=== PATIENT | female | born 1975 | race Hispanic/Latino ===

== ENCOUNTER 2018-11-29 17:55 | Inpatient (IN) | payer OTHER ==
--- OUTSIDE RECORDS SUMMARY | 2018-11-29 17:57 | XMS REPORT | Clinical Summary ---
:1975 Author Organization [facility] Address [address] [place] [address] Care Team Providers Name Role Phone Asked, No Pcp Primary Care Provider Unavailable Allergies Not on File Medications Not on file Active Problems Not on file Social History Tobacco Use Types Packs/Day Years Used Date Never Assessed Sex Assigned at Date Recorded Not on file Job Start Date Occupation Industry Not on file Not on file Not on file Travel History Travel Start Travel End No recent travel history available. Last Filed Vital Signs Not on file Plan of Treatment Health Maintenance Due Date Last Done Comments CERVICAL CANCER SCREENING 1996 INFLUENZA VACCINE 05/22/2018 Results Not on fileafter 11/28/2017 Insurance Payer Benefit Plan / Group Subscriber ID Type Phone Address [employer] [place] [employer] xxxxxxxxx HMO [employer] HMO MCR ADV xxxxxxxxxxx HMO Advance Directives Patient has advance care planning documents on file. For more information, please contact:[phone] [place] [address]
[2018-11-29] MEDS ORDERED: ALBUTEROL 2.5 MG/3 ML NEB SOL ONE ×2 (18:16→23:08)
[2018-11-29] MEDS ORDERED: IPRATROPIUM BROM 0.5MG/2.5ML ONE ×2 (18:16→23:08)
[2018-11-29 18:41] LABS: Absolute Lymphocytes (CBC) 0.8 K/uL (0.7-4.9); Absolute Monocytes 0.4 K/uL (0.1-1.3); Absolute Neutrophil 4.1 K/uL (1.8-8.0); Basophils % 1.2 % (0-1.3); Eosinophils % 0.8 % (0-4.4); Hematocrit 42.1 % (36.0-45.0); MPV 7.4 fL (7.6-11.3); Monocytes % 7.2 % (3.3-12.3); RBC Red Blood Cell Count 4.88 M/uL (3.86-4.86)
[2018-11-29 18:43] LABS: Protime INR 1.15
[2018-11-29 18:45] LABS: ALT/SGPT 41 U/L (12-78); AST/SGOT 32 U/L (15-37); Albumin 3.5 g/dL (3.4-5.0); Alkaline Phosphatase 118 U/L (45-117); BUN Blood Urea Nitrogen 10 mg/dL (7-18); Bicarbonate 23 mmol/L (21-32); Bilirubin Direct 0.2 mg/dL (0-0.2); Bilirubin Total 0.6 mg/dL (0.2-1.0); Glucose Level 228 mg/dL (74-106); Potassium 3.1 mmol/L (3.5-5.1); Protein, Total 7.9 g/dL (6.4-8.2); Sodium Level 138 mmol/L (136-145); Troponin (Emerg Dept Use Only) < 0.02 ng/mL (0.0-0.045)
[2018-11-29] MEDS ORDERED: NA CHLORIDE 0.9% 1,000 ML ONE ×2 (18:48→19:38)
[2018-11-29] MEDS ORDERED: METHYLPREDNISOLONE 125 MG INJ ONE (18:48)
--- NOTE | 2018-11-29 19:24 | RAD REPORT ---
EXAM DESCRIPTION: RAD - Chest Single View - 11/29/2018 6:48 pm CLINICAL HISTORY: Shortness of breath COMPARISON: August 2018 TECHNIQUE: AP portable chest image was obtained 1846 hour . FINDINGS: Lung volumes are low. This accentuates lung markings. No peripheral mass or consolidation. Mild interstitial edema or infiltrate can be masked in this setting. Heart and vasculature are osmar l. No measurable pleural effusion and no pneumothorax. No acute bony abnormality seen. No acute aorti c findings suspected. IMPRESSION: No focal mass or consolidation. Prominent interstitial lung markings potentially masking early edema or infiltrate.
[2018-11-29] MEDS ORDERED: POTASSIUM 25 MEQ EFFERV TAB ONE (19:39)
[2018-11-29] MEDS ORDERED: ACETAMINOPHEN 500 MG TAB ONE (20:15)
[2018-11-29] MEDS ORDERED: HYDROCODONE/CHLORPHEN 5 ML/OSYR ONE (20:26)
--- NOTE | 2018-11-29 22:38 | EDPHYS ---
Physician Documentation [facility] Name: Kelsy Gerber Age: 43 yrs Sex: Female : 1975 Arrival Date: 11/29/2018 Time: 17:56 Bed 8 Private MD: ED Physician Jaime Ospina HPI: 11/29 18:30 This 43 yrs old Female presents to ER via Wheelchair with complaints of Asthma cp Exacerbation. 18:30 The patient presents to the emergency department with wheezing, that began without any cp particular precipitating event, the patient was reported to have audible wheezing, chest pain, non-productive cough, trouble breathing, Pre-hospital care: rescue inhaler. Onset: The symptoms/episode began/occurred yesterday, and became worse today. Associated signs and symptoms: Pertinent positives: chest pain, Pertinent negatives: fever, vomiting. Severity of symptoms: in the emergency department the symptoms are unchanged despite home interventions. 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 N/A - Hysterectomy lp1 Historical: - Allergies: 11/29 17:58 Aspirin; sv 17:58 Daypro; sv 17:58 Ibuprofen; sv 17:58 Ketorolac; sv 17:58 Morphine; sv - Home Meds: 11/30 00:43 levothyroxine 50 mcg tab 1 tab once daily [Active]; Topamax 50 mg Oral tab daily lp1 [Active]; montelukast 10 mg oral tab 1 tab once daily [Active]; alprazolam 2 mg Oral tab [Active]; rizatriptan 10 mg oral tab [Active]; pantoprazole 40 mg oral TbEC 1 tab once daily [Active]; atorvastatin 20 mg oral tab nightly [Active]; oxybutynin chloride 5 mg Oral tab nightly [Active]; - PMHx: 11/29 17:58 Asthma; Bipolar disorder; fatty liver; Hypertension; Hypothyroidism; migranes; sv Pancreatitis; - PSHx: 11/30 00:43 Hysterectomy; Cholecystectomy; lp1 - Immunization history:: Adult Immunizations up to date, Flu vaccine is not up to date. - Ebola Screening: : No symptoms or risks identified at this time. - Social history:: Smoking status: Patient uses tobacco products, denies chronic smoking, but will smoke occasionally. ROS: 11/29 18:35 Constitutional: Negative for body aches, chills, fever, poor PO intake. cp 18:35 Eyes: Negative for injury, pain, redness, and discharge. cp 18:35 ENT: Negative for drainage from ear(s), ear pain, sore throat, difficulty swallowing, difficulty handling secretions. 18:35 Cardiovascular: Positive for chest pain, Negative for edema, palpitations. 18:35 Respiratory: Positive for cough, shortness of breath, wheezing. 18:35 Abdomen/GI: Negative for abdominal pain, nausea, vomiting, and diarrhea, black/tarry stool, rectal bleeding. 18:35 : Negative for urinary symptoms. 18:35 Skin: Negative for cellulitis, rash. 18:35 Neuro: Negative for altered mental status, dizziness, headache, syncope, weakness. 18:35 All other systems are negative. Exam: 18:40 Constitutional: The patient appears alert, awake, non-diaphoretic, non-toxic, well cp developed, well nourished, obese, in obvious distress, mildly distressed. 18:40 Head/Face: Normocephalic, atraumatic. cp 18:40 Eyes: Pupils equal round and reactive to light, extra-ocular motions intact. Lids and lashes normal. Conjunctiva and sclera are non-icteric and not injected. Cornea within normal limits. Periorbital areas with no swelling, redness, or edema. 18:40 ENT: External ear(s): are unremarkable, Ear canal(s): are normal, clear, TM's: bulging, is not appreciated, bilaterally, dullness, bilaterally, erythema, is not appreciated, bilaterally, Nose: is normal, Mouth: Lips: moist, Oral mucosa: pink and intact, moist, Posterior pharynx: Airway: no evidence of obstruction, patent, Tonsils: are normal in appearance, Uvula: midline, swelling, is not appreciated, erythema, is not appreciated, exudate, is not appreciated. 18:40 Neck: ROM/movement: is normal, is supple, no meningismus, no nuchal rigidity, Lymph nodes: no appreciated lymphadenopathy. 18:40 Chest/axilla: Inspection: normal, Palpation: is normal, no crepitus, no tenderness. 18:40 Cardiovascular: Rate: normal, Rhythm: regular, Heart sounds: murmur, not appreciated, rub, not appreciated, gallop, not appreciated, Edema: is not appreciated, JVD: is not appreciated. 18:40 Respiratory: mild respiratory distress is noted, Respirations: labored breathing, that is mild, tachypnea, that is mild, Breath sounds: bronchial sounds, that are mild, are heard diffusely, stridor, is not appreciated, wheezing: expiratory that is mild. 18:40 Abdomen/GI: Inspection: obese Palpation: abdomen is soft and non-tender, in all quadrants, rebound tenderness, is not appreciated, voluntary guarding, is not appreciated, involuntary guarding, is not appreciated. 18:40 Back: pain, is absent, ROM is normal. 18:40 Skin: cellulitis, is not appreciated, no rash present. 18:40 Neuro: Orientation: to person, place \T\ time. Mentation: is normal, Cerebellar function: is grossly normal, Motor: moves all fours, strength is normal, Sensation: is normal. 23:03 ECG was reviewed by the Attending Physician. cp Vital Signs: 17:58 Pulse 117; Resp 42; Pulse Ox 96% ; sv 18:08 BP 111 / 71; Resp 46; Temp 99.9; sv 18:30 BP 108 / 72; Pulse 82; Resp 22; Pulse Ox 98% on R/A; sg 19:21 BP 107 / 86; Pulse 115; Resp 20; Temp 99.3(O); Pulse Ox 99% on R/A; Weight 113.4 kg; aj Height 5 ft. 3 in. (160.02 cm); 20:21 BP 110 / 63; Pulse 103; Resp 20; Pulse Ox 98% on R/A; aj 22:40 BP 95 / 70; Pulse 98; Resp 22; Pulse Ox 98% on R/A; lp1 22:53 BP 113 / 71; Pulse 98; Resp 25; Pulse Ox 89% on R/A; lp1 23:45 BP 101 / 70; Pulse 110; Resp 23; Pulse Ox 96% on R/A; lp1 11/30 00:15 BP 105 / 58; Pulse 108; Resp 22; Temp 98.1(O); Pulse Ox 97% on 2 lpm NC; lp1 11/29 19:21 Body Mass Index 44.29 (113.40 kg, 160.02 cm) aj MDM: 11/29 18:14 Patient medically screened. cp 23:00 Data reviewed: vital signs, nurses notes, lab test result(s), EKG, radiologic studies, cp CT scan, plain films. 23:00 Test interpretation: by ED physician or midlevel provider: ECG, plain radiologic cp studies. Counseling: I had a detailed discussion with the patient and/or guardian regarding: the historical points, exam findings, and any diagnostic results supporting the discharge/admit diagnosis, lab results, radiology results, the need for further work-up and treatment in the hospital. Response to treatment: the patient's symptoms have mildly improved after treatment. Physician consultation: Ki Malin MD was called at 22:55, was contacted at 22:55, regarding admission, to the medical/surgical unit. patient's condition, and will see patient in ED, shortly. 11/29 18:10 Order name: Basic Metabolic Panel; Complete Time: 19:24 sv 11/29 20:48 Interpretation: Normal except: K 3.1; GLUC 228; GFR 57. cp 11/29 18:10 Order name: CBC with Diff; Complete Time: 19:24 sv 11/29 20:48 Interpretation: Normal except: RBC 4.88; MPV 7.4; DERECK% 75.8; LYM% 15.0. cp 11/29 18:10 Order name: LFT's; Complete Time: 19:24 sv 11/29 18:10 Order name: Magnesium; Complete Time: 19:24 sv 11/29 18:10 Order name: NT PRO-BNP; Complete Time: 19:24 sv 11/29 18:10 Order name: PT-INR; Complete Time: 19:24 sv 11/29 18:10 Order name: Troponin (emerg Dept Use Only); Complete Time: 19:24 sv 11/29 18:10 Order name: XRAY Chest (1 view); Complete Time: 20:48 sv 11/29 18:10 Order name: Blood Culture Adult (2) sv 11/29 18:27 Order name: Influenza Screen (a \T\ B); Complete Time: 19:24 cp 11/29 20:50 Order name: D-Dimer; Complete Time: 21:39 cp 11/29 21:24 Order name: CT Chest For PE Angio cp 11/29 21:25 Order name: US Extremity Venous Unilateral Ltd cp 11/29 23:39 Order name: ABG Arterial Blood Gas EDOH 11/29 18:10 Order name: EKG; Complete Time: 18:11 sv 11/29 18:10 Order name: Cardiac monitoring; Complete Time: 19:15 sv 11/29 18:10 Order name: EKG - Nurse/Tech; Complete Time: 23:29 sv 11/29 18:10 Order name: IV Saline Lock; Complete Time: 19:15 sv 11/29 18:10 Order name: Labs collected and sent; Complete Time: 19:15 sv 11/29 18:10 Order name: O2 Per Protocol; Complete Time: 19:15 sv 11/29 18:10 Order name: O2 Sat Monitoring; Complete Time: 19:15 sv EC:03 Rate is 97 beats/min. Rhythm is regular. VA interval is normal. QRS interval is normal. cp QT interval is normal. T waves are Inverted in lead III. Interpreted by me. Reviewed by me. Administered Medications: 18:10 Drug: Albuterol - atroVENT (3:1) (2.5 mg - 0.5 mg) 3 ml Route: Nebulizer; sv 19:56 Follow up: Response: No adverse reaction aj 19:14 Drug: SOLU-Medrol 125 mg Route: IVP; Site: right antecubital; sg 19:40 Follow up: Response: No adverse reaction aj 19:38 Drug: NS 0.9% 1000 ml Route: IV; Rate: 1 bolus; Site: right antecubital; aj 19:38 Drug: Potassium Effervescent Tablet 50 mEq Route: PO; aj 19:55 Follow up: Response: No adverse reaction aj 20:18 Drug: Tussionex Pennkinetic ER 5 ml Route: PO; aj 22:47 Follow up: Response: No adverse reaction; Marked relief of symptoms lp1 22:40 Drug: NS 0.9% 500 ml Route: IV; Rate: bolus; Site: right antecubital; lp1 23:12 Follow up: IV Status: Completed infusion; IV Intake: 500ml lp1 22:48 CANCELLED (Physician Discretion): Rocephin - (cefTRIAXone) 1 grams IVPB once over 30 cp mins; (mix in 50 mL NS) 23:11 Drug: Rocephin 1 grams Route: IV; Rate: calculated rate; Site: right antecubital; lp1 11/30 00:32 Follow up: IV Status: Completed infusion; IV Intake: 10ml lp1 11/29 23:12 Drug: Albuterol - atroVENT (3:1) (2.5 mg - 0.5 mg) 3 ml Route: Nebulizer; lp1 11/30 00:35 Follow up: Response: No adverse reaction lp1 00:35 Drug: Zithromax 500 mg Route: PO; lp1 01:00 Follow up: Response: No adverse reaction lp1 Disposition: 11/29/18 23:02 Hospitalization ordered by Ki Malin for Observation. Preliminary diagnosis are Pneumonia due to other specified bacteria, Unspecified asthma with (acute) exacerbation. - Bed requested for Telemetry/MedSurg (observation). - Status is Observation. lp1 - Condition is Stable. - Problem is new. - Symptoms have improved. UTI on Admission? No Addendum: 12/02/2018 09:15 Co-signature as Attending Physician, Jaime Ospina MD I agree with the assessment and c siddiqui plan of care. Signatures: Dispatcher [employer] EDYazmin Orona RN RN kl Verde, Stephanie, RN RN sv Gay, Steven, RN RN sg Myers, Amanda, RN RN aj Anderson, Corey, MD MD cha Pena, Laura, RN RN lp1 Jaime Roberto PA PA cp Corrections: (The following items were deleted from the chart) 11/29 22:48 22:35 Rocephin - (cefTRIAXone) 1 grams IVPB once over 30 mins; (mix in 50 mL NS) cp ordered. cp 23:01 22:37 11/29/2018 22:37 Discharged to Home. Impression: Pneumonia due to other specified cp bacteria; Unspecified asthma with (acute) exacerbation. Condition is Stable. Forms are Medication Reconciliation Form, Thank You Letter, Antibiotic Education, Prescription Opioid Use. Follow up: Private Physician; When: 2 - 3 days; Reason: Recheck today's complaints. Problem is new. Symptoms have improved. cp 23:49 23:02 Hospitalization Ordered by Ki Malin MD for Observation. Preliminary kl diagnosis is Pneumonia due to other specified bacteria; Unspecified asthma with (acute) exacerbation. Bed requested for Telemetry/MedSurg (observation). Status is Observation. Condition is Stable. Problem is new. Symptoms have improved. UTI on Admission? No. cp 11/30 01:13 11/29 23:49 11/29/2018 23:02 Hospitalization Ordered by Ki Malin MD for lp1 Observation. Preliminary diagnosis is Pneumonia due to other specified bacteria; Unspecified asthma with (acute) exacerbation. Bed requested for Telemetry/MedSurg (observation). Status is Observation. Condition is Stable. Problem is new. Symptoms have improved. UTI on Admission? No. kl
--- NOTE | 2018-11-29 22:38 | ER ---
Nurse's Notes [facility] Name: Kelsy Gerber Age: 43 yrs Sex: Female : 1975 Arrival Date: 11/29/2018 Time: 17:56 Bed 8 Private MD: Diagnosis: Pneumonia due to other specified bacteria;Unspecified asthma with (acute) exacerbation Presentation: 11/29 17:58 Presenting complaint: Patient states: SOB that has increased today, hx asthma. sv Transition of care: patient was not received from another setting of care. Onset of symptoms was November 29, 2018. Care prior to arrival: None. 17:58 Method Of Arrival: Wheelchair sv 17:58 Acuity: KELLEY 2 sv 22:49 Risk Assessment: Do you want to hurt yourself or someone else? Patient reports no lp1 desire to harm self or others. Initial Sepsis Screen: Does the patient meet any 2 criteria? No. Patient's initial sepsis screen is negative. Does the patient have a suspected source of infection? No. Patient's initial sepsis screen is negative. 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 N/A - Hysterectomy lp1 Historical: - Allergies: 11/29 17:58 Aspirin; sv 17:58 Daypro; sv 17:58 Ibuprofen; sv 17:58 Ketorolac; sv 17:58 Morphine; sv - Home Meds: 11/30 00:43 levothyroxine 50 mcg tab 1 tab once daily [Active]; Topamax 50 mg Oral tab daily lp1 [Active]; montelukast 10 mg oral tab 1 tab once daily [Active]; alprazolam 2 mg Oral tab [Active]; rizatriptan 10 mg oral tab [Active]; pantoprazole 40 mg oral TbEC 1 tab once daily [Active]; atorvastatin 20 mg oral tab nightly [Active]; oxybutynin chloride 5 mg Oral tab nightly [Active]; - PMHx: 11/29 17:58 Asthma; Bipolar disorder; fatty liver; Hypertension; Hypothyroidism; migranes; sv Pancreatitis; - PSHx: 11/30 00:43 Hysterectomy; Cholecystectomy; lp1 - Immunization history:: Adult Immunizations up to date, Flu vaccine is not up to date. - Ebola Screening: : No symptoms or risks identified at this time. - Social history:: Smoking status: Patient uses tobacco products, denies chronic smoking, but will smoke occasionally. Screenin/08 18:00 Abuse screen: Denies threats or abuse. Denies injuries from another. Nutritional sg screening: No deficits noted. Tuberculosis screening: No symptoms or risk factors identified. Never had TB. Fall Risk None identified. Assessment: 18:00 General: Appears in no apparent distress. well groomed, well developed, well nourished, sg Behavior is cooperative, appropriate for age, anxious. Pain: Denies pain. Neuro: Level of Consciousness is awake, alert, obeys commands, Oriented to person, place, time, situation, Dough Molder Hand are equal bilaterally Moves all extremities. Full function Speech is normal, Facial symmetry appears normal. Cardiovascular: Capillary refill is brisk in bilateral fingers Patient's skin is warm and dry. Respiratory: Airway Respiratory effort is even, unlabored, Respiratory pattern is symmetrical, tachypnea. GI: No signs and/or symptoms were reported involving the gastrointestinal system. : No signs and/or symptoms were reported regarding the genitourinary system. EENT: No signs and/or symptoms were reported regarding the EENT system. Derm: Skin is pink, warm \\T\\ dry. Musculoskeletal: No signs and/or symptoms reported regarding the musculoskeletal system. 18:49 Reassessment: Patient appears in no apparent distress at this time. Patient and/or sg family updated on plan of care and expected duration. Pain level reassessed. Patient is alert, oriented x 3, equal unlabored respirations, skin warm/dry/pink. pts lung sound more clear, pt reports " still feel a little wheezy". Respiratory: Airway is patent Respiratory effort is even, unlabored, Respiratory pattern is symmetrical, tachypnea. 18:51 Reassessment: Patient appears in no apparent distress at this time. awaiting BNP and sg chest xray results prior to administration of IV NS Bolus, pt reports understanding, IV solumedrol to be administered as ordered. 19:42 General: Appears in no apparent distress. comfortable, Behavior is calm, cooperative. aj Pain: Denies pain. Neuro: Level of Consciousness is awake, alert, obeys commands, Oriented to person, place, time, situation, Appropriate for age. Respiratory: Airway is patent Respiratory effort is even, unlabored, Respiratory pattern is symmetrical, hyperventilation Patient has audible wheezes upon expiration when she is awake. When patient is resting no audible wheezes noted. Derm: Skin is intact, is healthy with good turgor, Skin is pink, warm \\T\\ dry. normal. 22:45 Reassessment: Patient and/or family updated on plan of care and expected duration. Pain lp1 level reassessed. On arrival into room, patient with labored breathing, states "I'm trying to slow my breathing like the nurse taught me" Patient denies pain at this time. Patient states feeling better. General: Behavior is anxious. 23:10 Reassessment: Provider notified of O2 sat of 90% on RA, patient continues to be lp1 tachypneic at 26 respirations per minute; audible wheezing when talking. Respiratory: Respiratory effort is labored, Breath sounds are clear bilaterally. 23:10 Reassessment: verbal order given for 3:1 Albuterol/Atrovent treatment. lp1 23:49 Reassessment: pt assisted to bedside commode, pt brief changed. pt assisted back to ak1 bed. RT at bedside for ABG. 11/30 00:30 Reassessment: Wheezing exacerbated by exertion; Continued tachypnea noted, placed on 2L lp1 NC for comfort; Aware of pending admission. Vital Signs: 11/29 17:58 Pulse 117; Resp 42; Pulse Ox 96% ; sv 18:08 BP 111 / 71; Resp 46; Temp 99.9; sv 18:30 BP 108 / 72; Pulse 82; Resp 22; Pulse Ox 98% on R/A; sg 19:21 BP 107 / 86; Pulse 115; Resp 20; Temp 99.3(O); Pulse Ox 99% on R/A; Weight 113.4 kg; aj Height 5 ft. 3 in. (160.02 cm); 20:21 BP 110 / 63; Pulse 103; Resp 20; Pulse Ox 98% on R/A; aj 22:40 BP 95 / 70; Pulse 98; Resp 22; Pulse Ox 98% on R/A; lp1 22:53 BP 113 / 71; Pulse 98; Resp 25; Pulse Ox 89% on R/A; lp1 23:45 BP 101 / 70; Pulse 110; Resp 23; Pulse Ox 96% on R/A; lp1 11/30 00:15 BP 105 / 58; Pulse 108; Resp 22; Temp 98.1(O); Pulse Ox 97% on 2 lpm NC; lp1 11/29 19:21 Body Mass Index 44.29 (113.40 kg, 160.02 cm) aj ED Course: 11/29 17:56 Patient arrived in ED. sb2 17:58 Triage completed. sv 18:00 Patient has correct armband on for positive identification. Bed in low position. Call sg light in reach. Side rails up X2. Pulse ox on. NIBP on. 18:13 Missed attempt(s): 20 gauge in right antecubital area. Bleeding controlled, band aid dh3 applied, catheter tip intact. 18:14 Jaime Robreto PA is PHCP. cp 18:14 Jaime Ospina MD is Attending Physician. cp 18:15 Initial lab(s) drawn, by ut, sent to lab. First set of blood cultures drawn. Inserted dh3 saline lock: 20 gauge in right antecubital area, using aseptic technique. Blood collected. 18:27 Tiago Angulo RN is Primary Nurse. sg 18:47 X-ray completed. Portable x-ray completed in exam room. Patient tolerated procedure ls3 well. 18:47 XRAY Chest (1 view) In Process Unspecified. EDMS 18:57 Primary Nurse role handed off by Tiago Angulo RN aj 18:57 Maggy Leon, RN is Primary Nurse. aj 20:42 Patient taken to restroom in wheelchair. aj 21:[address] vr 21:39 CT completed. Patient tolerated procedure well. vr 21:50 Patient taken to ultrasound. via stretcher. vr 21:54 CT Chest For PE Angio In Process Unspecified. EDMS 21:55 US Extremity Venous Unilateral Ltd In Process Unspecified. EDMS 22:00 Report received from Maggy Leon RN. lp1 22:45 EKG done, by ED staff, reviewed by Jaime MIKE. lp1 22:49 No provider procedures requiring assistance completed. lp1 23:01 Ki Malin MD is Hospitalizing Provider. cp 23:14 Arm band placed on. lp1 23:58 Patient admitted, IV remains in place. lp1 11/30 00:40 Attempted to call report to floor, nurse will call back. lp1 Administered Medications: 11/29 18:10 Drug: Albuterol - atroVENT (3:1) (2.5 mg - 0.5 mg) 3 ml Route: Nebulizer; sv 19:56 Follow up: Response: No adverse reaction aj 19:14 Drug: SOLU-Medrol 125 mg Route: IVP; Site: right antecubital; sg 19:40 Follow up: Response: No adverse reaction aj 19:38 Drug: NS 0.9% 1000 ml Route: IV; Rate: 1 bolus; Site: right antecubital; aj 19:38 Drug: Potassium Effervescent Tablet 50 mEq Route: PO; aj 19:55 Follow up: Response: No adverse reaction aj 20:18 Drug: Tussionex Pennkinetic ER 5 ml Route: PO; aj 22:47 Follow up: Response: No adverse reaction; Marked relief of symptoms lp1 22:40 Drug: NS 0.9% 500 ml Route: IV; Rate: bolus; Site: right antecubital; lp1 23:12 Follow up: IV Status: Completed infusion; IV Intake: 500ml lp1 22:48 CANCELLED (Physician Discretion): Rocephin - (cefTRIAXone) 1 grams IVPB once over 30 cp mins; (mix in 50 mL NS) 23:11 Drug: Rocephin 1 grams Route: IV; Rate: calculated rate; Site: right antecubital; lp1 11/30 00:32 Follow up: IV Status: Completed infusion; IV Intake: 10ml lp1 11/29 23:12 Drug: Albuterol - atroVENT (3:1) (2.5 mg - 0.5 mg) 3 ml Route: Nebulizer; lp1 11/30 00:35 Follow up: Response: No adverse reaction lp1 00:35 Drug: Zithromax 500 mg Route: PO; lp1 01:00 Follow up: Response: No adverse reaction lp1 Intake: 11/29 23:12 IV: 500ml; Total: 500ml. lp1 11/30 00:32 IV: 10ml; Total: 510ml. lp1 Outcome: 11/29 22:37 Discharge ordered by . cp 23:02 Decision to Hospitalize by Provider. cp 11/30 00:43 Condition: stable lp1 Instructed on the need for admit. 01:06 Admitted to Tele accompanied by tech, room 422, with oxygen, with chart, Report called lp1 to ELIZ Sam 01:13 Patient left the ED. lp1 Signatures: Dispatcher [employer] EDNicolasa Torres RN ELIZ Tiago Angulo RN RN sg Maggy Leon RN Hailey Meyer Laura, RN RN lp1 Blanca Rivas RN RN ak1 Jaime Roberto PA PA cp Herrera, Cristine 3 Kayla Nicole 2 Heike Miguel 3 Corrections: (The following items were deleted from the chart) 11/29 18:08 17:58 Acuity: KELLEY 3 sv sv 18:09 18:08 BP 111 / 71; Resp 46bpm; sv sv 18:50 18:00 Respiratory: Airway Respiratory effort is even, unlabored, Respiratory pattern is sg regular, symmetrical, sg 20:20 19:21 BP 107 / 86; Pulse 115bpm; Resp 20bpm; Pulse Ox 99% RA; aj aj 20:31 20:21 BP 110 / 63; Pulse 103bpm; Resp 20bpm; Pulse Ox 96% RA; aj aj 21:50 21:[address] moved back [address]. vr vr 21:59 19:21 BP 107 / 86; Pulse 115bpm; Resp 20bpm; Pulse Ox 99% RA; 113.4 kg; Height 5 ft. 3 aj in.; BMI: 44.2; aj
[2018-11-29] MEDS ORDERED: NA CHLORIDE 0.9% 500 ML ONE (22:45)
[2018-11-29] MEDS ORDERED: CEFTRIAXONE/SWI 1gm 1 GM/10 ML SYR ONE (23:10)
--- NOTE | 2018-11-29 23:55 | P.HP ---
Certification for Inpatient Patient admitted to: Inpatient With expected LOS: >2 Midnights Practitioner: I am a practitioner with admitting privileges, knowledge of patient current condition, hospital course, and medical plan of care. Services: Services provided to patient in accordance with Admission requirements found in Title 42 Section 412.3 of the Code of Federal Regulations Patient History Date of Service: 11/29/18 Reason for admission: acute respiratory failure History of Present Illness: Ms Gerber is a 43 years old woman with history of moderate persistent asthma , obesity, HTN, Hypothyroidism, bipolar syndrome who start 2 days ago with progressive SOB. She had also dry cough. Her symptoms were not relieved by breathing treatments. She denied fever or chills, however, in ER her temp was 99.9F. O2 sat was 98% on RA. D-dimer was mildly elevated, subsequent CTA chest showed no PE but there is a interstitial opacity in the left upper lobe concerning for pneumonia. Lab work remarkable for normal WBC count, and hypokalemia. At my encounter, the patient was tachypneic, with audible expiratory wheezing. Allergies aspirin Allergy (Verified 10/10/16 23:40) Unknown ibuprofen Allergy (Verified 10/10/16 23:40) Hives ketorolac Allergy (Verified 10/10/16 23:40) Unknown ketorolac tromethamine [From Toradol] Allergy (Verified 10/10/16 23:40) Hives morphine Allergy (Unverified 10/28/17 16:42) Unknown oxaprozin [From Daypro] Allergy (Verified 10/10/16 23:40) Unknown Home Medications: Montelukast [Singulair*] 10 mg PO DAILY 09/02/14 Levothyroxine [Synthroid*] 75 mcg PO [id number] 09/23/14 Losartan Potassium 50 mg PO DAILY 10/10/16 Multivitamin [One-Daily Multi-Vitamin] 1 each PO DAILY 10/10/16 Pantoprazole [Protonix Tab*] 40 mg PO DAILY 10/10/16 ALPRAZolam [Xanax*] 1 mg PO Q12HP PRN 10/11/16 Albuterol Sulfate [Proair Hfa] 1 puff IH DAILY 10/11/16 Budesonide/Formoterol Fumarate [Symbicort 160-4.5 Mcg Inhaler] 1 puff IH DAILY 10/11/16 Lipase/Protease/Amylase [Creon Dr 12,000 Units Capsule] 24,000 units PO TIDWM Topiramate [Topamax*] 50 mg PO DAILY #30 tab 10/20/16 - Past Medical/Surgical History Diabetic: Yes -: Asthma -: Bipolar -: Fatty liver -: RON -: DM-Type 2- pt denied -: Insomnia -: Hypothyroidism -: Liver cyst -: Obesity -: History of pancreatitis -: hysterectomy -: gall bladder removal -: skin graft R upper thigh Psychosocial/ Personal History: She is with 2 children. She lives with a daughter. - Family History Brother -: Stroke Mother -: Other (see notes) Notes: Alzheimer's/dementia Father -: Heart disease, Hypertension, Lung disease, GI disease, Diabetes, Other (see notes) Notes: absestos - Social History Smoking Status: Former smoker Alcohol use: No CD- Drugs: No Caffeine use: Yes Place of Residence: Home Review of Systems 10-point ROS is otherwise unremarkable Physical Examination - Physical Exam General: Alert, In no apparent distress HEENT: Atraumatic, PERRLA, Mucous membr. moist/pink, EOMI, Sclerae nonicteric Neck: Supple, 2+ carotid pulse no bruit, No LAD, Without JVD or thyroid abnormality Respiratory: Diminished, Crackles/rales (bibasilar crackles), Expiratory wheezes Cardiovascular: Regular rate/rhythm, Normal S1 S2 Gastrointestinal: Normal bowel sounds, No tenderness Musculoskeletal: No tenderness Integumentary: No rashes Neurological: Normal speech, Normal strength at 5/5 x4 extr, Normal tone, Normal affect Lymphatics: No axilla or inguinal lymphadenopathy - Studies Laboratory Data (last 24 hrs) 11/29/18 18:15: PT 13.5 H, INR 1.15 11/29/18 18:15: WBC 5.4, Hgb 14.1, Hct 42.1, Plt Count 380 11/29/18 18:15: Sodium 138, Potassium 3.1 L, BUN 10, Creatinine 1.06, Glucose 228 H, Magnesium 2.0, Total Bilirubin 0.6, AST 32, ALT 41, Alkaline Phosphatase 118 H Microbiology Data (last 24 hrs): 11/29/18 18:36 Nasopharnyx Influenza Type A Antigen Screen - Final 11/29/18 18:36 Nasopharnyx Influenza Type B Antigen Screen - Final Assessment and Plan - Problems (Diagnosis) (1) Acute respiratory failure Current Visit: Yes Status: Acute (2) Pneumonia Current Visit: Yes Status: Acute Qualifiers: Pneumonia type: due to unspecified organism Laterality: left Lung location: upper lobe of lung Qualified Code(s): J18.1 - Lobar pneumonia, unspecified organism (3) Acute severe exacerbation of moderate persistent asthma Current Visit: Yes Status: Acute (4) Hypertension Current Visit: No Status: Chronic Qualifiers: Hypertension type: essential hypertension Qualified Code(s): I10 - Essential (primary) hypertension (5) Hypothyroidism Onset Date: 10/11/16 Current Visit: No Status: Chronic Qualifiers: Hypothyroidism type: unspecified Qualified Code(s): E03.9 - Hypothyroidism , unspecified - Plan Will admit Ms Gerber due to aucte respiratory failure secondary to asthma exacerbation in context of left upper lobe pneumonia. Will continue with IV antibiotics, IV steroids, and breathing treatments. Consult senior grants officer. Pending procalcitonin and lactate. - Advance Directives Does patient have a Living Will: No Does patient have a Durable POA for Healthcare: No - Code Status/Comfort Care Code Status Assessed: Yes Code Status: Full Code
[2018-11-30 00:03] LABS: Arterial Blood Carboxyhemoglob 0.9 % (0-1.5); Blood Gas Oxyhemoglobin 94.4 % (94-97); Blood O2 Saturation 96.1 % (92-98.5)
[2018-11-30] MEDS ORDERED: AZITHROMYCIN 250 MG TAB ONE (00:40)
[2018-11-30 01:33] VITALS: BMI 42.5
[2018-11-30] MEDS ORDERED: IPRATROPIUM BROM 0.5MG/2.5ML NEB PRN (01:36)
[2018-11-30] MEDS ORDERED: NA CHLORIDE 0.9% 1,000 ML IV SCH (01:36)
[2018-11-30] MEDS ORDERED: ALBUTEROL 2.5 MG/3 ML NEB SOL NEB PRN (01:36)
[2018-11-30] MEDS ORDERED: ONDANSETRON 4 MG/2 ML VIAL IV PRN (01:36)
[2018-11-30] MEDS ORDERED: CEFTRIAXONE 1 GM/NS 50 ML 1 GM/50 ML BAG IV SCH (02:00)
[2018-11-30] MEDS ORDERED: AZITHROMYCIN IV 500 MG in NA CHLORIDE 0.9% 250 ML IVPB SCH (02:00)
[2018-11-30] MEDS: METHYLPREDNISOLONE 125 MG INJ IV SCH ×4 (02:11→17:09)
[2018-11-30] MEDS ORDERED: NA CHLORIDE 0.9% 1,000 ML ONE (03:04)
[2018-11-30] MEDS ORDERED: POTASSIUM CL SA 10 MEQ TAB PO ONE (03:12)
[2018-11-30] MEDS: ACETAMINOPHEN 500 MG TAB PO PRN ×2 (03:43→11:13)
[2018-11-30 04:06] LABS: Urine Appearance CLEAR; Urine Bilirubin NEGATIVE (NEG); Urine Blood NEGATIVE (NEG); Urine Color YELLOW; Urine Glucose 3+ (NEG); Urine Protein NEGATIVE (NEG); Urine Specific Gravity >=1.030 (1.005-1.030); Urine Urobilinogen 0.2 mg/dL (0.2-1.0); Urine pH 5.5 (5.0-7.0)
[2018-11-30 04:21] LABS: Urine Microscopic Reflex NO UMIC
[2018-11-30 05:24] LABS: Absolute Lymphocytes (CBC) 0.4 K/uL (0.7-4.9); Absolute Neutrophil 4.5 K/uL (1.8-8.0); Basophils % 0.5 % (0-1.3); Hematocrit 38.1 % (36.0-45.0); Lymphocytes % 7.8 % (15.3-44.8); MPV 7.4 fL (7.6-11.3); Monocytes % 0.9 % (3.3-12.3); RBC Red Blood Cell Count 4.39 M/uL (3.86-4.86)
--- NOTE | 2018-11-30 06:33 | EKG ---
Test Date: 2018-11-29 Test Time: 22:42:56 Roving Department Supervisor: AMRITA MEASUREMENT RESULTS: Intervals: Rate: 97 TN: 156 QRSD: 98 QT: 370 QTc: 469 Show Low: P: 42 TN: 156 QRS: -63 T: 18 INTERPRETIVE STATEMENTS: Normal sinus rhythm Incomplete right bundle branch block Left axis Abnormal ECG Compared to ECG 04/18/2017 17:35:19 Incomplete right bundle-branch block now present Electronically Signed On 11-30-18 06:24:56 WHEELCHAIR RENTAL CLERK by Cornel Fields
[2018-11-30] MEDS: ENOXAPARIN 40 MG/0.4 ML SQ SCH (08:28)
[2018-11-30 08:40] LABS: Blood Morphology Comment NOT SEEN (NOT SEEN); Platelet Estimate ADEQ; Urine White Blood Cell Casts OK
[2018-11-30] MEDS ORDERED: IPRATROPIUM BROM 0.5MG/2.5ML NEB SCH (09:00)
--- NOTE | 2018-11-30 09:02 | RAD REPORT ---
EXAM DESCRIPTION: [facility]11/29/2018 9:55 pm CLINICAL HISTORY: left leg pain . COMPARISON: None. FINDINGS: Left common femoral, superficial femoral, popliteal and posterior tibial veins are compre ssible and demonstrate augmentation. Doppler demonstrates good flow. IMPRESSION: No evidence of deep venous thrombosis involving the left lower extremity.
[2018-11-30] MEDS ORDERED: ALBUTEROL 2.5 MG/3 ML NEB SOL NEB SCH ×2 (09:08→12:00)
--- NOTE | 2018-11-30 10:34 | P.CNS ---
Date of Consult: 11/30/18 Chief Complaint: acute respiratory failure History of Present Illness: Patient is 43 years of age admitted with 3 day history of worsening shortness of breath and cough she has a history of obstructive airways disease former smoker quit 2 years ago she does use Advair and pro air at home history of hypertension possible diabetes and pancreatitis been short of breath for about a month also been complaining of a chronic cough for 6 months patient very short of breath, difficulty speaking in sentences Allergies aspirin Allergy (Mild, Verified 11/30/18 01:55) Shortness of breath ibuprofen Allergy (Mild, Verified 11/30/18 01:55) Hives ketorolac Allergy (Mild, Verified 11/30/18 01:55) Shortness of breath morphine Allergy (Mild, Verified 11/30/18 01:55) Shortness of breath oxaprozin [From Daypro] Allergy (Mild, Verified 11/30/18 01:55) Shortness of breath Home Medications: Montelukast [Singulair*] 10 mg PO DAILY 09/02/14 Levothyroxine [Synthroid*] 75 mcg PO [id number] 09/23/14 Pantoprazole [Protonix Tab*] 40 mg PO DAILY 10/10/16 ALPRAZolam [Xanax*] 1 mg PO BID 10/11/16 Albuterol Sulfate [Proair Hfa] 1 puff IH DAILY 10/11/16 Lipase/Protease/Amylase [Creon Dr 12,000 Units Capsule] 24,000 units PO TIDWM Topiramate [Topamax*] 50 mg PO DAILY #30 tab 10/20/16 Atorvastatin Calcium [Lipitor*] 20 mg PO BEDTIME 11/30/18 Oxybutynin Chloride [Ditropan*] 5 mg PO BEDTIME 11/30/18 Pregabalin [Lyrica*] 100 mg PO BEDTIME 11/30/18 Rizatriptan Benzoate [Rizatriptan] 10 mg PO DAILY 11/30/18 - Past Medical/Surgical History Diabetic: No -: Asthma -: Bipolar -: Fatty liver -: RON -: DM-Type 2- states no longer diabetic -: Insomnia -: Hypothyroidism -: COPD -: Obesity -: History of pancreatitis -: anxiety -: hysterectomy -: gall bladder removal -: skin graft Lt upper thigh Psychosocial/ Personal History: She is with 2 children. She lives with a daughter. - Family History Brother Medical History: Stroke, Kidney disease Mother Medical History: Hypertension, Diabetes, Stroke, Other (see notes) Notes: Alzheimer's/dementia Father Medical History: Heart disease, Hypertension, Lung disease, GI disease, Diabetes Notes: absestos - Social History Smoking Status: Current some day smoker Alcohol use: No CD- Drugs: No Caffeine use: Yes Place of Residence: Home Review of Systems 10-point ROS is otherwise unremarkable General: Weakness Respiratory: Cough, Shortness of Breath Physical Examination Temp Pulse Resp BP Pulse Ox 97.9 F 76 24 H 111/68 93 11/30/18 08:00 11/30/18 08:00 11/30/18 08:00 11/30/18 08:00 11/30/18 08:00 General: Alert, Moderate distress HEENT: Atraumatic, Other Respiratory: Expiratory wheezes Cardiovascular: No edema, Regular rate/rhythm Gastrointestinal: Normal bowel sounds, Soft and benign Musculoskeletal: No clubbing, No contractures Laboratory Data (last 24 hrs) 11/29/18 18:15: PT 13.5 H, INR 1.15 11/29/18 18:15: WBC 5.4, Hgb 14.1, Hct 42.1, Plt Count 380 11/29/18 18:15: Sodium 138, Potassium 3.1 L, BUN 10, Creatinine 1.06, Glucose 228 H, Magnesium 2.0, Total Bilirubin 0.6, AST 32, ALT 41, Alkaline Phosphatase 118 H - Problems (1) Respiratory distress Current Visit: Yes Status: Acute Plan: Patient is 43 years of age with a history of obstructive airways disease admitted with 3 day history of a cough shortness of breath she has had a chronic cough for the past 6 months aggressive worsening of heard for smoke appears to be in moderate to severe distress there is no evidence of sepsis or hypercapnia lactic acid is mildly elevated stay x-rays clear CT chest possible infiltrate and a strongly suspect that she has an exacerbation of underlying obstructive airways disease presume COPD/asthma plan to maximize bronchodilator therapy for now
[2018-11-30] MEDS: LIPASE/PROTEASE/AMYLASE CAP PO SCH ×2 (11:58→17:09)
[2018-11-30] MEDS: ARFORMOTEROL TARTRATE 15 MCG/2 ML VIAL.NEB NEB SCH ×2 (12:02→19:56)
[2018-11-30] MEDS ORDERED: HYDROCODONE/APAP 5/325 MG TAB PO ONE (12:50)
[2018-11-30] MEDS ORDERED: INFLUENZA VACCINE (for 3y+) 0.5 ML DOSE IMVAC ONE (13:00)
[2018-11-30] MEDS: IPRATROPIUM BROM 0.5MG/2.5ML NEB SCH ×2 (14:13→19:56)
--- NOTE | 2018-11-30 16:32 | PN ---
Date of Progress Note: 11/30/2018 History: The patient seen and examined, chart reviewed, and case discussed with RN and Dr. Mccall. The patient is very anxious and short of breath while talking, in some respiratory distress. Medications: List reviewed. Physical Examination: Vital Signs: Temperature 97.9, heart rate 76, blood pressure 111/68, respirations 24, O2 93% on 3 L via nasal cannula. General: Awake, alert, oriented x3, ill-appearing, morbidly obese female, in mild respiratory distre ss. CV: S1, S2. Regular rate and rhythm. Peripheral pulses present. Respiratory: The patient is tachypneic with use of accessory muscles. Diminished breath sounds. Di ffuse wheezing audible. Gastrointestinal: Abdomen is soft, nontender, nondistended. Positive bowel sounds. Extremities: No clubbing, cyanosis, or edema. No calf tenderness. Neuro: Cranial nerves 2-12 intact grossly. No focal neurological deficits. Speech is normal. Skin: No rashes. Normal skin turgor. Psych: Mood is anxious. Affect is congruent with mood. Insight and judgment are good. Laboratory Data: Sodium 140, potassium 4, chloride 109, CO2 18, BUN 11, creatinine 0.96, glucose 300 , calcium 8.6, lactate 4.6, repeat is 2.9. WBC 5, H and H 12.6 and 38.1, platelets 357, neutrophils 90%. Influenza screen negative. Assessment And Plan: A 43-year-old female with: 1.Acute respiratory distress with hypoxia, secondary to chronic obstructive pulmonary disease. We w ill continue with supplemental oxygen. The patient does have elevated lactate. CT angio is negative for PE, and likely related to chronic obstructive pulmonary disease. 2.Acute chronic obstructive pulmonary disease exacerbation. Continue with bronchodilators, nebulize r treatments, and steroids. 3.Pneumonia, left upper lobe. Continue with IV antibiotics. We will follow up on cultures. 4.Essential hypertension. 5.Hypothyroidism. 6.Gastrointestinal and deep vein thrombosis prophylaxes addressed. Plan: As above. Likely discharge in the next 24-48 hours depending on clinical response. SA/MODL Voice ID: [id number] Report ID: [id number]
[2018-11-30] MEDS: CEFTRIAXONE/SWI 1gm 1 GM/10 ML SYR IV SCH (21:03)
[2018-11-30] MEDS: OXYBUTYNIN CHLORIDE 5 MG TAB PO SCH (21:05)
[2018-11-30] MEDS: ALPRAZOLAM 1 MG TABLET PO SCH (21:05)
[2018-11-30] MEDS: ATORVASTATIN 20 MG TAB PO SCH (21:05)
[2018-11-30] MEDS: PREGABALIN 50 MG CAP PO SCH (21:05)
[2018-12-01] MEDS: METHYLPREDNISOLONE 125 MG INJ IV SCH ×3 (00:45→12:37)
[2018-12-01] MEDS: IPRATROPIUM BROM 0.5MG/2.5ML NEB SCH ×4 (02:00→20:00)
[2018-12-01] MEDS: ALBUTEROL 2.5 MG/3 ML NEB SOL NEB PRN (02:00)
[2018-12-01] MEDS: LEVOTHYROXINE SOD 0.075 MG TAB PO SCH (05:31)
[2018-12-01] MEDS: PANTOPRAZOLE 40MG TABLET PO SCH (05:32)
[2018-12-01 06:56] LABS: Magnesium 2.8 mg/dL (1.8-2.4); Potassium 4.6 mmol/L (3.5-5.1)
[2018-12-01] MEDS: ARFORMOTEROL TARTRATE 15 MCG/2 ML VIAL.NEB NEB SCH ×2 (08:01→20:00)
[2018-12-01] MEDS: MONTELUKAST 10 MG TAB PO SCH (08:40)
[2018-12-01] MEDS: TOPIRAMATE 25 MG TAB PO SCH (08:40)
[2018-12-01] MEDS: ALPRAZOLAM 1 MG TABLET PO SCH ×2 (08:40→21:00)
[2018-12-01] MEDS: ENOXAPARIN 40 MG/0.4 ML SQ SCH (08:40)
[2018-12-01] MEDS: AZITHROMYCIN 250 MG TAB PO SCH (08:40)
[2018-12-01] MEDS: LIPASE/PROTEASE/AMYLASE CAP PO SCH ×3 (08:41→17:45)
[2018-12-01] MEDS: RIZATRIPTAN BENZOATE 10 MG PO SCH (08:42)
[2018-12-01] MEDS: GUAIFENESIN/CODEINE 5ML UCUP PO PRN ×3 (10:30→23:54)
[2018-12-01] MEDS ORDERED: LORazepam 2 MG/ML VIAL IV ONE ×2 (12:58→20:05)
[2018-12-01] MEDS ORDERED: LORazepam 2 MG/ML VIAL ONE ×2 (13:11→20:01)
[2018-12-01] MEDS: HYDROCODONE/APAP 7.5/325 MG TAB PO PRN ×2 (13:14→21:56)
[2018-12-01 13:33] LABS: Arterial Blood Carboxyhemoglob 0.7 % (0-1.5); Blood Gas Oxyhemoglobin 92.9 % (94-97); Blood O2 Saturation 94.3 % (92-98.5)
[2018-12-01] MEDS: BENZONATATE 100 MG CAP PO PRN ×2 (13:47→19:57)
--- NOTE | 2018-12-01 14:21 | RAD REPORT ---
EXAM DESCRIPTION: RAD - Chest Single View - 12/01/2018 1:38 pm CLINICAL HISTORY: Cough and congestion, shortness of breath, code yellow COMPARISON: November 29 TECHNIQUE: AP portable chest image was obtained 1334 hours . FINDINGS: No peripheral mass or consolidation. No measurable failure or volume overload. Lung markin gs are similar to the comparison. Heart and vasculature are normal. No measurable pleural effusion an d no pneumothorax. No acute bony abnormality seen. No acute aortic findings suspected. IMPRESSION: No acute cardiopulmonary process. No significant interval change.
[2018-12-01] MEDS ORDERED: LORazepam 2 MG/ML VIAL IV PRN (15:13)
[2018-12-01] MEDS ORDERED: METHYLPREDNISOLONE 125 MG INJ ONE (19:58)
[2018-12-01] MEDS ORDERED: METHYLPREDNISOLONE 125 MG INJ IV ONE (20:00)
[2018-12-01] MEDS ORDERED: METHYLPREDNISOLONE 125 MG INJ IV SCH (21:00)
[2018-12-01] MEDS: OXYBUTYNIN CHLORIDE 5 MG TAB PO SCH (21:54)
[2018-12-01] MEDS: ATORVASTATIN 20 MG TAB PO SCH (21:54)
[2018-12-01] MEDS: PREGABALIN 50 MG CAP PO SCH (21:54)
[2018-12-01] MEDS: CEFTRIAXONE/SWI 1gm 1 GM/10 ML SYR IV SCH (22:00)
--- NOTE | 2018-12-01 22:16 | PN ---
Date of Progress Note: 12/01/2018 Subjective: The patient is seen and examined. Chart reviewed and case discussed with RN and Dr. Mccall. The patient did have episode of anxiety and respiratory distress. A code yellow was called. The patient was severely anxious. She was coughing and had feeling of air hunger. Her saturations did not drop below 95% while on supplemental oxygen at 2 L via nasal cannula. The patient was given Ativan 1 mg IV x1, and her breathing improved. She is very anxious and needs coaching regarding her anxiety to take slow deep breaths. Chest x-ray was also obtained which was negative. Medications: List reviewed. Physical Examination: Vital Signs: Temperature 97.6, heart rate 85, blood pressure 113/62, respirations 28, and O2 of 94% on 2 L via nasal cannula. General: Awake, alert, oriented x3, in some mild respiratory distress. Very anxious female, morbidly obese, BMI 42.6. CV: S1, S2. Regular rate and rhythm. Peripheral pulses present. Respiratory: Moving air well bilaterally. Minimal wheezing. The patient is tachypneic. Use of accessory muscles present. Gastrointestinal: Abdomen is soft, nontender, nondistended. Positive bowel sounds. Extremities: No clubbing, cyanosis, or edema. Neurologic: Nonfocal. Laboratory Data: Sodium 139, potassium 4.6, chloride 107, CO2 25, BUN 14, creatinine 0.8, glucose 252, calcium 9.4, magnesium 2.8. Blood cultures, no growth to date. Chest x-ray, personally reviewed, shows no acute cardiopulmonary process. Assessment And Plan: A 43-year-old female with: 1. Acute respiratory distress with hypoxia secondary to asthma exacerbation. We will continue with supplemental oxygen. The patient has severe anxiety and goes in coughing cycle and becomes more and more agitated. Chest x-ray is clear. CT angio was also negative. 2. Acute asthma exacerbation. Continue bronchodilators and steroids. We will add Robitussin AC and Tessalon Perles for cough. 3. Left shoulder and lateral chest wall pain, likely secondary to chronic cough with fatigue of intercostal muscles. We will start on pain medications. 4. Pneumonia of the left upper lobe. Continue with antibiotics. Cultures are negative to date. 5. Essential hypertension, stable. 6. Hypothyroidism. Continue Synthroid. 7. Generalized anxiety disorder, severe. We will adjust anxiety medications at p.r.n. IV. Gastrointestinal/deep venous thrombosis prophylaxis addressed. The patient is on Lovenox. Plan: Continue weaning off oxygen as tolerated. Likely discharge in the next 24-48 hours depending on clinical response. I appreciate Dr. Mccall's input. JOVANNI Voice ID: [id number] Report ID: [id number] [facility]
[2018-12-02] MEDS: IPRATROPIUM BROM 0.5MG/2.5ML NEB SCH ×4 (02:00→19:36)
[2018-12-02] MEDS: BENZONATATE 100 MG CAP PO PRN ×2 (04:01→13:30)
[2018-12-02] MEDS: HYDROCODONE/APAP 7.5/325 MG TAB PO PRN (04:02)
[2018-12-02] MEDS ORDERED: LORAZEPAM 0.5 MG TABLET PO ONE (04:07)
[2018-12-02] MEDS: LEVOTHYROXINE SOD 0.075 MG TAB PO SCH (06:10)
[2018-12-02] MEDS: PANTOPRAZOLE 40MG TABLET PO SCH (06:41)
[2018-12-02] MEDS: ARFORMOTEROL TARTRATE 15 MCG/2 ML VIAL.NEB NEB SCH ×2 (08:44→19:36)
[2018-12-02] MEDS: RIZATRIPTAN BENZOATE 10 MG PO SCH (09:00)
[2018-12-02] MEDS: LIPASE/PROTEASE/AMYLASE CAP PO SCH ×3 (09:10→18:20)
[2018-12-02] MEDS: AZITHROMYCIN 250 MG TAB PO SCH (09:11)
[2018-12-02] MEDS: MONTELUKAST 10 MG TAB PO SCH (09:11)
[2018-12-02] MEDS: METHYLPREDNISOLONE 40 MG INJ IV SCH ×2 (09:11→20:01)
[2018-12-02] MEDS: TOPIRAMATE 25 MG TAB PO SCH (09:11)
[2018-12-02] MEDS: ALPRAZOLAM 1 MG TABLET PO SCH ×2 (09:11→20:01)
[2018-12-02] MEDS: ENOXAPARIN 40 MG/0.4 ML SQ SCH (09:11)
[2018-12-02] MEDS: GUAIFENESIN/CODEINE 5ML UCUP PO PRN ×2 (09:12→20:01)
--- NOTE | 2018-12-02 12:04 | P.PN ---
Subjective Date of Service: 12/02/18 Chief Complaint: acute respiratory failure Patient is slightly better complains of dyspnea on mild exertion had problem this morning when she was having a shower went into a panic attack with wheezing coughing Review of Systems General: Weakness Respiratory: Cough, Shortness of Breath Physical Examination - Vital Signs Temperature: 97.3 F Blood Pressure: 114/64 Pulse: 63 Respirations: 18 Pulse Ox (%): 95 - Physical Exam General: Alert, Oriented x3, Mild distress HEENT: Atraumatic Respiratory: Expiratory wheezes Cardiovascular: No edema, Regular rate/rhythm Assessment & Plan - Problems (Diagnosis) (1) Respiratory distress Current Visit: Yes Status: Acute Plan: Patient is still has dyspnea on mild exertion audible wheezing at rest she is doing better patient is not hypercapnic patient's chest x-rays clear
[2018-12-02] MEDS ORDERED: IPRATROPIUM BROM 0.5MG/2.5ML NEB SCH (14:00)
--- NOTE | 2018-12-02 14:46 | RAD REPORT ---
EXAM DESCRIPTION: CT - Chest For Pe Angio - 11/29/2018 9:54 pm CLINICAL HISTORY: The patient is 43 years old and is Female; SOB TECHNIQUE: Axial computed tomography images of the chest with intravenous contrast using pulmonary embolism prot ocol. Sagittal and coronal reformatted images were created and reviewed. This CT exam was performed using one or more of the following dose reduction techniques: Automated exposure control, adjustment of the mA and/or kV according to patient size, and/or use of iterative reconstruction technique. MIP reconstructed images were created and reviewed. Oblique reformatted images were created and reviewed. COMPARISON: Chest radiograph on the same day. FINDINGS: LIMITATIONS: Limited visualization of the upper abdomen demonstrate no gross abnormality. PULMONARY ARTERIES: Limited evaluation of the distal pulmonary arterial tree due to poor bolus timing and respiratory motion. AORTA: Aorta is normal in caliber. No calcification. No thoracic aortic aneurysm. LUNGS: No evidence of pulmonary aneurysm. Interstitial opacity is seen in the left upper lobe (series 5, image 28). Mild prominence of the pulmonary interstitium. PLEURAL SPACE: No pleural effusion or pneumothorax. HEART: Unremarkable. No cardiomegaly. No significant pericardial effusion. No evidence of RV dysfunct ion. THYROID: Visualized thyroid is unremarkable. BONES/JOINTS: No acute fracture. No dislocation. SOFT TISSUES: Unremarkable. LYMPH NODES: Scattered non enlarged mediastinal lymph nodes. No lymphadenopathy. IMPRESSION: 1. No evidence of pulmonary aneurysm. 2. Interstitial opacity in the left upper lobe concerning for pneumonia. Correlate for signs of infec tion. 3. Mild prominence of the interstitium which may be do to atelectasis or mild interstitial edema. Electronically signed by: Michael Ernst DO 11/29/2018 10:03 PM INTERIOR DESIGN COORDINATOR Due to temporary technical issues with the PACS/Fluency reporting system, reports are being signed by the in house radiologist as a courtesy to ensure prompt reporting. The interpreting radiologist is f ully responsible for the content of the report.
--- NOTE | 2018-12-02 17:14 | PN ---
Date of Progress Note: 12/02/2018 Subjective: The patient is seen and examined. Chart reviewed and case discussed with RN. The patie nt again had a code yellow due to hyperventilation leading to shortness of breath and severe anxiety. The patient understands that she does have severe anxiety and needs to control her breathing better . The patient wanted to take a shower today, however, became very dyspneic and had to return to her bed. Medications: List reviewed. Physical Examination: Vital Signs: Temperature 97.3, heart rate 63, blood pressure 114/64, respirations 18, and O2 saturat ion 95% on 2 L via nasal cannula. General: Awake, alert, and oriented x3, ill-appearing female, in mild respiratory distress, morbidly obese. CV: S1 and S2. Regular rate and rhythm. Peripheral pulses present. Respiratory: The patient's lungs are clear. She does have some upper airway noise and what seems to be some audible wheezing. Gastrointestinal: Abdomen is soft, nontender, and nondistended. Positive bowel sounds. Extremities: No clubbing, cyanosis, or edema. Neurologic: Nonfocal. Laboratory Data: Sodium 139, potassium 4.6, chloride 107, CO2 of 25, BUN 14, creatinine 0.8, glucose is 252, calcium 9.4, and magnesium 2.8. Blood cultures show no growth to date. Assessment And Plan: A 43-year-old female with, 1.Acute respiratory distress with hypoxia secondary to asthma exacerbation. Continue on supplementa l oxygen, wean as tolerated. The patient does have significant anxiety and which is exacerbating her symptoms. 2.Acute asthma exacerbation. Continue bronchodilators, wean off steroids. Continue Robitussin and Tessalon Perles for her cough. The patient does state that her coughing is what leads to her cycle o f shortness of breath, as she is unable to catch her breath. 3.Left shoulder and lateral chest wall pain secondary to chronic cough, fatigue of intercostal muscl es. Continue [place] p.r.n. 4.Pneumonia of left upper lobe. Continue antibiotics. Cultures negative to date. Found on CT charlie o chest, pulmonary embolism was negative. 5.Essential hypertension, stable. 6.Hypothyroidism. Continue with Synthroid. 7.Generalized anxiety disorder, severe. We will continue benzodiazepines. 8.Deep vein thrombosis prophylaxis with Lovenox. PLAN: Wean off oxygen, discharge in the next 24 hours once more clinically stable. SA/MODL Voice ID: [id number] Report ID: [id number]
[2018-12-02] MEDS: ATORVASTATIN 20 MG TAB PO SCH (20:01)
[2018-12-02] MEDS: CEFTRIAXONE/SWI 1gm 1 GM/10 ML SYR IV SCH (20:04)
[2018-12-02] MEDS: OXYBUTYNIN CHLORIDE 5 MG TAB PO SCH (20:04)
[2018-12-02] MEDS: PREGABALIN 50 MG CAP PO SCH (22:11)
[2018-12-03] MEDS: ALBUTEROL 2.5 MG/3 ML NEB SOL NEB PRN ×3 (01:36→13:37)
[2018-12-03] MEDS: IPRATROPIUM BROM 0.5MG/2.5ML NEB SCH ×3 (01:36→13:37)
[2018-12-03 04:16] LABS: Absolute Monocytes 0.4 K/uL (0.1-1.3); Absolute Neutrophil 5.9 K/uL (1.8-8.0); Basophils % 0.6 % (0-1.3); Eosinophils % 0.1 % (0-4.4); Hematocrit 40.2 % (36.0-45.0); Lymphocytes % 13.3 % (15.3-44.8); MPV 7.7 fL (7.6-11.3); Monocytes % 5.3 % (3.3-12.3); RBC Red Blood Cell Count 4.59 M/uL (3.86-4.86)
[2018-12-03 04:28] LABS: Potassium 4.2 mmol/L (3.5-5.1)
[2018-12-03] MEDS: LEVOTHYROXINE SOD 0.075 MG TAB PO SCH (05:31)
[2018-12-03] MEDS: PANTOPRAZOLE 40MG TABLET PO SCH (05:31)
[2018-12-03] MEDS: LIPASE/PROTEASE/AMYLASE CAP PO SCH ×2 (08:18→12:20)
[2018-12-03] MEDS: BENZONATATE 100 MG CAP PO PRN (08:19)
[2018-12-03] MEDS: TOPIRAMATE 25 MG TAB PO SCH (08:19)
[2018-12-03] MEDS: AZITHROMYCIN 250 MG TAB PO SCH (08:19)
[2018-12-03] MEDS: METHYLPREDNISOLONE 40 MG INJ IV SCH (08:19)
[2018-12-03] MEDS: MONTELUKAST 10 MG TAB PO SCH (08:19)
[2018-12-03] MEDS: ALPRAZOLAM 1 MG TABLET PO SCH (08:19)
[2018-12-03] MEDS: ENOXAPARIN 40 MG/0.4 ML SQ SCH (08:20)
[2018-12-03] MEDS: ARFORMOTEROL TARTRATE 15 MCG/2 ML VIAL.NEB NEB SCH (09:01)
--- NOTE | 2018-12-03 10:18 | ECHO ---
HEIGHT: 5 ft 1 in WEIGHT: 226 lb 8 oz DATE OF STUDY: 12/03/[address]: Inocente Mccall MD 2-DIMENSIONAL: YES M.MODE: YES DOPPLER: YES COLOR FLOW: YES TDS: YES PORTABLE: NO DEFINITY: NO BUBBLE STUDY: NO DIAGNOSIS: RESPIRATORY DISTRESS CARDIAC HISTORY: CATHERIZATION: NO SURGERY: NO PROSTHETIC VALVE: NO PACEMAKER: NO MEASUREMENTS (cm) DIASTOLIC (NORMALS) SYSTOLIC (NORMALS) IVSd 0.9 (0.6-1.2) LA Diam 3.3 (1.9-4.0) LVEF 62% LVIDd 4.8 (3.5-5.7) LVIDs 3.2 (2.0-3.5) %FS 34% LVPWd 1.1 (0.6-1.2) Ao Diam 2.8 (2.0-3.7) 2 DIMENSIONAL ASSESSMENT: RIGHT ATRIUM: NORMAL LEFT ATRIUM: NORMAL RIGHT VENTRICLE: NORMAL LEFT VENTRICLE: NORMAL TRICUSPID VALVE: NORMAL MITRAL VALVE: NORMAL PULMONIC VALVE: NORMAL AORTIC VALVE: NORMAL PERICARDIAL EFFUSION: NONE AORTIC ROOT: NORMAL LEFT VENTRICULAR WALL MOTION: NORMAL DOPPLER/COLOR FLOW: MILD TRICUSPID REGURGITATION. NORMAL RIGHT VENTRICULAR SYSTOLIC PRESSURE. COMMENTS: NORMAL 2D ECHOCARDIOGRAM. MILD TRICUSPID REGURGITATION. TECHNOLOGIST: Kane ALMANZAR
[2018-12-03] MEDS ORDERED: THEOPHYLLINE SR 100 MG TAB PO SCH (11:47)
[2018-12-03] MEDS ORDERED: SPIRONOLACTONE 25 MG TABLET PO SCH (11:47)
--- NOTE | 2018-12-03 11:52 | P.PN ---
Subjective Date of Service: 12/03/18 Chief Complaint: Shortness of breath No change patient still has dyspnea on mild exertion despite maximum bronchodilator therapy Review of Systems General: Weakness Respiratory: Shortness of Breath Physical Examination - Vital Signs Temperature: 97.3 F Blood Pressure: 141/82 Pulse: 73 Respirations: 18 Pulse Ox (%): 93 - Physical Exam General: Alert, Moderate distress Neck: Supple Respiratory: Friction rub, Expiratory wheezes Cardiovascular: No edema, Normal pulses Assessment & Plan - Problems (Diagnosis) (1) Respiratory distress Onset Date: 12/02/18 Current Visit: Yes Status: Acute Plan: Patient still continues to have difficult respiratory distress on exertion with audible wheezing I have added robby. Dc IV antibiotics patient is on maximum bronchodilator therapy low-dose spironolactone possibility of diastolic dysfunction
[2018-12-03] MEDS: GUAIFENESIN/CODEINE 5ML UCUP PO PRN (12:20)
[2018-12-03 12:57] VITALS: O2SAT 94
--- NOTE | 2018-12-03 15:28 | P.DS ---
Admission Date: 11/29/18 Discharge Date: 12/03/18 Disposition: ROUTINE DISCHARGE Discharge Condition: GOOD Reason for Admission: Shortness of breath Consultations: Pulmonology - Problems (1) Acute respiratory failure Onset Date: 12/02/18 Current Visit: Yes Status: Acute (2) Acute severe exacerbation of moderate persistent asthma Onset Date: 12/02/18 Current Visit: Yes Status: Acute (3) GERD (gastroesophageal reflux disease) Current Visit: No Status: Acute Qualifiers: Esophagitis presence: esophagitis presence not specified Qualified Code(s) : K21.9 - Gastro-esophageal reflux disease without esophagitis (4) Bipolar 1 disorder Onset Date: 10/11/16 Current Visit: No Status: Chronic (5) Diabetes mellitus type II, non insulin dependent Onset Date: 09/28/15 Current Visit: No Status: Chronic (6) Fatty liver Onset Date: 10/20/16 Current Visit: No Status: Chronic (7) Hypertension Current Visit: No Status: Chronic Qualifiers: Hypertension type: essential hypertension Qualified Code(s): I10 - Essential (primary) hypertension (8) Hypothyroidism Onset Date: 10/11/16 Current Visit: No Status: Chronic Qualifiers: Hypothyroidism type: unspecified Qualified Code(s): E03.9 - Hypothyroidism , unspecified Brief History of Present Illness: Ms Gerber is a 43 years old woman with history of moderate persistent asthma , obesity, HTN, Hypothyroidism, bipolar syndrome who start 2 days ago with progressive SOB. She had also dry cough. Her symptoms were not relieved by breathing treatments. She denied fever or chills, however, in ER her temp was 99.9F. O2 sat was 98% on RA. D-dimer was mildly elevated, subsequent CTA chest showed no PE but there is a interstitial opacity in the left upper lobe concerning for pneumonia. Lab work remarkable for normal WBC count, and hypokalemia. At my encounter, the patient was tachypneic, with audible expiratory wheezing. Hospital Course: Overall during the hospital stay patient remained stable Was initially admitted to the hospital for acute respiratory failure most likely secondary to asthma exacerbation most likely secondary to her anxiety attack. Patient was kept here in the hospital was kept on duo nebs, steroids, oxygen. Pulmonology was consulted who recommended the patient to the monitor for next 24-48 hr and get nebulizer treatment here in the hospital. Patient did well overall while here in the hospital. Patient did also have anxiety attack while here in the hospital and Code Yellow" was called. Patient was educated extensively on breathing exercises and taking medication for her anxiety along with behavior changes for anxiety. Patient demonstrate understanding had marked improvement in the next 24-48 hr. Patient was then switched over to her inhalers along with oral steroids and was discharged home under stable condition. Patient was given a lot of breathing exercises to do at home along with follow up appointment with media developer and primary care doctor. Vital Signs/Physical Exam: Temp Pulse Resp BP Pulse Ox 97.7 F 73 28 H 141/82 H 94 12/03/18 12:00 12/03/18 12:20 12/03/18 12:00 12/03/18 12:20 12/03/18 12:00 General: Alert, In no apparent distress, Other (Anxious) HEENT: Atraumatic, PERRLA, EOMI Neck: Supple, JVD not distended Respiratory: Normal air movement, Expiratory wheezes, Inspiratory wheezes Cardiovascular: Regular rate/rhythm, Normal S1 S2 Gastrointestinal: Normal bowel sounds, No tenderness Musculoskeletal: No tenderness Integumentary: No rashes Neurological: Normal speech, Normal tone, Normal affect Lymphatics: No axilla or inguinal lymphadenopathy Laboratory Data at Discharge: WBC 7.3 K/uL (4.3-10.9) D 12/03/18 03:40 Hgb 13.1 g/dL (12.0-15.0) 12/03/18 03:40 Hct 40.2 % (36.0-45.0) 12/03/18 03:40 Plt Count 387 K/uL (152-406) 12/03/18 03:40 PT 13.5 SECONDS (9.5-12.5) H 11/29/18 18:15 INR 1.15 11/29/18 18:15 Sodium 138 mmol/L (136-145) 12/03/18 03:40 Potassium 4.2 mmol/L (3.5-5.1) 12/03/18 03:40 BUN 19 mg/dL (7-18) H 12/03/18 03:40 Creatinine 0.93 mg/dL (0.55-1.3) 12/03/18 03:40 Glucose 313 mg/dL (74-106) H 12/03/18 03:40 Magnesium 2.8 mg/dL (1.8-2.4) H D 12/01/18 05:58 Total Bilirubin 0.6 mg/dL (0.2-1.0) 11/29/18 18:15 AST 32 U/L (15-37) 11/29/18 18:15 ALT 41 U/L (12-78) 11/29/18 18:15 Alkaline Phosphatase 118 U/L (45-117) H 11/29/18 18:15 Home Medications: Montelukast [Singulair*] 10 mg PO DAILY 09/02/14 Levothyroxine [Synthroid*] 75 mcg PO [id number] 09/23/14 Pantoprazole [Protonix Tab*] 40 mg PO DAILY 10/10/16 ALPRAZolam [Xanax*] 1 mg PO BID 10/11/16 Albuterol Sulfate [Proair Hfa] 1 puff IH DAILY 10/11/16 Lipase/Protease/Amylase [Creon Dr 12,000 Units Capsule] 24,000 units PO TIDWM Topiramate [Topamax*] 50 mg PO DAILY #30 tab 10/20/16 Atorvastatin Calcium [Lipitor*] 20 mg PO BEDTIME 11/30/18 Oxybutynin Chloride [Ditropan*] 5 mg PO BEDTIME 11/30/18 Pregabalin [Lyrica*] 100 mg PO BEDTIME 11/30/18 Rizatriptan Benzoate [Rizatriptan] 10 mg PO BEDTIME 11/30/18 Arformoterol Tartrate [Brovana] 15 mcg NEB BIDRESP #1 vial.neb 12/03/18 Benzonatate [Tessalon Perle*] 200 mg PO TID PRN #60 cap 12/03/18 Spironolactone [Aldactone*] 25 mg PO BID #60 tab 12/03/18 Theophylline [Babar-Dur*] 200 mg PO BID #60 tab 12/03/18 predniSONE [Deltasone*] 10 mg PO BID #10 tab 12/03/18 New Medications: Arformoterol Tartrate [Brovana] 15 mcg NEB BIDRESP #1 vial.neb Benzonatate [Tessalon Perle*] 200 mg PO TID PRN #60 cap PRN Reason: Cough predniSONE [Deltasone*] 10 mg PO BID #10 tab Spironolactone [Aldactone*] 25 mg PO BID #60 tab Theophylline [Babar-Dur*] 200 mg PO BID #60 tab Diet: Regular Activity: Ad robb Followup: Inocente Mccall MD [ACTIVE - CAN ADMIT] -
[2018-12-03] MEDS ORDERED: INFLUENZA VACCINE (for 3y+) 0.5 ML DOSE IMVAC ONE (16:00)
[2018-12-03 17:37] VITALS: BP 137/87; TEMP 97
[2018-12-03] MEDS ORDERED: DOCUSATE NA 100 MG CAP PO SCH (21:00)
[2018-12-03] MEDS ORDERED: predniSONE 10 MG TAB PO SCH (21:00)
== END 2018-12-03 17:09 | disposition home or self-care (01) | DRG 202 ==
LOC: ER 17:55 → ERHOLD 23:44 → 4TH 11-30 01:07
PROVIDERS: ADMIT Internal Medicine; ATTEND Family Medicine
DX: J45.51 Severe persistent asthma with (acute) exacerbation (principal); J18.1 Lobar pneumonia, unspecified organism; J96.01 Acute respiratory failure with hypoxia; F31.89 Other bipolar disorder; Z68.41 Body mass index [BMI] 40.0-44.9, adult; K21.9 Gastro-esophageal reflux disease without esophagitis; E11.9 Type 2 diabetes mellitus without complications; K76.0 Fatty (change of) liver, not elsewhere classified; I10 Essential (primary) hypertension; E03.9 Hypothyroidism, unspecified; E87.6 Hypokalemia; Z88.8 Allergy status to other drugs, medicaments and biological substances; E66.01 Morbid (severe) obesity due to excess calories; F41.1 Generalized anxiety disorder; R07.82 Intercostal pain
CPT/HCPCS: 36415; 71045; 71275; 80048; 80076; 81003; 82805; 83605; 83735; 83880; 84132; 84145; 84484; 85025; 85379; 85610; 87040; 87804; 93005; 93306; 93971; 94640; 94760; 96361; 96365; 96375; 99285; G0008; J0456; J0696; J1650; J2405; J2920; J2930; J7030; J7605; Q2035; Q9967

== ENCOUNTER 2019-04-13 15:57 | Emergency (ER) | payer OTHER ==
--- OUTSIDE RECORDS SUMMARY | 2019-04-13 16:00 | XMS REPORT | Clinical Summary ---
:1975 Author Organization [facility] Address [address] [place] [address] Care Team Providers Name Role Phone Asked, [...] Health Maintenance Due Date Last Done Comments INFLUENZA VACCINE 05/22/2019 Results Not on fileafter 04/12/2018 Insurance Payer Benefit Plan / Subscriber ID Effective Dates Phone Address Type Group [employer] [place] xxxxxxxxx 2015-[employer] xxxxxxxxxxx [facility] Advance Directives Patient has advance care planning documents on file. For more information, please contact:[address] [address]
[2019-04-13] MEDS ORDERED: FENTANYL CITR 100 MCG/2 ML ONE (16:42)
[2019-04-13] MEDS ORDERED: ONDANSETRON 4 MG/2 ML VIAL ONE (16:42)
[2019-04-13] MEDS ORDERED: NA CHLORIDE 0.9% 500 ML ONE ×2 (16:42→17:37)
[2019-04-13 16:51] LABS: Urine Blood TRACE (NEG); Urine Glucose NEGATIVE (NEG); Urine Protein TRACE (NEG); Urine Specific Gravity 1.025 (1.005-1.030)
--- NOTE | 2019-04-13 17:03 | RAD REPORT ---
EXAM DESCRIPTION: CT - Head C Spine Cap Wo Con - 04/13/2019 4:52 pm CLINICAL HISTORY: Fall, blunt force trauma, head, neck, chest and abdomen pain COMPARISON: None. TECHNIQUE: Axial [address] head images were obtained. Axial [address] cervical spine images were obtain ed with sagittal and coronal reconstruction images reviewed. Axial 5 mm images of the chest, abdomen and pelvis were obtained. All CT scans are performed using dose optimization technique as appropriate and may include automated exposure control or mA/KV adjustment according to patient size. FINDINGS: No intracranial hemorrhage, mass or edema. No midline shift or abnormal fluid collection. Mastoid air cells are clear. Patchy mucosal thickening changes are present in the nasal passages and ethmoid air cells. No air-fluid level in the sinuses. No skull fracture. Cervical bodies are normal in height and alignment. No fracture or acute bone finding.No disk space n arrowing.No prevertebral soft tissue thickening or paraspinal mass.Central canal detail is inherently limited on CT imaging. CT chest shows no pneumothorax, pulmonary contusion or pleural fluid collection. No mediastinal hem atoma and the aorta and pulmonary arteries are unremarkable. No chest will mass or abnormal axillary finding. No displaced rib fracture or other significant bony finding. CT abdomen and pelvis show no injury to solid abdominal viscera. Gallbladder and biliary tree are unr emarkable. No bowel injury or significant finding. No free air, free fluid or abnormal stranding. No hernia, mass or bulky lymphadenopathy. No urinary bladder abnormality. No significant bony finding. IMPRESSION: No significant CT Head finding. No significant CT cervical spine finding. No significant CT Chest finding. No significant CT Abdomen and Pelvis finding.
[2019-04-13 17:05] LABS: Absolute Lymphocytes (CBC) 2.6 K/uL (0.7-4.9); Basophils % 3.1 % (0-1.3); Eosinophils % 2.8 % (0-4.4); Hematocrit 42.8 % (36.0-45.0); MPV 7.5 fL (7.6-11.3); Monocytes % 3.9 % (3.3-12.3); RBC Red Blood Cell Count 4.94 M/uL (3.86-4.86)
[2019-04-13 17:23] LABS: ALT/SGPT 34 U/L (12-78); AST/SGOT 17 U/L (15-37); Albumin 3.6 g/dL (3.4-5.0); Alkaline Phosphatase 117 U/L (45-117); BUN Blood Urea Nitrogen 13 mg/dL (7-18); Bicarbonate 25 mmol/L (21-32); Bilirubin Direct < 0.1 mg/dL (0-0.2); Bilirubin Total 0.4 mg/dL (0.2-1.0); Glucose Level 119 mg/dL (74-106); Lipase 39 U/L (73-393); Potassium 3.7 mmol/L (3.5-5.1); Protein, Total 7.6 g/dL (6.4-8.2); Sodium Level 140 mmol/L (136-145)
[2019-04-13] MEDS ORDERED: CEFTRIAXONE/SWI 1gm 1 GM/10 ML SYR ONE (17:26)
--- NOTE | 2019-04-13 18:06 | ER ---
Nurse's Notes [facility] Name: Kelsy Gerber Age: 43 yrs Sex: Female : 1975 Arrival Date: 04/13/2019 Time: 15:59 Bed 14 Private MD: Diagnosis: Superficial injury of head;Strain of muscle, fascia and tendon at neck level;Low back pain;Bipolar disorder;Urinary tract infection, site not specified Presentation: 04/13 16:10 Presenting complaint: Patient states: "a 2x4 wooden board fell and hit the left side of aa5 my head yesterday". Denies LOC, pt c/o feeling drowsy and c/o headache. C/o nausea, denies vomiting. Transition of care: patient was not received from another setting of care. Mechanism of Injury: resulted from falling object . Onset of symptoms was March 2019. Risk Assessment: Do you want to hurt yourself or someone else? Patient reports no desire to harm self or others. Initial Sepsis Screen: Does the patient meet any 2 criteria? No. Patient's initial sepsis screen is negative. Does the patient have a suspected source of infection? No. Patient's initial sepsis screen is negative. Care prior to arrival: None. 16:10 Method Of Arrival: Wheelchair aa5 16:10 Acuity: KELLEY 2 aa5 Triage Assessment: 16:15 General: Appears in no apparent distress. uncomfortable, Behavior is cooperative, hj appropriate for age, drowsy. Neuro: Reports dizziness, headache. 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/A - Hysterectomy aa5 Historical: - Allergies: 16:13 Aspirin; aa5 16:13 Daypro; aa5 16:13 Ibuprofen; aa5 16:13 Ketorolac; aa5 16:13 Morphine; aa5 - Home Meds: 16:46 alprazolam 2 mg Oral tab [Active]; atorvastatin 20 mg Oral tab nightly [Active]; hj levothyroxine 50 mcg tab 1 tab once daily [Active]; montelukast 10 mg Oral tab 1 tab once daily [Active]; oxybutynin chloride 5 mg Oral tab nightly [Active]; pantoprazole 40 mg Oral TbEC 1 tab once daily [Active]; rizatriptan 10 mg Oral tab [Active]; Topamax 50 mg Oral tab daily [Active]; - PMHx: 16:13 Asthma; Bipolar disorder; fatty liver; Hypertension; Hypothyroidism; migranes; aa5 Pancreatitis; TIA; Left sided weakness; - PSHx: 16:13 Hysterectomy; Cholecystectomy; aa5 - Immunization history:: Adult Immunizations up to date. - Social history:: Smoking status: Patient/guardian denies using tobacco. - Ebola Screening: : No symptoms or risks identified at this time. - Family history:: not pertinent. Screenin:14 Abuse screen: Denies threats or abuse. Denies injuries from another. Nutritional hj screening: No deficits noted. Tuberculosis screening: No symptoms or risk factors identified. Fall Risk None identified. Assessment: 16:15 Pain: Complains of pain in head. Neuro: Level of Consciousness is awake, alert, obeys commands, Oriented to person, place, time, situation, Appropriate for age. 16:23 General: Appears in no apparent distress. uncomfortable, obese, Behavior is hj cooperative, appropriate for age, crying. Cardiovascular: Capillary refill < 3 seconds Patient's skin is warm and dry. Respiratory: Airway is patent Respiratory effort is even, unlabored, Respiratory pattern is regular, symmetrical. GI: No signs and/or symptoms were reported involving the gastrointestinal system. : No signs and/or symptoms were reported regarding the genitourinary system. EENT: No signs and/or symptoms were reported regarding the EENT system. Derm: No signs and/or symptoms reported regarding the dermatologic system. Musculoskeletal: Reports pain in head. 16:40 Reassessment: wheeled to CT:. 16:58 Reassessment: wheeled back to room;. Vital Signs: 16:13 BP 137 / 88; Pulse 84; Resp 16 S; Temp 98.0(TE); Pulse Ox 97% on R/A; Weight 99.79 kg aa5 (R); Height 5 ft. 2 in. (157.48 cm) (R); Pain 10/10; 16:45 BP 120 / 76; Pulse 85; Resp 18; Pulse Ox 100% on R/A; hj 17:36 BP 119 / 76; Pulse 81; Resp 18; Pulse Ox 98% on R/A; hj 18:04 BP 114 / 60; Pulse 57; Resp 18; Pulse Ox 99% on R/A; hj 16:13 Body Mass Index 40.24 (99.79 kg, 157.48 cm) aa5 [place] Coma Score: 16:10 Eye Response: spontaneous(4). Verbal Response: oriented(5). Motor Response: obeys aa5 commands(6). Total: 15. 16:25 Eye Response: spontaneous(4). Verbal Response: oriented(5). Motor Response: obeys montse commands(6). Total: 15. ED Course: 15:59 Patient arrived in ED. aa5 16:08 Arm band placed on Patient placed in an exam room, on a stretcher. aa5 16:12 Triage completed. aa5 16:14 Miah Looney, RN is Primary Nurse. hj 16:14 Patient has correct armband on for positive identification. Placed in gown. Bed in low hj position. Call light in reach. Side rails up X2. 16:17 Jaime Ospina MD is Attending Physician. montse 16:40 Initial lab(s) drawn, by ak, sent to lab. T\\T\\S collected, blood band applied to patient. hj Inserted saline lock: 20 gauge in left antecubital area, using aseptic technique. Blood collected. 16:40 Inserted saline lock: 22 gauge in right antecubital area, using aseptic technique. hj 16:46 CT completed. Patient tolerated procedure well. Patient moved back from CT. bq 16:52 CT Traumagram (Head C Spine CAP wo con) In Process Unspecified. EDMS 18:19 No provider procedures requiring assistance completed. IV discontinued, intact, hj bleeding controlled, No redness/swelling at site. Pressure dressing applied. Administered Medications: 16:40 Drug: NS 0.9% 500 ml Route: IV; Rate: bolus; Site: right antecubital; hj 17:30 Follow up: IV Status: Completed infusion; IV Intake: 500ml hj 16:40 Drug: fentaNYL (PF) 25 mcg Route: IVP; Site: right antecubital; hj 17:30 Follow up: Response: No adverse reaction; Pain is decreased hj 16:40 Drug: Zofran 4 mg Route: IVP; Site: right antecubital; hj 17:29 Follow up: Response: No adverse reaction; Nausea is decreased hj 17:06 Drug: Rocephin 1 grams Route: IV; Rate: per protocol; Site: right antecubital; hj 17:30 Follow up: IV Status: Completed infusion hj 17:16 Drug: NS 0.9% 500 ml Route: IV; Rate: bolus; Site: right antecubital; hj 17:30 Follow up: IV Status: Completed infusion hj 17:34 Drug: fentaNYL (PF) 25 mcg Route: IVP; Site: right antecubital; hj 17:34 Follow up: Response: No adverse reaction; Pain is decreased hj Intake: 17:30 IV: 500ml; Total: 500ml. Outcome: 18:06 Discharge ordered by . montse 18:20 Discharged to home via wheelchair, with family. 18:20 Condition: stable 18:20 Discharge instructions given to patient, family, Instructed on discharge instructions, follow up and referral plans. medication usage, Demonstrated understanding of instructions, follow-up care, medications, Prescriptions given X 3. 18:23 Patient left the ED. Signatures: Dispatcher [employer] EDMS Jaime Ospina MD MD cha Quilty, Betty bq Calderon, Audri RN RN aa5 Miah Looney RN RN hj
--- NOTE | 2019-04-13 18:07 | EDPHYS ---
Physician Documentation [facility] Name: Kelsy Gerber Age: 43 yrs Sex: Female : 1975 Arrival Date: 04/13/2019 Time: 15:59 Bed 14 Private MD: ED Physician Jaime Ospina HPI: 04/13 16:25 This 43 yrs old Female presents to ER via Wheelchair with complaints of Head montse Injury-Adult. 16:25 The patient or guardian reports swelling, tenderness. The complaints affect the left montse frontal area, left side of the back of head and left occipital area. Context of injury: The problem was sustained at home. Onset: The symptoms/episode began/occurred yesterday. Associated signs and symptoms: Pertinent positives: injury, neck pain, back. Severity of symptoms: At their worst the symptoms were moderate, yesterday. The patient has not experienced similar symptoms in the past. 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 - Hysterectomy aa5 Historical: - Allergies: 16:13 Aspirin; aa5 16:13 Daypro; aa5 16:13 Ibuprofen; aa5 16:13 Ketorolac; aa5 16:13 Morphine; aa5 - Home Meds: 16:46 alprazolam 2 mg Oral tab [Active]; atorvastatin 20 mg Oral tab nightly [Active]; hj levothyroxine 50 mcg tab 1 tab once daily [Active]; montelukast 10 mg Oral tab 1 tab once daily [Active]; oxybutynin chloride 5 mg Oral tab nightly [Active]; pantoprazole 40 mg Oral TbEC 1 tab once daily [Active]; rizatriptan 10 mg Oral tab [Active]; Topamax 50 mg Oral tab daily [Active]; - PMHx: 16:13 Asthma; Bipolar disorder; fatty liver; Hypertension; Hypothyroidism; migranes; aa5 Pancreatitis; TIA; Left sided weakness; - PSHx: 16:13 Hysterectomy; Cholecystectomy; aa5 - Immunization history:: Adult Immunizations up to date. - Social history:: Smoking status: Patient/guardian denies using tobacco. - Ebola Screening: : No symptoms or risks identified at this time. - Family history:: not pertinent. ROS: 16:25 Constitutional: Negative for fever, chills, and weight loss, Eyes: Negative for injury, montse pain, redness, and discharge, ENT: Negative for injury, pain, and discharge, Neck: Negative for injury, pain, and swelling, Cardiovascular: Negative for chest pain, palpitations, and edema, Respiratory: Negative for shortness of breath, cough, wheezing, and pleuritic chest pain, Abdomen/GI: Negative for abdominal pain, nausea, vomiting, diarrhea, and constipation, Back: Negative for injury and pain, : Negative for injury, bleeding, discharge, and swelling, MS/Extremity: Negative for injury and deformity, Skin: Negative for injury, rash, and discoloration, Neuro: Negative for headache, weakness, numbness, tingling, and seizure, Psych: Negative for depression, anxiety, suicide ideation, homicidal ideation, and hallucinations, Allergy/Immunology: Negative for hives, rash, and allergies, Endocrine: Negative for neck swelling, polydipsia, polyuria, polyphagia, and marked weight changes, Hematologic/Lymphatic: Negative for swollen nodes, abnormal bleeding, and unusual bruising. Exam: 16:25 Constitutional: This is a well developed, well nourished patient who is awake, alert, montse and in no acute distress. Eyes: Pupils equal round and reactive to light, extra-ocular motions intact. Lids and lashes normal. Conjunctiva and sclera are non-icteric and not injected. Cornea within normal limits. Periorbital areas with no swelling, redness, or edema. ENT: Nares patent. No nasal discharge, no septal abnormalities noted. Tympanic membranes are normal and external auditory canals are clear. Oropharynx with no redness, swelling, or masses, exudates, or evidence of obstruction, uvula midline. Mucous membranes moist. Chest/axilla: Normal chest wall appearance and motion. Nontender with no deformity. No lesions are appreciated. Cardiovascular: Regular rate and rhythm with a normal S1 and S2. No gallops, murmurs, or rubs. Normal PMI, no JVD. No pulse deficits. Respiratory: Lungs have equal breath sounds bilaterally, clear to auscultation and percussion. No rales, rhonchi or wheezes noted. No increased work of breathing, no retractions or nasal flaring. Abdomen/GI: Soft, non-tender, with normal bowel sounds. No distension or tympany. No guarding or rebound. No evidence of tenderness throughout. Female : Normal external genitalia. Skin: Warm, dry with normal turgor. Normal color with no rashes, no lesions, and no evidence of cellulitis. MS/ Extremity: Pulses equal, no cyanosis. Neurovascular intact. Full, normal range of motion. Neuro: Awake and alert, GCS 15, oriented to person, place, time, and situation. Cranial nerves II-XII grossly intact. Motor strength 5/5 in all extremities. Sensory grossly intact. Cerebellar exam normal. Normal gait. Psych: Awake, alert, with orientation to person, place and time. Behavior, mood, and affect are within normal limits. 16:25 Head/face: Noted is contusion, swelling, that is moderate, of the left frontal area, left side of the back of head and left occipital area. 16:25 Neck: External neck: is normal, C-spine: no acute changes, Thyroid: appears normal, Trachea: is midline with no obvious abnormalities, ROM/movement: pain, limited range of motion. 16:25 Back: pain, that is mild, that is moderate, ROM is painful, normal spinal alignment noted, CVA tenderness, is absent. Vital Signs: 16:13 BP 137 / 88; Pulse 84; Resp 16 S; Temp 98.0(TE); Pulse Ox 97% on R/A; Weight 99.79 kg aa5 (R); Height 5 ft. 2 in. (157.48 cm) (R); Pain 10/10; 16:45 BP 120 / 76; Pulse 85; Resp 18; Pulse Ox 100% on R/A; hj 17:36 BP 119 / 76; Pulse 81; Resp 18; Pulse Ox 98% on R/A; hj 18:04 BP 114 / 60; Pulse 57; Resp 18; Pulse Ox 99% on R/A; hj 16:13 Body Mass Index 40.24 (99.79 kg, 157.48 cm) aa5 [place] Coma Score: 16:10 Eye Response: spontaneous(4). Verbal Response: oriented(5). Motor Response: obeys aa5 commands(6). Total: 15. 16:25 Eye Response: spontaneous(4). Verbal Response: oriented(5). Motor Response: obeys montse commands(6). Total: 15. MDM: 16:17 Patient medically screened. [facility] 16:28 Data reviewed: vital signs, nurses notes, lab test result(s), radiologic studies, CT [facility] scan. 04/13 16:25 Order name: Basic Metabolic Panel; Complete Time: 18:04 [facility] 04/13 16:25 Order name: CBC with Diff [facility] 04/13 16:25 Order name: Creatinine for Radiology; Complete Time: 18:04 [facility] 04/13 16:25 Order name: Type And Screen [facility] 04/13 16:25 Order name: LFT's; Complete Time: 18:04 [facility] 04/13 16:25 Order name: Lipase; Complete Time: 18:04 [facility] 04/13 16:25 Order name: CT Traumagram (Head C Spine CAP wo con); Complete Time: 17:03 [facility] 04/13 16:48 Order name: Urine Dipstick--Ancillary (enter results); Complete Time: 17:03 04/13 16:25 Order name: Labs collected and sent; Complete Time: 16:44 [facility] 04/13 16:38 Order name: Urine Dipstick-Ancillary (obtain specimen); Complete Time: 17:35 [facility] Administered Medications: 16:40 Drug: NS 0.9% 500 ml Route: IV; Rate: bolus; Site: right antecubital; hj 17:30 Follow up: IV Status: Completed infusion; IV Intake: 500ml hj 16:40 Drug: fentaNYL (PF) 25 mcg Route: IVP; Site: right antecubital; hj 17:30 Follow up: Response: No adverse reaction; Pain is decreased hj 16:40 Drug: Zofran 4 mg Route: IVP; Site: right antecubital; hj 17:29 Follow up: Response: No adverse reaction; Nausea is decreased hj 17:06 Drug: Rocephin 1 grams Route: IV; Rate: per protocol; Site: right antecubital; hj 17:30 Follow up: IV Status: Completed infusion hj 17:16 Drug: NS 0.9% 500 ml Route: IV; Rate: bolus; Site: right antecubital; hj 17:30 Follow up: IV Status: Completed infusion hj 17:34 Drug: fentaNYL (PF) 25 mcg Route: IVP; Site: right antecubital; hj 17:34 Follow up: Response: No adverse reaction; Pain is decreased Disposition: 04/13/19 18:06 Discharged to Home. Impression: Superficial injury of head, Strain of muscle, fascia and tendon at neck level, Low back pain, Bipolar disorder, Urinary tract infection, site not specified. - Condition is Stable. - Discharge Instructions: Back Pain, Adult, Head Injury, Adult, Muscle Strain, Musculoskeletal Pain, Urinary Tract Infection, Adult, Urinary Tract Infection, Adult, [id number], Cervical Sprain, [id number]. - Prescriptions for Tylenol- Codeine #3 300-30 mg Oral Tablet - take 2 tablets by ORAL route every 6 hours As needed; 20 tablet. Cyclobenzaprine 5 mg Oral Tablet - take 1 tablet by ORAL route 3 times per day As needed; 15 tablet. Bactrim DS 800- 160 mg Oral Tablet - take 1 tablet by ORAL route every 12 hours for 7 days; 14 tablet. - Medication Reconciliation Form, Thank You Letter, Antibiotic Education, Prescription Opioid Use form. - Follow up: Private Physician; When: 2 - 3 days; Reason: Recheck today's complaints, Continuance of care, Re-evaluation by your physician. - Problem is new. - Symptoms have improved. Signatures: Dispatcher [employer] [facility] Jaime Ospina MD MD cha Calderon, Audri, RN RN aa5 Miah Looney RN RN hj Corrections: (The following items were deleted from the chart) 16:33 16:18 Head Brain Wo [id number].RAD.BRZ ordered. [facility] 18:23 18:06 04/13/2019 18:06 Discharged to Home. Impression: Superficial injury of head; hj Strain of muscle, fascia and tendon at neck level; Low back pain; Bipolar disorder; Urinary tract infection, site not specified. Condition is Stable. Discharge Instructions: Back Pain, Adult, Head Injury, Adult, Muscle Strain, Musculoskeletal Pain, Cervical Sprain, [id number], Urinary Tract Infection, Adult, Urinary Tract Infection, Adult, [id number]. Prescriptions for Tylenol-Codeine #3 300-30 mg Oral Tablet - take 2 tablets by ORAL route every 6 hours As needed; 20 tablet, Cyclobenzaprine 5 mg Oral Tablet - take 1 tablet by ORAL route 3 times per day As needed; 15 tablet, Bactrim DS 800-160 mg Oral Tablet - take 1 tablet by ORAL route every 12 hours for 7 days; 14 tablet. and Forms are Medication Reconciliation Form, Thank You Letter, Antibiotic Education, Prescription Opioid Use. Follow up: Private Physician; When: 2 - 3 days; Reason: Recheck today's complaints, Continuance of care, Re-evaluation by your physician. Problem is new. Symptoms have improved. montse
[2019-04-13 19:10] VITALS: TEMP 98
[2019-04-13 19:23] VITALS: BP 114/60; O2SAT 99
[2019-04-13 20:11] LABS: Platelet Estimate ADEQ; Urine White Blood Cell Casts OK
[2019-04-13 20:12] LABS: Blood Morphology Comment NOT SEEN (NOT SEEN)
== END 2019-04-13 18:23 | disposition home or self-care (01) ==
LOC: ER 15:57
DX: S16.1XXA Strain of muscle, fascia and tendon at neck level, initial encounter (principal); N39.0 Urinary tract infection, site not specified; M54.5 Low back pain; F31.9 Bipolar disorder, unspecified; I10 Essential (primary) hypertension; E03.9 Hypothyroidism, unspecified; Z88.5 Allergy status to narcotic agent; Z88.6 Allergy status to analgesic agent; Z88.8 Allergy status to other drugs, medicaments and biological substances
CPT/HCPCS: 85025; 80048; 36415; 86900; 86850; 86901; 80076; 81003; 83690; 70450; 71250; 72125; J3010; J0696; J2405; 96365; 96375; 99284

== ENCOUNTER 2019-05-14 12:02 | Emergency (ER) | payer OTHER ==
--- OUTSIDE RECORDS SUMMARY | 2019-05-14 12:04 | XMS REPORT | Clinical Summary ---
:1975 Author Organization [facility] Address [address] [place] [address] Care Team Providers Name Role Phone Asked, [...] INFLUENZA VACCINE 05/22/2019 Results Not on fileafter 05/13/2018 Insurance Payer Benefit Plan / Subscriber ID Effective Dates Phone Address Type Group [employer] [place] xxxxxxxxx 2015-[facility] [employer] t [employer] xxxxxxxxxxx [facility] Advance Directives Patient has advance care planning documents on file. For more information, please contact:[address] [address]
[2019-05-14 13:43] LABS: Absolute Lymphocytes (CBC) 2.7 K/uL (0.7-4.9); Basophils % 1.4 % (0-1.3); Hematocrit 41.3 % (36.0-45.0); Lymphocytes % 34.3 % (15.3-44.8); MPV 7.1 fL (7.6-11.3); RBC Red Blood Cell Count 4.75 M/uL (3.86-4.86)
--- NOTE | 2019-05-14 13:45 | RAD REPORT ---
EXAM DESCRIPTION: RAD - Chest Pa And Lat (2 Views) - 05/14/2019 1:38 pm CLINICAL HISTORY: Dyspnea COMPARISON: November 2018 portable, August 2018 Two view chest TECHNIQUE: PA and lateral views of the chest were obtained. FINDINGS: The lungs are clear of a mass or consolidation. Retrocardiac stranding left base not subst antially different from 2018. Trachea is midline. Heart size is normal and central vasculature is w ithin normal limits. No pleural effusion or pneumothorax seen. No acute bony finding noted. No aor tic abnormality. IMPRESSION: No acute cardiopulmonary process. No significant change from prior imaging.
[2019-05-14] MEDS ORDERED: METHYLPREDNISOLONE 125 MG INJ ONE (13:51)
[2019-05-14] MEDS ORDERED: ALBUTEROL 2.5 MG/3 ML NEB SOL ONE (13:52)
[2019-05-14] MEDS ORDERED: IPRATROPIUM BROM 0.5MG/2.5ML ONE (13:52)
[2019-05-14 14:22] LABS: Potassium 3.7 mmol/L (3.5-5.1)
--- NOTE | 2019-05-14 14:29 | ER ---
Nurse's Notes [facility] Name: Kelsy Gerber Age: 43 yrs Sex: Female : 1975 Arrival Date: 05/14/2019 Time: 12:07 Bed 24 Private MD: Kodi Campa E Diagnosis: Pleurisy;Other chest pain-chest wall pain;Cough Presentation: 05/14 12:09 Presenting complaint: Patient states: Cough, wheezing, and SOB for 1-2 weeks. Not aj improving with RX asthma medications. Transition of care: patient was not received from another setting of care. Onset of symptoms was May 05, 2019. Risk Assessment: Do you want to hurt yourself or someone else? Patient reports no desire to harm self or others. Initial Sepsis Screen: Does the patient meet any 2 criteria? No. Patient's initial sepsis screen is negative. Does the patient have a suspected source of infection? No. Patient's initial sepsis screen is negative. Care prior to arrival: None. 12:09 Method Of Arrival: Ambulatory aj 12:09 Acuity: KELLEY 3 aj Triage Assessment: 12:11 General: Appears in no apparent distress. comfortable, Behavior is calm, cooperative, aj appropriate for age. Pain: Complains of pain in back. Neuro: Level of Consciousness is awake, alert, obeys commands, Oriented to person, place, time, situation, Appropriate for age. Respiratory: Reports shortness of breath cough that is Airway is patent Respiratory effort is even, unlabored, Respiratory pattern is symmetrical, tachypnea Breath sounds with wheezes bilaterally. Onset: The symptoms/episode began/occurred gradually, the patient has mild shortness of breath. Derm: Skin is intact, is healthy with good turgor, Skin is pink, warm \T\ dry. normal. 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 - Social history:: Smoking status: Patient/guardian denies using tobacco. - Ebola Screening: : Patient negative for fever greater than or equal to 101.5 degrees Fahrenheit, and additional compatible Ebola Virus Disease symptoms Patient denies exposure to infectious person Patient denies travel to an Ebola-affected area in the 21 days before illness onset No symptoms or risks identified at this time. Screenin:20 Abuse screen: Denies threats or abuse. Denies injuries from another. Nutritional mg2 screening: No deficits noted. Tuberculosis screening: No symptoms or risk factors identified. Fall Risk None identified. Assessment: 13:20 General: Appears in no apparent distress. comfortable, Behavior is calm, cooperative. mg2 Pain: Complains of pain in back Pain does not radiate. Pain currently is 2 out of 10 on a pain scale. Quality of pain is described as aching, Pain began gradually, Is intermittent. Neuro: Level of Consciousness is awake, alert, obeys commands, Oriented to person, place, time, situation. Cardiovascular: Rhythm is regular. Respiratory: Airway is patent Respiratory effort is even, unlabored, Respiratory pattern is regular, symmetrical. Respiratory: Reports shortness of breath. GI: No signs and/or symptoms were reported involving the gastrointestinal system. : No signs and/or symptoms were reported regarding the genitourinary system. Derm: Skin is intact, is healthy with good turgor, Skin is pink, warm \T\ dry. normal. Musculoskeletal: Circulation, motion, and sensation intact. Capillary refill < 3 seconds. 14:39 Reassessment: Patient denies pain at this time. Patient states feeling better. Patient mg2 states symptoms have improved. Vital Signs: 12:11 BP 103 / 79; Pulse 79; Resp 18; Temp 97.8; Pulse Ox 97% on R/A; Weight 104.33 kg; aj Height 5 ft. 1 in. (154.94 cm); 13:04 BP 128 / 68 RA (auto/lg); Pulse 73; Resp 31 S; Temp 98.2; Pulse Ox 100% on R/A; Pain jp3 10/10; 13:56 Pulse 65; Resp 22; Pulse Ox 100% on Nebulizer Mask; mg2 14:39 BP 106 / 63; Pulse 80; Resp 18; Temp 98.0(O); Pulse Ox 98% on R/A; Pain 0/10; mg2 12:11 Body Mass Index 43.46 (104.33 kg, 154.94 cm) ED Course: 12:07 Patient arrived in ED. mr 12:08 Kodi Campa MD is Private Physician. mr 12:10 Triage completed. aj 12:11 Arm band placed on left wrist. Patient placed in waiting room, Patient notified of wait aj time. 13:01 Yury Xiong, ELIZ is Primary Nurse. mg2 13:05 Jaswant Tesfaye PA is PHCP. jr8 13:05 Casa Rangel MD is Attending Physician. jr8 13:10 Bed in low position. Call light in reach. Side rails up X 1. Warm blanket given. Pillow jp3 given. Verbal reassurance given. Pulse ox on. NIBP on. 13:10 Patient maintains SpO2 saturation greater than 95% on room air. jp3 13:26 No provider procedures requiring assistance completed. mg2 13:32 Basic Metabolic Panel Sent. jp3 13:32 CBC with Diff Sent. jp3 13:36 X-ray completed. Patient tolerated procedure well. Patient moved back from radiology. jb2 13:39 XRAY Chest Pa And Lat (2 Views) In Process Unspecified. EDMS 13:56 Inserted saline lock: 20 gauge in right antecubital area, using aseptic technique. mg2 Blood collected. 14:28 Kodi Campa MD is Referral Physician. jr8 14:39 IV discontinued, intact, bleeding controlled, No redness/swelling at site. Pressure mg2 dressing applied. Administered Medications: 13:56 Drug: Albuterol - atroVENT (3:1) (2.5 mg - 0.5 mg) 3 ml Route: Nebulizer; mg2 14:25 Follow up: Response: No adverse reaction mg2 13:56 Drug: SOLU-Medrol 125 mg Route: IVP; Site: right antecubital; mg2 14:25 Follow up: Response: No adverse reaction mg2 Outcome: 14:28 Discharge ordered by . jr8 14:40 Discharged to home ambulatory, with family. mg2 14:40 Condition: good 14:40 Discharge instructions given to patient, family, Instructed on discharge instructions, follow up and referral plans. Demonstrated understanding of instructions, follow-up care. 14:41 Patient left the ED. mg2 Signatures: Dispatcher [employer] EDMaggy Rich, ELIZ parkinson Finn Robb Bales jb2 Jaswant Tesfaye PA PA jr8 Yury Xiong RN RN mg2 Sushil Lu jp3 Corrections: (The following items were deleted from the chart) 12:11 12:09 Presenting complaint: Patient states: Cough, wheezing, and SOB since yesterday. aj Not improving with RX asthma medications iggy Onset of symptoms was May 13, 2019 iggy parkinson
--- NOTE | 2019-05-14 14:29 | EDPHYS ---
Physician Documentation [facility] Name: Kelsy Gerber Age: 43 yrs Sex: Female : 1975 Arrival Date: 05/14/2019 Time: 12:07 Bed 24 Private MD: Kodi Campa E ED Physician Casa Rangel HPI: 05/14 14:04 This 43 yrs old Female presents to ER via Ambulatory with complaints of jr8 Breathing Difficulty. 14:04 The patient has shortness of breath at rest, and the patient has a history of asthma. jr8 Onset: The symptoms/episode began/occurred gradually, 1.5 week(s) ago, and became worse. Duration: The symptoms are continuous, and are steadily getting worse. The patient's shortness of breath has no apparent modifying factors. Associated signs and symptoms: Pertinent positives: productive cough, Pertinent negatives: chest pain, dizziness, fever, hemoptysis. Severity of symptoms: At their worst the symptoms were moderate in the emergency department the symptoms are unchanged. The patient has experienced similar episodes in the past, today's symptoms are similar, to previous asthma exacerbations, episodes of PNA. The patient has been recently seen by a physician: the patient's primary care provider, 5 day(s) ago, for same symptoms and was given azithromycin and prednisone, which patient completed yesterday - no relief. Shortness of breath with cough x 1.5 weeks, seen by PCP and completed course of ABX and steroids with no relief. Used inhalers and nebulizers at home with no relief, SOB has gradually worsened. Reports history of recurrent asthma exacerbations and frequent PNA - last episode several months ago. 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 - Social history:: Smoking status: Patient/guardian denies using tobacco. - Ebola Screening: : Patient negative for fever greater than or equal to 101.5 degrees Fahrenheit, and additional compatible Ebola Virus Disease symptoms Patient denies exposure to infectious person Patient denies travel to an Ebola-affected area in the 21 days before illness onset No symptoms or risks identified at this time. ROS: 14:04 Constitutional: Negative for fever, chills, and weight loss, Eyes: Negative for injury, jr8 pain, redness, and discharge, ENT: Negative for injury, pain, and discharge, Abdomen/GI: Negative for abdominal pain, nausea, vomiting, diarrhea, and constipation, MS/Extremity: Negative for injury and deformity, Skin: Negative for injury, rash, and discoloration, Neuro: Negative for headache, weakness, numbness, tingling, and seizure. 14:04 Cardiovascular: Negative for chest pain, edema, palpitations. 14:04 Respiratory: Positive for cough, with green sputum, shortness of breath, wheezing, expiratory, Negative for hemoptysis. Exam: 14:04 Constitutional: This is a well developed, well nourished patient who is awake, alert, jr8 and in mild acute respiratory distress. Head/Face: Normocephalic, atraumatic. ENT: Nares patent. No nasal discharge, no septal abnormalities noted. Tympanic membranes are normal and external auditory canals are clear. Oropharynx with no redness, swelling, or masses, exudates, or evidence of obstruction, uvula midline. Mucous membranes moist. Abdomen/GI: Soft, non-tender, with normal bowel sounds. No distension or tympany. No guarding or rebound. No evidence of tenderness throughout. Skin: Warm, dry with normal turgor. Normal color with no rashes, no lesions, and no evidence of cellulitis. MS/ Extremity: Pulses equal, no cyanosis. Neurovascular intact. Full, normal range of motion. Neuro: Awake and alert, GCS 15, oriented to person, place, time, and situation. Cranial nerves II-XII grossly intact. Motor strength 5/5 in all extremities. Sensory grossly intact. Cerebellar exam normal. Normal gait. 14:04 Cardiovascular: Rate: normal, Rhythm: regular, Pulses: Pulses are 2+ in right radial artery, right dorsalis pedis artery, left radial artery and left dorsalis pedis artery. Heart sounds: normal, normal S1and S2, Edema: is not appreciated, JVD: is not appreciated. 14:04 Respiratory: mild respiratory distress is noted, Respirations: labored breathing, that is mild, accessory muscle usage, that is mild, tachypnea, 30 respirations/minute Breath sounds: rhonchi, that are mild, are heard in the left posterior lower lobe, wheezing: expiratory is heard diffusely. Vital Signs: 12:11 BP 103 / 79; Pulse 79; Resp 18; Temp 97.8; Pulse Ox 97% on R/A; Weight 104.33 kg; aj Height 5 ft. 1 in. (154.94 cm); 13:04 BP 128 / 68 RA (auto/lg); Pulse 73; Resp 31 S; Temp 98.2; Pulse Ox 100% on R/A; Pain jp3 10/10; 13:56 Pulse 65; Resp 22; Pulse Ox 100% on Nebulizer Mask; mg2 14:39 BP 106 / 63; Pulse 80; Resp 18; Temp 98.0(O); Pulse Ox 98% on R/A; Pain 0/10; mg2 12:11 Body Mass Index 43.46 (104.33 kg, 154.94 cm) aj MDM: 13:13 Patient medically screened. jr8 14:27 The patient's pulmonary embolism risk score was calculated as follows: Total Score: 0-2 jr points. This patient was found to be at low risk for a pulmonary embolism by using the Well's assessment criteria. Data reviewed: vital signs, nurses notes, lab test result(s), radiologic studies, plain films. Data interpreted: Pulse oximetry: on room air is 100 %. Interpretation: normal. Counseling: I had a detailed discussion with the patient and/or guardian regarding: the historical points, exam findings, and any diagnostic results supporting the discharge/admit diagnosis, lab results, radiology results, the need for outpatient follow up, a family practitioner, to return to the emergency department if symptoms worsen or persist or if there are any questions or concerns that arise at home. 05/14 13:26 Order name: CBC with Diff; Complete Time: 14:20 05/14 13:26 Order name: Basic Metabolic Panel; Complete Time: 14:22 05/14 13:26 Order name: IV; Complete Time: 13:32 05/14 13:26 Order name: XRAY Chest Pa And Lat (2 Views); Complete Time: 14:20 jr Administered Medications: 13:56 Drug: Albuterol - atroVENT (3:1) (2.5 mg - 0.5 mg) 3 ml Route: Nebulizer; mg2 14:25 Follow up: Response: No adverse reaction mg2 13:56 Drug: SOLU-Medrol 125 mg Route: IVP; Site: right antecubital; mg2 14:25 Follow up: Response: No adverse reaction mg2 Disposition: 17:20 Co-signature as Attending Physician, Casa Rangel MD. rn Disposition: 05/14/19 14:28 Discharged to Home. Impression: Pleurisy, Other chest pain - chest wall pain, Cough. - Condition is Stable. - Discharge Instructions: Chest Wall Pain, Pleurisy, Cough, Adult. - Medication Reconciliation Form, Thank You Letter, Antibiotic Education, Prescription Opioid Use form. - Follow up: Kodi Campa MD; When: 2 - 3 days; Reason: Recheck today's complaints, Continuance of care, Re-evaluation by your physician. - Problem is new. - Symptoms have improved. Signatures: Dispatcher [employer] EDMaggy Rich RN RN Casa Stephen MD MD rn Roszak, Josh, PA PA jr8 Yury Xiong RN RN mg2 Corrections: (The following items were deleted from the chart) 14:41 14:28 05/14/2019 14:28 Discharged to Home. Impression: Pleurisy; Other chest pain - mg2 chest wall pain; Cough. Condition is Stable. Forms are Medication Reconciliation Form, Thank You Letter, Antibiotic Education, Prescription Opioid Use. Follow up: Kodi Campa; When: 2 - 3 days; Reason: Recheck today's complaints, Continuance of care, Re-evaluation by your physician. Problem is new. Symptoms have improved. jr8
[2019-05-14 15:05] VITALS: BP 106/63; TEMP 98; O2SAT 98
== END 2019-05-14 14:41 | disposition home or self-care (01) ==
LOC: ER 12:02
DX: R09.1 Pleurisy (principal); R07.89 Other chest pain; R05 Cough; J45.909 Unspecified asthma, uncomplicated
CPT/HCPCS: 85025; 80048; 36415; 71046; 94640; 96374; 99285; J2930

== ENCOUNTER 2019-10-18 01:28 | Emergency (ER) | payer OTHER ==
[2019-10-18] MEDS ORDERED: FENTANYL CITR 100 MCG/2 ML ONE (02:44)
--- NOTE | 2019-10-18 02:49 | ER ---
Nurse's Notes [facility] Name: Kelsy Gerber Age: 44 yrs Sex: Female : 1975 Arrival Date: 10/18/2019 Time: 01:32 Bed 20 Private MD: Austin Ceja R Diagnosis: Pelvic and perineal pain Presentation: 10/18 01:53 Presenting complaint: Patient states: Reports boil or abscess in gluteal cleft, has an tl2 appointment on with Dr. Montez to have I\\T\\D. Pt reports pain is increased and feels like the "boil has spread to vaginal area" and reports throbbing pain in vagina. Transition of care: patient was not received from another setting of care. Onset of symptoms was October 18, 2019. Risk Assessment: Do you want to hurt yourself or someone else? Patient reports no desire to harm self or others. Initial Sepsis Screen: Does the patient meet any 2 criteria? No. Patient's initial sepsis screen is negative. Does the patient have a suspected source of infection? No. Patient's initial sepsis screen is negative. Care prior to arrival: None. 01:53 Method Of Arrival: Ambulatory tl2 01:53 Acuity: KELLEY 3 tl2 Triage Assessment: 02:04 General: Appears in no apparent distress. uncomfortable, Behavior is calm, cooperative, tl2 appropriate for age. Pain: Complains of pain in gluteal cleft. Pain: Pain radiates to vaginal opening, right labia minora and left labia minora. Neuro: Respiratory: Airway is patent Respiratory effort is even, unlabored, Respiratory pattern is regular, symmetrical. :. Derm: Skin is pink, warm \\T\\ dry. Abscess located on gluteal cleft is nickel sized, has no drainage, is red, is raised. 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 - Hysterectomy tl2 Historical: - Allergies: 02:04 Aspirin; tl2 02:04 Daypro; tl2 02:04 Ibuprofen; tl2 02:04 Ketorolac; tl2 02:04 Morphine; tl2 - Home Meds: 02:04 alprazolam 2 mg Oral tab [Active]; atorvastatin 20 mg Oral tab nightly [Active]; tl2 levothyroxine 50 mcg tab 1 tab once daily [Active]; montelukast 10 mg Oral tab 1 tab once daily [Active]; oxybutynin chloride 5 mg Oral tab nightly [Active]; pantoprazole 40 mg Oral TbEC 1 tab once daily [Active]; rizatriptan 10 mg Oral tab [Active]; Topamax 50 mg Oral tab daily [Active]; - PMHx: 02:04 Asthma; Bipolar disorder; fatty liver; Hypertension; Hypothyroidism; LEFT SIDED tl2 WEAKNESS; migranes; Pancreatitis; TIA; - PSHx: 02:04 Hysterectomy; Cholecystectomy; tl2 - Immunization history:: Adult Immunizations. - Social history:: Smoking status: Patient uses tobacco products, denies chronic smoking, but will smoke occasionally. - Ebola Screening: : No symptoms or risks identified at this time. Screenin:08 Abuse screen: Denies threats or abuse. Nutritional screening: No deficits noted. tl2 Tuberculosis screening: No symptoms or risk factors identified. Fall Risk None identified. Vital Signs: 02:04 BP 121 / 92; Pulse 96; Resp 18; Temp 98.8; Pulse Ox 98% ; Weight 104.33 kg; Height 5 tl2 ft. 2 in. (157.48 cm); Pain 6/10; 02:04 Body Mass Index 42.07 (104.33 kg, 157.48 cm) tl2 ED Course: 01:32 Patient arrived in ED. es 01:34 Austin Ceja MD is Private Physician. es 01:52 Maritza Villar, ELIZ is Primary Nurse. tl2 01:54 [facility] Sabillon [facility]C [facility] snw 01:54 Mundo Brandon MD is Attending Physician. snw 01:54 Triage completed. tl2 02:04 Arm band placed on right wrist. tl2 02:08 Patient has correct armband on for positive identification. Placed in gown. Bed in low tl2 position. Call light in reach. Side rails up X 1. 02:47 Akira Montez MD is Referral Physician. snw 03:18 No provider procedures requiring assistance completed. Patient did not have IV access tl2 during this emergency room visit. Administered Medications: 02:46 Drug: fentaNYL (PF) 50 mcg {Note: RASS 0.} Route: IM; Site: right deltoid; 03:21 Follow up: Response: No adverse reaction; Pain is decreased; RASS: Alert and Calm (0) tl2 Outcome: 02:48 Discharge ordered by . andrei 03:18 Discharged to home ambulatory, with family. tl2 03:18 Condition: stable 03:18 Discharge instructions given to patient, Instructed on discharge instructions, follow up and referral plans. medication usage, Demonstrated understanding of instructions, follow-up care, medications, Prescriptions given X 1. 03:21 Patient left the ED. tl2 Signatures: Rosangela Sabillon, [employer] MAINTENANCE-C [employer]-Csnw Emily Max Taylor, RN RN tl2 Holly Casillas
--- NOTE | 2019-10-18 02:49 | EDPHYS ---
Physician Documentation [facility] Name: Kelsy Gerber Age: 44 yrs Sex: Female : 1975 Arrival Date: 10/18/2019 Time: 01:32 Bed 20 Private MD: Austin Ceja R ED Physician Mundo Brandon HPI: 10/18 02:41 This 44 yrs old Female presents to ER via Ambulatory with complaints of WILL snw DISCUSS WITH NURSE. 02:41 Onset: The symptoms/episode began/occurred suddenly, today. Associated signs and snw symptoms: Pertinent positives: perineal burning pain, awaiting evaluation on Sunday per . Modifying factors: The patient symptoms are alleviated by nothing, the patient symptoms are aggravated by stimulation, pressure. The patient has not experienced similar symptoms in the past. The patient has been recently seen by a physician: the patient's primary care provider, Dr. Ceja. 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/A - Hysterectomy tl2 Historical: - Allergies: 02:04 Aspirin; tl2 02:04 Daypro; tl2 02:04 Ibuprofen; tl2 02:04 Ketorolac; tl2 02:04 Morphine; tl2 - Home Meds: 02:04 alprazolam 2 mg Oral tab [Active]; atorvastatin 20 mg Oral tab nightly [Active]; tl2 levothyroxine 50 mcg tab 1 tab once daily [Active]; montelukast 10 mg Oral tab 1 tab once daily [Active]; oxybutynin chloride 5 mg Oral tab nightly [Active]; pantoprazole 40 mg Oral TbEC 1 tab once daily [Active]; rizatriptan 10 mg Oral tab [Active]; Topamax 50 mg Oral tab daily [Active]; - PMHx: 02:04 Asthma; Bipolar disorder; fatty liver; Hypertension; Hypothyroidism; LEFT SIDED tl2 WEAKNESS; migranes; Pancreatitis; TIA; - PSHx: 02:04 Hysterectomy; Cholecystectomy; tl2 - Immunization history:: Adult Immunizations. - Social history:: Smoking status: Patient uses tobacco products, denies chronic smoking, but will smoke occasionally. - Ebola Screening: : No symptoms or risks identified at this time. ROS: 02:38 Constitutional: Negative for fever, chills, and weight loss, Eyes: Negative for injury, snw pain, redness, and discharge, ENT: Negative for injury, pain, and discharge, Neck: Negative for injury, pain, and swelling, Cardiovascular: Negative for chest pain, palpitations, and edema, Respiratory: Negative for shortness of breath, cough, wheezing, and pleuritic chest pain, Abdomen/GI: Negative for abdominal pain, nausea, vomiting, diarrhea, and constipation, Back: Negative for injury and pain, MS/Extremity: Negative for injury and deformity, Skin: Negative for injury, rash, and discoloration, Neuro: Negative for headache, weakness, numbness, tingling, and seizure. 02:38 : Positive for burning and throbbing to perineum post cleansing with bodywipe. uncomfortable, no hx HSV, no noted vesicles. Exam: 02:35 Constitutional: This is a well developed, well nourished patient who is awake, alert, snw and in no acute distress. Head/Face: Normocephalic, atraumatic. Eyes: Pupils equal round and reactive to light, extra-ocular motions intact. Lids and lashes normal. Conjunctiva and sclera are non-icteric and not injected. Cornea within normal limits. Periorbital areas with no swelling, redness, or edema. ENT: Nares patent. No nasal discharge, no septal abnormalities noted. Tympanic membranes are normal and external auditory canals are clear. Oropharynx with no redness, swelling, or masses, exudates, or evidence of obstruction, uvula midline. Mucous membranes moist. Neck: Trachea midline, no thyromegaly or masses palpated, and no cervical lymphadenopathy. Supple, full range of motion without nuchal rigidity, or vertebral point tenderness. No Meningismus. Chest/axilla: Normal chest wall appearance and motion. Nontender with no deformity. No lesions are appreciated. Cardiovascular: Regular rate and rhythm with a normal S1 and S2. No gallops, murmurs, or rubs. Normal PMI, no JVD. No pulse deficits. Respiratory: Lungs have equal breath sounds bilaterally, clear to auscultation and percussion. No rales, rhonchi or wheezes noted. No increased work of breathing, no retractions or nasal flaring. Abdomen/GI: Soft, non-tender, with normal bowel sounds. No distension or tympany. No guarding or rebound. No evidence of tenderness throughout. Back: No spinal tenderness. No costovertebral tenderness. Full range of motion. MS/ Extremity: Pulses equal, no cyanosis. Neurovascular intact. Full, normal range of motion. Neuro: Awake and alert, GCS 15, oriented to person, place, time, and situation. Cranial nerves II-XII grossly intact. Motor strength 5/5 in all extremities. Sensory grossly intact. Cerebellar exam normal. Normal gait. Psych: Awake, alert, with orientation to person, place and time. Behavior, mood, and affect are within normal limits. 02:35 Skin: Appearance: normal except for affected area, rash can be described as erythematous, on the perineum, right labia majora and left labia majora, small cutaneous abscess without cellulitis to left lower gluteal fold without obvious extension into anus. Vital Signs: 02:04 BP 121 / 92; Pulse 96; Resp 18; Temp 98.8; Pulse Ox 98% ; Weight 104.33 kg; Height 5 tl2 ft. 2 in. (157.48 cm); Pain 6/10; 02:04 Body Mass Index 42.07 (104.33 kg, 157.48 cm) tl2 MDM: 01:55 Patient medically screened. snw 02:50 Data reviewed: vital signs, nurses notes. Data interpreted: Pulse oximetry: on room air snw is 98 %. Interpretation: normal. Counseling: I had a detailed discussion with the patient and/or guardian regarding: the historical points, exam findings, and any diagnostic results supporting the discharge/admit diagnosis, the need for outpatient follow up, to return to the emergency department if symptoms worsen or persist or if there are any questions or concerns that arise at home. Special discussion: I have referred the patient to see his PCP for further evaluation of high blood pressure. I discussed in detail with the patient the higher chance of wound infection based on his presenting history. Based on the history and exam findings, there is no indication for further emergent testing or inpatient evaluation. I discussed with the patient/guardian the need to see the general surgeon for further evaluation of the symptoms. I discussed with the patient/guardian the need to see the primary care provider for further evaluation of the symptoms. Administered Medications: 02:46 Drug: fentaNYL (PF) 50 mcg {Note: RASS 0.} Route: IM; Site: right deltoid; wh 03:21 Follow up: Response: No adverse reaction; Pain is decreased; RASS: Alert and Calm (0) tl2 Disposition: 06:02 Co-signature as Attending Physician, Mundo Brandon MD I agree with the assessment and tw4 plan of care. Disposition: 10/18/19 02:48 Discharged to Home. Impression: Pelvic and perineal pain. - Condition is Stable. - Discharge Instructions: Pelvic Pain, Female, How to Take a Sitz Bath. - Prescriptions for Miralax 17 gram/dose Oral - take 1 packet by ORAL route once daily dilute powder in 8 ounces of water or juice; 1 box. - Medication Reconciliation Form, Thank You Letter, Antibiotic Education, Prescription Opioid Use form. - Follow up: Akira Montez MD; When: as scheduled; Reason: Recheck today's complaints, Continuance of care. Follow up: Emergency Department; When: As needed; Reason: Fever > 102 F, rectal pain. Signatures: Rosangela Sabillon, SURINDER-C PROFESSOR OF GERMAN-Csnw Maritza Villar RN RN tl2 Holly Casillas Terrence, MD MD tw4 Corrections: (The following items were deleted from the chart) 03:21 02:48 10/18/2019 02:48 Discharged to Home. Impression: Pelvic and perineal pain. tl2 Condition is Stable. Forms are Medication Reconciliation Form, Thank You Letter, Antibiotic Education, Prescription Opioid Use. Follow up: Akira Montez; When: as scheduled; Reason: Recheck today's complaints, Continuance of care. Follow up: Emergency Department; When: As needed; Reason: Fever > 102 F, rectal pain. snw
[2019-10-18 03:25] VITALS: BP 121/92; TEMP 98.8; O2SAT 98
== END 2019-10-18 03:21 | disposition home or self-care (01) ==
LOC: ER 01:28
DX: R10.2 Pelvic and perineal pain (principal); I10 Essential (primary) hypertension; E03.9 Hypothyroidism, unspecified; J45.909 Unspecified asthma, uncomplicated; F31.9 Bipolar disorder, unspecified; Z72.0 Tobacco use; Z88.5 Allergy status to narcotic agent; Z88.6 Allergy status to analgesic agent; Z88.8 Allergy status to other drugs, medicaments and biological substances
CPT/HCPCS: 96372; 99283; J3010

== ENCOUNTER 2019-10-20 12:04 | Emergency (ER) | payer OTHER ==
[2019-10-20 13:23] LABS: Absolute Lymphocytes (CBC) 2.6 K/uL (0.7-4.9); Basophils % 0.3 % (0-1.3); Hematocrit 44.9 % (36.0-45.0); Lymphocytes % 36.1 % (15.3-44.8); MPV 7.4 fL (7.6-11.3); RBC Red Blood Cell Count 5.17 M/uL (3.86-4.86)
--- NOTE | 2019-10-20 14:16 | RAD REPORT ---
EXAM DESCRIPTION: CT - Pelvis W/Cont - 10/20/2019 2:00 pm CLINICAL HISTORY: r/o cutaneous abscess, history of left gluteal/perianal inflammatory changes COMPARISON: None. TECHNIQUE: Noncontrast axial 5 millimeter thick images of the pelvis obtained. The CT scan was performed using dose optimization techniques as appropriate to a performed exam incl uding one or more of the following: Automated exposure control, adjustment of the mA and/or kV accord ing to patient size (this includes techniques or standardized protocols for targeted exams where dose is matched to indication/reason for exam) and use of iterative reconstruction technique. FINDINGS: In the central pelvis imaged bowel loops show no suspicious findings. Uterus is absent. Ov gale are absent or atrophic. No adnexal abnormality. Minimal diverticulosis noted. No free air, free fluid or inflammatory stranding in the peritoneal or retroperitoneal spaces. No urinary bladder abno rmality. No acute bone findings. No skeletal muscle abnormality. No perirectal abscess or perianal inflammatory stranding identifiable. There are very trace amounts o f stranding in the fatty tissues of the left side pelvis. This subtle stranding extends from the medi al margin of the left ischial tuberosity posteriorly to the inferior gluteal fold region. There is no air or foreign body. No associated skin thickening or edema seen. Musculature is all normal in appea ines. IMPRESSION: Very subtle, trace amounts of stranding in the fatty tissues left-side pelvis extending from the medial margin of the ischial tuberosity posteriorly towards the inferior left gluteal fold. No associated air, abscess or foreign body. No other significant findings.
--- NOTE | 2019-10-20 15:50 | ER ---
Nurse's Notes [facility] Name: Kelsy Gerber Age: 44 yrs Sex: Female : 1975 Arrival Date: 10/20/2019 Time: 12:09 Bed 16 Private MD: Austin Ceja R Diagnosis: Cellulitis of buttock Presentation: 10/20 12:39 Presenting complaint: Patient states: I was seen by today and told to come sg to the ER for evaluation due to an abscess that has spread into by pelvis, pt reports pain and throbbing sensation to the pelvis area that is a 10/10, reports chills at home. Transition of care: patient was not received from another setting of care. Onset of symptoms was October 20, 2019. Risk Assessment: Do you want to hurt yourself or someone else? Patient reports no desire to harm self or others. Initial Sepsis Screen: Does the patient meet any 2 criteria? HR > 90 bpm. No. Patient's initial sepsis screen is negative. Does the patient have a suspected source of infection? Yes: Skin breakdown/wound. Care prior to arrival: None. 12:39 Method Of Arrival: Ambulatory sg 12:39 Acuity: KELLEY 3 sg EDI COORDINATOR: 13:23 LMP N/A - Hysterectomy ca1 Historical: - Allergies: 12:22 Aspirin; sg 12:22 Daypro; sg 12:22 Ibuprofen; sg 12:22 Ketorolac; sg 12:22 Morphine; sg - PMHx: 12:22 Asthma; Bipolar disorder; fatty liver; Hypertension; Hypothyroidism; LEFT SIDED sg WEAKNESS; migranes; Pancreatitis; TIA; - PSHx: 12:22 Hysterectomy; Cholecystectomy; sg - Immunization history:: Adult Immunizations up to date. - Social history:: Smoking status: Patient/guardian denies using tobacco. - Ebola Screening: : Patient negative for fever greater than or equal to 101.5 degrees Fahrenheit, and additional compatible Ebola Virus Disease symptoms Patient denies exposure to infectious person Patient denies travel to an Ebola-affected area in the 21 days before illness onset No symptoms or risks identified at this time. Screenin:45 Abuse screen: Denies threats or abuse. Denies injuries from another. Nutritional ca1 screening: No deficits noted. Tuberculosis screening: No symptoms or risk factors identified. Fall Risk IV access (20 points). Assessment: 12:45 General: Appears in no apparent distress. uncomfortable, Behavior is calm, cooperative, ca1 appropriate for age. Pain: Complains of pain in groin Pain currently is 10 out of 10 on a pain scale. Quality of pain is described as throbbing, Pain began 2-3 days ago. Neuro: Level of Consciousness is awake, alert, obeys commands, Oriented to person, place, time, situation, Appropriate for age. Cardiovascular: Heart tones S1 S2 present Capillary refill < 3 seconds Patient's skin is warm and dry. Respiratory: Airway is patent Respiratory effort is even, unlabored, Respiratory pattern is regular, symmetrical, Breath sounds are clear bilaterally. GI: Abdomen is round non-distended, Bowel sounds present X 4 quads. Abd is soft and non tender X 4 quads. : No deficits noted. No signs and/or symptoms were reported regarding the genitourinary system. EENT: No deficits noted. No signs and/or symptoms were reported regarding the EENT system. Derm: Skin is intact, is healthy with good turgor, Skin is pink, warm \T\ dry. Musculoskeletal: Circulation, motion, and sensation intact. Capillary refill < 3 seconds, Range of motion: intact in all extremities. 13:47 Reassessment: Patient appears in no apparent distress at this time. Patient is alert, ca1 oriented x 3, equal unlabored respirations, skin warm/dry/pink. 14:50 Reassessment: Patient appears in no apparent distress at this time. Patient is alert, ca1 oriented x 3, equal unlabored respirations, skin warm/dry/pink. 16:00 Reassessment: Patient appears in no apparent distress at this time. Patient and/or hb family updated on plan of care and expected duration. Pain level reassessed. Patient is alert, oriented x 3, equal unlabored respirations, skin warm/dry/pink. Vital Signs: 12:38 BP 128 / 98; Pulse 102; Resp 18; Temp 98.8; Pulse Ox 97% on R/A; Weight 105.23 kg; sg Height 5 ft. 4 in. (162.56 cm); Pain 10/10; 13:45 BP 107 / 69; Pulse 88; Resp 17 S; Pulse Ox 95% on R/A; ca1 14:50 BP 105 / 81; Pulse 81; Resp 17 S; Pulse Ox 96% on R/A; ca1 12:38 Body Mass Index 39.82 (105.23 kg, 162.56 cm) ED Course: 12:09 Patient arrived in ED. mr 12:09 Austin Ceja MD is Private Physician. mr 12:22 Arm band placed on. sg 12:38 Jaswant Tesfaye PA is PHCP. jr8 12:38 Alexys Castorena MD is Attending Physician. [facility] 12:42 Triage completed. sg 12:44 Liya Khan, RN is Primary Nurse. ca1 12:45 Patient has correct armband on for positive identification. Bed in low position. Call ca1 light in reach. Side rails up X 1. Pulse ox on. NIBP on. Warm blanket given. 13:07 Initial lab(s) drawn, by me, sent to lab. Inserted saline lock: 20 gauge in left ca1 antecubital area, using aseptic technique. Blood collected. 13:51 CT Pelvis w cont In Process Unspecified. EDMS 15:43 Urine Dipstick--Ancillary (enter results) Sent. [facility] 15:48 Akira Montez MD is Referral Physician. [facility] 16:01 No provider procedures requiring assistance completed. IV discontinued, intact, hb bleeding controlled, No redness/swelling at site. Pressure dressing applied. Administered Medications: No medications were administered Outcome: 15:49 Discharge ordered by . [facility] 16:01 Discharged to home ambulatory. hb 16:01 Condition: stable 16:01 Discharge instructions given to patient, Instructed on discharge instructions, follow up and referral plans. medication usage, Demonstrated understanding of instructions, follow-up care, medications, Prescriptions given X 2. 16:02 Patient left the ED. hb Signatures: Dispatcher [employer] EDMS Tiago Angulo, ELIZ WELLINGTON Colleen Finn mr Jaswant Tesfaye PA PA [facility] Sima Conteh RN RN hb Martinez, Maria [facility] Liya Khan RN RN [facility]
--- NOTE | 2019-10-20 15:51 | EDPHYS ---
Physician Documentation [facility] Name: Kelsy Gerber Age: 44 yrs Sex: Female : 1975 Arrival Date: 10/20/2019 Time: 12:09 Bed 16 Private MD: Austin Ceja R ED Physician Alexys Castorena HPI: 10/20 13:14 This 44 yrs old Female presents to ER via Ambulatory with complaints of jr8 Abscess. 13:14 Onset: The symptoms/episode began/occurred gradually, 1 week(s) ago. Possible cause(s): jr8 unknown. Associated signs and symptoms: The patient has no apparent associated signs or symptoms. Modifying factors: the symptoms are alleviated by nothing, the symptoms are aggravated by movement, walking, pressure, sitting, squeezing the lesion and expressing the contents, touching. Severity of symptoms: At their worst the symptoms were moderate, in the emergency department the symptoms are unchanged. The patient has not experienced similar symptoms in the past. The patient has been recently seen by a physician:. Patient stated that she was seen the other day in the ED and diagnosed with small gluteal abscess. Stated that she f/u with Dr. Montez as requested today. No apparent abscess noted but was requested that she come to ED due to worsening of pain for pelvic CT to see if infection has spread more internally . LEAD FABRICATOR: 13:23 LMP N/A - Hysterectomy ca1 Historical: - Allergies: 12:22 Aspirin; sg 12:22 Daypro; sg 12:22 Ibuprofen; sg 12:22 Ketorolac; sg 12:22 Morphine; sg - PMHx: 12:22 Asthma; Bipolar disorder; fatty liver; Hypertension; Hypothyroidism; LEFT SIDED sg WEAKNESS; migranes; Pancreatitis; TIA; - PSHx: 12:22 Hysterectomy; Cholecystectomy; sg - Immunization history:: Adult Immunizations up to date. - Social history:: Smoking status: Patient/guardian denies using tobacco. - Ebola Screening: : Patient negative for fever greater than or equal to 101.5 degrees Fahrenheit, and additional compatible Ebola Virus Disease symptoms Patient denies exposure to infectious person Patient denies travel to an Ebola-affected area in the 21 days before illness onset No symptoms or risks identified at this time. ROS: 13:14 Eyes: Negative for injury, pain, redness, and discharge, ENT: Negative for injury, jr8 pain, and discharge, Neck: Negative for injury, pain, and swelling, Cardiovascular: Negative for chest pain, palpitations, and edema, Respiratory: Negative for shortness of breath, cough, wheezing, and pleuritic chest pain, Abdomen/GI: Negative for abdominal pain, nausea, vomiting, diarrhea, and constipation, Back: Negative for injury and pain, MS/Extremity: Negative for injury and deformity, Skin: Negative for injury, rash, and discoloration, Neuro: Negative for headache, weakness, numbness, tingling, and seizure. 13:14 : Positive for pelvic pain. Exam: 13:14 Eyes: Pupils equal round and reactive to light, extra-ocular motions intact. Lids and jr8 lashes normal. Conjunctiva and sclera are non-icteric and not injected. Cornea within normal limits. Periorbital areas with no swelling, redness, or edema. ENT: Nares patent. No nasal discharge, no septal abnormalities noted. Tympanic membranes are normal and external auditory canals are clear. Oropharynx with no redness, swelling, or masses, exudates, or evidence of obstruction, uvula midline. Mucous membranes moist. Neck: Trachea midline, no thyromegaly or masses palpated, and no cervical lymphadenopathy. Supple, full range of motion without nuchal rigidity, or vertebral point tenderness. No Meningismus. Cardiovascular: Regular rate and rhythm with a normal S1 and S2. No gallops, murmurs, or rubs. Normal PMI, no JVD. No pulse deficits. Respiratory: Lungs have equal breath sounds bilaterally, clear to auscultation and percussion. No rales, rhonchi or wheezes noted. No increased work of breathing, no retractions or nasal flaring. Abdomen/GI: Soft, non-tender, with normal bowel sounds. No distension or tympany. No guarding or rebound. No evidence of tenderness throughout. Back: No spinal tenderness. No costovertebral tenderness. Full range of motion. Skin: Warm, dry with normal turgor. Normal color with no rashes, no lesions, and no evidence of cellulitis. MS/ Extremity: Pulses equal, no cyanosis. Neurovascular intact. Full, normal range of motion. Neuro: Awake and alert, GCS 15, oriented to person, place, time, and situation. Cranial nerves II-XII grossly intact. Motor strength 5/5 in all extremities. Sensory grossly intact. Cerebellar exam normal. Normal gait. 13:14 : Pelvic Exam: External exam: no appreciated Bartholin's cyst, no erythema, not excoriated, no evidence of foreign body, no lesions, no ulcerations, no warts seen, No induration, cellulitis, or fluctuant mass noted to external labia, inguinal, or buttock region, Rectal exam: Anus normal in appearance. No induration or fluctuant mass around perirectal region . Vital Signs: 12:38 BP 128 / 98; Pulse 102; Resp 18; Temp 98.8; Pulse Ox 97% on R/A; Weight 105.23 kg; sg Height 5 ft. 4 in. (162.56 cm); Pain 10/10; 13:45 BP 107 / 69; Pulse 88; Resp 17 S; Pulse Ox 95% on R/A; ca1 14:50 BP 105 / 81; Pulse 81; Resp 17 S; Pulse Ox 96% on R/A; ca1 12:38 Body Mass Index 39.82 (105.23 kg, 162.56 cm) sg MDM: 12:40 Patient medically screened. jr8 15:47 Data reviewed: vital signs, nurses notes, lab test result(s), radiologic studies, CT jr8 scan. Data interpreted: Pulse oximetry: on room air is 96 %. Interpretation: normal. Counseling: I had a detailed discussion with the patient and/or guardian regarding: the historical points, exam findings, and any diagnostic results supporting the discharge/admit diagnosis, lab results, radiology results, the need for outpatient follow up, a general surgeon, to return to the emergency department if symptoms worsen or persist or if there are any questions or concerns that arise at home. ED course: Spoke with Dr. Montez. Came and saw patient again in ED after getting report. Agreed that patient can go home at this time. No defined abscess or large cellulitis. Will start on Bactrim DS. Will f/u with Dr. Montez again this Sunday in clinic . 10/20 12:58 Order name: CBC with Diff; Complete Time: 13:36 jr8 10/20 12:58 Order name: Basic Metabolic Panel; Complete Time: 13:36 jr8 10/20 12:58 Order name: IV; Complete Time: 13:03 jr8 10/20 12:58 Order name: CT Pelvis w cont; Complete Time: 14:30 [facility] 10/20 13:21 Order name: Glucose, Ancillary Testing; Complete Time: 13:26 EDID 10/20 15:19 Order name: Urine Dipstick--Ancillary (enter results) bd Administered Medications: No medications were administered Disposition: 16:24 Co-signature as Attending Physician, Alexys Castorena MD Signing chart for administrative ps1 purposes. Did not see or evaluate patient. . Disposition: 10/20/19 15:49 Discharged to Home. Impression: Cellulitis of buttock. - Condition is Stable. - Discharge Instructions: Cellulitis, Adult. - Prescriptions for Bactrim DS 800- 160 mg Oral Tablet - take 1 tablet by ORAL route every 12 hours for 10 days; 20 tablet. - Medication Reconciliation Form, Thank You Letter, Antibiotic Education, Prescription Opioid Use form. - Follow up: Akira Montez MD; When: 2 - 3 days; Reason: Recheck today's complaints, Continuance of care, Re-evaluation by your physician. - Problem is new. - Symptoms have improved. Signatures: Dispatcher [employer] EDID Tiago Angulo RN RN sg Jaswant Tesfaye PA PA jr8 Sima Conteh RN RN Alexys Castorena MD MD ps1 Corrections: (The following items were deleted from the chart) 16:02 15:49 10/20/2019 15:49 Discharged to Home. Impression: Cellulitis of buttock. Condition hb is Stable. Forms are Medication Reconciliation Form, Thank You Letter, Antibiotic Education, Prescription Opioid Use. Follow up: Akira Montez; When: 2 - 3 days; Reason: Recheck today's complaints, Continuance of care, Re-evaluation by your physician. Problem is new. Symptoms have improved. jr8
[2019-10-20 16:07] LABS: Urine Blood NEGATIVE (NEG); Urine Glucose 2+ (NEG); Urine Protein TRACE (NEG); Urine pH 5.5 (5.0-7.0)
[2019-10-20 16:09] VITALS: TEMP 98.8
[2019-10-20 16:12] VITALS: BP 105/81; O2SAT 96
== END 2019-10-20 16:02 | disposition home or self-care (01) ==
LOC: ER 12:04
DX: L03.317 Cellulitis of buttock (principal); I10 Essential (primary) hypertension; Z88.5 Allergy status to narcotic agent; Z88.6 Allergy status to analgesic agent; Z88.8 Allergy status to other drugs, medicaments and biological substances
CPT/HCPCS: 85025; 80048; 36415; 82947; 81003; 72193; 99284; Q9967

== ENCOUNTER 2019-10-24 16:25 | Emergency (ER) | payer OTHER ==
[2019-10-24] MEDS ORDERED: NA CHLORIDE 0.9% 1,000 ML ONE ×2 (17:14→17:58)
[2019-10-24 17:21] LABS: Absolute Lymphocytes (CBC) 1.3 K/uL (0.7-4.9); Basophils % 1.3 % (0-1.3); Hematocrit 43.6 % (36.0-45.0); Lymphocytes % 15.3 % (15.3-44.8); MPV 7.6 fL (7.6-11.3); RBC Red Blood Cell Count 4.91 M/uL (3.86-4.86)
[2019-10-24 17:39] LABS: Potassium 4.2 mmol/L (3.5-5.1)
[2019-10-24] MEDS ORDERED: INSULIN -REGULAR HUMAN 50 UNIT/0.5 ML ML ONE (17:58)
[2019-10-24] MEDS ORDERED: ONDANSETRON 4 MG/2 ML VIAL ONE (18:22)
[2019-10-24] MEDS ORDERED: FENTANYL CITR 100 MCG/2 ML ONE (18:22)
--- NOTE | 2019-10-24 18:51 | RAD REPORT ---
EXAM DESCRIPTION: CT - Head Brain Wo Cont - 10/24/2019 6:39 pm CLINICAL HISTORY: Headache COMPARISON: 2016 TECHNIQUE: Computed axial tomography of the head was obtained. IV contrast was not requested. All CT scans are performed using dose optimization technique as appropriate and may include automated exposure control or mA/KV adjustment according to patient size. FINDINGS: An intracranial bleed is not seen . The ventricles are normal in caliber. No extra-axial fluid collection is noted. Fluid within the sinuses/ mastoids is not seen. IMPRESSION: No acute intracranial abnormality is seen. If patient's symptoms persist MRI of the bra in would be recommended.
--- NOTE | 2019-10-24 18:56 | RAD REPORT ---
EXAM DESCRIPTION: CT - Abdomen Pelvis Wo Contrast - 10/24/2019 6:41 pm CLINICAL HISTORY: Abdominal pain COMPARISON: 2014 TECHNIQUE: Computed axial tomography of the abdomen and pelvis was obtained. IV and oral contrast we re not requested. All CT scans are performed using dose optimization technique as appropriate and may include automated exposure control or mA/KV adjustment according to patient size. FINDINGS: The evaluation of solid organs, vessels and bowel is limited secondary to the lack of con trast administration. Fatty liver. Mild hepatomegaly. Cholecystectomy Pancreas is atrophic. The spleen, adrenals and kidneys appear grossly normal. Small umbilical hernia contains fat. Hysterectomy The appendix is normal. There is no evidence of diverticulitis. IMPRESSION: Mild hepatomegaly with fatty infiltration
--- NOTE | 2019-10-24 19:27 | ER ---
Nurse's Notes [facility] Name: Kelsy Gerber Age: 44 yrs Sex: Female : 1975 Arrival Date: 10/24/2019 Time: 16:28 Bed 19 Private MD: Austin Ceja R Diagnosis: Hyperglycemia, unspecified;Headache;Low back pain Presentation: 10/24 16:41 Presenting complaint: Patient states: Sent by Dr. Ceja for high blood sugar of 508. Pt ss reports blurred vision over the past few days and headache that began just prior to arrival. Pt reports she just started Metformin today. Transition of care: patient was not received from another setting of care. Onset of symptoms is unknown. Risk Assessment: Do you want to hurt yourself or someone else? Patient reports no desire to harm self or others. Initial Sepsis Screen: Does the patient meet any 2 criteria? No. Patient's initial sepsis screen is negative. Does the patient have a suspected source of infection? Yes: Skin breakdown/wound. Care prior to arrival: None. 16:41 Method Of Arrival: Ambulatory ss 16:41 Acuity: KELLEY 3 ss Historical: - Allergies: 16:47 Aspirin; ss 16:47 Daypro; ss 16:47 Ibuprofen; ss 16:47 Ketorolac; ss 16:47 Morphine; ss - PMHx: 16:47 Asthma; fatty liver; Bipolar disorder; Hypertension; Hypothyroidism; LEFT SIDED ss WEAKNESS; migranes; Pancreatitis; TIA; Diabetes - NIDDM; - PSHx: 16:47 Hysterectomy; Cholecystectomy; ss - Immunization history:: Adult Immunizations up to date. - Social history:: Smoking status: Patient/guardian denies using tobacco. - Ebola Screening: : Patient denies exposure to infectious person Patient denies travel to an Ebola-affected area in the 21 days before illness onset. Screenin:16 Abuse screen: Denies threats or abuse. Denies injuries from another. Nutritional rv screening: No deficits noted. Tuberculosis screening: No symptoms or risk factors identified. Fall Risk None identified. Assessment: 17:15 General: Appears in no apparent distress. comfortable, Behavior is calm, cooperative. rv Pain: Denies pain. Neuro: Level of Consciousness is awake, alert, obeys commands, Oriented to person, place, time, situation, Reports dizziness. Cardiovascular: Patient's skin is warm and dry. Respiratory: Airway is patent. Derm: Skin is intact. Vital Signs: 16:47 BP 131 / 73; Pulse 84; Resp 20; Temp 97.5(TE); Pulse Ox 98% on R/A; Weight 104.33 kg; ss Pain 10/10; 18:00 BP 130 / 71; Pulse 81; Resp 18; Pulse Ox 98% on R/A; rv 19:00 BP 99 / 63; Pulse 82; Resp 16; Pulse Ox 96% on R/A; rv 19:54 BP 105 / 69; Pulse 72; Resp 18; Pulse Ox 98% on R/A; rv ED Course: 16:28 Patient arrived in ED. mr 16:29 Austin Ceja MD is Private Physician. mr 16:45 Triage completed. ss 16:47 Arm band placed on right wrist. ss 16:53 Dennis Miles NP is PHCP. pm1 16:53 Stef Crespo MD is Attending Physician. pm1 17:14 Nasir Bray RN is Primary Nurse. rv 17:14 Inserted saline lock: 22 gauge in right antecubital area, using aseptic technique. rv ,using aseptic technique. by KJ publication editor Blood collected. 17:16 Patient has correct armband on for positive identification. Bed in low position. Call rv light in reach. Pulse ox on. NIBP on. 18:54 CT Head Brain wo Cont In Process Unspecified. EDMS 18:54 Abdomen In Process Unspecified. EDMS 19:26 Austin Ceja MD is Referral Physician. pm1 19:54 No provider procedures requiring assistance completed. IV discontinued, intact, rv bleeding controlled, No redness/swelling at site. Pressure dressing applied. Administered Medications: 17:14 Drug: NS 0.9% 1000 ml Route: IV; Rate: 1000 ml; Site: right antecubital; rv 19:52 Follow up: IV Status: Completed infusion; IV Intake: 1000ml rv 18:03 Drug: Insulin Regular Human 5 units {Co-Signature: mg2 (Yury Xiong RN).} Route: rv IVP; Site: right antecubital; 18:44 Follow up: Response: Blood sugar is lowered rv 18:04 Drug: NS 0.9% 1000 ml Route: IV; Rate: 1000 ml; Site: right antecubital; rv 19:53 Follow up: IV Status: Completed infusion rv 18:24 Drug: Zofran 4 mg Route: IVP; Site: right antecubital; rv 19:53 Follow up: Response: No adverse reaction rv 18:30 Drug: fentaNYL (PF) 25 mcg {Note: rass0.} Route: IVP; Site: right antecubital; rv 19:53 Follow up: Response: No adverse reaction; Pain is decreased; RASS: Alert and Calm (0) rv 19:52 Drug: fentaNYL (PF) 25 mcg {Note: rass 0.} Route: IVP; Site: right antecubital; rv 19:52 Follow up: Response: Medication administered at discharge. rv Intake: 19:52 IV: 1000ml; Total: 1000ml. rv Outcome: 19:26 Discharge ordered by . pm1 19:55 Discharged to home ambulatory. rv 19:55 Condition: good 19:55 Discharge instructions given to patient, Instructed on discharge instructions, follow up and referral plans. Demonstrated understanding of instructions, follow-up care. 19:55 Patient left the ED. rv Signatures: Dispatcher [employer] Colleen Rowland Shelby, RN RN ss Dennis Miles, SUPERINTENDENT HOUSE SUPERINTENDENT HOUSE pm1 Nasir Bray RN RN rv Yury Xiong RN mg2
--- NOTE | 2019-10-24 19:28 | EDPHYS ---
Physician Documentation [facility] Name: Kelsy Gerber Age: 44 yrs Sex: Female : 1975 Arrival Date: 10/24/2019 Time: 16:28 Bed 19 Private MD: Austin Ceja R ED Physician Stef Crespo HPI: 10/24 17:15 This 44 yrs old Female presents to ER via Ambulatory with complaints of High pm1 Blood Sugar, Dizziness. 17:15 The patient or guardian reports hyperglycemia, that was potentially precipitated by pm1 unknown, she was started on metformin today by PCP. Onset: The symptoms/episode began/occurred today. Associated signs and symptoms: Pertinent positives: Headache and left flank pain. Current symptoms: In the emergency department the patient's symptoms are unchanged from the initial presentation. The patient has been recently seen by a physician: the patient's primary care provider, Dr. Ceja earlier today, with similar presenting complaints, and was sent to the [facility] Emergency Department for further evaluation. Historical: - Allergies: 16:47 Aspirin; ss 16:47 Daypro; ss 16:47 Ibuprofen; ss 16:47 Ketorolac; ss 16:47 Morphine; ss - PMHx: 16:47 Asthma; fatty liver; Bipolar disorder; Hypertension; Hypothyroidism; LEFT SIDED ss WEAKNESS; migranes; Pancreatitis; TIA; Diabetes - NIDDM; - PSHx: 16:47 Hysterectomy; Cholecystectomy; ss - Immunization history:: Adult Immunizations up to date. - Social history:: Smoking status: Patient/guardian denies using tobacco. - Ebola Screening: : Patient denies exposure to infectious person Patient denies travel to an Ebola-affected area in the 21 days before illness onset. ROS: 17:15 Constitutional: Negative for fever, chills, and weight loss, Eyes: Negative for injury, pm1 pain, redness, and discharge, ENT: Negative for injury, pain, and discharge, Neck: Negative for injury, pain, and swelling, Cardiovascular: Negative for chest pain, palpitations, and edema, Respiratory: Negative for shortness of breath, cough, wheezing, and pleuritic chest pain. 17:15 Abdomen/GI: Negative for abdominal pain, nausea, vomiting, diarrhea, and constipation. 17:15 : Negative for injury, bleeding, discharge, and swelling, MS/Extremity: Negative for injury and deformity, Skin: Negative for injury, rash, and discoloration. 17:15 Back: Positive for of the left mid back, Negative for pain at rest, pain with movement. 17:15 Neuro: Positive for dizziness, headache, Negative for numbness, tingling. Exam: 17:15 Constitutional: This is a well developed, well nourished patient who is awake, alert, pm1 and in no acute distress. Head/Face: Normocephalic, atraumatic. Eyes: Pupils equal round and reactive to light, extra-ocular motions intact. Lids and lashes normal. Conjunctiva and sclera are non-icteric and not injected. Cornea within normal limits. Periorbital areas with no swelling, redness, or edema. ENT: Nares patent. No nasal discharge, no septal abnormalities noted. Tympanic membranes are normal and external auditory canals are clear. Oropharynx with no redness, swelling, or masses, exudates, or evidence of obstruction, uvula midline. Mucous membranes moist. Neck: Trachea midline, no thyromegaly or masses palpated, and no cervical lymphadenopathy. Supple, full range of motion without nuchal rigidity, or vertebral point tenderness. No Meningismus. Chest/axilla: Normal chest wall appearance and motion. Nontender with no deformity. No lesions are appreciated. Cardiovascular: Regular rate and rhythm with a normal S1 and S2. No gallops, murmurs, or rubs. Normal PMI, no JVD. No pulse deficits. Respiratory: Lungs have equal breath sounds bilaterally, clear to auscultation and percussion. No rales, rhonchi or wheezes noted. No increased work of breathing, no retractions or nasal flaring. Abdomen/GI: Soft, non-tender, with normal bowel sounds. No distension or tympany. No guarding or rebound. No evidence of tenderness throughout. 17:15 Skin: Warm, dry with normal turgor. Normal color with no rashes, no lesions, and no evidence of cellulitis. MS/ Extremity: Pulses equal, no cyanosis. Neurovascular intact. Full, normal range of motion. 17:15 Back: pain, that is mild, of the left mid back, normal spinal alignment noted, vertebral tenderness, is not appreciated. 17:15 Neuro: Orientation: is normal, Mentation: is normal, Motor: moves all fours, Sensation: is normal, no obvious gross deficits. Vital Signs: 16:47 BP 131 / 73; Pulse 84; Resp 20; Temp 97.5(TE); Pulse Ox 98% on R/A; Weight 104.33 kg; ss Pain 10/10; 18:00 BP 130 / 71; Pulse 81; Resp 18; Pulse Ox 98% on R/A; rv 19:00 BP 99 / 63; Pulse 82; Resp 16; Pulse Ox 96% on R/A; rv 19:54 BP 105 / 69; Pulse 72; Resp 18; Pulse Ox 98% on R/A; rv MDM: 16:53 Patient medically screened. pm1 19:25 Data reviewed: vital signs. Data interpreted: Pulse oximetry: on room air is 98 %. pm1 Interpretation: normal. Counseling: I had a detailed discussion with the patient and/or guardian regarding: the historical points, exam findings, and any diagnostic results supporting the discharge/admit diagnosis, lab results, radiology results, the need for outpatient follow up, to return to the emergency department if symptoms worsen or persist or if there are any questions or concerns that arise at home. 10/24 17:04 Order name: CBC with Diff; Complete Time: 17:43 mg2 10/24 17:04 Order name: BMP; Complete Time: 17:43 mg2 10/24 17:06 Order name: Glucose, Ancillary Testing; Complete Time: 17:10 EDMS 10/24 18:14 Order name: Lipase; Complete Time: 19:24 pm1 10/24 18:45 Order name: Glucose, Ancillary Testing; Complete Time: 19:24 EDMS 10/24 18:14 Order name: CT Head Brain wo Cont; Complete Time: 19:24 pm1 10/24 18:24 Order name: Abdomen ; Complete Time: 19:24 EDMS 10/24 17:10 Order name: IV Saline Lock; Complete Time: 17:17 pm1 Administered Medications: 17:14 Drug: NS 0.9% 1000 ml Route: IV; Rate: 1000 ml; Site: right antecubital; rv 19:52 Follow up: IV Status: Completed infusion; IV Intake: 1000ml rv 18:03 Drug: Insulin Regular Human 5 units {Co-Signature: mg2 (Yury Xiong RN).} Route: rv IVP; Site: right antecubital; 18:44 Follow up: Response: Blood sugar is lowered rv 18:04 Drug: NS 0.9% 1000 ml Route: IV; Rate: 1000 ml; Site: right antecubital; rv 19:53 Follow up: IV Status: Completed infusion rv 18:24 Drug: Zofran 4 mg Route: IVP; Site: right antecubital; rv 19:53 Follow up: Response: No adverse reaction rv 18:30 Drug: fentaNYL (PF) 25 mcg {Note: rass0.} Route: IVP; Site: right antecubital; rv 19:53 Follow up: Response: No adverse reaction; Pain is decreased; RASS: Alert and Calm (0) rv 19:52 Drug: fentaNYL (PF) 25 mcg {Note: rass 0.} Route: IVP; Site: right antecubital; rv 19:52 Follow up: Response: Medication administered at discharge. rv Disposition: 10/24/19 19:26 Discharged to Home. Impression: Hyperglycemia, unspecified, Headache, Low back pain. - Condition is Stable. - Discharge Instructions: Back Pain, Adult, General Headache Without Cause, Hyperglycemia, Blood Glucose Monitoring, Adult. - Medication Reconciliation Form, Thank You Letter, Antibiotic Education, Prescription Opioid Use form. - Follow up: Austin Ceja MD; When: 2 - 3 days; Reason: Recheck today's complaints, Continuance of care, Re-evaluation by your physician. Follow up: Emergency Department; When: As needed; Reason: Worsening of condition. - Problem is new. - Symptoms have improved. Addendum: 10/27/2019 06:45 Co-signature as Attending Physician, Stef Crespo MD I agree with the assessment and k dr plan of care. Signatures: Dispatcher [employer] EDMS Stef Crespo MD MD [facility] Yasmine Sarmiento RN RN ss Dennis Miles, [employer] RN pm1 Nasir Bray RN RN rv Yury Xiong RN mg2 Corrections: (The following items were deleted from the chart) 10/24 17:18 16:57 GLUCOSE+C.LAB.BRZ ordered. EDMS EDMS 18:23 18:14 Abdomen Pelvis W Con+CT.RAD.BRZ ordered. EDMS EDMS 19:55 19:26 10/24/2019 19:26 Discharged to Home. Impression: Hyperglycemia, unspecified; rv Headache; Low back pain. Condition is Stable. Forms are Medication Reconciliation Form, Thank You Letter, Antibiotic Education, Prescription Opioid Use. Follow up: Austin Ceja; When: 2 - 3 days; Reason: Recheck today's complaints, Continuance of care, Re-evaluation by your physician. Follow up: Emergency Department; When: As needed; Reason: Worsening of condition. Problem is new. Symptoms have improved. pm1
[2019-10-24 20:55] VITALS: TEMP 97.5
[2019-10-24 20:59] VITALS: BP 105/69; O2SAT 98
== END 2019-10-24 19:55 | disposition home or self-care (01) ==
LOC: ER 16:25
DX: E11.65 Type 2 diabetes mellitus with hyperglycemia (principal); M54.5 Low back pain; I10 Essential (primary) hypertension; Z88.5 Allergy status to narcotic agent; Z88.6 Allergy status to analgesic agent; Z88.8 Allergy status to other drugs, medicaments and biological substances
CPT/HCPCS: 96361; 85025; 80048; 36415; 82947 ×2; 83690; 70450; 74176; 96375; 96374; 99284; J3010; J7030 ×2; J2405

== ENCOUNTER 2019-12-08 17:19 | Observation (INO) | payer OTHER ==
--- OUTSIDE RECORDS SUMMARY | 2019-12-08 17:21 | XMS REPORT ---
:1975 [facility] Address [address] [place] [address] Dr. Dyer[address] [place] [id number] Care Team Providers Name Role Phone Unavailable Unavailable Unavailable Problems This patient has no known problems. Allergies, Adverse Reactions, Alerts This patient has no known allergies or adverse reactions. Medications This patient has no known medications.
--- OUTSIDE RECORDS SUMMARY | 2019-12-08 17:22 | XMS REPORT | Summary of Care ---
:1975 Author Organization [facility] Address [address] [place] [id number] Care Team Providers Name Role Phone Austin Da Silva MD Primary Care Provider Reason for Visit Reason Comments LAB WORK Encounter Details Date Type Department Care Team Description 11/30/2019 Case Management [facility] Women's Titus Luo, LAB WORK [facility] [address] [place] [address], [address] [facility] [address] [id number] Allergies Active Allergy Reactions Severity Noted Date Comments Morphine Hives 10/29/2019 Nsaids (Non-Steroidal Anti-Inflammatory Drug) Hives 10/29/2019 documented as of this encounter (statuses as of 11/30/2019) Medications Medication Sig Dispensed Refills Start Date End Date Status lipase/protease/amylase Take by mouth. 0 Active (CREON ORAL) pantoprazole sodium Take by mouth. 0 Active (PANTOPRAZOLE ORAL) TOPIRAMATE ORAL Take by mouth. 0 Active levothyroxine sodium Take by mouth. 0 Active (LEVOTHYROXINE ORAL) losartan potassium Take by mouth. 0 Active (LOSARTAN ORAL) montelukast sodium Take by mouth. 0 Active (MONTELUKAST ORAL) OXYBUTYNIN CHLORIDE Take by mouth. 0 Active ORAL atorvastatin calcium Take by mouth. 0 Active (ATORVASTATIN ORAL) ALBUTEROL SULFATE HFA Inhale. 0 Active INHALE fluticasone 27.5 Use 2 Sprays in 0 Active mcg/actuation nasal each nostril spray daily. meclizine HCl Take by mouth. 0 Active (MECLIZINE ORAL) BUDESONIDE ORAL Take by mouth. 0 Active metformin HCl Take by mouth. 0 Active (METFORMIN ORAL) GLIMEPIRIDE ORAL Take by mouth. 0 Active lidocaine-prilocaine Apply to area(s) 5 g 1 10/31/2019 Active 2.5-2.5 % as needed for creamIndications: Local anesthesia. Vulvar boil polyethylene glycol Take 17 g by 5 Packet 0 10/31/2019 Active (MIRALAX) 17 gram/dose mouth daily. powderIndications: Constipation, unspecified constipation type dapagliflozin (FARXIGA) Take 1 tablet by 0 Active 10 mg tablet mouth. mirabegron (MYRBETRIQ) Take 1 tablet by 30 tablet 3 11/28/2019 Active 25 mg mouth daily. tabletIndications: Mixed stress and urge urinary incontinence documented as of this encounter (statuses as of 11/30/2019) Active Problems Problem Noted Date Mixed stress and urge urinary incontinence 11/28/2019 Personal history of cervical dysplasia 11/28/2019 Morbid obesity with body mass index of 40.0-49.9 10/31/2019 Candidal vulvitis 10/31/2019 Vulvar boil 10/31/2019 documented as of this encounter (statuses as of 11/30/2019) Social History Tobacco Use Types Packs/Day Years Used Date Never Smoker Smokeless Tobacco: Never Used Alcohol Use Drinks/Week oz/Week Comments Yes rare Sex Assigned at Date Recorded Not on file Job Start Date Occupation Industry Not on file Not on file Not on file Travel History Travel Start Travel End No recent travel history available. documented as of this encounter Last Filed Vital Signs Not on filedocumented in this encounter Progress Notes Titus Luo MD - 11/30/2019 12:58 PM [facility] did not see the positive urine culture from 10/29/2019 until after the patient left the office. I amnot certain if she received treatment for this or not. Please have her give another urine sample forculture at the lab this week. She should also expect a call to see the business rules developer and the urogynecologist. Titus Luo MD 11/30/2019 12:59 PM documented in this encounter Plan of Treatment Date Type Specialty Care Team Description 12/26/2019 Office Visit Obstetrics & Gynecology Titus Luo MD [address] [place] [address] Name Type Priority Associated Diagnoses Order Schedule URINE CULTURE LAB Routine Mixed stress and urge urinary Expected: 2019, incontinence Expires: 11/30/2020 Health Maintenance Due Date Last Done Comments HgA1C 1976 PNEUMOCOCCAL 0-64 YEARS COMBINED SERIES (1 1981 of 1 - PPSV23) EYE EXAM 1985 LDL-C 1985 URINE MICROALBUMIN 1985 DTaP,Tdap,and Td Vaccines (1 - Tdap) 1986 FOOT EXAM 1993 PAP SMEAR 1996 Breast Cancer Screening (MAMMOGRAM) 2015 INFLUENZA VACCINE (#1) 2019 CREATININE (SERUM) 10/31/2020 10/31/2019, 10/29/2019 documented as of this encounter Results Not on filedocumented in this encounter Visit Diagnoses Diagnosis Mixed stress and urge urinary incontinence - Primary Mixed incontinence urge and stress (male)(female) documented in this encounter Insurance Payer Benefit Plan / Subscriber ID Effective Phone Address Type Group Dates HUMANA - HUMANA GOLD [id number] 2019-Pres Medicare Adv MANAGED PLS HMO ent O MEDICARE [employer] xxxxxxxxx 2019-Pres [address] [place] [id number] [place] [address] documented as of this encounter
--- OUTSIDE RECORDS SUMMARY | 2019-12-08 17:22 | XMS REPORT | Summary of Care ---
:1975 Author Organization [facility] - Health Address [address] [place] [address] Care Team Providers Name Role Phone Austin Da Silva MD Primary Care Provider Encounter Details Date Type Department Care Team Description 11/28/2019 Orders Only [facility] Doctor Unassigned, No [address] [facility] [place] [address] [address] [place] [address] Allergies Active Allergy Reactions Severity Noted Date Comments Morphine Hives 10/29/2019 Nsaids (Non-Steroidal Anti-Inflammatory Drug) Hives 10/29/2019 documented as of this encounter (statuses as of 11/28/2019) Medications Medication Sig Dispensed Refills Start Date [...] Take by mouth. 0 Active (ATORVASTATIN ORAL) rizatriptan benzoate Take by mouth. 0 Active (RIZATRIPTAN ORAL) ALBUTEROL SULFATE HFA Inhale. 0 Active INHALE fluticasone 27.5 Use 2 Sprays in 0 Active mcg/actuation nasal each nostril spray daily. meclizine HCl Take by mouth. 0 Active (MECLIZINE ORAL) PREDNISOLONE ORAL Take by mouth. 0 Active BUDESONIDE ORAL Take by mouth. 0 Active metformin HCl Take by mouth. 0 Active (METFORMIN ORAL) GLIMEPIRIDE ORAL Take by mouth. 0 Active lidocaine-prilocaine Apply to area(s) 5 g 1 10/31/2019 Active 2.5-2.5 % as needed for creamIndications: Local anesthesia. Vulvar boil fluconazole 100 mg Take 1 tablet by 10 tablet 1 10/31/2019 Active tabletIndications: mouth daily. Candidal vulvitis metoclopramide HCl 10 Take 1 tablet by 20 tablet 0 10/31/2019 Active mg tabletIndications: mouth every 6 Vomiting, (six) hours as intractability of needed for Nausea vomiting not specified, and Vomiting presence of nausea not (N/V). specified, unspecified vomiting type, Uncontrolled type 2 diabetes mellitus with hyperglycemia dicyclomine (BENTYL) 20 Take 1 tablet by 20 tablet 0 10/31/2019 Active mg tabletIndications: mouth every 6 Vomiting, (six) hours as intractability of needed for vomiting not specified, Abdominal pain. presence of nausea not specified, unspecified vomiting type, Uncontrolled type 2 diabetes mellitus with hyperglycemia polyethylene glycol Take 17 g by 5 Packet 0 10/31/2019 Active (MIRALAX) 17 gram/dose mouth daily. powderIndications: Constipation, unspecified constipation type documented as of this encounter (statuses as of 11/28/2019) Active Problems Problem Noted Date Morbid obesity with body mass index of 40.0-49.9 10/31/2019 Candidal vulvitis 10/31/2019 Vulvar boil 10/31/2019 documented as of this encounter (statuses as of 11/28/2019) Social History Tobacco Use Types Packs/Day Years [...] Signs Not on filedocumented in this encounter Plan of Treatment Health Maintenance Due Date Last Done Comments DTaP,Tdap,and Td Vaccines (1 - 1986 Tdap) PAP SMEAR 1996 Breast Cancer Screening 2015 (MAMMOGRAM) INFLUENZA VACCINE (#1) 2019 PNEUMOCOCCAL 0-64 YEARS COMBINED Aged Out No longer eligible based on SERIES patient's age to complete this topic documented as of this encounter Procedures Procedure Name Priority Date/Time Associated Diagnosis Comments NOTICE OF BILLING Routine 11/28/2019 2:36 PM [employer] FOR MEDICARE PATIENTS documented in this encounter Results Not on filedocumented in this encounter Insurance Payer Benefit Plan / Subscriber ID Effective Phone Address Type Group Dates HUMANA - HUMANA KRISTIN [id number] 2019-Pres Medicare Adv MANAGED PLS HMO ent HMO MEDICARE [employer] xxxxxxxxx 2019-Pres [address] [place] [id number] [place] [address] documented as of this encounter
--- OUTSIDE RECORDS SUMMARY | 2019-12-08 17:22 | XMS REPORT | Summary of Care ---
:1975 Author Organization [facility] - [facility] Address [address] [place] [address] Care Team Providers Name Role Phone Austin Da Silva MD Primary Care Provider Reason for Referral Radiology Services (Routine) Status Reason Specialty Diagnoses / Referred By Referred To Procedures Contact Contact New Request Diagnostic Diagnoses Encounter for screening mammogram for breast cancer Diclemente, Radiology Procedures BI SCREENING MAMMOGRAM BILATERAL MD Titus [address] [place] [address] (Routine) Status Reason Specialty Diagnoses / Referred By Referred To Procedures Contact Contact New Request Obstetrics & Diagnoses Mixed stress and urge urinary incontinence Diclemente, Gynecology Procedures CONSULT/REFERRAL UROGYN UroGyn; Preferred location: [place] ([facility]) MD Titus [address] [place] [address] (Routine) Status Reason Specialty Diagnoses / Referred By Referred To Procedures Contact Contact New Request Endocrinology Diagnoses Poorly controlled diabetes mellitus Diclemente, Diabetes & Procedures CONSULT/REFERRAL ENDOCRINOLOGY Diabetes; Preferred Location: [facility] MD Titus [address] [address] Reason for Visit Reason Comments Follow-up Encounter Details Date Type Department Care Team Description 11/28/2019 Office Visit [facility] Women's Puja, Candidal vulvitis ( Primary Dx); Healthcare- Tyson Qureshi MD Vulvar boil; [address], [address] [place] [address] Encounter for screening mammogram for breast cancer; [address] [place], [place] Mixed stress and urge urinary incontinence; [place] [address] Personal history of cervical dysplasia; [id number] Poorly controlled diabetes mellitus [phone] Allergies Active Allergy Reactions Severity Noted Date Comments Morphine Hives 10/29/2019 Nsaids (Non-Steroidal Anti-Inflammatory Drug) Hives 10/29/2019 documented as of this encounter (statuses as of 11/30/2019) Medications Medication Sig Dispensed Refills Start Date End Date Status lipase/protease/amyl Take by mouth. 0 Active ase (CREON ORAL) pantoprazole sodium Take by mouth. [...] mouth. 0 Active (ATORVASTATIN ORAL) ALBUTEROL SULFATE Inhale. 0 Active HFA INHALE fluticasone 27.5 Use 2 Sprays in 0 Active mcg/actuation nasal each nostril spray daily. meclizine HCl Take by mouth. 0 Active (MECLIZINE ORAL) BUDESONIDE ORAL Take by mouth. 0 Active metformin HCl Take by mouth. 0 Active (METFORMIN ORAL) GLIMEPIRIDE ORAL Take by mouth. 0 Active lidocaine-prilocaine Apply to 5 g 1 10/31/2019 Active 2.5-2.5 % area(s) as creamIndications: needed for Vulvar boil Local anesthesia. polyethylene glycol Take 17 g by 5 Packet 0 10/31/2019 Active (MIRALAX) 17 mouth daily. gram/dose powderIndications: Constipation, unspecified constipation type dapagliflozin Take 1 tablet 0 Active (FARXIGA) 10 mg by mouth. tablet mirabegron Take 1 tablet 30 tablet 3 11/28/2019 Active (MYRBETRIQ) 25 mg by mouth daily. tabletIndications: Mixed stress and urge urinary incontinence rizatriptan benzoate Take by mouth. 0 Discontinued (RIZATRIPTAN ORAL) 0 PREDNISOLONE ORAL Take by mouth. 0 Discontinued 0 fluconazole 100 mg Take 1 tablet 10 tablet 1 10/31/2019 Discontinued tabletIndications: by mouth daily. 0 Candidal vulvitis metoclopramide HCl Take 1 tablet 20 tablet 0 10/31/2019 Discontinued 10 mg by mouth every 0 tabletIndications: 6 (six) hours Vomiting, as needed for intractability of Nausea and vomiting not Vomiting (N/V). specified, presence of nausea not specified, unspecified vomiting type, Uncontrolled type 2 diabetes mellitus with hyperglycemia dicyclomine (BENTYL) Take 1 tablet 20 tablet 0 10/31/2019 Discontinued 20 mg by mouth every 0 tabletIndications: 6 (six) hours Vomiting, as needed for intractability of Abdominal pain. vomiting not specified, presence of nausea not specified, unspecified vomiting type, Uncontrolled type 2 diabetes mellitus with hyperglycemia documented as of this encounter (statuses as [...] of this encounter Last Filed Vital Signs Vital Sign Reading Time Taken Comments Blood Pressure 125/83 11/28/2019 2:55 PM EXPEDITION SUPERVISOR Pulse 78 11/28/2019 2:55 PM EXPEDITION SUPERVISOR Temperature 36.7 C (98.1 F) 11/28/2019 2:55 PM EXPEDITION SUPERVISOR Respiratory Rate 18 11/28/2019 2:55 PM EXPEDITION SUPERVISOR Oxygen Saturation - - Inhaled Oxygen Concentration - - Weight 101.6 kg (224 lb) 11/28/2019 2:55 PM EXPEDITION SUPERVISOR Height 157.5 cm (5' 2") 11/28/2019 2:55 PM EXPEDITION SUPERVISOR Body Mass Index 40.97 11/28/2019 2:55 PM EXPEDITION SUPERVISOR documented in this encounter Progress Notes Titus Luo MD - 11/28/2019 2:30 PM CST Chief complaint: Chief Complaint Patient presents with Follow-up HPI: The patient is a 44 year-old s/p a prior ALANA for cervical dysplasia who comes in for follow-up. I saw her initially on 10/31/2019 for evaluation of severe vulvar pain and what turned out elías vulvar boils and candidal intertrigo of the groin. She was seen by Dr. Gonzalez (general surgery) in September of 2019 for what she described was an abscess of her buttocks. No drainage was done and it apparently resolved after a number of antibiotic courses. Her initial exam in the office was notable for two small healing boils in her groin. One was on the right inferior vulva and the other was on the inferior inner aspect of the right buttock. There was no associated drainage nor evidence of active infection. I injected some local anesthesia for short term pain relief but there was nothing that needed to be drained. She also had a diffuse pink rash throughout her vulva clinically c/w a candidalinfection for which she completed 10 day course of Fluconazole. She has a number of medical co -morbidities including poorly controlled DM. A random BS in the office was 388 so she was sent to the ER for evaluation. She was discharged home from there the same day and has since seen her PCP. He added Farxiga to her two other oral diabetic medications. A urine culture from 10/29/2019 revealed >100K GBS. She comes in today, reporting feeling better and feels that one of the boils may have ruptured lastweek. Her pain is no longer present. Her last mammogram was in December of 2018. She has a long historyof mixed urinary incontinence and despite years of Oxybutynin has had no improvement. Histories OB History Para Term AB Living 3 3 1 2 0 2 SAB TAB Ectopic Multiple Live Births # Outcome Date GA Lbr Froy/2nd Weight Sex Delivery Anes PTL Lv 3 2 1 Term Past Medical History: Diagnosis Date Anxiety Candidal vulvitis 10/31/2019 Diabetes mellitus Fatty liver H/O skin graft Spider bite Hyperlipidemia Hypertension Pancreatitis Thyroid disease Family History Problem Relation Age of Onset Alzheimers dementia Mother Thyroid Mother Diabetes Mother Hypertension Mother High cholesterol Mother Fibromyalgia Mother Osteoporosis Mother Diabetes Father CHF (congestive heart failure) Father Stomach Cancer Maternal Grandmother Cancer Maternal Grandfather [place] (myocardial infarction) Paternal Grandmother [place] (myocardial infarction) Paternal Grandfather Family Status Relation Name Status Mo Fa Alive MGMo (Not Specified) MGFa (Not Specified) PGMo (Not Specified) PGFa (Not Specified) Past Surgical History: Procedure Laterality Date CHOLECYSTECTOMY HYSTERECTOMY Social History Socioeconomic History Marital status: Spouse name: Not on file Number of children: Not on file Years of education: Not on file Highest education level: Not on file Occupational History Not on file Social Needs Financial resource strain: Not on file Food insecurity: Worry: Not on file Inability: Not on file Transportation needs: Medical: Not on file Non-medical: Not on file Tobacco Use Smoking status: Never Smoker Smokeless tobacco: Never Used Substance and Sexual Activity Alcohol use: Yes Comment: rare Drug use: Never Sexual activity: Yes Partners: Male control/protection: Surgical Lifestyle Physical activity: Days per week: Not on file Minutes per session: Not on file Stress: Not on file Relationships Social connections: Talks on phone: Not on file Gets together: Not on file Attends samaritan service: Not on file Active member of club or organization: Not on file Attends meetings of clubs or organizations: Not on file Relationship status: Not on file Intimate partner violence: Fear of current or ex partner: Not on file Emotionally abused: Not on file Physically abused: Not on file Forced sexual activity: Not on file Other Topics Concern Not on file Social History Narrative Denies abuse. Social History Substance and Sexual Activity Sexual Activity Yes Partners: Male control/protection: Surgical Labs No new labs Radiology No new radiology. Allergies Kelsy is allergic to morphine and nsaids (non-steroidal anti-inflammatory drug). Medications Kelsy has a current medication list which includes the following prescription(s) : lidocaine-prilocaine, albuterol sulfate, atorvastatin calcium, budesonide, dicyclomine, fluconazole, fluticasone, glimepiride, levothyroxine sodium, lipase /protease/amylase, losartan potassium, meclizine hcl, metformin hcl, metoclopramide hcl, montelukast sodium, oxybutynin chloride, pantoprazole sodium , polyethylene glycol, prednisolone, rizatriptan benzoate, and topiramate. Review of Systems Constitutional: Negative. HENT: Negative. Respiratory: Negative. Breasts: Negative. Cardiovascular: Negative. Gastrointestinal: Negative. Genitourinary: Positive for bladder incontinence. Neurological: Negative. Psychiatric/Behavioral: Negative. BP 125/83 (BP Location: Left arm, Patient Position: Sitting, BP CUFF SIZE: Adult Medium) | Pulse 78 | Temp 36.7 C (98.1 F) (Oral) | Resp 18 | Ht 5' 2" (1.575 m) | Wt 224 lb (101.6 kg) | BMI 40.97 kg/m Pregravid BMI: Could not be calculated Physical Exam Vitals reviewed. Constitutional: She is oriented to person, place, and time. She appears well- developed and well-nourished. Cardiovascular: Regular rate and rhythm. Pulmonary/Chest: Normal inspiratory effort. Abdominal: Abdomen is soft. Neuro/Psychiatric: She has a normal mood and affect. She is oriented to person, place, and time. Skin: Skin normal. External genitalia: Normal external genitalia appropriate for age. The previously seen erythema has resolved. She has one remaining boil that appears to now be aninclusion cyst of the right buttock. Urethral meatus: Normal urethral meatus Vagina:Normal vagina. Cervix: Cervix absent. Uterus: Uterus absent. Adnexa: Normal left adnexa and normal right adnexa Assessment/Plan Candidal vulvitis (primary encounter diagnosis) Vulvar boil Encounter for screening mammogram for breast cancer Mixed stress and urge urinary incontinence Personal history of cervical dysplasia Poorly controlled diabetes mellitus Comment: Her exam is much better today. No additional treatments are needed regarding her vulvar symptoms. She will be referred to Endocrinology for control of her DM and to Urogynecology for evaluation/treatment regarding her urinary incontinence. She can stop her Oxybutynin and start Myrbetriq in the meantime. She is due for a screening mammogram in December and a pap smear of the vaginal cuff was done due to her history of cervical dysplasia. She voiced an understanding of today's visit. Plan: RTC PRN. SCREENING MAMMOGRAM BILATERAL CONSULT/REFERRAL UROGYN UroGyn; Preferred location: [place] ([facility]), mirabegron (MYRBETRIQ) 25 mg tablet; PAP Smear-Liquid Based, HIGH RISK HPV-THIN PREP, PAP Smear-Liquid Based, HIGH RISK HPV-THIN PREP , LAB ONLY PAP SMEAR-LIQUID BASED, LAB ONLY PAP SMEAR-LIQUID BASE CONSULT/ REFERRAL ENDOCRINOLOGY Diabetes; Preferred Location: [facility] Titus Luo MD 11/30/2019 12:56 PM Addendum: I did not see the positive urine culture from 10/29/2019 until after the patient left the office. I am not certain if she received treatment for this or not. I will have her give another urine sample for culture. Titus Luo MD 11/30/2019 12:57 PM documented in this encounter Plan of Treatment Date Type Specialty Care Team Description 12/26/2019 Office Visit Obstetrics & Gynecology Titus Luo MD [address] [place] [address] [phone] Name Type Priority Associated Diagnoses Date/Time HIGH RISK HPV-THIN LAB Routine Personal history of 11/28/2019 4:24 PM EXPEDITION SUPERVISOR PREP cervical dysplasia LAB ONLY PAP LAB Routine Personal history of 11/28/2019 4:24 PM EXPEDITION SUPERVISOR SMEAR-LIQUID BASED cervical dysplasia Name Type Priority Associated Diagnoses Order Schedule HIGH RISK HPV-THIN PREP LAB Routine Personal history of Expected: 2019, cervical dysplasia Expires: 11/28/2020 BI SCREENING MAMMOGRAM IMAGING Routine Encounter for screening Expected: , BILATERAL mammogram for breast Expires: 01/26/2021 cancer LAB ONLY PAP LAB Routine Personal history of Expected: 11/28/2019, SMEAR-LIQUID BASED cervical dysplasia Expires: 11/28/2020 Health Maintenance Due Date Last Done Comments HgA1C 1976 PNEUMOCOCCAL 0-64 YEARS COMBINED SERIES (1 1981 of 1 - PPSV23) EYE EXAM 1985 LDL-C 1985 URINE MICROALBUMIN 1985 DTaP,Tdap,and Td Vaccines (1 - Tdap) 1986 FOOT EXAM 1993 PAP SMEAR 1996 Breast Cancer Screening (MAMMOGRAM) 2015 INFLUENZA VACCINE (#1) 2019 CREATININE (SERUM) 10/31/2020 10/31/2019, 10/29/2019 documented as of this encounter Procedures Procedure Name Priority Date/Time Associated Diagnosis Comments PAP SMEAR-LIQUID Routine 11/28/2019 4:24 PM Personal history of BASED-CP EXPEDITION SUPERVISOR cervical dysplasia documented in this encounter Results PAP Smear-Liquid Based (11/28/2019 4:24 PM EXPEDITION SUPERVISOR) Specimen Swab - VAG CUFF Performing Organization Address City/State/Zipcode Phone Number [facility] CLIA: [id number], [address] [place] [address] documented in this encounter Visit Diagnoses Diagnosis Candidal vulvitis - Primary Candidiasis of vulva and vagina Vulvar boil Other abscess of vulva Encounter for screening mammogram for breast cancer Mixed stress and urge urinary incontinence Mixed incontinence urge and stress (male)(female) Personal history of cervical dysplasia Poorly controlled diabetes mellitus Type II or unspecified type diabetes mellitus without mention of complication, not stated as uncontrolled documented in this encounter Insurance Payer Benefit Plan / Subscriber ID Effective Phone Address Type Group Dates HUMANA - HUMANA KRISTIN [id number] 2019-Pres Medicare Adv MANAGED PLS HMO ent O MEDICARE [employer] xxxxxxxxx 2019-Pres [address] [place] [id number] [place] [address] documented as of this encounter
--- OUTSIDE RECORDS SUMMARY | 2019-12-08 17:22 | XMS REPORT | Summary of Care ---
:1975 Author Organization [facility] Address [address] [place] [address] Care Team Providers Name Role Phone Austin Da Silva MD Primary Care Provider Reason for Referral Radiology Services (Routine) Status Reason Specialty Diagnoses / Referred By Referred To Procedures Contact Contact New Request Diagnostic Diagnoses Encounter for screening mammogram for breast cancer Diclemente, Radiology Procedures BI SCREENING MAMMOGRAM BILATERAL MD Titus [address] [place] [address] (Routine) Status Reason Specialty Diagnoses / Referred By Referred To Procedures Contact Contact New Request Obstetrics & Diagnoses Mixed stress and urge urinary incontinence Diclemente, Gynecology Procedures CONSULT/REFERRAL UROGYN UroGyn; Preferred location: [place] ([facility]) MD Titus [address] [place] [address] (Routine) Status Reason Specialty Diagnoses / Referred By Referred To Procedures Contact Contact New Request Endocrinology Diagnoses Poorly controlled diabetes mellitus Diclemente, Diabetes & Procedures CONSULT/REFERRAL ENDOCRINOLOGY Diabetes; Preferred Location: [facility] MD Titus [address] [address] Reason for Visit Reason Comments Follow-up Encounter Details Date Type Department Care Team Description 11/28/2019 Office Visit [facility] Women's Puja, Candidal vulvitis ( Primary Dx); Healthcare- Tyson Qureshi MD Vulvar boil; [address], [address] [place] [address] Encounter for screening mammogram for breast cancer; [address] [place], [place] Mixed stress and urge urinary incontinence; [place] [address] Personal history of cervical dysplasia; [id number] Poorly controlled diabetes mellitus [phone] Allergies Active Allergy Reactions Severity Noted Date [...] Comments Blood Pressure 125/83 11/28/2019 2:55 PM SCHOOL PSYCHOLOGICAL EXAMINER Pulse 78 11/28/2019 2:55 PM SCHOOL PSYCHOLOGICAL EXAMINER Temperature 36.7 C (98.1 F) 11/28/2019 2:55 PM SCHOOL PSYCHOLOGICAL EXAMINER Respiratory Rate 18 11/28/2019 2:55 PM SCHOOL PSYCHOLOGICAL EXAMINER Oxygen Saturation - - Inhaled Oxygen Concentration - - Weight 101.6 kg (224 lb) 11/28/2019 2:55 PM SCHOOL PSYCHOLOGICAL EXAMINER Height 157.5 cm (5' 2") 11/28/2019 2:55 PM SCHOOL PSYCHOLOGICAL EXAMINER Body Mass Index 40.97 11/28/2019 2:55 PM SCHOOL PSYCHOLOGICAL EXAMINER documented in this encounter Progress Notes Titus [...] Stomach Cancer Maternal Grandmother Cancer Maternal Grandfather [place] (myocardial infarction) Paternal Grandmother [place] (myocardial infarction) Paternal Grandfather Family Status Relation [...] file Gets together: Not on file Attends sikh service: Not on file Active member of [...] MAMMOGRAM BILATERAL CONSULT/REFERRAL UROGYN UroGyn; Preferred location: [place] ([facility]), mirabegron (MYRBETRIQ) 25 mg tablet; PAP Smear-Liquid Based, HIGH RISK HPV-THIN PREP, PAP Smear-Liquid Based, HIGH RISK HPV-THIN PREP , LAB ONLY PAP SMEAR-LIQUID BASED, LAB ONLY PAP SMEAR-LIQUID BASE CONSULT/ REFERRAL ENDOCRINOLOGY Diabetes; Preferred Location: [facility] Titus Luo MD 11/30/2019 12:56 PM Addendum: [...] Visit Obstetrics & Gynecology Titus Luo MD [address] [place] [address] [phone] Name Type Priority Associated Diagnoses Date/Time HIGH RISK HPV-THIN LAB Routine Personal history of 11/28/2019 4:24 PM SCHOOL PSYCHOLOGICAL EXAMINER PREP cervical dysplasia LAB ONLY PAP LAB Routine Personal history of 11/28/2019 4:24 PM SCHOOL PSYCHOLOGICAL EXAMINER SMEAR-LIQUID BASED cervical dysplasia Name Type Priority [...] 11/28/2019 4:24 PM Personal history of BASED-CP SCHOOL PSYCHOLOGICAL EXAMINER cervical dysplasia documented in this encounter Results PAP Smear-Liquid Based (11/28/2019 4:24 PM SCHOOL PSYCHOLOGICAL EXAMINER) Specimen Swab - VAG CUFF Performing Organization Address City/State/Zipcode Phone Number [facility] CLIA: [id number], [address] [place] [address] [phone] documented in this encounter Visit Diagnoses [...] Type Group Dates HUMANA - HUMANA KRISTIN [id number] 2019-Pres Medicare Adv MANAGED PLS HMO ent O MEDICARE [employer] xxxxxxxxx 2019-Pres [address] [place] [id number] [place] [address] documented as of this encounter
[2019-12-08] MEDS ORDERED: METHYLPREDNISOLONE 125 MG INJ ONE (17:48)
[2019-12-08] MEDS ORDERED: NA CHLORIDE 0.9% 1,000 ML ONE (17:48)
[2019-12-08] MEDS ORDERED: IPRATROPIUM BROM 0.5MG/2.5ML ONE (17:48)
[2019-12-08] MEDS ORDERED: ALBUTEROL 2.5 MG/3 ML NEB SOL ONE (17:48)
[2019-12-08 18:06] LABS: Absolute Lymphocytes (CBC) 2.8 K/uL (0.7-4.9); Basophils % 1.1 % (0-1.3); Hematocrit 43.9 % (36.0-45.0); MPV 7.6 fL (7.6-11.3); RBC Red Blood Cell Count 5.02 M/uL (3.86-4.86)
[2019-12-08 18:08] LABS: Protime INR 1.02
--- NOTE | 2019-12-08 18:08 | ER ---
Nurse's Notes [facility] Name: Kelsy Gerber Age: 44 yrs Sex: Female : 1975 Arrival Date: 12/08/2019 Time: 17:21 Bed 6 Private MD: Diagnosis: Asthma;Hypoxemia;Chest pain on breathing;Hypokalemia Presentation: 12/08 17:34 Presenting complaint: SOB x 3 days, left sided chest pain that radiates to left arm x 2 hb days. Transition of care: patient was not received from another setting of care. Onset of symptoms was December 05, 2019. Risk Assessment: Do you want to hurt yourself or someone else? Patient reports no desire to harm self or others. Care prior to arrival: Medication(s) given: DuoNeb. 17:34 Method Of Arrival: Ambulatory hb 17:34 Acuity: KELLEY 2 hb 17:56 Initial Sepsis Screen: Does the patient meet any 2 criteria? RR > 20 per min. No. sv Patient's initial sepsis screen is negative. Does the patient have a suspected source of infection? No. Patient's initial sepsis screen is negative. Historical: - Allergies: 17:36 Aspirin; hb 17:36 Daypro; hb 17:36 Ibuprofen; hb 17:36 Ketorolac; hb 17:36 Morphine; hb - Home Meds: 17:36 alprazolam 2 mg Oral tab [Active]; hb - PMHx: 17:36 Bipolar disorder; Hypothyroidism; Hypertension; Asthma; Diabetes - NIDDM; LEFT SIDED hb WEAKNESS; migranes; Pancreatitis; fatty liver; TIA; - PSHx: 17:36 Hysterectomy; Cholecystectomy; hb - Immunization history:: Adult Immunizations up to date. - Coronavirus screen:: The patient has NOT traveled to [place] in the past 14 days. The patient has NOT had contact with known/suspected case of Coronavirus? Proceed with normal triage procedures. - Social history:: Smoking status: Patient denies any tobacco usage or history of. - Family history:: not pertinent. - Ebola Screening: : No symptoms or risks identified at this time. Screenin:56 Abuse screen: Denies threats or abuse. Denies injuries from another. Nutritional sv screening: No deficits noted. Tuberculosis screening: No symptoms or risk factors identified. Fall Risk None identified. Assessment: 18:10 General: Appears distressed, uncomfortable, Behavior is cooperative. Pain: Complains of ah pain in anterior aspect of left upper chest and left shoulder Pain does not radiate. Pain at worst was 9 out of 10 on a pain scale. Quality of pain is described as burning. Neuro: Level of Consciousness is awake, alert, Oriented to person, place, time, situation. Cardiovascular: Heart tones S1 S2 present Capillary refill < 3 seconds. Cardiovascular: Rhythm is regular. Respiratory: Airway is patent Respiratory effort is labored, Respiratory pattern is regular, Breath sounds with wheezes bilaterally. : No signs and/or symptoms were reported regarding the genitourinary system. EENT:. Derm: No signs and/or symptoms reported regarding the dermatologic system. Skin is intact, is healthy with good turgor. Musculoskeletal: Circulation, motion, and sensation intact. 19:10 Reassessment: Patient appears in no apparent distress at this time. Patient and/or jb4 family updated on plan of care and expected duration. Pain level reassessed. Patient is alert, oriented x 3, equal unlabored respirations, skin warm/dry/pink. Pt coughing and asked for cough suppressant, pt verbalized being able to take hydrocodone, provider notified, see MAR for orders. Respiratory: Airway is patent Respiratory effort is even, labored, Respiratory pattern is regular, symmetrical, Breath sounds are clear bilaterally. 19:15 Reassessment: Patient appears in no apparent distress at this time. Patient and/or family updated on plan of care and expected duration. Pain level reassessed. Patient is alert, oriented x 3, equal unlabored respirations, skin warm/dry/pink. Azithromax hung and started at this time. Patient states symptoms have improved. 19:31 Reassessment: PT appears more relaxed, verbalize pain has decreased from 9/10 to 8/10. jb4 reports feeling better and that difficulty breathing has decreased. IV site is try, intact, and without redness or swelling, IV fluids infusing freely. Attempted to call report, instructed to wait for call back. 20:00 Reassessment: Attempted to call report, instructed to wait for call back. jb4 20:50 Reassessment: Patient appears in no apparent distress at this time. Patient and/or jb4 family updated on plan of care and expected duration. Pain level reassessed. Patient is alert, oriented x 3, equal unlabored respirations, skin warm/dry/pink. Attempted to call report instructed to wait for call back. 20:57 Reassessment: Report called to ELIZ Mccarty. jb4 Vital Signs: 17:36 BP 134 / 96; Pulse 84; Resp 28; Temp 97; Pulse Ox 99% on R/A; Weight 95.25 kg; Height 5 hb ft. 2 in. (157.48 cm); Pain 9/10; 18:00 BP 130 / 88; Pulse 78; Resp 18; Pulse Ox 97% ; ah 19:15 BP 117 / 82; Pulse 106; Resp 20; Temp 98.0(O); Pulse Ox 96% on R/A; jb4 20:45 BP 124 / 79; Pulse 91; Resp 20; Pulse Ox 97% on R/A; jb4 17:36 Body Mass Index 38.41 (95.25 kg, 157.48 cm) hb ED Course: 17:21 Patient arrived in ED. ag5 17:35 Triage completed. hb 17:36 Arm band placed on. hb 17:39 Jiame Ospina MD is Attending Physician. montse 17:44 Marsha Fields RN is Primary Nurse. ah 17:54 EKG done, by ED staff, reviewed by Jaime Ospina MD. sv 17:55 Patient has correct armband on for positive identification. Placed in gown. Bed in low sv position. Call light in reach. electric tripper machine operator on. Pulse ox on. NIBP on. Door closed. Head of bed elevated. 17:55 Inserted saline lock: 20 gauge in right antecubital area, using aseptic technique. ah 17:57 XRAY Chest (1 view) Sent. sv 17:57 X-ray(s) taken. sv 18:06 Austin Ceja MD is Hospitalizing Provider. montse 18:24 Basic Metabolic Panel Sent. sv 18:24 CBC with Diff Sent. sv 18:24 LFT's Sent. sv 18:24 Magnesium Sent. sv 18:24 NT PRO-BNP Sent. sv 18:24 PT-INR Sent. sv 18:24 Troponin (emerg Dept Use Only) Sent. sv 18:24 Influenza Screen (a \T\ B) Sent. sv 19:24 Blood Culture Adult (2) Sent. ah 19:31 IV is patent, is intact, with fluids infusing freely. jb4 20:57 No provider procedures requiring assistance completed. IV is patent, is intact, with jb4 fluids infusing freely, Flushed antecubital with 5 ml normal saline Patient admitted, IV remains in place. Administered Medications: 17:47 Drug: Albuterol - atroVENT (3:1) (2.5 mg - 0.5 mg) 3 ml Route: Nebulizer; hb 19:09 Follow up: Response: No adverse reaction 18:00 Drug: NS 0.9% 1000 ml Route: IV; Rate: 125 ml/hr; Site: right antecubital; 21:02 Follow up: Response: No adverse reaction; IV Status: Infusion continued upon admission jb4 18:15 Drug: SOLU-Medrol 125 mg Route: IVP; Site: right antecubital; 19:18 Follow up: Response: No adverse reaction 18:45 Drug: Rocephin 1 grams Route: IV; Rate: per protocol; Site: right antecubital; 19:16 Follow up: Response: No adverse reaction; IV Status: Completed infusion; IV Intake: 10ml 18:45 Drug: Decadron - Dexamethasone 10 mg Route: IVP; Site: right antecubital; 19:17 Follow up: Response: No adverse reaction 19:05 Drug: Zithromax 500 mg Route: IVPB; Infused Over: 1 hrs; Site: right antecubital; jb4 21:01 Follow up: Response: No adverse reaction; Marked relief of symptoms; IV Status: jb4 Completed infusion 19:09 Drug: Potassium Effervescent Tablet 50 mEq Route: PO; 21:00 Follow up: Response: No adverse reaction [facility] 19:19 Drug: Tussionex Pennkinetic ER 5 ml Route: PO; jb4 21:00 Follow up: Response: No adverse reaction; Marked relief of symptoms jb4 Intake: 19:16 IV: 10ml; Total: 10ml. Outcome: 18:07 Decision to Hospitalize by Provider. montse 20:57 Admitted to [facility] accompanied by kvng, via stretcher, with chart, Report called to [address] [place] [address] 20:57 Condition: stable 20:57 Discharge instructions given to patient, Instructed on the need for admit, Demonstrated understanding of instructions. 21:20 Patient left the ED. mt Signatures: Kailey, Nicolasa, RN Jaime Weiner MD MD cha Baxter, Heather, RN RN Akira Lilly RN RN [address]ae[address] [place] [id number] Marsha Fields RN RN Corrections: (The following items were deleted from the chart) 17:47 17:36 BP 134 / 96; Pulse 84bpm; Resp 24bpm; Pulse Ox 99% RA; Temp 97F; 95.25 kg; Height hb 5 ft. 2 in.; BMI: 38.4; Pain /10; hb 19:33 19:31 Reassessment: PT appears more relaxed, verbalize pain has decreased from 07/01 to jb4 05/31. reports feeling better and that difficulty breathing has decreased. IV site is try, intact, and without redness or swelling, IV fluids infusing freely. jb4
--- NOTE | 2019-12-08 18:09 | EDPHYS ---
Physician Documentation [facility] Name: Kelsy Gerber Age: 44 yrs Sex: Female : 1975 Arrival Date: 12/08/2019 Time: 17:21 Bed 6 Private MD: ED Physician Jaime Ospina HPI: 12/08 18:00 This 44 yrs old Female presents to ER via Ambulatory with complaints of Cough, montse Breathing Difficulty. 18:00 The patient or guardian reports airway noise, cough, difficulty breathing. Onset: The montse symptoms/episode began/occurred 2 day(s) ago. Severity of symptoms: At their worst the symptoms were mild, moderate, in the emergency department the symptoms are unchanged. Modifying factors: The symptoms are alleviated by cool environment, inhaler, nebulizer treatment, steroids, the symptoms are aggravated by exertion, talking. Associated signs and symptoms: The patient has no apparent associated signs or symptoms. Historical: - Allergies: 17:36 Aspirin; hb 17:36 Daypro; hb 17:36 Ibuprofen; hb 17:36 Ketorolac; hb 17:36 Morphine; hb - Home Meds: 17:36 alprazolam 2 mg Oral tab [Active]; hb - PMHx: 17:36 Bipolar disorder; Hypothyroidism; Hypertension; Asthma; Diabetes - NIDDM; LEFT SIDED hb WEAKNESS; migranes; Pancreatitis; fatty liver; TIA; - PSHx: 17:36 Hysterectomy; Cholecystectomy; hb - Immunization history:: Adult Immunizations up to date. - Coronavirus screen:: The patient has NOT traveled to [place] in the past 14 days. The patient has NOT had contact with known/suspected case of Coronavirus? Proceed with normal triage procedures. - Social history:: Smoking status: Patient denies any tobacco usage or history of. - Family history:: not pertinent. - Ebola Screening: : No symptoms or risks identified at this time. ROS: 18:00 Constitutional: Negative for fever, chills, and weight loss, Eyes: Negative for injury, montse pain, redness, and discharge, ENT: Negative for injury, pain, and discharge, Neck: Negative for injury, pain, and swelling, Cardiovascular: Negative for chest pain, palpitations, and edema, Abdomen/GI: Negative for abdominal pain, nausea, vomiting, diarrhea, and constipation, Back: Negative for injury and pain, : Negative for injury, bleeding, discharge, and swelling, MS/Extremity: Negative for injury and deformity, Skin: Negative for injury, rash, and discoloration, Neuro: Negative for headache, weakness, numbness, tingling, and seizure, Psych: Negative for depression, anxiety, suicide ideation, homicidal ideation, and hallucinations, Allergy/Immunology: Negative for hives, rash, and allergies, Endocrine: Negative for neck swelling, polydipsia, polyuria, polyphagia, and marked weight changes, Hematologic/Lymphatic: Negative for swollen nodes, abnormal bleeding, and unusual bruising. 18:00 Respiratory: Positive for cough, shortness of breath, wheezing, expiratory. Exam: 18:00 Constitutional: This is a well developed, well nourished patient who is awake, alert, montse and in no acute distress. Head/Face: Normocephalic, atraumatic. Eyes: Pupils equal round and reactive to light, extra-ocular motions intact. Lids and lashes normal. Conjunctiva and sclera are non-icteric and not injected. Cornea within normal limits. Periorbital areas with no swelling, redness, or edema. ENT: Nares patent. No nasal discharge, no septal abnormalities noted. Tympanic membranes are normal and external auditory canals are clear. Oropharynx with no redness, swelling, or masses, exudates, or evidence of obstruction, uvula midline. Mucous membranes moist. Neck: Trachea midline, no thyromegaly or masses palpated, and no cervical lymphadenopathy. Supple, full range of motion without nuchal rigidity, or vertebral point tenderness. No Meningismus. Chest/axilla: Normal chest wall appearance and motion. Nontender with no deformity. No lesions are appreciated. Cardiovascular: Regular rate and rhythm with a normal S1 and S2. No gallops, murmurs, or rubs. Normal PMI, no JVD. No pulse deficits. Abdomen/GI: Soft, non-tender, with normal bowel sounds. No distension or tympany. No guarding or rebound. No evidence of tenderness throughout. Back: No spinal tenderness. No costovertebral tenderness. Full range of motion. Skin: Warm, dry with normal turgor. Normal color with no rashes, no lesions, and no evidence of cellulitis. MS/ Extremity: Pulses equal, no cyanosis. Neurovascular intact. Full, normal range of motion. Neuro: Awake and alert, GCS 15, oriented to person, place, time, and situation. Cranial nerves II-XII grossly intact. Motor strength 5/5 in all extremities. Sensory grossly intact. Cerebellar exam normal. Normal gait. Psych: Awake, alert, with orientation to person, place and time. Behavior, mood, and affect are within normal limits. 18:00 Respiratory: mild respiratory distress is noted, moderate respiratory distress is noted, Respirations: labored breathing, that is moderate, Breath sounds: decreased breath sounds, rhonchi, wheezing: expiratory Respiratory rate: 28 19:17 Musculoskeletal/extremity: DVT Exam: No signs of deep vein thrombosis. no pain, no montse swelling, no tenderness, negative Homans' sign noted on exam, no appreciated bluish discoloration, no erythema, no increased warmth. Vital Signs: 17:36 BP 134 / 96; Pulse 84; Resp 28; Temp 97; Pulse Ox 99% on R/A; Weight 95.25 kg; Height 5 hb ft. 2 in. (157.48 cm); Pain 9/10; 18:00 BP 130 / 88; Pulse 78; Resp 18; Pulse Ox 97% ; ah 19:15 BP 117 / 82; Pulse 106; Resp 20; Temp 98.0(O); Pulse Ox 96% on R/A; jb4 20:45 BP 124 / 79; Pulse 91; Resp 20; Pulse Ox 97% on R/A; jb4 17:36 Body Mass Index 38.41 (95.25 kg, 157.48 cm) hb MDM: 17:39 Patient medically screened. [facility] 18:05 Data reviewed: vital signs, nurses notes, lab test result(s), EKG, radiologic studies, [facility] plain films. 12/08 17:41 Order name: Basic Metabolic Panel [facility] 12/08 17:41 Order name: CBC with Diff [facility] 12/08 17:41 Order name: LFT's [facility] 12/08 17:41 Order name: Magnesium [facility] 12/08 17:41 Order name: NT PRO-BNP [facility] 12/08 17:41 Order name: PT-INR [facility] 12/08 17:41 Order name: Troponin (emerg Dept Use Only) [facility] 12/08 17:41 Order name: Blood Culture Adult (2) [facility] 12/08 17:41 Order name: Influenza Screen (a \T\ B) [facility] 12/08 18:19 Order name: CBC with Automated Diff; Complete Time: 18:25 EDTX 12/08 18:31 Order name: Protime (+INR); Complete Time: 18:45 [facility] 12/08 18:41 Order name: Basic Metabolic Panel; Complete Time: 18:45 [facility] 12/08 18:42 Order name: Liver (Hepatic) Function; Complete Time: 18:45 [facility] 12/08 18:42 Order name: Troponin (Emerg Dept Use Only); Complete Time: 18:45 [facility] 12/08 17:41 Order name: XRAY Chest (1 view) [facility] 12/08 17:41 Order name: EKG; Complete Time: 17:47 [facility] 12/08 17:41 Order name: Cardiac monitoring; Complete Time: 17:54 [facility] 12/08 18:42 Order name: NT PRO-BNP; Complete Time: 18:45 [facility] 12/08 18:42 Order name: Magnesium; Complete Time: 18:45 [facility] 12/08 18:58 Order name: Influenza Screen (A ; Complete Time: 19:04 [facility] 12/08 20:13 Order name: RAD EDTX 12/08 20:39 Order name: Glucose, Ancillary Testing [facility] 12/08 17:41 Order name: EKG - Nurse/Tech; Complete Time: 17:54 [facility] 12/08 17:41 Order name: IV Saline Lock; Complete Time: 17:54 [facility] 12/08 17:41 Order name: Labs collected and sent; Complete Time: 17:54 [facility] 12/08 17:41 Order name: O2 Per Protocol; Complete Time: 17:54 [facility] 12/08 17:41 Order name: O2 Sat Monitoring; Complete Time: 17:55 [facility] Administered Medications: 17:47 Drug: Albuterol - atroVENT (3:1) (2.5 mg - 0.5 mg) 3 ml Route: Nebulizer; hb 19:09 Follow up: Response: No adverse reaction ah 18:00 Drug: NS 0.9% 1000 ml Route: IV; Rate: 125 ml/hr; Site: right antecubital; ah 21:02 Follow up: Response: No adverse reaction; IV Status: Infusion continued upon admission jb4 18:15 Drug: SOLU-Medrol 125 mg Route: IVP; Site: right antecubital; ah 19:18 Follow up: Response: No adverse reaction 18:45 Drug: Rocephin 1 grams Route: IV; Rate: per protocol; Site: right antecubital; 19:16 Follow up: Response: No adverse reaction; IV Status: Completed infusion; IV Intake: 10mlah 18:45 Drug: Decadron - Dexamethasone 10 mg Route: IVP; Site: right antecubital; 19:17 Follow up: Response: No adverse reaction 19:05 Drug: Zithromax 500 mg Route: IVPB; Infused Over: 1 hrs; Site: right antecubital; jb4 21:01 Follow up: Response: No adverse reaction; Marked relief of symptoms; IV Status: jb4 Completed infusion 19:09 Drug: Potassium Effervescent Tablet 50 mEq Route: PO; 21:00 Follow up: Response: No adverse reaction [facility] 19:19 Drug: Tussionex Pennkinetic ER 5 ml Route: PO; jb4 21:00 Follow up: Response: No adverse reaction; Marked relief of symptoms 4 Disposition: 12/08/19 18:07 Hospitalization ordered by Austin Ceja for Inpatient Admission. Preliminary diagnosis are Asthma, Hypoxemia, Chest pain on breathing, Hypokalemia. - Bed requested for Telemetry/MedSurg (Inpatient). - Status is Inpatient Admission. mt - Condition is Fair. - Problem is new. - Symptoms have improved. Signatures: Dispatcher [employer] EDMS Christy Mosquera RN Jaime Garcia MD MD cha Baxter, Heather, RN RN hb Bryson, James, RN RN [address] Marsha Fields RN ELIZ Corrections: (The following items were deleted from the chart) 18:25 18:07 Hospitalization Ordered by Austin Ceja MD for Inpatient Admission. Preliminary [facility] diagnosis is Asthma; Hypoxemia. Bed requested for Telemetry/MedSurg (Inpatient). Status is Inpatient Admission. Condition is Fair. Problem is new. Symptoms have improved. [facility] 18:46 18:25 12/08/2019 18:07 Hospitalization Ordered by Austin Ceja MD for Inpatient [facility] Admission. Preliminary diagnosis is Asthma; Hypoxemia; Chest pain on breathing. Bed requested for Telemetry/MedSurg (Inpatient). Status is Inpatient Admission. Condition is Fair. Problem is new. Symptoms have improved. [facility] 19:13 18:46 12/08/2019 18:07 Hospitalization Ordered by Austin Ceja MD for Inpatient mw Admission. Preliminary diagnosis is Asthma; Hypoxemia; Chest pain on breathing; Hypokalemia. Bed requested for Telemetry/MedSurg (Inpatient). Status is Inpatient Admission. Condition is Fair. Problem is new. Symptoms have improved. montse 21:20 19:13 12/08/2019 18:07 Hospitalization Ordered by Austin Ceja MD for Inpatient mt Admission. Preliminary diagnosis is Asthma; Hypoxemia; Chest pain on breathing; Hypokalemia. Bed requested for Telemetry/MedSurg (Inpatient). Status is Inpatient Admission. Condition is Fair. Problem is new. Symptoms have improved. mw
--- NOTE | 2019-12-08 18:13 | RAD REPORT ---
EXAM DESCRIPTION: RAD - Chest Single View - 12/08/2019 6:04 pm CLINICAL HISTORY: COUGH Chest pain. COMPARISON: Chest Pa And Lat (2 Views) dated 05/14/2019; Chest Single View dated 12/01/2018; Chest Sin gle View dated 11/29/2018; Chest Pa And Lat (2 Views) dated 09/16/2018 FINDINGS: Portable technique limits examination quality. The lungs are grossly clear. The heart is upper limit of normal in size. No displaced fractures. IMPRESSION: No acute intrathoracic process suspected.
[2019-12-08] MEDS ORDERED: dexAMETHasone 4 MG/ML VIAL ONE (18:31)
[2019-12-08] MEDS ORDERED: CEFTRIAXONE/SWI 1gm 1 GM/10 ML SYR ONE (18:31)
[2019-12-08 18:37] LABS: ALT/SGPT 79 U/L (12-78); AST/SGOT 48 U/L (15-37); Albumin 3.4 g/dL (3.4-5.0); Alkaline Phosphatase 123 U/L (45-117); BUN Blood Urea Nitrogen 5 mg/dL (7-18); Bicarbonate 25 mmol/L (21-32); Bilirubin Direct 0.1 mg/dL (0-0.2); Bilirubin Total 0.7 mg/dL (0.2-1.0); Glucose Level 123 mg/dL (74-106); Magnesium 2.2 mg/dL (1.8-2.4); NT PRO-BNP 17 pg/mL (<125); Potassium 3.3 mmol/L (3.5-5.1); Protein, Total 7.6 g/dL (6.4-8.2); Sodium Level 140 mmol/L (136-145); Troponin (Emerg Dept Use Only) < 0.02 ng/mL (0.0-0.045)
[2019-12-08] MEDS ORDERED: AZITHROMYCIN IV 500 MG in NA CHLORIDE 0.9% 250 ML IVPB ONE (19:00)
[2019-12-08] MEDS ORDERED: NA CHLORIDE 0.9% 1,000 ML IV SCH (19:00)
[2019-12-08] MEDS ORDERED: POTASSIUM 25 MEQ EFFERV TAB ONE (19:02)
[2019-12-08] MEDS ORDERED: HYDROCODONE/CHLORPHEN 5 ML/OSYR ONE (19:22)
[2019-12-08] MEDS ORDERED: ONDANSETRON 4 MG/2 ML VIAL IV PRN (20:40)
[2019-12-08] MEDS ORDERED: ALBUTEROL 2.5 MG/3 ML NEB SOL NEB PRN (20:40)
[2019-12-08] MEDS ORDERED: IPRATROPIUM BROM 0.5MG/2.5ML NEB PRN (20:40)
[2019-12-08] MEDS ORDERED: ACETAMINOPHEN 325 MG TABLET PO PRN (20:40)
[2019-12-08 22:42] VITALS: BMI 40.4
[2019-12-09] MEDS: METHYLPREDNISOLONE 40 MG INJ IV SCH ×2 (00:53→08:01)
[2019-12-09 05:59] LABS: Absolute Lymphocytes (CBC) 0.7 K/uL (0.7-4.9); Basophils % 0.3 % (0-1.3); Hematocrit 42.1 % (36.0-45.0); Lymphocytes % 14.4 % (15.3-44.8); MPV 7.6 fL (7.6-11.3); RBC Red Blood Cell Count 4.76 M/uL (3.86-4.86)
[2019-12-09 06:17] LABS: Potassium 4.1 mmol/L (3.5-5.1)
--- NOTE | 2019-12-09 07:01 | RAD REPORT ---
EXAM DESCRIPTION: RAD - Chest Single View - 12/09/2019 6:45 am CLINICAL HISTORY: Chest Pain Chest pain. COMPARISON: Chest Single View dated 12/08/2019; Chest Pa And Lat (2 Views) dated 05/14/2019; Chest Sin gle View dated 12/01/2018; Chest Single View dated 11/29/2018 FINDINGS: Portable technique limits examination quality. The lungs are grossly clear. The heart is mildly enlarged in size. No displaced fractures. IMPRESSION: No acute intrathoracic process suspected.
[2019-12-09] MEDS: HYDROCODONE/CHLORPHEN 5 ML/OSYR PO PRN ×2 (08:01→19:58)
[2019-12-09] MEDS ORDERED: RIZATRIPTAN BENZOATE 10 MG PO PRN (08:55)
[2019-12-09] MEDS ORDERED: D50W 25 GM/50 ML SYRINGE/VIAL IV PRN (08:59)
[2019-12-09] MEDS ORDERED: GLUCAGON 1 MG/VIAL IM PRN (08:59)
[2019-12-09] MEDS ORDERED: CEFTRIAXONE/SWI 1gm 1 GM/10 ML SYR IV SCH (09:00)
[2019-12-09] MEDS: HOME MED 1 EA UNK (Fluticasone Propionate [Flonase Allergy Relief] 1 SPRAY) NS SCH ×2 (09:00→19:59)
[2019-12-09] MEDS: HOME MED 1 EA UNK (Mirabegron [Myrbetriq] 25 MG) PO SCH (09:00)
[2019-12-09] MEDS ORDERED: AZITHROMYCIN IV 500 MG in NA CHLORIDE 0.9% 250 ML IVPB SCH (09:00)
[2019-12-09] MEDS ORDERED: CEFTRIAXONE 1 GM/NS 50 ML 1 GM/50 ML BAG IV SCH (09:00)
[2019-12-09] MEDS: HOME MED 1 EA UNK (Dapagliflozin Propanediol [Farxiga] 10 MG) PO SCH ×2 (09:00→19:59)
[2019-12-09] MEDS: ROFLUMILAST 500 MCG TABLET PO SCH (09:50)
[2019-12-09] MEDS: TOPIRAMATE 25 MG TAB PO SCH ×2 (09:50→19:57)
[2019-12-09] MEDS: MONTELUKAST 10 MG TAB PO SCH (09:51)
[2019-12-09] MEDS: LOSARTAN POTASSIUM 50 MG TABLET PO SCH (09:51)
[2019-12-09] MEDS: ALPRAZOLAM 1 MG TABLET PO SCH ×2 (09:51→19:58)
[2019-12-09] MEDS: METFORMIN HCL 500 MG TAB PO SCH ×2 (09:56→16:46)
--- NOTE | 2019-12-09 10:00 | EKG ---
Test Date: 2019-12-09 Test Time: 08:06:44 Pedigree Researcher: PIETER MEASUREMENT RESULTS: Intervals: Rate: 55 OK: 166 QRSD: 106 QT: 444 QTc: 424 [place]: P: 42 OK: 166 QRS: -19 T: 3 INTERPRETIVE STATEMENTS: Sinus bradycardia with sinus arrhythmia Nonspecific T wave abnormality Abnormal ECG Compared to ECG 12/08/2019 17:53:49 T-wave abnormality now present Sinus rhythm no longer present Left anterior fascicular block no longer present Myocardial infarct finding no longer present Electronically Signed On 12-09-19 10:00:17 RESIDENTIAL PROGRAM DIRECTOR by Go George
--- NOTE | 2019-12-09 10:01 | EKG ---
Test Date: 2019-12-08 Test Time: 17:53:49 Support Team Member: MARIO MEASUREMENT RESULTS: Intervals: Rate: 78 SD: 160 QRSD: 96 QT: 370 QTc: 421 [place]: P: 14 SD: 160 QRS: -69 T: 5 INTERPRETIVE STATEMENTS: Normal sinus rhythm Left anterior fascicular block Possible Lateral infarct, age undetermined Abnormal ECG Compared to ECG 11/29/2018 22:42:56 Left anterior fascicular block now present Myocardial infarct finding now present Incomplete right bundle-branch block no longer present Electronically Signed On 12-09-19 10:00:22 TRIM OPERATOR by Go George
[2019-12-09] MEDS: LIPASE/PROTEASE/AMYLASE CAP PO SCH ×2 (11:39→16:46)
[2019-12-09] MEDS: INSULIN -REGULAR HUMAN 50 UNIT/0.5 ML ML SQ SCH ×3 (11:46→19:58)
--- NOTE | 2019-12-09 12:26 | P.CNS ---
Date of Consult: 12/09/19 Reason for Consult: Cough and shortness of breath Chief Complaint: Cough and shortness of breath History of Present Illness: Patient is 44 years of age with a history of obstructive airways disease became worse over the past 4 day his cough shortness of breath ended up in the hospital denies any fever chills although there has been some history patient does not smoke history of chronic cough shortness of breath Allergies aspirin Allergy (Mild, Verified 11/30/18 01:55) Shortness of breath ibuprofen Allergy (Mild, Verified 11/30/18 01:55) Hives ketorolac Allergy (Mild, Verified 11/30/18 01:55) Shortness of breath morphine Allergy (Mild, Verified 11/30/18 01:55) Shortness of breath oxaprozin [From Daypro] Allergy (Mild, Verified 11/30/18 01:55) Shortness of breath NSAIDS (Non-Steroidal Anti-Inflamma Allergy (Verified 12/08/19 21:47) Hives tea Allergy (Uncoded 12/02/18 09:26) Hives Home Medications: Montelukast [Singulair*] 10 mg PO DAILY 09/02/14 Levothyroxine [Synthroid*] 75 mcg PO [id number] 09/23/14 Pantoprazole [Protonix Tab*] 40 mg PO DAILY 10/10/16 ALPRAZolam [Xanax*] 1 mg PO BID 10/11/16 Albuterol Sulfate [Proair Hfa] 1 puff IH DAILY 10/11/16 Lipase/Protease/Amylase [[place] [address] 12,000 Units Capsule] 24,000 units PO TIDWM Atorvastatin Calcium [Lipitor*] 20 mg PO BEDTIME 11/30/18 Rizatriptan Benzoate [Rizatriptan] 10 mg PO BEDTIME PRN PRN 11/30/18 Budesonide [Pulmicort] 0.5 mg IH DAILY 12/08/19 Dapagliflozin Propanediol [Farxiga] 10 mg PO BID 12/08/19 Fluticasone Propionate [Flonase Allergy Relief] 1 spray NS BID 12/08/19 Glimepiride 1 mg PO DAILY 12/08/19 Glimepiride 2 mg PO BEDTIME 12/08/19 Losartan Potassium 50 mg PO DAILY 12/08/19 Metformin HCl 500 mg PO BID 12/08/19 Mirabegron [Myrbetriq] 25 mg PO DAILY 12/08/19 Roflumilast [Daliresp] 250 mcg PO DAILY 12/08/19 Tiotropium [place] [Spiriva Respimat] 2 puff IH BID 12/08/19 Topiramate [Topamax*] 50 mg PO BID 12/08/19 predniSONE [Deltasone*] 10 mg PO DAILY 12/08/19 Formoterol Fumarate Dihyd,Micr [Formoterol Fumarate] 1 amp IH BID 12/09/19 - Past Medical/Surgical History Diabetic: Yes -: Asthma -: Bipolar -: Fatty liver -: RON -: DM-Type 2- states no longer diabetic -: Insomnia -: Hypothyroidism -: COPD -: Obesity -: History of pancreatitis -: anxiety -: back problems -: hysterectomy -: gall bladder removal -: skin graft Lt upper thigh Psychosocial/ Personal History: She is with 2 children. She lives with a daughter. - Family History Brother Medical History: Stroke, Kidney disease Mother Medical History: Hypertension, Diabetes, Stroke, Other (see notes) Notes: Alzheimer's/dementia Father Medical History: Heart disease, Hypertension, Lung disease, GI disease, Diabetes Notes: absestos - Social History Smoking Status: Current some day smoker Alcohol use: Yes CD- Drugs: Yes Caffeine use: Yes Place of Residence: Home Review of Systems 10-point ROS is otherwise unremarkable General: Weakness Respiratory: Cough, Shortness of Breath Physical Examination Temp Pulse Resp BP Pulse Ox 96.8 F 73 18 112/62 92 12/09/19 11:56 12/09/19 11:56 12/09/19 11:56 12/09/19 11:56 12/09/19 11:56 General: Alert, Oriented x3, Mild distress HEENT: Atraumatic Neck: Supple Respiratory: Expiratory wheezes Cardiovascular: No edema, Regular rate/rhythm Gastrointestinal: Normal bowel sounds, Soft and benign Musculoskeletal: No clubbing Integumentary: No rashes Neurological: Normal gait Laboratory Data (last 24 hrs) 12/08/19 17:50: PT 12.0, INR 1.02 12/08/19 17:50: WBC 7.0, Hgb 14.6, Hct 43.9, Plt Count 398 12/08/19 17:50: Sodium 140, Potassium 3.3 L, BUN 5 L, Creatinine 0.83, Glucose 123 H, Magnesium 2.2 D, Total Bilirubin 0.7, AST 48 H, ALT 79 H, Alkaline Phosphatase 123 H - Problems (1) Acute severe exacerbation of moderate persistent asthma Onset Date: 12/02/18 Current Visit: No Status: Acute Plan: Patient is 44 years of age with a history of presumed asthma admitted with worsening dyspnea cough apparently she is compliant with it inhalers at home labs are all normal chest x-rays clear vital signs are all stable no evidence of sepsis change to p.o. levofloxacin reduce dose of prednisone
[2019-12-09] MEDS: ARFORMOTEROL TARTRATE 15 MCG/2 ML VIAL.NEB NEB SCH ×2 (12:31→19:35)
[2019-12-09] MEDS: IPRATROPIUM BROM 0.5MG/2.5ML NEB SCH ×2 (14:05→19:35)
[2019-12-09 15:19] LABS: Blood Gas Oxyhemoglobin 91.5 % (94-97); Blood O2 Saturation 92.9 % (92-98.5)
[2019-12-09] MEDS: predniSONE 20 MG TAB PO SCH (19:57)
[2019-12-09] MEDS: ATORVASTATIN 20 MG TAB PO SCH (19:58)
[2019-12-09] MEDS: GLIMEPIRIDE 2 MG TABLET PO SCH (19:58)
--- NOTE | 2019-12-09 21:17 | HP ---
Date of Admission: 12/08/2019 Chief Complaint: Wheezing, shortness of breath. History Of Present Illness: A 44-year-old female who is known to have asthma, who has been following Dr. Mccall, was brought to the emergency room because of wheezing, coughing, and shortness of dean th. She received breathing treatments and other management in spite of which she continued to have s hortness of breath. The patient is admitted. There is no history of fever, chills, rigors. Past Medical History: Positive for asthma, hypertension, hypothyroidism, type 2 diabetes, migraines, history of fatty liver, bipolar disorder. Past Surgical History: Positive for gallbladder surgery, hysterectomy. Allergies: ASPIRIN, NONSTEROIDAL ANTI-INFLAMMATORY MEDICATIONS, AND MORPHINE. Home Medicines: Please refer to the chart. Family History: Noncontributory. Personal History: Nonsmoker. Review of Systems: No history of fever, chills, rigors. Physical Examination: General: Revealed a 44-year-old female with audible wheezing. HEENT: Congested throat. JVD negative. Chest: Bilateral scattered wheezes. Heart: Regular. Abdomen: Pendulous, nontender. Extremities: No edema. Laboratory Data: White count normal. Chem profile: Potassium 3.3, otherwise negative; mild elevati on of liver enzymes noted compatible with the fatty liver. Assessment: 1.Asthma. 2.Hypertension. 3.Bipolar disorder. 4.Type 2 diabetes. 5.Status post gallbladder surgery and hysterectomy. Plan: The patient is on IV steroids and breathing treatments and antibiotic. She will be seen by lmonary Service. ALOK/VITALIY Voice ID: [id number]
[2019-12-10] MEDS: IPRATROPIUM BROM 0.5MG/2.5ML NEB SCH ×4 (01:43→19:55)
[2019-12-10] MEDS: LEVOTHYROXINE SOD 0.075 MG TAB PO SCH (05:14)
[2019-12-10] MEDS: INSULIN -REGULAR HUMAN 50 UNIT/0.5 ML ML SQ SCH ×4 (07:35→21:41)
[2019-12-10] MEDS: ARFORMOTEROL TARTRATE 15 MCG/2 ML VIAL.NEB NEB SCH ×2 (07:35→19:55)
[2019-12-10] MEDS ORDERED: BUDESONIDE 0.5 MG/2 ML NEB IH SCH (08:00)
[2019-12-10] MEDS: ROFLUMILAST 500 MCG TABLET PO SCH (08:11)
[2019-12-10] MEDS: GLIMEPIRIDE 2 MG TABLET PO SCH ×2 (08:11→20:40)
[2019-12-10] MEDS: MONTELUKAST 10 MG TAB PO SCH (08:11)
[2019-12-10] MEDS: METFORMIN HCL 500 MG TAB PO SCH ×2 (08:11→16:51)
[2019-12-10] MEDS: ALPRAZOLAM 1 MG TABLET PO SCH ×2 (08:12→20:40)
[2019-12-10] MEDS: LOSARTAN POTASSIUM 50 MG TABLET PO SCH (08:12)
[2019-12-10] MEDS: LIPASE/PROTEASE/AMYLASE CAP PO SCH ×3 (08:12→16:51)
[2019-12-10] MEDS: TOPIRAMATE 25 MG TAB PO SCH ×2 (08:12→20:40)
[2019-12-10] MEDS: predniSONE 20 MG TAB PO SCH ×2 (08:12→20:40)
[2019-12-10] MEDS: levoFLOXacin 500 MG TAB PO SCH (08:12)
[2019-12-10] MEDS: HOME MED 1 EA UNK (Mirabegron [Myrbetriq] 25 MG) PO SCH (08:13)
[2019-12-10] MEDS: HOME MED 1 EA UNK (Dapagliflozin Propanediol [Farxiga] 10 MG) PO SCH ×2 (08:14→20:41)
[2019-12-10] MEDS: HOME MED 1 EA UNK (Fluticasone Propionate [Flonase Allergy Relief] 1 SPRAY) NS SCH ×2 (08:15→20:41)
--- NOTE | 2019-12-10 10:21 | EKG ---
Test Date: 2019-12-09 Test Time: 21:32:31 Detector Car Operator: NICOLE MEASUREMENT RESULTS: Intervals: Rate: 54 SD: 144 QRSD: 98 QT: 418 QTc: 396 [place]: P: 25 SD: 144 QRS: -32 T: -13 INTERPRETIVE STATEMENTS: Sinus bradycardia Left axis deviation Low voltage QRS Non specific T abnormality Abnormal ECG Compared to ECG 12/09/2019 08:06:44 Left-axis deviation now present Low QRS voltage now present Sinus arrhythmia no longer present Electronically Signed On 12-10-19 10:20:18 [employer] by Cornel Fields
[2019-12-10] MEDS ORDERED: ENOXAPARIN 40 MG/0.4 ML SQ ONE (14:00)
[2019-12-10] MEDS: HYDROCODONE/CHLORPHEN 5 ML/OSYR PO PRN (17:02)
[2019-12-10] MEDS ORDERED: IPRATROPIUM BROM 0.5MG/2.5ML NEB PRN (18:00)
[2019-12-10] MEDS ORDERED: SODIUM CHLORIDE 0.9% 10ML INJ IV PRN (20:18)
[2019-12-10] MEDS ORDERED: PANTOPRAZOLE 40 MG INJ IVP ONE (20:21)
[2019-12-10] MEDS: ATORVASTATIN 20 MG TAB PO SCH (20:40)
[2019-12-11 00:39] VITALS: TEMP 96.9
[2019-12-11] MEDS: IPRATROPIUM BROM 0.5MG/2.5ML NEB SCH ×2 (01:10→10:30)
[2019-12-11] MEDS: LEVOTHYROXINE SOD 0.075 MG TAB PO SCH (05:59)
[2019-12-11] MEDS: METFORMIN HCL 500 MG TAB PO SCH (08:18)
[2019-12-11] MEDS: ROFLUMILAST 500 MCG TABLET PO SCH (08:18)
[2019-12-11] MEDS: TOPIRAMATE 25 MG TAB PO SCH (08:18)
[2019-12-11] MEDS: ALPRAZOLAM 1 MG TABLET PO SCH (08:18)
[2019-12-11] MEDS: INSULIN -REGULAR HUMAN 50 UNIT/0.5 ML ML SQ SCH ×2 (08:19→12:09)
[2019-12-11] MEDS: LIPASE/PROTEASE/AMYLASE CAP PO SCH ×2 (08:19→13:18)
[2019-12-11] MEDS: LOSARTAN POTASSIUM 50 MG TABLET PO SCH (08:19)
[2019-12-11] MEDS: predniSONE 20 MG TAB PO SCH (08:19)
[2019-12-11] MEDS: GLIMEPIRIDE 2 MG TABLET PO SCH (08:19)
[2019-12-11] MEDS: HOME MED 1 EA UNK (Mirabegron [Myrbetriq] 25 MG) PO SCH (08:20)
[2019-12-11] MEDS: HOME MED 1 EA UNK (Dapagliflozin Propanediol [Farxiga] 10 MG) PO SCH (08:20)
[2019-12-11] MEDS: HOME MED 1 EA UNK (Fluticasone Propionate [Flonase Allergy Relief] 1 SPRAY) NS SCH (08:20)
[2019-12-11] MEDS: levoFLOXacin 500 MG TAB PO SCH (08:26)
[2019-12-11] MEDS: MONTELUKAST 10 MG TAB PO SCH (08:26)
[2019-12-11] MEDS: HYDROCODONE/CHLORPHEN 5 ML/OSYR PO PRN (08:27)
--- NOTE | 2019-12-11 08:54 | P.PN ---
Subjective Date of Service: 12/11/19 Chief Complaint: Cough and shortness of breath Subjective: Improving (Patient is improving started coughing again today otherwise stable) Review of Systems General: Weakness, Malaise Respiratory: Shortness of Breath Physical Examination - Vital Signs Temperature: 96.9 F Blood Pressure: 121/67 Pulse: 66 Respirations: 20 Pulse Ox (%): 98 - Physical Exam General: Alert, In no apparent distress Respiratory: Clear to auscultation bilaterally Cardiovascular: No edema, Regular rate/rhythm Assessment & Plan - Problems (Diagnosis) (1) Acute severe exacerbation of moderate persistent asthma Onset Date: 12/02/18 Current Visit: No Status: Acute Plan: Patient admitted with asthma exacerbation room-air pulse ox stable for discharge reduce prednisone to 10 mg twice a day Dc antibiotics patient has sleep apnea has CPAP at home no evidence of sepsis Discharge Plan: Home
[2019-12-11] MEDS ORDERED: PANTOPRAZOLE 40 MG INJ IVP SCH (09:00)
[2019-12-11] MEDS: ARFORMOTEROL TARTRATE 15 MCG/2 ML VIAL.NEB NEB SCH (10:30)
[2019-12-11 10:46] VITALS: O2SAT 98
[2019-12-11 11:50] VITALS: BP 92/55
--- NOTE | 2019-12-11 13:36 | PN ---
Patient still has significant amount of wheezing. I asked the Pulmonary Department to see whether yaneli elizabeth would need home oxygen. This would decide whether she can go home on home oxygen. Patient is afeb rile. Her sputum is mostly frothy. Dr. Mccall as to discharge plan. ALOK/VITALIY Voice ID: [id number] Report ID: [id number]
[2019-12-11] MEDS ORDERED: predniSONE 10 MG TAB PO SCH (21:00)
--- NOTE | 2019-12-28 23:26 | DS ---
Date of Discharge: 12/11/2019 Final Diagnoses: 1.Severe asthma. 2.Hypertension. 3.Bipolar disorder. 4.Type 2 diabetes. 5.Status post gallbladder surgery and hysterectomy. Hospital Course: This patient was admitted through emergency room because of continued wheezing and cough. The patient had no evidence of pneumonia. The patient had normal white count. The patient r eceived IV steroids and continues breathing treatments. She also was seen by Pulmonary Service. The patient showed improvement over the next 2 days and she was discharged home on 12/11/2019 to have ou tpatient followup with Pulmonary Service. Laboratory Data: White count normal. Potassium 3.3. Chest x-ray, no consolidation. RRK/MODL Voice ID: [id number] Report ID: [id number]
== END 2019-12-11 15:02 | disposition home or self-care (01) ==
LOC: ER 17:19 → INTOOBSV 18:19 → ERHOLD 18:19 → 4TH 20:58
PROVIDERS: ADMIT Internal Medicine; ATTEND Internal Medicine
PROC: 5A09357 Assistance with Respiratory Ventilation, Less than 24 Consecutive Hours, Continuous Positive Airway Pressure (ICD-10-PCS; principal; 2019-12-09)
DX: J45.41 Moderate persistent asthma with (acute) exacerbation (principal); J96.00 Acute respiratory failure, unspecified whether with hypoxia or hypercapnia; I10 Essential (primary) hypertension; E03.9 Hypothyroidism, unspecified; E11.9 Type 2 diabetes mellitus without complications; G43.909 Migraine, unspecified, not intractable, without status migrainosus; F31.9 Bipolar disorder, unspecified; F17.200 Nicotine dependence, unspecified, uncomplicated
CPT/HCPCS: 96365; 96361; 96368; 93005 ×3; 87040 ×2; 85025 ×2; 80048 ×2; 36415; 83735; 85610; 82947 ×10; 80076; 84484 ×3; 83880 ×2; 87804 ×2; 71045 ×2; 94640 ×2; 82805; 94760 ×4; 94660 ×5; 96375; 99285; 96366; C9113 ×2; J0456 ×2; J1650; J7605 ×4; J0696 ×2; G0378 ×6; J7030 ×3; J2930; J2405; J2920 ×2; J7512

== ENCOUNTER 2020-04-15 14:45 | Emergency (ER) | payer OTHER ==
--- OUTSIDE RECORDS SUMMARY | 2020-04-15 16:59 | XMS REPORT | Clinical Summary ---
:1975 Author Organization [facility] Address [address] [place] [id number] Care Team Providers Name Role Phone Asked, [...] Comments CERVICAL CANCER SCREENING 1996 INFLUENZA VACCINE 05/22/2020 Results Not on fileafter 04/15/2019 Insurance Payer Benefit Plan / Subscriber ID Effective Dates Phone Addre ss Type Group [employer] [place] [facility] [employer] xxxxxxxxxxx [facility] AD[facility] t Advance Directives For more information, please contact: [phone] Type Date Recorded 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
--- OUTSIDE RECORDS SUMMARY | 2020-04-15 16:59 | XMS REPORT | Continuity of Care Document ---
:1975 Author Organization [facility] t Address [address] [place] [address] [address] [place] [address] Care Team Providers Name Role Phone Asked, Pcp Primary Care Physician Unavailable William Armendariz DO Attending Clinician Puja SILVESTRE Attending Clinician Problems This patient has no known problems. Allergies, Adverse Reactions, Alerts Allergy Allergy Status Severity Reaction(s) Onset Inactive Treating Comm ents Source Name Type Date Date Clinician NSAIDS Adverse Active hives [facility] Toradol Adverse Active Info Not [facility] Ibuprofe Adverse Active Info Not [facility] Aleve Adverse Active Info Not [facility] Available [facility] Advil Adverse Active Info Not [facility] Social History Social Habit Start Date Stop Date Quantity Comments Source Sex Assigned At Lis Cheng Medications Ordered Filled Start Stop Current Ordering Indication Dosage Frequency Signature Comments Components Source Medication Medication Date Date Medication? Clinician (SIG) Name Name Creon Creon Yes Ruddy not [facility] Budesonide Budesonide Yes Ruddy not [facility] Losartan Losartan Yes Ruddy not [facility] Potassium Potassium Moon defined [facility] Atorvastati Atorvastati Yes Ruddy not [facility] n Calcium n Calcium Moon defined [facility] PredniSONE PredniSONE Yes Ruddy not [facility] Tramadol Tramadol Yes Ruddy not [facility] HCl HCl [facility] defined [facility] Fluticasone Fluticasone Yes Ruddy not [facility] Propionate Propionate Moon defined [facility] Glimepiride Glimepiride Yes Ruddy not [facility] defined [facility] Lorazepam Lorazepam Yes Ruddy not [facility] EPINEPHrine EPINEPHrine Yes Ruddy not [facility] Farxiga Farxiga Yes Ruddy not [facility] defined [facility] Alprazolam Alprazolam Yes Ruddy not [facility] defined [facility] Myrbetriq Myrbetriq Yes Ruddy not [facility] Rizatriptan Rizatriptan Yes Ruddy not [facility] Benzoate Benzoate [facility] defined [facility] Levothyroxi Levothyroxi Yes Ruddy not [facility] ne Sodium ne Sodium Moon defined [facility] Procedures This patient has no known procedures. Plan of Care Planned Activity Planned Date Details Comments Source Future Scheduled 2020-05-22 INFLUENZA VACCINE [place] [facility] Test 00:00:00 [code = INFLUENZA VACCINE] Future Scheduled 1996 Screening for [facility] Test 00:00:00 malignant neoplasm of cervix (procedure) [code = 438055009] Encounters Start End Encounter Admission Attending Care Care Encounter Source Date/Time Date/Time Type Type Clinicians Facility Department ID 2020-04-13 2020-04-13 Outpatient Marcia Vang [id number] [facility] 16:42[facility]00 16[facility]42[facility] 2020-04-12 2020-04-12 Outpatient Marcia Vang [id number] [facility] 16:00:00 16:00:00 [facility] 2020-04-05 2020-04-05 Emergency Marcello, [facility] [id number] 16:37:35 19:01:00 Yesi Thomas Tyson [id number] [place] [id number] [place] [id number] 2020-04-05 2020-04-05 [facility] [id number] [address] 14:31:00 14:31:00 [facility] 2020-03-29 2020-03-29 [facility] [id number] [address] 13:59:00 13:59:00 [facility] 2020-03-29 2020-03-29 [facility] [id number] 13:00:00 13:00:00 [facility] 2020-03-29 2020-03-29 [facility] [id number] [address] 08:30:00 08:30:00 [facility] 2019-11-30 2019-11-30 Case Puja [facility] [id number] 00:00:00 00:00:00 Management Titus Mehta [id number] [place] [id number] [facility] [id number] nal 134 Building 2019-11-28 2019-11-28 Office Puja [facility] [id number] 14:36:59 15:44:36 Visit Titus Mehta [id number] Neo [id number] Professio [phone] nal 134 Building Results This patient has no known results.
--- OUTSIDE RECORDS SUMMARY | 2020-04-15 17:00 | XMS REPORT ---
:1975 Author Organization [employer] Care Team Providers Name Role Phone Ruddy Moon Provider Role Unavailable Allergies No Known Allergies Problems No Known Problems Medications No Known Medications Results No Known Results Summary Purpose [employer] Submission
--- OUTSIDE RECORDS SUMMARY | 2020-04-15 17:00 | XMS REPORT ---
:1975 Author Organization [employer] Care Team Providers Name Role Dane Moon Ruddy Provider Role Unavailable Allergies, Adverse Reactions, Alerts Substance Reaction Event Type NSAIDS hives Drug Allergy Toradol Info Not Available Drug Allergy Ibuprofen Info Not Available Drug Allergy Aleve Info Not Available Drug Allergy Advil Info Not Available Drug Allergy Problems Problem Type Condition Code Onset Dates Condition Statu s Assessment Pain, joint, knee, left M25.562 Acti ve Assessment Knee sprain S83.90XA Active Assessment Tear of lateral meniscus of left S83.282A Active knee, current, unspecified tear type, initial encounter Medications Medication Code System Code Instructions Start End Date Status Dos age Date Creon [facility] 03206-82 Active not defined 16-13 Budesonide [facility] 22302-89 Active not defined 12-48 Losartan Potassium [facility] 94243-35 Active not defined 25-22 Atorvastatin [facility] 69429-78 Active not define d Calcium 57-98 PredniSONE [facility] 20232-25 Active not defined 42-43 Tramadol HCl ND 0 Active not defined Fluticasone [facility] 97742-31 Active not defined Propionate 75-01 Glimepiride [facility] 56176-29 Active not defined 13-01 Lorazepam [facility] 27159-41 Active not defined 60-03 EPINEPHrine [facility] 52220-19 Active not defined 48-20 Farxiga ND 0 Active not defined Alprazolam [facility] 47461-84 Active not defined 25-11 Myrbetriq [facility] 57789-03 Active not defined 02-30 Rizatriptan [facility] 96568-98 Active not defined Benzoate 69-81 Levothyroxine [facility] 61066-49 Active not defin ed Sodium 95-10 Results No Known Results Summary Purpose [employer] Submission
--- OUTSIDE RECORDS SUMMARY | 2020-04-15 17:02 | XMS REPORT ---
:1975 Author Organization [employer] Care Team Providers Name Role Phone Ruddy Moon Provider Role Unavailable Allergies No Known Allergies Problems Problem Type Condition Code Onset Dates Condition Statu s Assessment Tear of lateral meniscus of left S83.282A Active knee, current, unspecified tear type, initial encounter Assessment Knee sprain S83.90XA Active Medications No Known Medications Results No Known Results Summary Purpose [employer] Submission
--- OUTSIDE RECORDS SUMMARY | 2020-04-15 17:02 | XMS REPORT | Summary of Care ---
:1975 Author Organization [facility] Address [address] [place], [place] [id number] Care Team Providers Name Role Phone Alvaro Da Silva MD Primary Care Provider Reason for Referral Radiology Services (STAT) Status Reason Specialty Diagnoses / Referred By Referred To Procedures Contact Contact New Request Diagnostic Diagnoses Weakness Yesi Armendariz Radiology Procedures Chest 1 View J, DO [address] [place] [address] MRI/CAT Scan (STAT) Status Reason Specialty Diagnoses / Referred By Referred To Procedures Contact Contact New Request Diagnostic Diagnoses Weakness Yesi Armendariz Radiology Procedures CT ANGIOGRAM NECK J, DO [address] [place] [address] MRI/CAT Scan (STAT) Status Reason Specialty Diagnoses / Referred By Referred To Procedures Contact Contact New Request Diagnostic Diagnoses Weakness Yesi Armendariz Radiology Procedures CT ANGIOGRAM HEAD J, DO [address] [place] [address] MRI/CAT Scan (STAT) Status Reason Specialty Diagnoses / Referred By Referred To Procedures Contact Contact New Request Diagnostic Diagnoses Weakness Yesi Armendariz Radiology Procedures CT Head W/O Contrast J, DO [address] [place] [address] Reason for Visit Reason Comments Chest Pain TINGLING left arm Auth/Cert Status Reason Specialty Diagnoses / Referred By Referred To Procedures Contact Contact Emergency Medicine [facility] ergency Dept [address] [phone] Fax: Encounter Details Date Type Department Care Team Description 04/05/2020 Emergency ADC-Emergency Yesi Armendariz Weaknes s (Primary Dx) Department DO [address] [address] [place] [address] [phone] Allergies Active Allergy Reactions Severity Noted Date Comments Morphine Hives 10/29/2019 Nsaids (Non-Steroidal Anti-Inflammatory Drug) Hives 10/29/2019 Ketorolac Tromethamine Hives 04/05/2020 documented as of this encounter (statuses as of 04/05/2020) Medications Medication Sig Dispensed Refills Start Date End Date Status lipase/protease/amylas Take by mouth. 0 Active e (CREON ORAL) pantoprazole sodium Take by mouth. [...] daily. powderIndications: Constipation, unspecified constipation type dapagliflozin Take 1 tablet 0 Ac tive (FARXIGA) 10 mg tablet by mouth. mirabegron (MYRBETRIQ) Take 1 tablet 30 tablet 3 11/28/2019 Active 25 mg by mouth daily. tabletIndications: Mixed stress and urge urinary incontinence gabapentin 300 mg Take 1 capsule 90 capsule 0 04/05/202005/05 Active capsuleIndications: by mouth 3 Weakness (three) times daily for 30 days. documented as of this encounter (statuses as of 04/05/2020) Active Problems Problem Noted Date Mixed stress and urge urinary incontinence 11/28/2019 Personal history of cervical dysplasia 11/28/2019 Overview: 11/28/2019 - pap smear of vaginal cuff nor mal with negative HPV Morbid obesity with body mass index of 40.0-49.9 10/31 Candidal vulvitis 10/31/2019 Vulvar boil 10/31/2019 documented as of this encounter (statuses as of 04/05/2020) Immunizations Name Administration Dates Next Due Influenza Virus Vaccine Quad .5 mL IM 6+ MO 10/09/2019 documented as of this encounter Social History Tobacco Use Types Packs/Day Years Used Date Never Smoker Smokeless Tobacco: Never Used Alcohol Use Drinks/Week oz/Week Comments Yes rare Sex Assigned at Date Recorded Not on file Job Start Date Occupation Industry Not on file Not on file Not on file Travel History Travel Start Travel End No recent travel history available. COVID-19 Exposure Response Date Recorded In the last month, have you been in contact with No / Unsure 04/05/2020 4:46 PM CDT someone who was confirmed or suspected to have Coronavirus / COVID-19? 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 Chest Pain 2. Weakness 3. Anxiety 4. Neuropathy NO LIFE-THREATENING FINDINGS ON TODAY'S EXAM. PROCEDURES IN THE ER TODAY: Chest Xray EKG CT head CTA head CTA neck Blood work Urine test COVID-19 test MEDICATIONS ADMINISTERED IN THE ER TODAY: Tylenol YOUR PRESCRIPTIONS AND [id number] MEDICATION RECOMMENDATIONS: Gabapentin by mouth three times a day. SPECIAL CARE INSTRUCTIONS: Please follow-up with your primary care physician for a follow-up and referral to neurology. FOLLOW-UP RECOMMENDATIONS: RECOMMEND FOLLOW-UP WITH A PRIMARY CARE PROVIDER OR SPECIALIST IN 2-5 DAYS, ESPECIALLY IF NO IMPROVEMENT IN SYMPTOMS. TO FOLLOW-UP WITHIN THE [facility], TRY THESE OPTIONS (CLINIC APPOINTMENTS AVAILABLE ON GGFS-TO-PZCS BASIS): 1. SCHEDULE AN APPOINTMENT ONLINE AT WWW[facility] 2. OR CALL THE [facility] ACCESS C[facility] AT OR 3. OR CALL YOUR [facility] PHYSICIAN'S OFFICE DIRECTLY IF YOU ARE ALREADY AN ESTABLISHED [facility] PATIENT. OR, YOU MAY FOLLOW-UP WITH A PROVIDER OF YOUR CHOICE, SUCH : 1. A PHYSICIAN OF YOUR CHOICE 2. [facility], . LOCATIONS IN [facility] 3. [facility], [address] [place] [address]; [phone] RETURN TO ER FOR WORSENING OF SYMPTOMS. AttachmentsThe following attachments cannot be sent through Care Everywhere. Weakness (Uncertain Cause) (Czech)Anxiety Reaction (Czech)Chest Pain, Noncardiac (Czech)Neuropathy, Peripheral (Czech)documented in this encounter Plan of Treatment Health Maintenance Due Date Last Done Comments HgA1C 1976 PNEUMOCOCCAL 0-64 YEARS COMBINED SERIES (1 1981 of 1 - PPSV23) EYE EXAM 1985 LDL-C 1985 URINE MICROALBUMIN 1985 DTaP,Tdap,and Td Vaccines (1 - Tdap) 1986 Depression Screening 1987 FOOT EXAM 1993 Breast Cancer Screening (MAMMOGRAM) 2015 CREATININE (SERUM) 10/31/2020 10/31/2019, 10/29/2019 PAP SMEAR 11/28/2022 11/28/2019 INFLUENZA VACCINE Completed 10/09/2019 documented as of this encounter Procedures Procedure Name Priority Date/Time Associated Comments Diagnosis CT ANGIOGRAM NECK STAT 04/05/2020 5:49 Weakness Result s for this PM CDT procedure are i n the results section. CT ANGIOGRAM HEAD STAT 04/05/2020 5:49 Weakness Result s for this PM CDT procedure are i n the results section. CT HEAD WO CONTRAST STAT 04/05/2020 5:38 Weakness Resu lts for this PM CDT procedure are i n the results section. XR CHEST 1 VW STAT 04/05/2020 5:33 Weakness Results fo r this PM CDT procedure are i n the results section. URINALYSIS STAT 04/05/2020 5:08 Weakness Results for this PM CDT procedure are i n the results section. COVID-19 (ID NOW STAT 04/05/2020 4:54 Weakness Results for this RAPID TESTING) PM CDT procedure are in the results section. CBC WITH DIFFERENTIAL STAT 04/05/2020 4:53 Weakness Re sults for this PM CDT procedure are i n the results section. PROTHROMBIN TIME / STAT 04/05/2020 4:53 Weakness Resul ts for this INR PM CDT procedure are i n the results section. CBC WITH DIFFERENTIAL Routine 04/05/2020 4:53 Weakness Re sults for this PM CDT procedure are i n the results section. BASIC METABOLIC PANEL STAT 04/05/2020 4:53 Weakness Re sults for this (NA, K, CL, CO2, PM CDT procedure a re in GLUCOSE, BUN, the results CREATININE, CA) section. HEPATIC FUNCTION STAT 04/05/2020 4:53 Weakness Results for this PANEL (52568) PM CDT procedure are in (ALB,T.PRO,BILI the results T,BU/BC,ALT,AST,ALK section. PHOS) TROPONIN I STAT 04/05/2020 4:53 Weakness Results for this PM CDT procedure are i n the results section. NOTICE OF PRIVACY Routine 04/05/2020 4:35 PRACTICES PM CDT CONSENT/REFUSAL FOR Routine 04/05/2020 4:31 DIAGNOSIS AND PM CDT TREATMENT documented in this encounter Results CT ANGIOGRAM NECK (04/05/2020 5:49 PM CDT) Specimen Impressions Performed At PACS/VR/DOSE Normal CTA head and neck. Narrative Performed At HISTORY:Stroke suspected, ataxia PACS/VR/DOSE TECHNIQUE: CTA of the head and neck was performed with IV contrast. MIP reconstructions were performed. COMPARISON: CT head 04/05/2020 FINDINGS: CTA NECK: Aortic arch and major vessels: There is a three-vessel aortic arch. The vessels origi nating from the arch are patent. Common carotid arteries: Both common carotid arteries are within normal limits. Right internal carotid artery: Unremarkable. Left internal carotid artery: Unremarkable. Vertebral arteries: The vertebral arteries originate from the subclavian a rteries bilaterally. The vessels are codominant and unremarka ble. CTA HEAD: There is normal contrast enhancement in the petrous, cavernous and supraclinoid ICAs bilaterally. An anterior communicating artery is seen . The SARAH and MCA branches are within norm al limits. A left LOSS CONTROL CONSULTANT seen. No sizable right P-comm is identified The LOSS CONTROL CONSULTANT and basilar arteries are otherwi se within normal limits. The intracranial vertebral arteries are unremarkable. The left PICA origin is noted. An AICA /PICA variant is suspe cted on the right Procedure Note [facility], Radiant Results Inft User - 2019 6:00 PM CDT HISTORY:Stroke suspected, ataxia TECHNIQUE: CTA of the head and neck was performed with IV contrast. MIP reconstructions were performed. COMPARISON: CT head 04/05/2020 FINDINGS: CTA NECK: Aortic arch and major vessels: There is a three-vessel aortic arch. The vessels originating from the arch are patent. Common carotid arteries: Both common carotid arteries are within normal limits. Right internal carotid artery: Unremarkable. Left internal carotid artery: Unremarkable. Vertebral arteries: The vertebral arteries originate from th e subclavian arteries bilaterally. The vessels are codominant and unremarka ble. CTA HEAD: There is normal contrast enhancement in the petrous, cavernous and supraclinoid ICAs bilaterally. An anterior communicating artery is seen . The SARAH and MCA branches are within norm al limits. A left LOSS CONTROL CONSULTANT seen. No sizable right P-comm is identified The LOSS CONTROL CONSULTANT and basilar arteries are otherwi se within normal limits. The intracranial vertebral arteries are unremarkable. The left PICA origin is noted. An AICA /PICA variant is suspe cted on the right IMPRESSION Normal CTA head and neck. Performing Organization Address City/State/Zipcode Phone Number PACS/VR/DOSE CT ANGIOGRAM HEAD (04/05/2020 5:49 PM CDT) Specimen Impressions Performed At PACS/VR/DOSE Normal CTA head and neck. Narrative Performed At HISTORY:Stroke suspected, ataxia PACS/VR/DOSE TECHNIQUE: CTA of the head and neck was performed with IV contrast. MIP reconstructions were performed. COMPARISON: CT head 04/05/2020 FINDINGS: CTA NECK: Aortic arch and major vessels: There is a three-vessel aortic arch. The vessels origi nating from the arch are patent. Common carotid arteries: Both common carotid arteries are within normal limits. Right internal carotid artery: Unremarkable. Left internal carotid artery: Unremarkable. Vertebral arteries: The vertebral arteries originate from the subclavian a rteries bilaterally. The vessels are codominant and unremarka ble. CTA HEAD: There is normal contrast enhancement in the petrous, cavernous and supraclinoid ICAs bilaterally. An anterior communicating artery is seen . The SARAH and MCA branches are within norm al limits. A left LOSS CONTROL CONSULTANT seen. No sizable right P-comm is identified The LOSS CONTROL CONSULTANT and basilar arteries are otherwi se within normal limits. The intracranial vertebral arteries are unremarkable. The left PICA origin is noted. An AICA /PICA variant is suspe cted on the right Procedure Note [facility], Radiant Results Inft User - 2019 6:00 PM CDT HISTORY:Stroke suspected, ataxia TECHNIQUE: CTA of the head and neck was performed with IV contrast. MIP reconstructions were performed. COMPARISON: CT head 04/05/2020 FINDINGS: CTA NECK: Aortic arch and major vessels: There is a three-vessel aortic arch. The vessels originating from the arch are patent. Common carotid arteries: Both common carotid arteries are within normal limits. Right internal carotid artery: Unremarkable. Left internal carotid artery: Unremarkable. Vertebral arteries: The vertebral arteries originate from th e subclavian arteries bilaterally. The vessels are codominant and unremarka ble. CTA HEAD: There is normal contrast enhancement in the petrous, cavernous and supraclinoid ICAs bilaterally. An anterior communicating artery is seen . The SARAH and MCA branches are within norm al limits. A left LOSS CONTROL CONSULTANT seen. No sizable right P-comm is identified The LOSS CONTROL CONSULTANT and basilar arteries are otherwi se within normal limits. The intracranial vertebral arteries are unremarkable. The left PICA origin is noted. An AICA /PICA variant is suspe cted on the right IMPRESSION Normal CTA head and neck. Performing Organization Address City/State/Zipcode Phone Number PACS/VR/DOSE CT Head W/O Contrast (04/05/2020 5:38 PM CDT) Specimen Impressions Performed At PACS/VR/DOSE No CT findings of acute intracranial abn ormality. Preliminary Report Dictated by Resident: Jane Kenney MD., have reviewed this study and agree with the above report. Narrative Performed At EXAM: CT HEAD WO CONTRAST PACS/VR/DOSE HISTORY: 44 years-old Female presenting with Stroke suspected, ataxia COMPARISON: None TECHNIQUE: Axial CT imaging of the head was obtained w ithout IV contrast. Coronal and sagittal reformats were cons tructed. FINDINGS: The ventricles and cerebral sulci are normal in calibe r and configuration. No hydrocephalus, midline shift, or sign ificant mass effect is detected. The basal cisterns are intact. No acute intracranial hemorrhage or path ological extra-axial fluid collection is demonstrated. No parenchym al attenuation abnormality is identified. The felix-white matter differ entiation is preserved. The mastoid air cells and paranasal air sinuses are clear. The calvarium and remaining skull base are unremarkabl e. The foramen magnum is not completely imaged on the current exam Procedure Note [facility], Radiant Results Inft User - 2019 6:36 PM CDT EXAM: CT HEAD WO CONTRAST HISTORY: 44 years-old Female presenting with Stroke suspected, ataxia COMPARISON: None TECHNIQUE: Axial CT imaging of the head was obtained without IV contrast. Coronal and sagittal reformats were cons tructed. FINDINGS: The ventricles and cerebral sulci are no rmal in caliber and configuration. No hydrocephalus, midline shift, or sign ificant mass effect is detected. The basal cisterns are intact. No acute intracranial hemorrhage or path ological extra-axial fluid collection is demonstrated. No parenchym al attenuation abnormality is identified. The felix-white matter differ entiation is preserved. The mastoid air cells and paranasal air sinuses are clear. The calvarium and remaining skull base are unremarkabl e. The foramen magnum is not completely imaged on the current exam IMPRESSION No CT findings of acute intracranial abn ormality. Preliminary Report Dictated by Resident: Jane Kenney MD., have reviewed t his study and agree with the above report. Performing Organization Address City/State/Zipcode Phone Number PACS/VR/DOSE Chest 1 View (04/05/2020 5:33 PM CDT) Specimen Impressions Performed At PACS/VR/DOSE No acute cardiopulmonary abnormality. Preliminary Report Dictated by Resident: Raul Kenney MD., have reviewed this study and agree with the above report. Narrative Performed At EXAM: XR CHEST 1 VW PACS/VR/DOSE HISTORY: 44 years-old Female presenting with suspected cva COMPARISON: None TECHNIQUE: AP images of the thorax were obtained. FINDINGS: The lungs are well-expanded and clear wi thout focal consolidation. No pleural effusion or pneumothorax. The cardiomediastinal silhouette is norm al. No acute bony abnormality. Procedure Note [facility], Radiant Results Inft User - 2019 5:53 PM CDT EXAM: XR CHEST 1 VW HISTORY: 44 years-old Female presenting with suspected cva COMPARISON: None TECHNIQUE: AP images of the thorax were obtained. FINDINGS: The lungs are well-expanded and clear wi thout focal consolidation. No pleural effusion or pneumothorax. The cardiomediastinal silhouette is norm al. No acute bony abnormality. IMPRESSION No acute cardiopulmonary abnormality. Preliminary Report Dictated by Resident: Raul Kenney MD., have reviewed th is study and agree with the above report. Performing Organization Address City/State/Zipcode Phone Number [facility]/VR/DOSE Urinalysis (04/05/2020 5:08 PM CDT) Pathologist Sig nature APPEARANCE Clear Clear [facility] COLOR Yellow Yellow [facility] PH 5.0 4.8 - 8.0 [facility] SP GRAVITY 1.031 (H) 1.003 - 1.030 [facility] GLU U QUAL 500 mg/dL (A) Normal [facility] BLOOD Negative Negative [facility] KETONES Negative Negative [facility] PROTEIN Negative Negative [facility] UROBILIN 2.0 mg/dL (A) Normal [facility] BILIRUBIN Negative Negative [facility] NITRITE Negative Negative [facility] LEUK LETTY Negative Negative [facility] RBC/HPF <1 0 - 3 HPF [facility] WBC/HPF 2 0 - 5 HPF [facility] BACTERIA Negative Negative [facility] MUCOUS Slight (A) Negative LPF [facility] SQ EPITH 1 HPF [facility] Specimen Urine - URINE, CLEAN CATCH Performing Organization Address [facility]/Zipcode Phone Number [facility] CLIA: [id number], [address] [place], [place] [address] COVID-19 (ID NOW RAPID TESTING) (04/05/2020 4:54 PM CDT) SARS-CoV-2 Rapid ID Not Detected Not Detected [facility] Specimen Swab - NASOPHARYNGEAL SWAB Narrative Performed At [facility] COVID-19 Assay is an isothermal nucleic [facility] acid amplification test intended for the qualitative detection of nucleic acid from SARS-CoV-2 viral RNA in nasopharyngeal (SECURITIES ADVISER) specimens. It is used under Emergency Use Authorization (EUA) by FDA. The limit of detection (LOD) of the assay is 125 Genome Equivalents/mL. A positive result is indicative of the presence of SARS-CoV-2 RNA. Clinical correlation with patient history and other diagnostic information is necessary to determine patient infection status. A negative (Not Detected) result does not preclude SARS-CoV-2 infection. In patients with clinical symptoms and other tests that are consistent with SARS-CoV-2 infection, negative results should be treated as presumptive negative and a new specimen should be tested with alternative PCR molecular test. Invalid: Please collect a new specimen for repeat patient testing if clinically indicated. Performing Organization Address [facility]/Zipcode Phone Number [facility] CLIA: [id number], [address] [place], [place] [address] CBC WITH DIFFERENTIAL (04/05/2020 4:53 PM CDT) Pathologist Sig nature WBC 7.08 4.30 - 11.10 [facility] 10*3/L [facility] RBC 4.95 3.93 - 5.25 [facility] 10*6/L [facility] HGB 14.5 11.6 - 15.0 g/dL [facility] HCT 43.9 35.7 - 45.2 % [facility] MCV 88.7 80.6 - 95.5 fL [facility] MCH 29.3 25.9 - 32.8 pg [facility] MCHC 33.0 31.6 - 35.1 g/dL [facility] RDW-SD 42.2 39.0 - 49.9 fL [facility] RDW-CV 13.1 12.0 - 15.5 % [facility] PLT 389 (H) 166 - 358 [facility] 10*3/L [facility] MPV 8.8 (L) 9.5 - 12.9 fL [facility] NRBC/100 WBC 0.0 0.0 - 10.0 /100 [facility] WBCs [facility] NRBC x10^3 <0.01 10*3/L [facility] GRAN MAT (NEUT) % 51.0 % [facility] IMM GRAN % 0.30 % [facility] LYMPH % 39.3 % [facility] MONO % 6.6 % [facility] EOS % 2.0 % [facility] BASO % 0.8 % [facility] GRAN MAT x10^3(ANC) 3.61 1.88 - 7.09 [facility] 10*3/uL [facility] IMM GRAN x10^3 <0.03 0.00 - 0.06 [facility] 10*3/uL [facility] LYMPH x10^3 2.78 1.32 - 3.29 [facility] 10*3/uL [facility] MONO x10^3 0.47 0.33 - 0.92 [facility] 10*3/uL [facility] EOS x10^3 0.14 0.03 - 0.39 [facility] 10*3/uL [facility] BASO x10^3 0.06 0.01 - 0.[address]/uL [facility] Specimen Blood - VENOUS Performing Organization Address City/State/Zipcode Phone Number [facility] CLIA: [id number], [address] [place], [place] [address] Prothrombin Time (PT) / INR (04/05/2020 4:53 PM CDT) PROTIME PATIENT 13.0 12.0 - 14.7 [facility] Seconds [facility] INR 1.0Comment: Normal [facility] INR <1.1; [facility] Therapeutic range LABORATORY 2.0 to 3.0 or 2.5 to 3.5, depending upon the indications. Specimen Blood - VENOUS Performing Organization Address [facility]/Zipcode Phone Number [facility] CLIA: [id number], [address] [place] [address] Troponin I (04/05/2020 4:53 PM CDT) [facility] TROPONIN I <0.012 <=0.034 ng/mL [facility] Specimen Blood - VENOUS Narrative Performed At Equal or Less than 0.034 ng/ml---Normal [facility] Note: Cardiac troponin begins to rise 3-4 hours after the onset of ischemia. Repeat in 4-6 hours if the sample was drawn within 3-4 hours of the onset of the symptom and found normal. Between 0.035 and 0.120 ng/mL--- Borderline. Questionable myocardial injury or necros is Note: Serial measurement may be necessary to confirm or exclude the diagnosis of myocardial injury or necrosis; Clinical correlation (symptoms, EKGs, imaging studies, and others) required; Repeat in 4-6 hours if clinically indicated. Equal or Higher than 0.121 ng/mL---Abnormal. Myocardial Injury or Necrosis Likely Biotin has been reported to cause a negative bias, interpret results relative to patient's use of biotin. Performing Organization Address [facility] Phone Number [facility] CLIA: [id number], [address] [place] [address] Hepatic Function Panel (ALB, T.PRO, BILI T, BU/BC, ALT, AST, ALK PHOS) (04/05/2020 4:53 PM CDT) [facility] nature TOTAL BILI 0.8 0.1 - 1.1 mg/dL [facility] BILI UNCON 0.8 0.1 - 1.1 mg/dL [facility] BILI CONJ 0.0 0.0 - 0.3 mg/dL [facility] T PROTEIN 7.7 6.3 - 8.2 g/dL [facility] ALBUMIN 4.4 3.5 - 5.0 g/dL [facility] ALK PHOS 101 34 - 122 U/L [facility] ALTv 34 5 - 35 U/L [facility] AST(SGOT) 30 13 - 40 U/L [facility] Specimen Blood - VENOUS Performing Organization Address City/State/Zipcode Phone Number THE [facility] CLIA: [id number], [address] Basic Metabolic Panel (NA, K, CL, CO2, GLUCOSE, BUN, CREATININE, CA) (04/05/2020 4:53 PM CDT) Pathologist [facility] NA 139 135 - 145 mmol/L [facility] K 3.7 3.5 - 5.0 mmol/L [facility] CL 105 98 - 108 mmol/L [facility] CO2 TOTAL 26 23 - 31 mmol/L [facility] AGAP 8 2 - 16 [facility] BUN 11 7 - 23 mg/dL [facility] GLUCOSE 107 70 - 110 mg/dL [facility] CREATININE 0.77 0.50 - 1.04 [facility] mg/dL [facility] CALCIUM 9.7 8.6 - 10.6 mg/dL [facility] eGFR Calculation 81.4 mL/min/1.73m2 [facility] (Non-) [facility] Y eGFR Calculation 98.7 mL/min/1.73m2 [facility] () [facility] Specimen Blood - VENOUS Narrative Performed At Association of Glomerular Filtration Rate (GFR) [facility] and Staging of Kidney Disease* + + +- + | GFR (mL/min/1.73 m2) | With Kidney Damage | Without Kidney Damage + + +- + | >90 | Stage one | Normal + + +- + | 60-89 | Stage two | Decreased GFR + + +- + | 30-59 | Stage three | Stage three + + +- + | 15-29 | Stage four | Stage four + + +- + | <15 (or dialysis) | Stage five | Stage five + + +- + *Each stage assumes the associated GFR level has been in effect for at least three months. Stages 1 to 5, with or without kidney disease, indicate chronic kidney disease. Notes: Determination of stages one and two (with eGFR >59mL/min/1.73 m2) requires estimation of kidney damage for at least three months as defined by structural or functional abnormalities of the kidney, manifested by either: Pathological abnormalities or Markers of kidney damage (including abnormalities in the composition of the blood or urine or abnormalities in imaging tests). Performing Organization Address City/State/Zipcode Phone Number [facility] CLIA: [id number], [address] [place], [place] [address] documented in this encounter Visit Diagnoses Diagnosis Weakness - Primary Other malaise and fatigue documented in this encounter Administered Medications Medication Order MAR Action Action Date Dose Rate Site acetaminophen (TYLENOL) tablet Given 04/05/2020 6:02 PM CDT 650 mg 650 mg 650 mg, Oral, ONCE, 1 dose, 04/05/20 at 1915, ADRIANA iohexol (OMNIPAQUE 350 BULK-100 mL) Given 04/05/2020 5:40 PM CD T 100 mL injection 100 mL 100 mL, Intravenous, ONCE, 1 dose, Sun04/05/20 at 1800, Routine documented in this encounter Insurance Payer Benefit Plan / Subscriber ID Effective Phone Address T ype Group Dates HUMANA - HUMANA GOLD [id number] 2019-Pres Medi care Adv MANAGED PLS HMO ent HMO MEDICARE [employer] [place] 2018-Pres [address] Medicaid [facility] ent [id number] [place] [address] documented as of this encounter"
--- OUTSIDE RECORDS SUMMARY | 2020-04-15 17:02 | XMS REPORT ---
:1975 Author Organization eClinicalWorks Care Team Providers Name Role Phone Ryan Schulte Provider Role Unavailable Allergies No Known Allergies Problems No Known Problems Medications No Known Medications Results No Known Results Summary Purpose eClinicalWorks Submission
--- NOTE | 2020-04-15 17:07 | RAD REPORT ---
EXAM DESCRIPTION: CT - CTHCSPWOC - 04/15/2020 4:57 pm CLINICAL HISTORY: trauma COMPARISON: SOFT TISSUE NECK W CONTRAST dated 09/27/2015 TECHNIQUE: Axial 5 mm thick images of the head were obtained. Axial 2 mm thick images of the cervic al spine were obtained with sagittal and coronal reconstruction images generated and reviewed. All CT scans are performed using dose optimization technique as appropriate and may include automated exposure control or mA/KV adjustment according to patient size. FINDINGS: No intracranial hemorrhage, mass, edema or acute intracranial finding. No suspicion for ac marie infarction. No cortical edema or sulcal effacement. There are minimal areas of diminished attenua tion in the occipital lobe white matter not suspected to be acute. This may be old chronic ischemic i njury. Mastoid air cells are clear Cervical bodies are normal in height. No subluxation abnormality. Reversal of the usual cervical lord osis is probably muscle spasm positioning artifact. No disk space narrowing. No fracture or acute bon y abnormality. Central canal detail is inherently limited. No paraspinal mass or hematoma. IMPRESSION: Negative CT head examination for acute or significant finding. Facial bones, orbits and sinuses are separately detailed. Negative CT cervical spine examination for acute or significant finding.
--- NOTE | 2020-04-15 17:09 | RAD REPORT ---
EXAM DESCRIPTION: CT - Facial Bones W/ Mpr - 04/15/2020 4:57 pm CLINICAL HISTORY: Facial trauma COMPARISON: None. TECHNIQUE: Axial 2 millimeter thick images of the facial bones were obtained with sagittal and coron al reconstruction imaging. All CT scans are performed using dose optimization technique as appropriate and may include automated exposure control or mA/KV adjustment according to patient size. FINDINGS: Mastoid air cells are clear. No skullbase fracture. No paranasal sinus abnormality identif iable. There are no globe or orbital content injury is evident. No mandible fracture. Condyles are normally positioned. No facial bone fractures seen. No suspicious soft tissue finding. No foreign body. Tongue piercing is evident. Patient has significant dental deca y and multi tooth loss. No abscess identified. IMPRESSION: No facial bone fracture. No globe, orbit or sinus injury identified.
[2020-04-15 18:17] LABS: Absolute Lymphocytes (CBC) 2.3 K/uL (0.7-4.9); Lymphocytes % 25.2 % (15.3-44.8); RBC Red Blood Cell Count 4.88 M/uL (3.86-4.86)
--- NOTE | 2020-04-15 18:20 | RAD REPORT ---
EXAM DESCRIPTION: RAD - Hip Left 2 View - 04/15/2020 5:55 pm CLINICAL HISTORY: trauma, fall with hip pain COMPARISON: Left hip March 2012 FINDINGS: AP and frogleg views of the left hip were obtained. There is no fracture or dislocation. No acute or destructive bony process seen. Minimal degenerativ e change along the superior acetabular rim. No soft tissue abnormality. No significant change from comparison. IMPRESSION: Negative left hip examination for acute or significant findings.
--- NOTE | 2020-04-15 18:20 | RAD REPORT ---
EXAM DESCRIPTION: RAD - Knee Left 3 View - 04/15/2020 5:55 pm CLINICAL HISTORY: trauma, fall, left knee pain COMPARISON: <Comparisons> FINDINGS: No fracture, dislocation or periosteal reaction.No joint effusion seen. No joint space negar rowing. No soft tissue abnormality. IMPRESSION: Negative left knee. Clinical concerns for internal derangement or occult bony injury could be further assessed with MR im aging.
--- NOTE | 2020-04-15 18:21 | RAD REPORT ---
EXAM DESCRIPTION: RAD - Pelvis - 04/15/2020 5:55 pm CLINICAL HISTORY: TRAUMA COMPARISON: No comparisonsNone. TECHNIQUE: AP imaging of the pelvis was obtained. FINDINGS: No fracture of the bony pelvis. No fracture, dislocation or other acute hip joint finding. No significant SI joint findings. No soft tissue abnormality. IMPRESSION: Negative pelvis for acute or significant findings.
--- NOTE | 2020-04-15 18:21 | RAD REPORT ---
EXAM DESCRIPTION: RAD - Femur Left - 04/15/2020 5:55 pm CLINICAL HISTORY: traumafall, left leg pain COMPARISON: None. FINDINGS: No fracture is identified. Minimal degenerative change superior acetabular rim. There is n o dislocation or periosteal reaction noted. No acute or suspicious bony finding. No air or foreign lashae dy in the soft tissues. IMPRESSION: Negative left femur examination.
[2020-04-15 18:22] LABS: Protime INR 1.03
--- NOTE | 2020-04-15 18:22 | RAD REPORT ---
EXAM DESCRIPTION: RAD - Shoulder Left 2 View - 04/15/2020 5:55 pm CLINICAL HISTORY: trauma, fall, left shoulder pain COMPARISON: Shoulder Left 2 View dated 12/12/2016 TECHNIQUE: Internal and external rotation views of the left shoulder were obtained. FINDINGS: There is no fracture or dislocation. AC joint is normal in appearance. No acute or suspici ous findings. IMPRESSION: Negative two-view left shoulder examination for acute findings.
--- NOTE | 2020-04-15 18:22 | RAD REPORT ---
EXAM DESCRIPTION: RAD - Ankle Left 3 View - 04/15/2020 5:55 pm CLINICAL HISTORY: trauma, fall, ankle pain COMPARISON: No comparisons FINDINGS: No fracture, dislocation or periosteal reaction. No joint effusion seen. No joint space na rrowing. No soft tissue abnormality. Small to moderate size plantar and Achilles tendon spur is prese nt. IMPRESSION: Negative left ankle for fracture or other acute finding.
--- NOTE | 2020-04-15 18:23 | RAD REPORT ---
EXAM DESCRIPTION: RAD - Humerus Left - 04/15/2020 5:56 pm CLINICAL HISTORY: Trauma, fall with left arm pain COMPARISON: None. FINDINGS: No fracture is identified. There is no dislocation or periosteal reaction noted. No forei gn body or other soft tissue abnormality. IMPRESSION: Negative left humerus examination.
--- NOTE | 2020-04-15 18:23 | RAD REPORT ---
EXAM DESCRIPTION: RAD - Chest Single View - 04/15/2020 5:56 pm CLINICAL HISTORY: TRAUMAfall, chest pain COMPARISON: November 2019 TECHNIQUE: AP portable chest image was obtained 04/15/2020 5:56 pm . FINDINGS: Lungs are clear. Heart and vasculature are normal. No measurable pleural effusion and no p neumothorax. No acute bony abnormality seen. No acute aortic findings suspected. IMPRESSION: No acute cardiopulmonary process. No significant change from comparison.
[2020-04-15] MEDS ORDERED: HYDROCODONE/APAP 5/325 MG TAB ONE (18:32)
[2020-04-15 18:41] LABS: Albumin 3.7 g/dL (3.4-5.0); Bilirubin Direct 0.1 mg/dL (0-0.2); Bilirubin Total 0.6 mg/dL (0.2-1.0); Potassium 3.5 mmol/L (3.5-5.1); Protein, Total 7.5 g/dL (6.4-8.2)
--- NOTE | 2020-04-15 19:19 | EDPHYS ---
Physician Documentation [facility] Name: Kelsy Gerber Age: 44 yrs Sex: Female : 1975 Arrival Date: 04/15/2020 Time: 14:51 Bed 3 Private MD: Austin Ceja R ED Physician Alexandro Raymond HPI: 04/15 16:53 This 44 yrs old Female presents to ER via Wheelchair with complaints of Fall mh7 Injury. 16:53 Details of fall: The patient fell from an upright position, while walking. Onset: The mh7 symptoms/episode began/occurred last night. Associated injuries: The patient sustained injury to the head, contusion, pain, neck injury, pain, pain with movement, left shoulder, arm, contusion, painful injury, left hip, thigh, knee, ankle, painful injury. Associated injuries: The patient sustained left face, contusion, swelling. Severity of symptoms: At their worst the symptoms were moderate, last night, in the emergency department the symptoms are unchanged. Historical: - Allergies: 15:04 Aspirin; ll1 15:04 Daypro; ll1 15:04 Ibuprofen; ll1 15:04 Ketorolac; ll1 15:04 Morphine; ll1 - Home Meds: 15:04 oxybutynin chloride 5 mg Oral tab nightly [Active]; ll1 - PMHx: 15:04 LEFT SIDED WEAKNESS; Asthma; Bipolar disorder; Diabetes - NIDDM; fatty liver; ll1 Hypertension; Hypothyroidism; migranes; Pancreatitis; TIA; - PSHx: 15:04 Hysterectomy; Cholecystectomy; ll1 - Immunization history:: Flu vaccine is up to date. - Social history:: Smoking status: Patient denies any tobacco usage or history of. Patient/guardian denies using alcohol, street drugs, tobacco products. ROS: 16:53 Constitutional: Negative for fever, chills, and weight loss, Eyes: Negative for injury, mh7 pain, redness, and discharge, Cardiovascular: Negative for chest pain, palpitations, and edema, Respiratory: Negative for shortness of breath, cough, wheezing, and pleuritic chest pain, Abdomen/GI: Negative for abdominal pain, nausea, vomiting, diarrhea, and constipation, Back: Negative for injury and pain, : Negative for injury, bleeding, discharge, and swelling, Skin: Negative for injury, rash, and discoloration, Psych: Negative for depression, anxiety, suicide ideation, homicidal ideation, and hallucinations, Allergy/Immunology: Negative for hives, rash, and allergies, Endocrine: Negative for neck swelling, polydipsia, polyuria, polyphagia, and marked weight changes, Hematologic/Lymphatic: Negative for swollen nodes, abnormal bleeding, and unusual bruising. Exam: 16:53 Constitutional: This is a well developed, well nourished patient who is awake, alert, mh7 and in no acute distress. 16:53 Eyes: Pupils equal round and reactive to light, extra-ocular motions intact. Lids and lashes normal. Conjunctiva and sclera are non-icteric and not injected. Cornea within normal limits. Periorbital areas with no swelling, redness, or edema. ENT: Nares patent. No nasal discharge, no septal abnormalities noted. Tympanic membranes are normal and external auditory canals are clear. Oropharynx with no redness, swelling, or masses, exudates, or evidence of obstruction, uvula midline. Mucous membranes moist. 16:53 Cardiovascular: Regular rate and rhythm with a normal S1 and S2. No gallops, murmurs, or rubs. Normal PMI, no JVD. No pulse deficits. Respiratory: Lungs have equal breath sounds bilaterally, clear to auscultation and percussion. No rales, rhonchi or wheezes noted. No increased work of breathing, no retractions or nasal flaring. Abdomen/GI: Soft, non-tender, with normal bowel sounds. No distension or tympany. No guarding or rebound. No evidence of tenderness throughout. Back: No spinal tenderness. No costovertebral tenderness. Full range of motion. Skin: Warm, dry with normal turgor. Normal color with no rashes, no lesions, and no evidence of cellulitis. 16:53 Neuro: Awake and alert, GCS 15, oriented to person, place, time, and situation. Cranial nerves II-XII grossly intact. Motor strength 5/5 in all extremities. Sensory grossly intact. Cerebellar exam normal. Normal gait. Psych: Awake, alert, with orientation to person, place and time. Behavior, mood, and affect are within normal limits. 16:53 Head/face: Noted is swelling, that is mild, of the left cheek, tenderness, that is mild, of the left cheek. 16:53 Neck: External neck: tenderness, that is mild, of the left mid cervical area, left trapezius and left posterior aspect of neck, C-spine: Thyroid: appears normal, Trachea: is midline with no obvious abnormalities, ROM/movement: pain, that is mild, with rotation to the right, Lymph nodes: no appreciated lymphadenopathy. 16:53 Chest/axilla: Inspection: normal, Palpation: tenderness, that is mild, of the anterior aspect of left upper chest, that totally reproduces the patient's complaints. 16:53 Musculoskeletal/extremity: Extremities: noted in the left shoulder, arm: tenderness, noted in the left hip, thigh, knee, ankle: tenderness, ROM: limited active range of motion due to pain, in the left shoulder, arm, left hip, thigh, limited passive range of motion due to pain, in the left shoulder, arm, left hip, thigh, ankle, Circulation is intact in all extremities. Pulses: are normal with no appreciated deficits, Perfusion: the patient is normally perfused throughout, Perfusion: the extremity is normally perfused throughout, Calf tenderness, is absent, Edema, is not appreciated, Sensation intact. Compartment Syndrome exam of affected extremity: is normal. no numbness, no tingling, no sensation deficit, no palor, no weak pulses, Joints: the left shoulder displays painful range of motion, tenderness, the left hip displays painful range of motion, tenderness, the left ankledisplays painful range of motion, Weight bearing: is unable to bear weight, Tendon exam: specific tendon testing normal through active and passive range of motion Vital Signs: 14:58 BP 114 / 71; Pulse 75; Resp 18; Temp 97.8; Pulse Ox 97% ; Pain 10/10; ll1 18:14 BP 114 / 66; Pulse 67; Resp 18; Pulse Ox 97% ; sv 19:59 BP 98 / 53; Pulse 58; Resp 17; Temp 98; Pulse Ox 99% on R/A; rv MDM: 16:40 Patient medically screened. [facility] 19:10 Differential diagnosis: closed head injury, contusion, fracture, sprain. Data reviewed: [facility] vital signs, nurses notes, lab test result(s), CBC, electrolytes, radiologic studies, CT scan, plain films. Data interpreted: Pulse oximetry: on room air Interpretation: normal. Counseling: I had a detailed discussion with the patient and/or guardian regarding: the historical points, exam findings, and any diagnostic results supporting the discharge/admit diagnosis, the presence of at least one elevated blood pressure reading (>120/80) during this emergency department visit, lab results, radiology results, the need for outpatient follow up, to return to the emergency department if symptoms worsen or persist or if there are any questions or concerns that arise at home. Response to treatment: the patient's symptoms have resolved after treatment, the patient's blood pressure is in an acceptable range, mental status has returned to baseline, the patient no longer shows bradycardia, the patient is not short of breath, the patient is not tachycardic, the patient's pain is gone, the patient's temperature has normalized. 04/15 16:42 Order name: CBC with Diff; Complete Time: 18:26 [facility] 04/15 16:42 Order name: Basic Metabolic Panel; Complete Time: 19:01 [facility] 04/15 16:42 Order name: LFT's; Complete Time: 19:01 [facility] 04/15 16:42 Order name: Protime (+inr); Complete Time: 18:26 [facility] 04/15 16:42 Order name: Ptt, Activated; Complete Time: 18:26 [facility] 04/15 16:46 Order name: CT Head C Spine; Complete Time: 17:37 [facility] 04/15 16:46 Order name: CT Facial Bones W/O Con; Complete Time: 17:37 [facility] 04/15 16:46 Order name: Shoulder Left (2 View) XRAY; Complete Time: 18:26 [facility] 04/15 16:46 Order name: Chest Single View XRAY; Complete Time: 18:39 [facility] 04/15 16:46 Order name: Humerus Left XRAY; Complete Time: 18:26 [facility] 04/15 16:46 Order name: Hip Left 2 View XRAY; Complete Time: 18:26 [facility] 04/15 16:46 Order name: Pelvis XRAY; Complete Time: 18:26 [facility] 04/15 16:46 Order name: Femur Left XRAY; Complete Time: 18:26 [facility] 04/15 16:46 Order name: Knee Left 3 View XRAY; Complete Time: 18:26 [facility] 04/15 16:46 Order name: Ankle Left 3 View XRAY; Complete Time: 18:26 7 Administered Medications: 18:27 Drug: [place] 5 mg-325 mg 1 tabs Route: PO; em 19:58 Follow up: Response: No adverse reaction; RASS: Alert and Calm (0) rv Disposition: 04/15/20 19:18 Discharged to Home. Impression: Fall, Left Upper Extremity Contusion, Left Lower Extremity Contusion. - Condition is Stable. - Discharge Instructions: Contusion, [id number], Facial or Scalp Contusion, [id number]. - Prescriptions for Tylenol- Codeine #3 300-30 mg Oral Tablet - take 2 tablets by ORAL route every 6 hours As needed; 20 tablet. - Medication Reconciliation Form, Thank You Letter, Antibiotic Education, Prescription Opioid Use form. - Follow up: Private Physician; When: 1 - 2 days; Reason: Trouble breathing, Recheck today's complaints, Re-evaluation by your physician. - Problem is an acute exacerbation. - Symptoms have improved. Signatures: Dispatcher [employer] EDRakesh Espinosa RN RN Nasir Bray RN RN Aayush Onofre RN RN ll1 Alexandro Raymond MD MD 7 Corrections: (The following items were deleted from the chart) 20:02 19:18 04/15/2020 19:18 Discharged to Home. Impression: Fall; Left Upper Extremity rv Contusion; Left Lower Extremity Contusion. Condition is Stable. Forms are Medication Reconciliation Form, Thank You Letter, Antibiotic Education, Prescription Opioid Use. Follow up: Private Physician; When: 1 - 2 days; Reason: Trouble breathing, Recheck today's complaints, Re-evaluation by your physician. Problem is an acute exacerbation. Symptoms have improved. [facility]
--- NOTE | 2020-04-15 19:19 | ER ---
Nurse's Notes [facility] Name: Kelsy Gerber Age: 44 yrs Sex: Female : 1975 Arrival Date: 04/15/2020 Time: 14:51 Bed 3 Private MD: Austin Ceja R Diagnosis: Fall;Left Upper Extremity Contusion;Left Lower Extremity Contusion Presentation: 04/15 14:58 Chief complaint: Patient states: Left knee gave out last night at 2200. Hurt left ankle ll1 and back with fall. Left side became weak since midnight. LUE weakness, trouble walking. + dizzy and nausea. Coronavirus screen: Proceed with normal triage. Patient denies a cough. Patient denies shortness of breath or difficulty breathing. Patient denies measured and/or subjective temperature greater than 100.4F prior to today's visit. Patient denies travel on a cruise ship or to a country the [facility] currently lists as an affected area. Patient denies contact with known and/or suspected case of COVID-19. Ebola Screen: Patient denies travel to an Ebola-affected area in the 21 days before illness onset. Initial Sepsis Screen: Does the patient meet any 2 criteria? No. Patient's initial sepsis screen is negative. Risk Assessment: Do you want to hurt yourself or someone else? Patient reports no desire to harm self or others. 14:58 Method Of Arrival: Wheelchair ll1 14:58 Acuity: KELLEY 3 ll1 20:02 Initial Sepsis Screen: Does the patient have a suspected source of infection? No. rv Patient's initial sepsis screen is negative. Onset of symptoms is unknown. Historical: - Allergies: 15:04 Aspirin; ll1 15:04 Daypro; ll1 15:04 Ibuprofen; ll1 15:04 Ketorolac; ll1 15:04 Morphine; ll1 - Home Meds: 15:04 oxybutynin chloride 5 mg Oral tab nightly [Active]; ll1 - PMHx: 15:04 LEFT SIDED WEAKNESS; Asthma; Bipolar disorder; Diabetes - NIDDM; fatty liver; ll1 Hypertension; Hypothyroidism; migranes; Pancreatitis; TIA; - PSHx: 15:04 Hysterectomy; Cholecystectomy; ll1 - Immunization history:: Flu vaccine is up to date. - Social history:: Smoking status: Patient denies any tobacco usage or history of. Patient/guardian denies using alcohol, street drugs, tobacco products. Screenin:50 Abuse screen: Denies threats or abuse. Nutritional screening: No deficits noted. em Tuberculosis screening: No symptoms or risk factors identified. Fall Risk Fall in past 12 months (25 points). Secondary diagnosis (15 points) TIA, impaired mobility, Ambulatory Aid- Crutches/Cane/Walker (15 pts). Total Lewis Fall Scale indicates High Risk Score (45 or more points). Fall prevention measures have been instituted. Placed Close to Nursing Station Frequent Obs/Assessments Occuring. Assessment: 16:50 General: Appears in no apparent distress. comfortable, obese, Behavior is calm, em cooperative, Denies fever. Pain: Complains of pain in left ankle and left hip and left shoulder and anterior aspect of left upper chest and left trapezius and left cheek Pain currently is 10 out of 10 on a pain scale. Neuro: Level of Consciousness is awake, alert, obeys commands, Oriented to person, place, time, situation, Appropriate for age. Cardiovascular: Capillary refill < 3 seconds Patient's skin is warm and dry. Respiratory: Airway is patent Respiratory effort is even, unlabored, Respiratory pattern is regular, symmetrical. GI: Patient currently denies nausea, vomiting. Derm: Skin is intact, is healthy with good turgor, Skin is pink, warm \T\ dry. Musculoskeletal: Capillary refill < 3 seconds, Range of motion: intact in all extremities. 16:55 Reassessment: Patient appears in no apparent distress at this time. wheeled to em radiology via stretcher. 18:05 Reassessment: returned from radiology. em Vital Signs: 14:58 BP 114 / 71; Pulse 75; Resp 18; Temp 97.8; Pulse Ox 97% ; Pain 10/10; ll1 18:14 BP 114 / 66; Pulse 67; Resp 18; Pulse Ox 97% ; sv 19:59 BP 98 / 53; Pulse 58; Resp 17; Temp 98; Pulse Ox 99% on R/A; rv ED Course: 14:51 Patient arrived in ED. mr 14:51 Austin Ceja MD is Private Physician. mr 15:03 Triage completed. ll1 15:04 Arm band placed on. ll1 16:24 Alexandro Raymond MD is Attending Physician. mh7 16:27 Rakesh Partida, RN is Primary Nurse. em 16:35 ED physician to see patient. sv 16:50 Patient has correct armband on for positive identification. Placed in gown. Bed in low em position. Side rails up X2. Pulse ox on. NIBP on. 16:58 CT Head C Spine In Process Unspecified. EDMS 16:58 CT Facial Bones W/O Con In Process Unspecified. EDMS 17:56 Shoulder Left (2 View) XRAY In Process Unspecified. EDMS 17:56 Chest Single View XRAY In Process Unspecified. EDMS 17:56 Humerus Left XRAY In Process Unspecified. EDMS 17:56 Hip Left 2 View XRAY In Process Unspecified. EDMS 17:56 Pelvis XRAY In Process Unspecified. EDMS 17:56 Femur Left XRAY In Process Unspecified. EDMS 17:56 Knee Left 3 View XRAY In Process Unspecified. EDMS 17:56 Ankle Left 3 View XRAY In Process Unspecified. EDMS 19:59 No provider procedures requiring assistance completed. IV discontinued, intact, rv bleeding controlled, No redness/swelling at site. Pressure dressing applied. Administered Medications: 18:27 Drug: Ogema 5 mg-325 mg 1 tabs Route: PO; em 19:58 Follow up: Response: No adverse reaction; RASS: Alert and Calm (0) rv Outcome: 19:18 Discharge ordered by . [facility] 20:02 Discharged to home via wheelchair. rv 20:02 Condition: good 20:02 Discharge instructions given to patient, Instructed on discharge instructions, follow up and referral plans. medication usage, Demonstrated understanding of instructions, follow-up care, medications, Prescriptions given X 1. 20:02 Patient left the ED. rv Signatures: Dispatcher [employer] EDMS Nicolasa Bonner, ELIZ WELLINGTON Colleen Finn mr Rakesh Partida, RN ELIZ Nasir Bray RN RN rv Lewis, Lynsay, RN RN [facility] Alexandro Raymond MD MD [facility]
[2020-04-15 20:09] VITALS: BP 98/53; TEMP 98; O2SAT 99
== END 2020-04-15 20:02 | disposition home or self-care (01) ==
LOC: ER 14:45
DX: S40.022A Contusion of left upper arm, initial encounter (principal); S80.12XA Contusion of left lower leg, initial encounter; W19.XXXA Unspecified fall, initial encounter; Y93.01 Activity, walking, marching and hiking; Y92.9 Unspecified place or not applicable; I10 Essential (primary) hypertension; Z88.5 Allergy status to narcotic agent; Z88.6 Allergy status to analgesic agent; Z88.8 Allergy status to other drugs, medicaments and biological substances
CPT/HCPCS: 36415; 70450; 70486; 71045; 72125; 72170; 76377; 80048; 80076; 85025; 85610; 85730; 99284

== ENCOUNTER 2020-08-16 23:32 | Emergency (ER) | payer OTHER ==
--- OUTSIDE RECORDS SUMMARY | 2020-08-16 23:34 | XMS REPORT | Clinical Summary ---
:1975 Author Organization [facility] Address [address] [place] [id number] Care Team Providers Name Role Phone Asked, No Pcp Primary Care Provider Unavailable Allergies Not on File Medications Not on file Active Problems Not on file Social History Tobacco Use Types Packs/Day Years Used Date Never Assessed Sex Assigned at Date Recorded Not on file Last Filed Vital Signs Not on file Plan of Treatment Health Maintenance Due Date Last Done Comments CERVICAL CANCER SCREENING 1996 INFLUENZA VACCINE 05/22/2020 Results Not on fileafter 08/16/2019 Insurance Payer Benefit Plan / Subscriber ID Effective Dates Phone Addre ss Type Group [employer] [place] [id number] 2015-[facility] STAR KIDS t [employer] [id number] [facility] Advance Directives For more information, please contact: [phone] Type Date Recorded Patient International First Officer Explanati on Advance Directives, Living Will and Medical Power of Key Account Representative
--- OUTSIDE RECORDS SUMMARY | 2020-08-16 23:35 | XMS REPORT ---
:1975 Author Organization [employer] Care Team Providers Name Role Phone Ruddy Moon Provider Role Unavailable Allergies No Known Allergies Problems Problem Type Condition Code Onset Dates Condition Statu s Assessment Primary osteoarthritis of left M17.12 Active knee Problem Primary osteoarthritis of left M17.12 Active knee Assessment Sprain of other ligament of left S83.8X2A Active knee, initial encounter Medications Medication Code System Code Instructions Start End Date Status Dos age Date Rizatriptan [facility] 69441-79 Active not defined Benzoate 69-81 Lorazepam [facility] 06281-55 Active not defined 60-03 Glimepiride [facility] 46331-78 Active not defined 19-30 Creon [facility] 94079-11 Active not defined 16-13 EPINEPHrine [facility] 43616-76 Active not defined 48-20 Losartan Potassium [facility] 00853-10 Active not defined 25-22 Tramadol HCl NDC 0 Active not defined Alprazolam [facility] 57999-91 Active not defined 25-11 Budesonide [facility] 61117-70 Active not defined 12-48 Fluticasone [facility] 07401-58 Active not defined Propionate 75-01 PredniSONE [facility] 01509-63 Active not defined 42-43 Farxiga NDC 0 Active not defined Atorvastatin [facility] 45912-71 Active not define d Calcium 57-98 Levothyroxine [facility] 09606-96 Active not defin ed Sodium 95-10 Myrbetriq [facility] 65663-29 Active not defined 02-30 Results No Known Results Summary Purpose [employer]Clinical[employer] Submission
--- OUTSIDE RECORDS SUMMARY | 2020-08-16 23:35 | XMS REPORT | Continuity of Care Document ---
:1975 Author Organization [facility] Address [address] [place] [address] [address] [place] [address] Care Team Providers Name Role Phone Asked, Pcp Primary Care Physician Unavailable William Armendariz DO Attending Clinician Puja SILVESTRE Attending Clinician Problems Condition Condition Condition Status Onset Resolution Last Treating Co mments Source Name Details Category Date Date Treatment Clinician Date Primary Primary Problem Active [facility]oarth[facility] Renetta [facility] - [facility] left knee left knee l [facility] Sprain of Sprain of Diagnosis Active [facility] other other [facility] ligament ligament [facility] of left of left l knee, knee, Outpati initial initial ent encounter encounter Clin ics Allergies, Adverse Reactions, Alerts Allergy Allergy Status Severity Reaction(s) Onset Inactive Treating Comm ents Source Name Type Date Date Clinician NSAIDS Adverse Active hives [facility] Toradol Adverse Active Info Not [facility] Ibuprofe Adverse Active Info Not [facility] Aleve Adverse Active Info Not [facility] Advil Adverse Active Info Not [facility] Social History Social Habit Start Date Stop Date Quantity Comments Source Sex Assigned At [place] [facility] Medications Ordered Filled Start Stop Current Ordering [...] [facility] Atorvastati Atorvastati Yes Ruddy not [...] [facility] Glimepiride Glimepiride Yes Ruddy not [facility] Moon defined [facility] Procedures This patient has no known procedures. Plan of Care Planned Activity Planned Date Details Comments Source Future Scheduled 2020-05-22 INFLUENZA VACCINE [place] [facility] 00:00:00 [code = INFLUENZA VACCINE] Future Scheduled 1996 Screening for [facility] Test 00:00:00 malignant neoplasm of cervix (procedure) [code = 692106210] Encounters Start End Encounter Admission Attending Care Care Encounter Source Date/Time Date/Time Type Type Clinicians Facility Department ID 2020-05-17 2020-05-17 [facility] [id number] [address] [facility] 08[facility]08[facility] 2020-05-12 2020-05-12 Outpatient Marcia Kennedyt [id number] 09:30:00 09:30:00 [facility] 2020-04-21 2020-04-21 Outpatient Marcia Kennedyt [id number] 13:07:00 13:07:00 [facility] 2020-04-13 2020-04-13 Outpatient Marcia Kennedyt [id number] 16:42:00 16:42:00 [facility] 2020-04-12 2020-04-12 Outpatient Marcia Vang [id number] 16:00:00 16:00:00 [facility] 2020-04-05 2020-04-05 Emergency Marcello [facility] [id number] 16:37:35 19:01:00 Yesi Mehta [id number] [place] [id number] [place] [phone] [id number] 2020-04-05 2020-04-05 Outpatient Marcia Vang [id number] 14:31:00 14:31:00 [facility] 2020-03-29 2020-03-29 Outpatient Marcia Vang [id number] 13:59:00 13:59:00 [facility] 2020-03-29 2020-03-29 Outpatient Marcia Kennedyt [id number] 13:00:00 13:00:00 [facility] 2020-03-29 2020-03-29 [facility] [id number] 08:30:00 08:30:00 t [facility] 2019-11-30 2019-11-30 Case Puja [facility] [id number] 00:00:00 00:00:00 Management Titus Mehat [id number] Neo [id number] Professio [phone] nal [address] Building 2019-11-28 2019-11-28 Office Puja [facility] [id number] 14:36:59 15:44:36 Visit Titus Mehta [id number] Neo [id number] Professio [phone] nal 134 Building Results This patient has no known results.
[2020-08-17] MEDS ORDERED: NA CHLORIDE 0.9% 1,000 ML ONE (00:13)
[2020-08-17] MEDS ORDERED: FAMOTIDINE 20 MG/2 ML VIAL IV ONE (00:13)
[2020-08-17] MEDS ORDERED: PROMETHAZINE INJ 25 MG/ML AMP ONE (00:13)
[2020-08-17] MEDS ORDERED: MEPERIDINE HCL 50 MG/ML ONE (00:13)
[2020-08-17 00:27] LABS: Absolute Lymphocytes (CBC) 1.9 K/uL (0.7-4.9); Hematocrit 43.1 % (36.0-45.0); Lymphocytes % 24.4 % (15.3-44.8); MPV 7.3 fL (7.6-11.3); RBC Red Blood Cell Count 4.82 M/uL (3.86-4.86)
[2020-08-17 00:40] LABS: Albumin 3.4 g/dL (3.4-5.0); Bilirubin Direct 0.1 mg/dL (0-0.2); Bilirubin Total 0.6 mg/dL (0.2-1.0); Potassium 3.6 mmol/L (3.5-5.1); Protein, Total 7.9 g/dL (6.4-8.2)
--- NOTE | 2020-08-17 02:05 | EDPHYS ---
Physician Documentation [facility] Name: Kelsy Gerber Age: 45 yrs Sex: Female : 1975 Arrival Date: 08/16/2020 Time: 23:33 Bed 14 Private MD: ED Physician Alexandro Raymond HPI: 08/16 23:59 This 45 yrs old Female presents to ER via Ambulatory with complaints of mh7 Abdominal Pain. 23:59 The patient presents with abdominal pain in the upper abdomen. Onset: The mh7 symptoms/episode began/occurred this morning, today. The symptoms radiate to the left flank. Associated signs and symptoms: Pertinent positives: diarrhea, nausea, Pertinent negatives: anorexia, blood in stools, chest pain, constipation, dysuria, fever, headache, hematuria, palpitations, shortness of breath, vaginal discharge, vomiting, vomiting blood. The symptoms are described as intermittent, vague, waxing/waning. Modifying factors: The symptoms are alleviated by nothing, the symptoms are aggravated by food. Severity of pain: At its worst the pain was moderate today, in the emergency department the pain is unchanged. 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 mg2 Historical: - Allergies: 23:53 Aspirin; mg2 23:53 Daypro; mg2 23:53 Ibuprofen; mg2 23:53 Ketorolac; mg2 23:53 Morphine; mg2 - Home Meds: 23:53 atorvastatin 20 mg Oral tab nightly [Active]; levothyroxine 50 mcg tab 1 tab once daily mg2 [Active]; montelukast 10 mg Oral tab 1 tab once daily [Active]; pantoprazole 40 mg Oral TbEC 1 tab once daily [Active]; rizatriptan 10 mg Oral tab [Active]; losartan 50 mg oral tab [Active]; farxiga 5 mg [Active]; - PMHx: 23:53 Asthma; Bipolar disorder; Diabetes - NIDDM; fatty liver; Hypertension; Hypothyroidism; mg2 LEFT SIDED WEAKNESS; migranes; Pancreatitis; TIA; - PSHx: 23:53 Cholecystectomy; Hysterectomy; mg2 - Immunization history:: Flu vaccine is not up to date. - Social history:: Smoking status: unknown. ROS: 23:59 Constitutional: Negative for fever, chills, and weight loss, Eyes: Negative for injury, mh7 pain, redness, and discharge, ENT: Negative for injury, pain, and discharge, Neck: Negative for injury, pain, and swelling, Cardiovascular: Negative for chest pain, palpitations, and edema, Respiratory: Negative for shortness of breath, cough, wheezing, and pleuritic chest pain, : Negative for injury, bleeding, discharge, and swelling, MS/Extremity: Negative for injury and deformity, Skin: Negative for injury, rash, and discoloration, Neuro: Negative for headache, weakness, numbness, tingling, and seizure, Psych: Negative for depression, anxiety, suicide ideation, homicidal ideation, and hallucinations, Allergy/Immunology: Negative for hives, rash, and allergies, Endocrine: Negative for neck swelling, polydipsia, polyuria, polyphagia, and marked weight changes, Hematologic/Lymphatic: Negative for swollen nodes, abnormal bleeding, and unusual bruising. Exam: 23:59 Head/Face: Normocephalic, atraumatic. Eyes: Pupils equal round and reactive to light, mh7 extra-ocular motions intact. Lids and lashes normal. Conjunctiva and sclera are non-icteric and not injected. Cornea within normal limits. Periorbital areas with no swelling, redness, or edema. Neck: Trachea midline, no thyromegaly or masses palpated, and no cervical lymphadenopathy. Supple, full range of motion without nuchal rigidity, or vertebral point tenderness. No Meningismus. Chest/axilla: Normal chest wall appearance and motion. Nontender with no deformity. No lesions are appreciated. Cardiovascular: Regular rate and rhythm with a normal S1 and S2. No gallops, murmurs, or rubs. Normal PMI, no JVD. No pulse deficits. Respiratory: Lungs have equal breath sounds bilaterally, clear to auscultation and percussion. No rales, rhonchi or wheezes noted. No increased work of breathing, no retractions or nasal flaring. 23:59 Skin: Warm, dry with normal turgor. Normal color with no rashes, no lesions, and no evidence of cellulitis. MS/ Extremity: Pulses equal, no cyanosis. Neurovascular intact. Full, normal range of motion. Neuro: Awake and alert, GCS 15, oriented to person, place, time, and situation. Cranial nerves II-XII grossly intact. Motor strength 5/5 in all extremities. Sensory grossly intact. Cerebellar exam normal. Normal gait. Psych: Awake, alert, with orientation to person, place and time. Behavior, mood, and affect are within normal limits. 23:59 Constitutional: The patient appears in no acute distress, alert, awake, uncomfortable. 23:59 Abdomen/GI: Inspection: abdomen appears normal, obese Bowel sounds: normal, in all quadrants, Palpation: moderate abdominal tenderness, in all quadrants, Rectal exam: the exam is deferred, because of patient request, Indicators: McBurney's point is not tender, Love's sign is negative, Rovsing's sign is negative, Obturator sign is negative, Psoas sign is negative, Liver: no appreciated palpable abnormalities, Hernia: not appreciated. 23:59 Back: pain, is absent, ROM is normal, normal spinal alignment noted, CVA tenderness, that is mild, is noted on the left, vertebral tenderness, is not appreciated, muscle spasm, is not present. Vital Signs: 23:45 BP 117 / 90; Pulse 104; Resp 18; Temp 98.6; Pulse Ox 100% on R/A; Weight 103.42 kg; mg2 Height 5 ft. 2 in. (157.48 cm); Pain 10/10; 08/17 01:36 BP 120 / 67; Pulse 83; Resp 18; Pulse Ox 100% on R/A; Pain 6/10; mg2 02:28 BP 114 / 78; Pulse 80; Resp 18; Temp 98; Pulse Ox 100% on R/A; Pain 1/10; mg2 08/16 23:45 Body Mass Index 41.70 (103.42 kg, 157.48 cm) mg2 MDM: 08/16 23:56 Patient medically screened. [facility] 08/17 02:01 Differential diagnosis: appendicitis, bowel obstruction, diverticulitis, gastritis, 7 gastroesophageal reflux disease, Irritable bowel syndrome, non-specific abd pain, pancreatitis, Peptic Ulcer Disease, Pyelonephritis, Ureterolithiasis, urinary tract infection. Data reviewed: vital signs, nurses notes, old medical records, lab test result(s), amylase and lipase, CBC, electrolytes, urinalysis, EKG, radiologic studies, CT scan. Data interpreted: Pulse oximetry: on room air is 100 %. Interpretation: normal. Counseling: I had a detailed discussion with the patient and/or guardian regarding: the historical points, exam findings, and any diagnostic results supporting the discharge/admit diagnosis, lab results, radiology results, the need for outpatient follow up, to return to the emergency department if symptoms worsen or persist or if there are any questions or concerns that arise at home. Response to treatment: the patient's symptoms have resolved after treatment, the patient's blood pressure is in an acceptable range, mental status has returned to baseline, the patient no longer shows bradycardia, the patient is not short of breath, the patient is not tachycardic, the patient's pain is gone, the patient's temperature has normalized. 08/16 23:52 Order name: FSBG - FOR PT WITH NO ID 08/16 23:57 Order name: Basic Metabolic Panel [facility] 08/16 23:57 Order name: CBC with Diff [facility] 08/16 23:57 Order name: Hepatic Function [facility] 08/16 23:57 Order name: Lipase [facility] 08/17 00:37 Order name: CBC with Automated Diff; Complete Time: 00:40 [facility] 08/17 00:41 Order name: Glucose, Ancillary(No Armband); Complete Time: 00:48 [facility] 08/17 00:41 Order name: Basic Metabolic Panel; Complete Time: 00:48 [facility] 08/17 00:41 Order name: Liver (Hepatic) Function; Complete Time: 00:48 [facility] 08/17 00:41 Order name: Lipase; Complete Time: 00:48 [facility] 08/17 01:21 Order name: Urine Dipstick--Ancillary (enter results) [facility] 08/17 01:21 Order name: Urine --Ancillary (enter results) [facility] 08/17 02:15 Order name: Urine --Ancillary [facility] 08/17 02:15 Order name: Urine Dipstick-Ancillary [facility] 08/16 23:57 Order name: IV Saline Lock; Complete Time: 00:07 [facility] 08/16 23:57 Order name: Labs collected and sent; Complete Time: 00:07 [facility] 08/16 23:57 Order name: EKG - Nurse/Tech; Complete Time: 00:07 [facility] 08/16 23:57 Order name: Urine Dipstick-Ancillary (obtain specimen); Complete Time: 01:19 [facility] 08/16 23:58 Order name: CT Abd/Pelvis - IV Contrast Only [facility] Administered Medications: 00:13 Drug: Demerol 50 mg Route: IVP; Site: right antecubital; mg2 00:44 Follow up: Response: No adverse reaction; Marked relief of symptoms; RASS: Alert and mg2 Calm (0) 00:13 Drug: Phenergan 12.5 mg Route: IVP; Site: right antecubital; mg2 00:44 Follow up: Response: No adverse reaction; Marked relief of symptoms mg2 00:13 Drug: Pepcid 20 mg Route: IVP; Site: right antecubital; mg2 00:44 Follow up: Response: No adverse reaction mg2 00:14 Drug: NS 0.9% 1000 ml Route: IV; Rate: 1000 ml; Site: right antecubital; mg2 01:27 Follow up: Response: No adverse reaction; IV Status: Completed infusion; IV Intake: mg2 1000ml Disposition: 08/17/20 02:04 Discharged to Home. Impression: Abdominal Pain, Nausea, Diarrhea, Diverticulosis. - Condition is Stable. - Discharge Instructions: Diverticulosis, Abdominal Pain, Adult, [id number], Diarrhea, Adult, [id number], Nausea, Adult, [id number]-[id number]. - Prescriptions for Zofran ODT 4 mg Oral tablet,disintegrating - place 1 tablet by TRANSLINGUAL route every 8 hours As needed; 10 tablet. Bentyl 20 mg Oral Tablet - take 1 tablet by ORAL route every 6 hours As needed; 20 tablet. Pepcid 20 mg Oral Tablet - take 1 tablet by ORAL route every 12 hours for 5 days; 10 tablet. - Medication Reconciliation Form, Thank You Letter, Antibiotic Education, Prescription Opioid Use form. - Follow up: Private Physician; When: 1 - 2 days; Reason: Worsening of condition, Recheck today's complaints, Continuance of care, Re-evaluation by your physician. - Problem is new. - Symptoms have improved. Signatures: Dispatcher [employer] EDMS Patrick Silvestre, SURINDER-C CURB MACHINE OPERATOR-Cla1 Yury Xiong, ELIZ RN mg2 Alexandro Raymond MD MD mh7 Corrections: (The following items were deleted from the chart) 02:29 02:04 08/17/2020 02:04 Discharged to Home. Impression: Abdominal Pain; Nausea; mg2 Diarrhea; Diverticulosis. Condition is Stable. Forms are Medication Reconciliation Form, Thank You Letter, Antibiotic Education, Prescription Opioid Use. Follow up: Private Physician; When: 1 - 2 days; Reason: Worsening of condition, Recheck today's complaints, Continuance of care, Re-evaluation by your physician. Problem is new. Symptoms have improved. mh7
--- NOTE | 2020-08-17 02:05 | ER ---
Nurse's Notes [facility] Name: Kelsy Gerber Age: 45 yrs Sex: Female : 1975 Arrival Date: 08/16/2020 Time: 23:33 Bed 14 Private MD: Diagnosis: Abdominal Pain;Nausea;Diarrhea;Diverticulosis Presentation: 08/16 23:45 Chief complaint: Patient states: i started to have epigastric pain radiating to my mg2 lower abdomen and nausea after i ate mcd[employer] today. Coronavirus screen: Client denies travel out of the [place] in the last 14 days. At this time, the client does not indicate any symptoms associated with coronavirus-19. Ebola Screen: No symptoms or risks identified at this time. Initial Sepsis Screen: Does the patient meet any 2 criteria? No. Patient's initial sepsis screen is negative. Does the patient have a suspected source of infection? No. Patient's initial sepsis screen is negative. Risk Assessment: Do you want to hurt yourself or someone else? Patient reports no desire to harm self or others. Onset of symptoms was August 16, 2020. 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 - Hysterectomy mg2 Historical: - Allergies: 23:53 Aspirin; mg2 23:53 Daypro; mg2 23:53 Ibuprofen; mg2 23:53 Ketorolac; mg2 23:53 Morphine; mg2 - Home Meds: 23:53 atorvastatin 20 mg Oral tab nightly [Active]; levothyroxine 50 mcg tab 1 tab once daily mg2 [Active]; montelukast 10 mg Oral tab 1 tab once daily [Active]; pantoprazole 40 mg Oral TbEC 1 tab once daily [Active]; rizatriptan 10 mg Oral tab [Active]; losartan 50 mg oral tab [Active]; farxiga 5 mg [Active]; - PMHx: 23:53 Asthma; Bipolar disorder; Diabetes - NIDDM; fatty liver; Hypertension; Hypothyroidism; mg2 LEFT SIDED WEAKNESS; migranes; Pancreatitis; TIA; - PSHx: 23:53 Cholecystectomy; Hysterectomy; mg2 - Immunization history:: Flu vaccine is not up to date. - Social history:: Smoking status: unknown. Screenin:55 Abuse screen: Denies threats or abuse. Denies injuries from another. Nutritional mg2 screening: No deficits noted. Tuberculosis screening: No symptoms or risk factors identified. Fall Risk IV access (20 points). Assessment: 23:54 General: Appears in no apparent distress. uncomfortable, Behavior is crying. Pain: mg2 Complains of pain in abdomen. Pain: Pain at worst was 10 out of 10 on a pain scale. Quality of pain is described as aching, Pain began gradually, Is intermittent. Neuro: Level of Consciousness is awake, alert, obeys commands, Oriented to person, place, time, situation. Cardiovascular: Capillary refill < 3 seconds Patient's skin is warm and dry. Respiratory: Airway is patent Respiratory effort is even, unlabored, Respiratory pattern is regular, symmetrical. GI: Bowel sounds present X 4 quads. Abdomen is tender to palpation Reports epigastric pain, nausea. : No signs and/or symptoms were reported regarding the genitourinary system. EENT: No signs and/or symptoms were reported regarding the EENT system. Derm: Skin is intact, is healthy with good turgor, Skin is pink, warm \T\ dry. normal. Musculoskeletal: Circulation, motion, and sensation intact. Capillary refill < 3 seconds. 08/17 00:52 Reassessment: patient sent to CT scan via stretcher. mg2 01:37 Reassessment: Patient appears in no apparent distress at this time. Patient and/or mg2 family updated on plan of care and expected duration. Pain level reassessed. Patient is alert, oriented x 3, equal unlabored respirations, skin warm/dry/pink. patient informed about the waiting time of ct result. 02:28 Reassessment: Patient states feeling better. Patient states symptoms have improved. mg2 Vital Signs: 08/16 23:45 BP 117 / 90; Pulse 104; Resp 18; Temp 98.6; Pulse Ox 100% on R/A; Weight 103.42 kg; mg2 Height 5 ft. 2 in. (157.48 cm); Pain 07/31; 08/17 01:36 BP 120 / 67; Pulse 83; Resp 18; Pulse Ox 100% on R/A; Pain 6/10; mg2 02:28 BP 114 / 78; Pulse 80; Resp 18; Temp 98; Pulse Ox 100% on R/A; Pain 1/10; mg2 08/16 23:45 Body Mass Index 41.70 (103.42 kg, 157.48 cm) mg2 ED Course: 08/16 23:33 Patient arrived in ED. am2 23:35 Alexandro Raymond MD is Attending Physician. 7 23:36 Yury Xiong, RN is Primary Nurse. mg2 23:49 Triage completed. mg2 23:50 Initial lab(s) drawn, by wy, sent to lab. Inserted saline lock: 20 gauge in right sg antecubital area, using aseptic technique. Blood collected. 23:56 No provider procedures requiring assistance completed. mg2 23:56 Patient has correct armband on for positive identification. Door closed. Warm blanket mg2 given. 23:56 Arm band placed on. mg2 08/17 02:28 intact, bleeding controlled, No redness/swelling at site. Pressure dressing applied. mg2 Administered Medications: 00:13 Drug: Demerol 50 mg Route: IVP; Site: right antecubital; mg2 00:44 Follow up: Response: No adverse reaction; Marked relief of symptoms; RASS: Alert and mg2 Calm (0) 00:13 Drug: Phenergan 12.5 mg Route: IVP; Site: right antecubital; mg2 00:44 Follow up: Response: No adverse reaction; Marked relief of symptoms mg2 00:13 Drug: Pepcid 20 mg Route: IVP; Site: right antecubital; mg2 00:44 Follow up: Response: No adverse reaction mg2 00:14 Drug: NS 0.9% 1000 ml Route: IV; Rate: 1000 ml; Site: right antecubital; mg2 01:27 Follow up: Response: No adverse reaction; IV Status: Completed infusion; IV Intake: mg2 1000ml Intake: 01:27 IV: 1000ml; Total: 1000ml. mg2 Outcome: 02:04 Discharge ordered by . 7 02:29 Discharged to home via wheelchair. mg2 02:29 Condition: good 02:29 Discharge instructions given to patient, Instructed on discharge instructions, follow up and referral plans. medication usage, Demonstrated understanding of instructions, follow-up care, medications, Prescriptions given X 3. 02:29 Patient left the ED. mg2 Signatures: Tiago Angulo RN RN sg Maggy Adair am2 Yury Xiong RN RN mg2 Alexandro Raymond MD MD [facility] Corrections: (The following items were deleted from the chart) 08/16 23:53 23:45 BP 117 / 90; Pulse 204bpm; Resp 18bpm; Pulse Ox 100% RA; Temp 98.6F; 103.42 kg; mg2 Height 5 ft. 2 in.; BMI: 41.7; Pain 07/31; mg2
[2020-08-17 02:15] LABS: Urine Blood NEGATIVE (NEG); Urine Glucose 2+ (NEG); Urine Protein 1+ (NEG); Urine Specific Gravity 1.025 (1.005-1.030)
[2020-08-17 03:18] VITALS: O2SAT 100
[2020-08-17 03:22] VITALS: BP 114/78; TEMP 98
--- NOTE | 2020-08-17 10:07 | EKG ---
Test Date: 2020-08-17 Test Time: 00:09:01 Materials Planning Manager: MEASUREMENT RESULTS: Intervals: Rate: 101 NC: 142 QRSD: 92 QT: 360 QTc: 466 [place]: P: 44 NC: 142 QRS: 255 T: 22 INTERPRETIVE STATEMENTS: Sinus tachycardia Incomplete right bundle branch block Possible Right ventricular hypertrophy Possible Anterolateral infarct, age undetermined Abnormal ECG Compared to ECG 08/04/2020 14:53:08 Incomplete right bundle-branch block now present Sinus rhythm no longer present Left anterior fascicular block no longer present Myocardial infarct finding still present Electronically Signed On 08-17-20 10:06:34 CDT by Go George
--- NOTE | 2020-08-17 12:24 | RAD REPORT ---
EXAM DESCRIPTION: CT - Abdomen Pelvis W Contrast - 08/17/2020 6:49 am CLINICAL HISTORY: ABD PAIN COMPARISON: 10/24/2019 TECHNIQUE: CT of the abdomen and pelvis performed following IV administration of iodinated contras t.. FINDINGS: Lung Bases: The visualized lung bases are clear. Bones: No destructive bone lesions identified. Abdomen: Liver: Hepatomegaly with hepatic steatosis. Indeterminate 1.6 cm hypodensity in the left hepatic lobe . Gallbladder: Prior cholecystectomy. Spleen, Pancreas, and Adrenal Glands: Mild fatty replacement of the pancreas. Adrenal glands and sp josé antonio are unremarkable. Kidneys: No hydronephrosis or obstructing calculus. Vasculature: The aorta and IVC have normal caliber and position. The portal vein is patent. The pro ximal visceral and renal arteries are patent. Stomach: The stomach and duodenum have normal course. Other: No free intraperitoneal air. No free fluid or lymphadenopathy. Small fat-containing umbili tim hernia. Pelvis: Bladder: Urinary bladder is unremarkable. Bowel: No dilated loops of large or small bowel. Scattered diverticula of the colon. Appendix: Not identified. Pelvis: Prior hysterectomy. IMPRESSION: 1. No acute inflammatory or obstructive process identified. 2. Hepatomegaly with hepatic steatosis. 3. 1.6 cm hypodensity in the left hepatic lobe is indeterminate. Follow-up multiphase MRI or CT of th e abdomen recommended in 6 months. 4. Diverticulosis without evidence of acute diverticulitis. This exam was performed according to our departmental dose-optimization program, which includes autom ated exposure control, adjustment of the mA and/or kV according to patient size and/or use of iterati ve reconstruction technique. Electronically signed by: Eddie Oconnell 08/17/2020 1:29 AM CDT Due to temporary technical issues with the PACS/Fluency reporting system, reports are being signed by the in house radiologist without review as a courtesy to ensure prompt reporting. The interpreting r adiologist is fully responsible for the content of the report.
== END 2020-08-17 02:29 | disposition home or self-care (01) ==
LOC: ER 23:32
DX: K57.90 Diverticulosis of intestine, part unspecified, without perforation or abscess without bleeding (principal); I10 Essential (primary) hypertension; E11.9 Type 2 diabetes mellitus without complications; E03.9 Hypothyroidism, unspecified; F31.9 Bipolar disorder, unspecified; Z88.5 Allergy status to narcotic agent; Z88.6 Allergy status to analgesic agent; Z88.8 Allergy status to other drugs, medicaments and biological substances
CPT/HCPCS: 93005; 85025; 80048; 36415; 81025; 82947; 80076; 81003; 83690; 74177; Q9967; 96361; 96374; 96375; 99284

== ENCOUNTER 2020-09-04 13:11 | Emergency (ER) | payer OTHER ==
--- OUTSIDE RECORDS SUMMARY | 2020-09-04 13:14 | XMS REPORT | Continuity of Care Document ---
:1975 Author Organization [facility] t Address [address] [place] [address] [address] [place] [address] Care Team Providers Name Role Phone Asked, [...] Comments Source Sex Assigned At Lis ramos Tenriism Medications Ordered Filled Start Stop Current Ordering [...] Future Scheduled 2020-05-22 INFLUENZA VACCINE [place] [facility] Test 00:00:00 [code = INFLUENZA VACCINE] Future Scheduled 1996 Screening for [facility] Test 00:00:00 malignant neoplasm of cervix (procedure) [code = 029949684] Encounters Start End Encounter Admission Attending Care Care Encounter Source Date/Time Date/Time Type Type Clinicians Facility Department ID 2020-05-17 2020-05-17 [facility] [id number] [facility] [address] 08:08:00 08:08:00 [facility] 2020-05-12 2020-05-12 Outpatient Marcia Kennedyt [id number] 09:30:00 09:30:00 [facility] 2020-04-21 2020-04-21 Outpatient Marcia Kennedyt [id number] 13:07:00 13:07:00 [facility] 2020-04-13 2020-04-13 Outpatient Marcia Kennedyt [id number] [facility] [address] 16:42:00 16:42:00 [facility] 2020-04-12 2020-04-12 Outpatient Marcia Vang [id number] [facility] [address] 16:00:00 16:00:00 [facility] 2020-04-05 2020-04-05 Emergency Marcello [facility] [id number] 16:37:35 19:01:00 Yesi Mehta [id number] [place] [id number] [place] [id number] [id number] 2020-04-05 2020-04-05 Outpatient Marcia Vang [id number] 14:31:00 14:31:00 [facility] 2020-03-29 2020-03-29 Outpatient Marcia Vang [id number] 13:59:00 13:59:00 t [facility] 2020-03-29 2020-03-29 Outpatient Marcia Kennedyt [id number] 13:00:00 13:00:00 t [facility] 2020-03-29 2020-03-29 [facility] [id number] [facility] [address] 08:30:00 08:30:00 t [facility] 2019-11-30 2019-11-30 Case Puja [facility] [id number] 00:00:00 00:00:00 Management Titus Mehta [id number] [place] [id number] Profess[facility] [phone] nal 134 Building 2019-11-28 2019-11-28 Office Puja [facility] [id number] 14:36:59 15:44:36 Visit Titus Mehta [id number] [place] [id number] [facility] [phone] nal 134 Building Results This patient has no known results.
--- OUTSIDE RECORDS SUMMARY | 2020-09-04 13:14 | XMS REPORT | Clinical Summary ---
:1975 Author Organization [facility] Address [address] [place] [id number] Care Team Providers Name Role Phone Asked, [...] INFLUENZA VACCINE 05/22/2020 Results Not on fileafter 09/04/2019 Insurance Payer Benefit Plan / Subscriber ID Effective Dates Phone Addre ss Type Group [employer] [place] [id number] 2015-[facility] [employer] t [employer] [id number] [facility] ADV t Advance Directives For more information, please contact: [phone] Type Date Recorded Patient Urgent Care Physician Assistant Explanati on Advance Directives, Living Will and Medical Power of Superintendent Tests
[2020-09-04 14:04] LABS: Absolute Lymphocytes (CBC) 1.8 K/uL (0.7-4.9); Basophils % 1.3 % (0-1.3); Hematocrit 41.2 % (36.0-45.0); Lymphocytes % 27.7 % (15.3-44.8); MPV 7.1 fL (7.6-11.3); RBC Red Blood Cell Count 4.58 M/uL (3.86-4.86)
[2020-09-04 14:05] LABS: Protime INR 0.98
[2020-09-04 14:18] LABS: Albumin 3.4 g/dL (3.4-5.0); Bilirubin Direct 0.2 mg/dL (0-0.2); Bilirubin Total 0.7 mg/dL (0.2-1.0); Protein, Total 7.6 g/dL (6.4-8.2)
[2020-09-04] MEDS ORDERED: FENTANYL CITR 100 MCG/2 ML ONE (14:28)
[2020-09-04] MEDS ORDERED: ONDANSETRON 4 MG/2 ML VIAL ONE (14:29)
[2020-09-04] MEDS ORDERED: NA CHLORIDE 0.9% 1,000 ML ONE (14:29)
[2020-09-04] MEDS ORDERED: BUPIVACAINE 0.5% PF 10 ML VIAL ONE (14:29)
[2020-09-04] MEDS ORDERED: LIDOCAINE 1% MPF 30 ML VIAL ONE (14:29)
[2020-09-04] MEDS ORDERED: LORazepam 2 MG/ML VIAL ONE (15:09)
[2020-09-04] MEDS ORDERED: MEPERIDINE HCL 25 MG/ML SYR ONE (15:09)
[2020-09-04] MEDS ORDERED: CLINDAMYCIN 900MG/D5W 900 MG/50 ML IVPB IV ONE (15:15)
--- NOTE | 2020-09-04 15:24 | ER ---
Nurse's Notes [facility] Name: Kelsy Gerber Age: 45 yrs Sex: Female : 1975 Arrival Date: 09/04/2020 Time: 13:13 Bed 13 Private MD: Diagnosis: Cutaneous abscess of buttock-Right Presentation: 09/04 13:17 Chief complaint: Patient states: has and abscess to right upper thigh that is causing iw pain in her vaginal area, started 4 days ago and was small, she popped it and then it got bigger. Coronavirus screen: At this time, the client does not indicate any symptoms associated with coronavirus-19. Initial Sepsis Screen: Does the patient meet any 2 criteria? No. Patient's initial sepsis screen is negative. Does the patient have a suspected source of infection? No. Patient's initial sepsis screen is negative. Risk Assessment: Do you want to hurt yourself or someone else? Patient reports no desire to harm self or others. Onset of symptoms was August 31, 2020. 13:17 Method Of Arrival: Ambulatory iw 13:17 Acuity: KELLEY 3 iw 14:00 Ebola Screen: Patient negative for fever greater than or equal to 101.5 degrees ca1 Fahrenheit, and additional compatible Ebola Virus Disease symptoms Patient denies exposure to infectious person. Patient denies travel to an Ebola-affected area in the 21 days before illness onset. No symptoms or risks identified at this time. 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 ca1 Historical: - Allergies: 13:20 Aspirin; iw 13:20 Daypro; iw 13:20 Ibuprofen; iw 13:20 Ketorolac; iw 13:20 Morphine; iw 13:20 NSAIDS; iw - PMHx: 13:20 Asthma; Bipolar disorder; Diabetes - NIDDM; fatty liver; Hypertension; Hypothyroidism; iw LEFT SIDED WEAKNESS; migranes; Pancreatitis; TIA; - PSHx: 13:20 Cholecystectomy; Hysterectomy; iw - Immunization history:: Adult Immunizations up to date. - Social history:: Smoking status: Patient denies any tobacco usage or history of. Screenin:25 Abuse screen: Denies threats or abuse. Denies injuries from another. Nutritional ca1 screening: No deficits noted. Tuberculosis screening: No symptoms or risk factors identified. Fall Risk IV access (20 points). Assessment: 13:25 General: Appears in no apparent distress. comfortable, Behavior is calm, cooperative, ca1 appropriate for age. Pain: Complains of pain in buttocks Pain currently is 10 out of 10 on a pain scale. Pain began 2-3 days ago. Neuro: Level of Consciousness is awake, alert, obeys commands, Oriented to person, place, time, situation, Appropriate for age. Cardiovascular: Heart tones S1 S2 present Capillary refill < 3 seconds Patient's skin is warm and dry. Respiratory: Airway is patent Respiratory effort is even, unlabored, Respiratory pattern is regular, symmetrical, Breath sounds are clear bilaterally. GI: Abdomen is round non-distended, Bowel sounds present X 4 quads. Abd is soft and non tender X 4 quads. : No signs and/or symptoms were reported regarding the genitourinary system. EENT: No signs and/or symptoms were reported regarding the EENT system. Derm: Skin is intact, is healthy with good turgor, Skin is pink, warm \T\ dry. Derm: Abscess located on right gluteus veena is golf ball sized, is hot to touch, is red, is raised. Musculoskeletal: Circulation, motion, and sensation intact. Capillary refill < 3 seconds. 14:30 Reassessment: Patient appears in no apparent distress at this time. Patient and/or ca1 family updated on plan of care and expected duration. Pain level reassessed. Patient is alert, oriented x 3, equal unlabored respirations, skin warm/dry/pink. 15:30 Reassessment: Patient appears in no apparent distress at this time. Patient and/or ca1 family updated on plan of care and expected duration. Pain level reassessed. Patient is alert, oriented x 3, equal unlabored respirations, skin warm/dry/pink. Vital Signs: 13:29 BP 115 / 92; Pulse 94; Resp 18; Temp 98.3; Pulse Ox 98% on R/A; iw 14:30 BP 126 / 86; Pulse 99; Resp 16 S; Pulse Ox 99% on R/A; ca1 15:30 BP 136 / 75; Pulse 89; Resp 16 S; Pulse Ox 99% on R/A; ca1 ED Course: 13:13 Patient arrived in ED. ag5 13:18 Jaime Roberto PA is PHCP. cp 13:18 Casa Rangel MD is Attending Physician. cp 13:19 Triage completed. iw 13:20 Arm band placed on. iw 13:25 Patient has correct armband on for positive identification. Bed in low position. Call ca1 light in reach. Side rails up X2. night monitor on. Pulse ox on. NIBP on. Warm blanket given. 13:27 Liya Khan, ELIZ is Primary Nurse. ca1 13:45 Inserted saline lock: 20 gauge in right antecubital area, using aseptic technique. dh4 Blood collected. 14:11 Blood Culture Adult (2) Sent. dh4 15:20 Assist provider with I \T\ D: of an abscess on right perianal Set up I\T\D tray. Performed ca 1 by Jaime MIKE Culture sent to lab. Wound packed. iodoform gauze, Dressing with 4X4s, tape Patient tolerated well. 15:23 Akira Montez MD is Referral Physician. cp 15:55 IV discontinued, intact, bleeding controlled, No redness/swelling at site. Pressure ca1 dressing applied. Administered Medications: 14:13 Drug: NS 0.9% 1000 ml Route: IV; Rate: 1 bolus; Site: right antecubital; ca1 14:15 Drug: Zofran (Ondansetron) 4 mg Route: IVP; Site: right antecubital; ca1 14:20 Drug: fentaNYL (PF) 25 mcg {Note: rass 0.} Route: IVP; Site: right antecubital; ca1 14:26 Drug: fentaNYL (PF) 25 mcg {Note: rass 0.} Route: IVP; Site: right antecubital; ca1 14:50 Drug: fentaNYL (PF) 25 mcg {Note: rass 0.} Route: IVP; Site: right antecubital; ca1 14:56 Drug: Demerol 25 mg {Note: rass 0.} Route: IVP; Site: right antecubital; ca1 14:58 Drug: Ativan 1 mg Route: IVP; Site: right antecubital; ca1 15:04 Drug: Clindamycin 900 mg Route: IVPB; Infused Over: 30 mins; Site: right antecubital; ca1 15:20 Drug: Lidocaine (1 %) 10 ml {Note: by RASHID Sandoval.} Volume: 20 ml; Route: Infiltration; ca1 15:20 Drug: Marcaine (0.5 %) 10 ml {Note: by RASHID Sandoval.} Volume: 10 ml; Route: Infiltration; ca1 Outcome: 15:24 Discharge ordered by . nicolette 15:57 Discharged to home via wheelchair, with significant other. ca1 15:57 Condition: stable 15:57 Discharge instructions given to patient, Instructed on discharge instructions, follow up and referral plans. no drinking with medication, no driving heavy equipment, medication usage, wound care, Demonstrated understanding of instructions, follow-up care, medications, wound care, Prescriptions given X 3. 15:58 Patient left the ED. ca1 Signatures: Sarah Armendariz, RN RN iw Jaime Roberto PA PA cp Acob, Cheryl, RN RN ca1 Rafi Rahman 5 Ish Hayden 4 Corrections: (The following items were deleted from the chart) 15:54 12:56 Demerol 25 mg IVP in right antecubital ca1 ca1 15:54 12:58 Ativan 1 mg IVP in right antecubital ca1 ca1 15:56 13:25 No provider procedures requiring assistance completed. ca1 ca1
--- NOTE | 2020-09-04 15:24 | EDPHYS ---
Physician Documentation [facility] Name: Kelsy Gerber Age: 45 yrs Sex: Female : 1975 Arrival Date: 09/04/2020 Time: 13:13 Bed 13 Private MD: ED Physician Casa Rangel HPI: 09/04 13:33 This 45 yrs old Female presents to ER via Ambulatory with complaints of Boil, cp Vaginal Pain. 13:33 The patient presents with an abscess of the buttocks. cp 13:33 Description: erythematous, swollen. Onset: The symptoms/episode began/occurred 4 day(s) cp ago. Associated signs and symptoms: Pertinent negatives: discharge, drainage, fever. 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 ca1 Historical: - Allergies: 13:20 Aspirin; iw 13:20 Daypro; iw 13:20 Ibuprofen; iw 13:20 Ketorolac; iw 13:20 Morphine; iw 13:20 NSAIDS; iw - PMHx: 13:20 Asthma; Bipolar disorder; Diabetes - NIDDM; fatty liver; Hypertension; Hypothyroidism; iw LEFT SIDED WEAKNESS; migranes; Pancreatitis; TIA; - PSHx: 13:20 Cholecystectomy; Hysterectomy; iw - Immunization history:: Adult Immunizations up to date. - Social history:: Smoking status: Patient denies any tobacco usage or history of. ROS: 13:40 Constitutional: Negative for body aches, chills, fever, poor PO intake. cp 13:40 Eyes: Negative for injury, pain, redness, and discharge. cp 13:40 ENT: Negative for ear pain, sore throat, difficulty swallowing, difficulty handling secretions. 13:40 Cardiovascular: Negative for chest pain. 13:40 Respiratory: Negative for cough, shortness of breath, wheezing. 13:40 Abdomen/GI: Negative for abdominal pain, nausea, vomiting, and diarrhea. 13:40 Skin: Positive for abscess, of the buttocks. 13:40 Neuro: Negative for altered mental status. 13:40 All other systems are negative. Exam: 13:45 Constitutional: The patient appears in no acute distress, alert, awake, non-toxic, well cp developed, well nourished, obese. 13:45 Head/Face: Normocephalic, atraumatic. cp 13:45 Eyes: Periorbital structures: appear normal, Conjunctiva: normal, no exudate, no injection, Lids and lashes: appear normal, bilaterally. 13:45 Chest/axilla: Inspection: normal. 13:45 Cardiovascular: Rate: normal, Rhythm: regular. 13:45 Respiratory: the patient does not display signs of respiratory distress, Respirations: normal, no use of accessory muscles, no retractions, labored breathing, is not present. 13:45 Abdomen/GI: Exam negative for discomfort, distension, guarding, Inspection: abdomen appears normal. 13:45 Skin: abscess, of the medial aspect right buttock, with fluctuance, that is mild, with surrounding cellulitis, that is moderate, abscess approximately the size of a quarter. 13:45 Neuro: Orientation: to person, place \T\ time. Mentation: is normal. Vital Signs: 13:29 BP 115 / 92; Pulse 94; Resp 18; Temp 98.3; Pulse Ox 98% on R/A; iw 14:30 BP 126 / 86; Pulse 99; Resp 16 S; Pulse Ox 99% on R/A; ca1 15:30 BP 136 / 75; Pulse 89; Resp 16 S; Pulse Ox 99% on R/A; ca1 Procedures: 15:30 I \T\ D: Incision and drainage was performed for an abscess of the right buttock Prepped cp with Betadine, Anesthetized with 5 ccs of mixture 1% lidocaine w/o epi and 0.5% marcaine. Incised with #11 blade. Drained moderate amount purulent fluid. bloody fluid. Cultures obtained. Packed with iodoform gauze, Dressing: sterile 4x4 gauze, the patient tolerated the procedure well. MDM: 13:28 Patient medically screened. cp 14:00 Differential diagnosis: abscess, cellulitis, sepsis. cp 15:22 ED course: No active RXs for narcotic medications noted on [place] prescription monitor cp website. 15:23 Data reviewed: vital signs, nurses notes, lab test result(s). cp 15:23 Counseling: I had a detailed discussion with the patient and/or guardian regarding: the cp historical points, exam findings, and any diagnostic results supporting the discharge/admit diagnosis, lab results, the need for outpatient follow up, a general surgeon, to return to the emergency department if symptoms worsen or persist or if there are any questions or concerns that arise at home. Response to treatment: the patient's symptoms have markedly improved after treatment, Pain improved with meds. Will discharge to home for continued monitoring. 09/04 13:32 Order name: Basic Metabolic Panel; Complete Time: 14:46 cp 09/04 14:46 Interpretation: Normal except: GLUC 156; GFR 54. cp 09/04 13:32 Order name: CBC with Diff; Complete Time: 14:46 cp 09/04 14:46 Interpretation: Normal except: MPV 7.1. 09/04 13:32 Order name: LFT's; Complete Time: 14:46 cp 09/04 13:32 Order name: PT-INR; Complete Time: 14:46 cp 09/04 13:32 Order name: Wound Culture 09/04 13:32 Order name: Procalcitonin 09/04 13:32 Order name: Lactate; Complete Time: 14:46 09/04 13:32 Order name: Blood Culture Adult (2) 09/04 13:32 Order name: Cardiac monitoring; Complete Time: 14:19 09/04 13:32 Order name: IV Saline Lock; Complete Time: 14:12 09/04 13:32 Order name: Labs collected and sent; Complete Time: 14:11 09/04 13:32 Order name: O2 Per Protocol; Complete Time: 14:19 09/04 13:32 Order name: O2 Sat Monitoring; Complete Time: 14:19 09/04 13:32 Order name: I\T\D Setup; Complete Time: 14:20 cp Administered Medications: 14:13 Drug: NS 0.9% 1000 ml Route: IV; Rate: 1 bolus; Site: right antecubital; ca1 14:15 Drug: Zofran (Ondansetron) 4 mg Route: IVP; Site: right antecubital; ca1 14:20 Drug: fentaNYL (PF) 25 mcg {Note: rass 0.} Route: IVP; Site: right antecubital; ca1 14:26 Drug: fentaNYL (PF) 25 mcg {Note: rass 0.} Route: IVP; Site: right antecubital; ca1 14:50 Drug: fentaNYL (PF) 25 mcg {Note: rass 0.} Route: IVP; Site: right antecubital; ca1 14:56 Drug: Demerol 25 mg {Note: rass 0.} Route: IVP; Site: right antecubital; ca1 14:58 Drug: Ativan 1 mg Route: IVP; Site: right antecubital; ca1 15:04 Drug: Clindamycin 900 mg Route: IVPB; Infused Over: 30 mins; Site: right antecubital; ca1 15:20 Drug: Lidocaine (1 %) 10 ml {Note: by PA. Jaime} Volume: 20 ml; Route: Infiltration; ca1 15:20 Drug: Marcaine (0.5 %) 10 ml {Note: by PA. Jaime} Volume: 10 ml; Route: Infiltration; ca1 Disposition: 17:23 Co-signature as Attending Physician, Casa Rangel MD. rn Disposition: 09/04/20 15:24 Discharged to Home. Impression: Cutaneous abscess of buttock - Right. - Condition is Stable. - Discharge Instructions: Skin Abscess, Incision and Drainage. - Prescriptions for Clindamycin HCl 300 mg Oral Capsule - take 1 capsule by ORAL route every 6 hours for 10 days; 40 capsule. Tylenol- Codeine #3 300-30 mg Oral Tablet - take 2 tablets by ORAL route every 6 hours As needed; 20 tablet. Bactrim DS 800- 160 mg Oral Tablet - take 1 tablet by ORAL route every 12 hours for 10 days; 20 tablet. - Medication Reconciliation Form, Thank You Letter, Antibiotic Education, Prescription Opioid Use form. - Follow up: Akira Montez MD; When: 48 Hours; Reason: Wound Recheck. - Problem is new. - Symptoms have improved. Signatures: Dispatcher [employer] Sarah Julien RN RN iw Nieto, Roman, MD MD rn Page, Corey, PA PA cp Acob, Cheryl, RN RN ca1 Corrections: (The following items were deleted from the chart) 15:58 15:24 09/04/2020 15:24 Discharged to Home. Impression: Cutaneous abscess of buttock - ca1 Right. Condition is Stable. Forms are Medication Reconciliation Form, Thank You Letter, Antibiotic Education, Prescription Opioid Use. Follow up: Akira Montez; When: 48 Hours; Reason: Wound Recheck. Problem is new. Symptoms have improved. cp
[2020-09-04 16:18] VITALS: TEMP 98.3
[2020-09-04 16:20] VITALS: O2SAT 99
[2020-09-04 16:22] VITALS: BP 136/75
== END 2020-09-04 15:58 | disposition home or self-care (01) ==
LOC: ER 13:11
PROC: 0J990ZZ Drainage of Buttock Subcutaneous Tissue and Fascia, Open Approach (ICD-10-PCS; principal; 2020-09-04)
DX: L02.31 Cutaneous abscess of buttock (principal); I10 Essential (primary) hypertension; Z88.5 Allergy status to narcotic agent; Z88.6 Allergy status to analgesic agent; Z88.8 Allergy status to other drugs, medicaments and biological substances
CPT/HCPCS: 87040 ×2; 87070; 85025; 80048; 36415; 87205; 85610; 80076; 83605; 84145; 96375; 96374; 99284; 10060; J3010; J2175; J7030; J2405

== ENCOUNTER 2020-09-04 17:41 | Observation (INO) | payer OTHER ==
--- OUTSIDE RECORDS SUMMARY | 2020-09-04 17:43 | XMS REPORT | Continuity of Care Document ---
:[address] [facility] t Address [address] [place] [address] [address]. [address] [place] [address] Care Team Providers Name Role Phone Asked, [...] Comments Source Sex Assigned At [place] [facility] Medications Ordered Filled Start Stop Current Ordering [...] Future Scheduled 2020-05-22 INFLUENZA VACCINE [place] [facility] Test 00:00:00 [code = INFLUENZA VACCINE] Future Scheduled 1996 Screening for [place] [facility] Test 00:00:00 malignant neoplasm of cervix (procedure) [code = 195458370] Encounters Start End Encounter Admission Attending Care Care Encounter Source Date/Time Date/Time Type Type Clinicians Facility Department ID 2020-05-17 2020-05-17 [facility] [id number] [facility] 08:08:00 08:08:00 [facility] 2020-05-12 2020-05-12 Outpatient Marcia Kennedyt [id number] [facility] [address] 09:30:00 09:30:00 [facility] 2020-04-21 2020-04-21 Outpatient Marcia Kennedyt [id number] [facility] 13:07:00 13:07:00 [facility] 2020-04-13 2020-04-13 Outpatient Marcia Kennedyt [id number] [facility] [address] 16:42:00 16:42:00 [facility] 2020-04-12 2020-04-12 Outpatient Marcia Vang [id number] [facility] [address] 16:00:00 16:00:00 [facility] 2020-04-05 2020-04-05 Emergency Marcello [facility] [id number] 16:37:35 19:01:00 Yesi Mehta [id number] [place] [id number] [place] [id number] 2020-04-05 2020-04-05 Outpatient Marcia Vang [id number] 14:31:00 14:31:00 [facility] 2020-03-29 2020-03-29 Outpatient Marcia Vang [id number] 13:59:00 13:59:00 [facility] 2020-03-29 2020-03-29 Outpatient Marcia Kennedyt [id number] 13:00:00 13:00:00 [facility] 2020-03-29 2020-03-29 [facility] [id number] [address] 08:30:00 08:30:00 [facility] 2019-11-30 2019-11-30 Case Puja [facility] [id number] 00:00:00 00:00:00 Management Titus Mehta [id number] Neo [id number] Professio [phone] nal 134 Building 2019-11-28 2019-11-28 Office Puja [facility] [id number] 14:36:59 15:44:36 Visit Titus Mehta [id number] Neo [id number] Professio [phone] nal 134 Building Results This patient has no known results.
--- OUTSIDE RECORDS SUMMARY | 2020-09-04 17:43 | XMS REPORT | Clinical Summary ---
:1975 Author Organization [facility] Address [address] [place] [id number] Care Team Providers Name Role Phone Asked, [...] Phone Addre ss Type Group [employer] [place] [id number] 2015-[facility] [employer] t [employer] [id number] [facility] t Advance Directives For more information, please contact: [phone] Type Date Recorded Patient Transfer Table Operator Explanati on Advance Directives, Living Will and Medical Power of Registered Radiologic Technologist
--- NOTE | 2020-09-04 18:35 | EDPHYS ---
Physician Documentation [facility] Name: Kelsy Gerber Age: 45 yrs Sex: Female : 1975 Arrival Date: 09/04/2020 Time: 17:41 Bed 15 Private MD: ED Physician Casa Rangel HPI: 09/04 18:26 This 45 yrs old Female presents to ER via Wheelchair with complaints of Fever. cp 18:26 The patient reports fever, with an emergency department temperature of 101.9 degrees cp Fahrenheit. Onset: The symptoms/episode began/occurred today. Associated signs and symptoms: Pertinent positives: chills, Pertinent negatives: abdominal pain, altered mental status. Severity of symptoms: in the emergency department the symptoms are unchanged despite home interventions. 18:26 The patient has been recently seen at the [facility] Emergency cp Department, today, by me, for abscess on right buttock that was incised and drained. 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 - Social history:: Smoking status: Patient denies any tobacco usage or history of. ROS: 18:27 Constitutional: Positive for chills, fever, Negative for poor PO intake. cp 18:27 Cardiovascular: Negative for chest pain, palpitations. cp 18:27 Respiratory: Negative for cough, shortness of breath, wheezing. 18:27 Abdomen/GI: Negative for abdominal pain, nausea, vomiting, and diarrhea. 18:27 Neuro: Negative for altered mental status, headache, weakness. 18:27 All other systems are negative. Exam: 18:27 Constitutional: The patient appears in no acute distress, alert, awake, non-toxic, well cp developed, well nourished, febrile, obese. 18:27 Cardiovascular: Rate: tachycardic, Rhythm: regular. 18:27 Respiratory: the patient does not display signs of respiratory distress, Respirations: normal, no use of accessory muscles, no retractions, labored breathing, is not present. 18:27 Skin: Wound recheck: Abscess: the wound has improved, decreased discharge. Vital Signs: 17:48 BP 132 / 94; Pulse 103; Resp 17 S; Temp 101.9(O); Pulse Ox 97% on R/A; Weight 103.42 kg jd3 (R); Height 5 ft. 2 in. (157.48 cm) (R); Pain 10/10; 19:05 BP 123 / 70; Pulse 125; Resp 17 S; Temp 102.1(O); Pulse Ox 95% on R/A; ca1 20:00 BP 110 / 66; Pulse 122; Resp 18 S; Temp 103.2(TE); Pulse Ox 100% on R/A; ca1 20:48 BP 119 / 75; Pulse 116; Resp 16 S; Temp 102(A); Pulse Ox 97% on R/A; ca1 21:23 BP 95 / 70; Pulse 111; Resp 17 S; Pulse Ox 95% on R/A; ca1 23:33 Temp 99.3(A); lp1 23:33 BP 95 / 55; Pulse 99; Resp 17 S; Pulse Ox 97% on R/A; jd3 09/05 00:03 BP 106 / 59; jd3 09/04 17:48 Body Mass Index 41.70 (103.42 kg, 157.48 cm) j MDM: 09/04 18:03 Patient medically screened. cp 18:30 Differential diagnosis: sepsis, simple abscess, cellulitis, Nereida gangrene. cp 20:09 Physician consultation: Akira Montez MD was called at 20:09, was contacted at 20:09, cp regarding consult, patient's condition, and will see patient tomorrow. 20:15 Data reviewed: vital signs, nurses notes, and as a result, I will admit patient. cp 20:15 Counseling: I had a detailed discussion with the patient and/or guardian regarding: the cp historical points, exam findings, and any diagnostic results supporting the discharge/admit diagnosis. Physician consultation: Patrick RESENDEZ was contacted at 20:00, regarding admission, to the medical/surgical unit. consult, patient's condition, and will see patient in ED, shortly, would like consultation with Dr. Montez. 09/04 19:40 Order name: BMP; Complete Time: 21:33 cp 09/04 19:40 Order name: CBC with Diff; Complete Time: 21:33 cp 09/04 19:40 Order name: PT-INR; Complete Time: 21:33 cp 09/04 20:34 Order name: COVID-19 la1 09/04 20:36 Order name: CBC Smear Scan; Complete Time: 21:33 EDMS 09/04 20:49 Order name: Lactate; Complete Time: 21:53 ca1 09/04 22:22 Order name: Chest Single View XRAY la1 09/04 22:33 Order name: Urine Dipstick--Ancillary (enter results) tt3 09/04 22:37 Order name: SARS-COV-2 RT PCR EDMS 09/05 00:13 Order name: Urine Dipstick-Ancillary EDMS 09/05 00:13 Order name: RAD EDMS 09/04 18:13 Order name: Dressing - Wound: dressing change; Complete Time: 18:21 cp 09/04 22:23 Order name: Urine Dipstick-Ancillary (obtain specimen); Complete Time: 22:33 la1 Administered Medications: 18:25 Drug: HYDROcodone-acetaminophen 10 mg-325 mg 1 tabs {Note: rass 0.} Route: PO; ca1 19:30 Follow up: Response: No adverse reaction; Pain is decreased; RASS: Alert and Calm (0) ca1 18:27 Drug: Tylenol 650 mg Route: PO; ca1 21:20 Follow up: Response: No adverse reaction; Temperature is decreased ca1 20:06 Drug: NS 0.9% 1000 ml Route: IV; Rate: 1 bolus; Site: right antecubital; ca1 21:10 Follow up: Response: No adverse reaction; IV Status: Completed infusion; IV Intake: ca1 1000ml 20:26 Drug: vancoMYCIN 1 grams Route: IVPB; Infused Over: 2 hrs; Site: right antecubital; ca1 21:59 Follow up: Response: No adverse reaction; IV Status: Completed infusion; IV Intake: ca1 250ml Disposition: 20:30 Chart complete. cp 09/05 07:05 Co-signature as Attending Physician, Casa Rangel MD. rn Disposition: 09/04/20 20:15 Hospitalization ordered by Prashanth Rangel for Inpatient Admission. Preliminary diagnosis are Cutaneous abscess of buttock - Right, Cellulitis of buttock - Right. - Bed requested for Telemetry/MedSurg (Inpatient). - Status is Inpatient Admission. jd3 - Condition is Stable. - Problem is new. - Symptoms have improved. Signatures: Dispatcher [employer] EDMS Casa Rangel MD MD rn Patrick Silvestre, CLINICAL SOCIOLOGIST-C CLINICAL SOCIOLOGIST-Cla1 Jaime Roberto PA PA cp Katheryn Londono RN RN cg Krishna Romero RN RN jd3 Liya Khan RN RN ca1 Corrections: (The following items were deleted from the chart) 09/04 19:42 18:34 09/04/2020 18:34 Discharged to Home. Impression: Encounter for change or removal cp of surgical wound dressing; Fever, unspecified. Condition is Stable. Forms are Medication Reconciliation Form, Thank You Letter, Antibiotic Education, Prescription Opioid Use. Follow up: Akira Montez; When: 48 Hours; Reason: Wound Recheck. Problem is new. Symptoms have improved. 22:46 20:15 Hospitalization Ordered by Prashanth Rangel MD for Inpatient Admission. Preliminary cg diagnosis is Cutaneous abscess of buttock - Right; Cellulitis of buttock - Right. Bed requested for Telemetry/MedSurg (Inpatient). Status is Inpatient Admission. Condition is Stable. Problem is new. Symptoms have improved. 09/05 00:14 09/04 22:46 09/04/2020 20:15 Hospitalization Ordered by Prashanth Rangel MD for Inpatient jd3 Admission. Preliminary diagnosis is Cutaneous abscess of buttock - Right; Cellulitis of buttock - Right. Bed requested for Telemetry/MedSurg (Inpatient). Status is Inpatient Admission. Condition is Stable. Problem is new. Symptoms have improved. cg
--- NOTE | 2020-09-04 18:35 | ER ---
Nurse's Notes [facility] Name: Kelsy Gerber Age: 45 yrs Sex: Female : 1975 Arrival Date: 09/04/2020 Time: 17:41 Bed 15 Private MD: Diagnosis: Cutaneous abscess of buttock-Right;Cellulitis of buttock-Right Presentation: 09/04 17:47 Chief complaint: Patient states: "I just left here but I keep shaking and I can't jd3 control it. its like I got chilled and I can't warm up.". Coronavirus screen: At this time, the client does not indicate any symptoms associated with coronavirus-19. Ebola Screen: Patient negative for fever greater than or equal to 101.5 degrees Fahrenheit, and additional compatible Ebola Virus Disease symptoms. Initial Sepsis Screen: Does the patient meet any 2 criteria? No. Patient's initial sepsis screen is negative. Does the patient have a suspected source of infection? No. Patient's initial sepsis screen is negative. Risk Assessment: Do you want to hurt yourself or someone else? Patient reports no desire to harm self or others. Onset of symptoms was September 04, 2020. 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 - Social history:: Smoking status: Patient denies any tobacco usage or history of. Screenin:40 Abuse screen: Denies threats or abuse. Denies injuries from another. Nutritional ca1 screening: No deficits noted. Tuberculosis screening: No symptoms or risk factors identified. Fall Risk None identified. Assessment: 18:40 General: Appears in no apparent distress. uncomfortable, Behavior is calm, cooperative, ca1 appropriate for age, Reports fever for 0-12 hours. Pain: Complains of pain in right gluteus veena Pain currently is 9 out of 10 on a pain scale. Neuro: Level of Consciousness is awake, alert, obeys commands, Oriented to person, place, time, situation. Derm: Skin is intact, is healthy with good turgor, Skin is pink, warm \\T\\ dry. Abscess located on right gluteus veena is golf ball sized, I \\T\\ D done earlier today. Dressing soaked. Packing still in place. Musculoskeletal: Circulation, motion, and sensation intact. Capillary refill < 3 seconds. 19:05 Reassessment: Patient appears in no apparent distress at this time. Patient is alert, ca1 oriented x 3, equal unlabored respirations, skin warm/dry/pink. 20:00 Reassessment: Patient appears in no apparent distress at this time. Patient and/or ca1 family updated on plan of care and expected duration. Pain level reassessed. Patient is alert, oriented x 3, equal unlabored respirations, skin warm/dry/pink. 21:00 Reassessment: Patient appears in no apparent distress at this time. Patient and/or ca1 family updated on plan of care and expected duration. Pain level reassessed. Patient is alert, oriented x 3, equal unlabored respirations, skin warm/dry/pink. 22:15 Reassessment: Patient appears in no apparent distress at this time. Patient and/or jd3 family updated on plan of care and expected duration. Pain level reassessed. Patient is alert, oriented x 3, equal unlabored respirations, skin warm/dry/pink. 23:15 Reassessment: Patient appears in no apparent distress at this time. No changes from jd3 previously documented assessment. Patient and/or family updated on plan of care and expected duration. Pain level reassessed. Patient is alert, oriented x 3, equal unlabored respirations, skin warm/dry/pink. Vital Signs: 17:48 BP 132 / 94; Pulse 103; Resp 17 S; Temp 101.9(O); Pulse Ox 97% on R/A; Weight 103.42 kg jd3 (R); Height 5 ft. 2 in. (157.48 cm) (R); Pain 10/10; 19:05 BP 123 / 70; Pulse 125; Resp 17 S; Temp 102.1(O); Pulse Ox 95% on R/A; ca1 20:00 BP 110 / 66; Pulse 122; Resp 18 S; Temp 103.2(TE); Pulse Ox 100% on R/A; ca1 20:48 BP 119 / 75; Pulse 116; Resp 16 S; Temp 102(A); Pulse Ox 97% on R/A; ca1 21:23 BP 95 / 70; Pulse 111; Resp 17 S; Pulse Ox 95% on R/A; ca1 23:33 Temp 99.3(A); lp1 23:33 BP 95 / 55; Pulse 99; Resp 17 S; Pulse Ox 97% on R/A; jd3 09/05 00:03 BP 106 / 59; jd3 09/04 17:48 Body Mass Index 41.70 (103.42 kg, 157.48 cm) jd3 ED Course: 09/04 17:41 Patient arrived in ED. as 17:47 Triage completed. jd3 18:02 Jaime Roberto PA is PHCP. cp 18:02 Casa Ragnel MD is Attending Physician. cp 18:21 Liya Khan, ELIZ is Primary Nurse. ca1 18:33 Akira Montez MD is Referral Physician. cp 18:33 Dressings: 4X4s X 4; right gluteus veena. ca1 18:40 No provider procedures requiring assistance completed. Patient did not have IV access ca1 during this emergency room visit. 18:40 Patient has correct armband on for positive identification. Bed in low position. Call ca1 light in reach. Side rails up X2. Pulse ox on. NIBP on. 18:40 Arm band placed on right wrist. ca1 20:05 PO fluids given. ds4 20:06 Initial lab(s) drawn, by nm, sent to lab. Inserted saline lock: 20 gauge in right ca1 antecubital area, using aseptic technique. Blood collected. 20:13 Prashanth Rangel MD is Hospitalizing Provider. cp Administered Medications: 18:25 Drug: HYDROcodone-acetaminophen 10 mg-325 mg 1 tabs {Note: rass 0.} Route: PO; ca1 19:30 Follow up: Response: No adverse reaction; Pain is decreased; RASS: Alert and Calm (0) ca1 18:27 Drug: Tylenol 650 mg Route: PO; ca1 21:20 Follow up: Response: No adverse reaction; Temperature is decreased ca1 20:06 Drug: NS 0.9% 1000 ml Route: IV; Rate: 1 bolus; Site: right antecubital; ca1 21:10 Follow up: Response: No adverse reaction; IV Status: Completed infusion; IV Intake: ca1 1000ml 20:26 Drug: vancoMYCIN 1 grams Route: IVPB; Infused Over: 2 hrs; Site: right antecubital; ca1 21:59 Follow up: Response: No adverse reaction; IV Status: Completed infusion; IV Intake: ca1 250ml Intake: 21:10 IV: 1000ml; Total: 1000ml. ca1 21:59 IV: 250ml; Total: 1250ml. ca1 Outcome: 18:34 Discharge ordered by MD. cp 20:15 Decision to Hospitalize by Provider. cp 09/05 00:01 Admitted to Med/surg accompanied by kvng, via stretcher, room 215, with chart, Report jd3 called to Crystal [facility] Condition: stable Instructed on the need for admit, Demonstrated understanding of instructions. 00:14 Patient left the ED. jd3 Signatures: Mignon Tatum Audri, RN RN aa5 Breanne Edgar RN RN lp1 Fermin Jain ds4 Jaime Roberto PA PA Krishna Dejesus RN RN jd3 Liya Khan RN RN ca1 Corrections: (The following items were deleted from the chart) 09/04 17:48 17:47 Chief complaint: Patient states: "I just left here but I keep shaking and I can't jd3 control it." jd3 17:59 17:47 Acuity: KELLEY 4 jmilton aa5 23:36 23:33 Pulse 105bpm; Resp 17bpm; Spontaneous; Pulse Ox 97% RA; jd3 jd3
[2020-09-04] MEDS ORDERED: ACETAMINOPHEN 325 MG TABLET ONE (18:36)
[2020-09-04] MEDS ORDERED: HYDROCODONE/APAP 10/325 TAB ONE (18:37)
[2020-09-04] MEDS ORDERED: NA CHLORIDE 0.9% 1,000 ML ONE (19:54)
[2020-09-04] MEDS ORDERED: VANCOMYCIN 1 GM/VIAL ONE (20:27)
[2020-09-04] MEDS ORDERED: NA CHLORIDE 0.9% 250 ML ONE (20:27)
[2020-09-04 20:33] LABS: Absolute Lymphocytes (CBC) 0.3 K/uL (0.7-4.9); Basophils % 0.3 % (0-1.3); Hematocrit 39.7 % (36.0-45.0); Lymphocytes % 2.7 % (15.3-44.8); MPV 7.2 fL (7.6-11.3); RBC Red Blood Cell Count 4.46 M/uL (3.86-4.86)
[2020-09-04 20:50] LABS: Potassium 3.5 mmol/L (3.5-5.1)
[2020-09-04 21:03] LABS: Platelet Estimate ADEQ; White Blood Cell Scan OK (OK)
[2020-09-04 21:04] LABS: Blood Morphology Comment NOT SEEN (NOT SEEN)
[2020-09-04 21:25] LABS: Protime INR 1.1
--- NOTE | 2020-09-04 22:26 | P.HP ---
Certification for Inpatient Patient admitted to: Observation With expected LOS: <2 Midnights Patient will require the following post-hospital care: None Practitioner: I am a practitioner with admitting privileges, knowledge of patient current condition, hospital course, and medical plan of care. Services: Services provided to patient in accordance with Admission requirements found in Title 42 Section 412.3 of the Code of Federal Regulations <Patrick Silvestre - Last Filed: 09/04/20 22:19> Patient History Date of Service: 09/04/20 Primary Care Provider: Andressa Suarez NP Reason for admission: Fever, Abscess History of Present Illness: 45-year-old female with history of diabetes mellitus type 2, h ypertension, hypothyroidism, asthma presents emergency department for fever. Patient was seen today in the emergency department for abscess to the right gluteus veena which was incised and drained in the emergency department. Patient reports that she had the abscess for approximately 4 days prior to arrival. After leaving patient spiked high fever and felt very ill so she returned for further evaluation. Upon arrival to the emergency department patient was febrile temperature of 103 and moderately tachycardic. Workup in the emergency department given for white blood cell count 10.8, pro calcitonin and lactate were within normal range. Blood cultures were obtained. ED provider discuss case with patient's general surgeon who said that he would be happy to see her in the morning. Patient will be admitted under observation. - Past Medical/Surgical History Diabetic: Yes -: Asthma -: Bipolar -: Fatty liver -: RON -: DM-Type 2- states no longer diabetic -: Insomnia -: Hypothyroidism -: COPD -: Obesity -: History of pancreatitis -: anxiety -: back problems -: hysterectomy -: gall bladder removal -: skin graft Lt upper thigh Psychosocial/ Personal History: She is with 2 children. She lives with a daughter. - Family History Brother -: Stroke, Kidney disease Mother -: Hypertension, Diabetes, Stroke, Other (see notes) Notes: Alzheimer's/dementia Father -: Heart disease, Hypertension, Lung disease, GI disease, Diabetes Notes: absestos - Social History Smoking Status: Former smoker Alcohol use: Yes CD- Drugs: Yes Caffeine use: Yes Place of Residence: Home <Patrick Silvestre - Last Filed: 09/04/20 22:19> Date of Service: 09/05/20 <Prashanth Rangel - Last Filed: 09/05/20 17:51> Allergies aspirin Allergy (Mild, Verified 09/05/20 03:17) Shortness of breath ibuprofen Allergy (Mild, Verified 09/05/20 03:17) Hives ketorolac Allergy (Mild, Verified 09/05/20 03:17) Shortness of breath morphine Allergy (Mild, Verified 09/05/20 03:17) Shortness of breath oxaprozin [From Daypro] Allergy (Mild, Verified 09/05/20 03:17) Shortness of breath NSAIDS (Non-Steroidal Anti-Inflamma Allergy (Verified 09/05/20 03:17) Hives tea Allergy (Uncoded 12/02/18 09:26) Hives Home Medications: Montelukast [Singulair*] 10 mg PO DAILY 09/02/14 Pantoprazole [Protonix Tab*] 40 mg PO DAILY 10/10/16 ALPRAZolam [Xanax*] 1 mg PO TID 10/11/16 Albuterol Sulfate [Proair Hfa] 1 puff IH PRN PRN 10/11/16 Lipase/Protease/Amylase [[place] 12,000 Units Capsule] 24,000 units PO TIDWM 10/11/16 Atorvastatin Calcium [Lipitor*] 20 mg PO BEDTIME 11/30/18 Dapagliflozin Propanediol [Farxiga] 5 mg PO BID 12/08/19 Fluticasone Propionate [Flonase Allergy Relief] 1 spray NS BID 12/08/19 Losartan Potassium 50 mg PO DAILY 12/08/19 Mirabegron [Myrbetriq] 25 mg PO DAILY 12/08/19 Tiotropium [place] [Spiriva Respimat] 2 puff IH BID 12/08/19 Dicyclomine [Bentyl*] 10 mg PO TID 09/05/20 Levothyroxine [Synthroid*] 0.05 mg PO DAILY 09/05/20 Smz./Tmp. [Bactrim Ds 800 MG/160 MG] 1 tab PO BID 7 Days #14 tab 09/05/20 Review of Systems General: Fever, Chills, Malaise Musculoskeletal: Other (Pain to right gluteus veena area of abscess) Integumentary: As per HPI <Patrick Silvestre - Last Filed: 09/04/20 22:19> Physical Examination - Physical Exam General: Alert, In no apparent distress HEENT: Atraumatic, PERRLA, Mucous membr. moist/pink Neck: Supple, 2+ carotid pulse no bruit, No LAD Respiratory: Clear to auscultation bilaterally, Normal air movement Cardiovascular: Regular rate/rhythm, Normal S1 S2 Gastrointestinal: Normal bowel sounds, No tenderness Musculoskeletal: No tenderness Integumentary: No rashes, Other (Abscess to right gluteal veena area , was incised in the emergency department) Neurological: Normal gait, Normal speech, Normal strength at 5/5 x4 extr, Normal tone, Normal affect - Studies Laboratory Data (last 24 hrs) 09/04/20 21:10: PT 12.9 H, INR 1.10 09/04/20 20:02: WBC 10.8 D, Hgb 13.8, Hct 39.7, Plt Count 313 09/04/20 20:02: Sodium 140, Potassium 3.5, BUN 13, Creatinine 1.13, Glucose 188 H <Patrick Silvestre - Last Filed: 09/04/20 22:19> - Studies Laboratory Data (last 24 hrs) 09/04/20 21:10: PT 12.9 H, INR 1.10 09/04/20 20:02: WBC 10.8 D, Hgb 13.8, Hct 39.7, Plt Count 313 09/04/20 20:02: Sodium 140, Potassium 3.5, BUN 13, Creatinine 1.13, Glucose 188 H <Prashanth Rangel - Last Filed: 09/05/20 17:51> Assessment and Plan - Plan Assessment Abscess to right buttocks with fever Diabetes mellitus type 2 Hypertension COPD Hypothyroidism Plan Abscess to right buttocks with fever: Continue IV antibiotics, General Surgery consult in place. CBC and BMP in the morning. Lactate normal patient does not appear septic at this time. Appreciate further input from general surgery. Diabetes mellitus type 2: A.c. HS Accu-Cheks, sliding scale insulin therapy. Hypertension: Obtain and continue home meds COPD: Obtain and continue home medications, albuterol inhaler in the meantime Hypothyroidism: Obtain and continue home meds Discharge Plan: Home Plan to discharge in: 24 Hours - Advance Directives Does patient have a Living Will: No Does patient have a Durable POA for Healthcare: No - Code Status/Comfort Care Code Status Assessed: Yes (Full code) Critical Care: No Time Spent Managing Pts Care (In Minutes): 55 <Patrick Silvestre - Last Filed: 09/04/20 22:19> - Plan Plan of care discussed with Patrick Silvestre, and I agree with the management plan as noted above. <Prashanth Rangel - Last Filed: 09/05/20 17:51>
--- NOTE | 2020-09-05 00:12 | RAD REPORT ---
EXAM DESCRIPTION: Anita Single View09/04/2020 10:39 pm CLINICAL HISTORY: fever COMPARISON: 03/2020 FINDINGS: The lungs appear clear of acute infiltrate. The heart is normal size IMPRESSION: No acute abnormalities displayed
[2020-09-05 00:13] LABS: Urine Blood 2+ (NEG); Urine Glucose TRACE (NEG); Urine Protein NEGATIVE (NEG); Urine Specific Gravity 1.025 (1.005-1.030)
[2020-09-05] MEDS ORDERED: ALBUTEROL INHALER 60 PUFF/8 GM IH PRN ×2 (00:35→08:28)
[2020-09-05] MEDS ORDERED: ACETAMINOPHEN 500 MG TAB PO PRN (00:35)
[2020-09-05] MEDS ORDERED: HYDROCODONE/APAP 5/325 MG TAB PO PRN (00:35)
[2020-09-05] MEDS ORDERED: ONDANSETRON 4 MG/2 ML VIAL IV PRN (00:35)
[2020-09-05 00:43] VITALS: BMI 41.8
[2020-09-05] MEDS: NA CHLORIDE 0.9% 1,000 ML IV SCH ×2 (01:40→11:31)
[2020-09-05 03:16] VITALS: O2SAT 97
[2020-09-05 06:10] LABS: Absolute Lymphocytes (CBC) 0.7 K/uL (0.7-4.9); Basophils % 0.4 % (0-1.3); Hematocrit 36.5 % (36.0-45.0); Lymphocytes % 7.2 % (15.3-44.8); MPV 7.2 fL (7.6-11.3); RBC Red Blood Cell Count 4.01 M/uL (3.86-4.86)
[2020-09-05 06:23] LABS: Magnesium 2.1 mg/dL (1.8-2.4)
[2020-09-05 07:10] LABS: Urine Appearance CLEAR; Urine Bilirubin NEGATIVE (NEG); Urine Blood NEGATIVE (NEG); Urine Color YELLOW; Urine Glucose 2+ (NEG); Urine Protein NEGATIVE (NEG); Urine Urobilinogen 0.2 mg/dL (0.2-1.0); Urine pH 5.5 (5.0-7.0)
[2020-09-05 07:13] LABS: Urine Microscopic Reflex NO UMIC
[2020-09-05] MEDS: INSULIN -REGULAR HUMAN 50 UNIT/0.5 ML ML SQ SCH ×2 (07:30→11:30)
[2020-09-05] MEDS ORDERED: HOME MED 1 EA UNK (Mirabegron [Myrbetriq] 25 MG) PO SCH (09:00)
[2020-09-05] MEDS ORDERED: LOSARTAN POTASSIUM 50 MG TABLET PO SCH (09:00)
[2020-09-05] MEDS ORDERED: ENOXAPARIN 40 MG/0.4 ML SQ SCH (09:00)
[2020-09-05] MEDS ORDERED: MONTELUKAST 10 MG TAB PO SCH (09:00)
[2020-09-05] MEDS ORDERED: VANCOMYCIN 1.75 GM in NA CHLORIDE 0.9% 500 ML IVPB SCH ×2 (09:00→21:00)
[2020-09-05] MEDS ORDERED: PANTOPRAZOLE 40MG TABLET PO SCH (09:00)
[2020-09-05] MEDS ORDERED: HOME MED 1 EA UNK (Tiotropium Bromide [Spiriva Respimat] 2 PUFF) IH SCH (09:00)
[2020-09-05] MEDS ORDERED: LEVOTHYROXINE SOD 0.05 MG TABLET PO SCH (09:00)
[2020-09-05] MEDS ORDERED: VANCOMYCIN/NS 1 gm 1 GM/250 ML BAG IVPB SCH (09:00)
[2020-09-05] MEDS: ALPRAZOLAM 1 MG TABLET PO SCH ×2 (09:56→13:13)
[2020-09-05] MEDS: DICYCLOMINE HCL 10 MG CAP PO SCH ×2 (09:56→13:13)
[2020-09-05] MEDS ORDERED: LIPASE/PROTEASE/AMYLASE CAP PO SCH (12:00)
[2020-09-05 14:08] VITALS: BP 104/62; TEMP 98.7
--- NOTE | 2020-09-05 14:42 | P.CNS ---
Date of Consult: 09/05/20 PC: I was asked to see this 45-year-old female regards to an abscess on her right buttock. HPC: Patient presents emergency room with severe pain and tenderness and swelling in her right buttock. It is on the inner portion of the groin crease. In the emergency room it was incised and drained. PMH: Diabetes PSHx: Previous incision drainage is SOC: Under is aspirin, ibuprofen, morphine, Ketoralac. Can take Tylenol. SYS REVIEW: No cough, wheeze, shortness of breath. No chest pain or palpitations. Has been in relatively good health but is been caring for her sick father at home. Has been sitting more than usual. O/E awake alert vital signs are stable HEENT: Within normal limit Chest: Chest movement equal bilaterally ABD: Soft LOCO: On the right buttock at the upper inner skin crease, there is an area that has been surgically drained. A piece of packing (iodoform gauze) was protruding from the wound. I removed it. The wound looks good, minimal drainage, soft around the area no evidence of any spreading cellulitis. DATA: WNL IMPRESSION: Abscess on the buttock that had been drained PLAN: The procedure done in the emergency room was adequate to drain the abscess. She was admitted for control of her diabetes as well as IV antibiotics. Today she feels better, the pain is less, and she is able to manage the wound at home. She may be discharged, and is free to follow up with my office on . Should she have any questions or problems, she returned to the emergency room or contact me.
--- NOTE | 2020-09-05 14:54 | P.DS ---
Admission Date: 09/04/20 Discharge Date: 09/05/20 Primary Care Provider: Andressa Suarez NP Disposition: ROUTINE DISCHARGE Discharge Condition: GOOD Reason for Admission: Fever, Abscess Consultations: General Surgery - Dr. Montez Procedures: CXR (09/04): No acute abnormalities displayed. Lungs appear clear of acute infiltrate. Heart is normal size. Problem List Abscess to right buttocks with fever Diabetes mellitus type 2 Hypertension COPD Hypothyroidism Brief History of Present Illness: 45 yo female, PMH: DM2, HTN, hypothyroidism, asthma. Presented to ED for persistent fever and R buttock pain after I&D performed earlier in the day. She reported having the abscess for 4 days prior to arrival. In the ED she was noted to have a tmax: 103 and moderately tachycardic. Hospital Course: Patient was given IV vancomycin and IV fluids. She slowly improved the following day. She remained afebrile after admission. General surgery was consulted and evaluated the patient. Patient was felt appropriate to be discharged home. She will continue the clindamycin and Bactrim that were initially prescribed to her from her initial ER visit yesterday, as well as the the Tylenol #3 for pain. She was advised to keep the abscess clean, soap and water CKD. She will follow up with Dr. Montez this coming . Vital Signs/Physical Exam: Temp Pulse Resp BP Pulse Ox 98.7 F 88 18 104/62 91 09/05/20 12:00 09/05/20 12:00 09/05/20 12:00 09/05/20 12:00 09/05/20 12:00 General: Alert, In no apparent distress HEENT: Sclerae nonicteric Respiratory: Clear to auscultation bilaterally, Normal air movement Cardiovascular: No edema, Regular rate/rhythm, Normal S1 S2 Gastrointestinal: Soft and benign, Non-distended, No tenderness Integumentary: Other (Right buttock at upper inner skin crease, small wound s/p I&D with minimal drainage ) Neurological: Normal speech, Normal affect Laboratory Data at Discharge: WBC 9.3 K/uL (4.3-10.9) 09/05/20 05:08 Hgb 12.3 g/dL (12.0-15.0) 09/05/20 05:08 Hct 36.5 % (36.0-45.0) 09/05/20 05:08 Plt Count 304 K/uL (152-406) 09/05/20 05:08 PT 12.9 SECONDS (9.5-12.5) H 09/04/20 21:10 INR 1.10 09/04/20 21:10 Sodium 140 mmol/L (136-145) 09/05/20 05:08 Potassium 4.0 mmol/L (3.5-5.1) 09/05/20 05:08 BUN 11 mg/dL (7-18) 09/05/20 05:08 Creatinine 1.10 mg/dL (0.55-1.3) 09/05/20 05:08 Glucose 105 mg/dL (74-106) 09/05/20 05:08 Magnesium 2.1 mg/dL (1.8-2.4) 09/05/20 05:08 Home Medications: Montelukast [Singulair*] 10 mg PO DAILY 09/02/14 Pantoprazole [Protonix Tab*] 40 mg PO DAILY 10/10/16 ALPRAZolam [Xanax*] 1 mg PO TID 10/11/16 Albuterol Sulfate [Proair Hfa] 1 puff IH PRN PRN 10/11/16 Lipase/Protease/Amylase [[place] 12,000 Units Capsule] 24,000 units PO TIDWM 10/11/16 Atorvastatin Calcium [Lipitor*] 20 mg PO BEDTIME 11/30/18 Dapagliflozin Propanediol [Farxiga] 5 mg PO BID 12/08/19 Fluticasone Propionate [Flonase Allergy Relief] 1 spray NS BID 12/08/19 Losartan Potassium 50 mg PO DAILY 12/08/19 Mirabegron [Myrbetriq] 25 mg PO DAILY 12/08/19 Tiotropium [place] [Spiriva Respimat] 2 puff IH BID 12/08/19 Dicyclomine [Bentyl*] 10 mg PO TID 09/05/20 Levothyroxine [Synthroid*] 0.05 mg PO DAILY 09/05/20 Smz./Tmp. [Bactrim Ds 800 MG/160 MG] 1 tab PO BID 7 Days #14 tab 09/05/20 New Medications: Smz./Tmp. [Bactrim Ds 800 MG/160 MG] 1 tab PO BID 7 Days #14 tab Patient Discharge Instructions: Follow up with Dr. Montez in 1 week. continue previous prescriptions from the ER (Clindamycin and Bactrim), Tylenol #3 Diet: ADA Activity: Ad robb Followup: Akira Montez MD [ACTIVE - CAN ADMIT] - NONE,NONE [Primary Care Provider] - Time spent managing pt's care (in minutes): 35
[2020-09-05] MEDS ORDERED: ATORVASTATIN 20 MG TAB PO SCH (21:00)
== END 2020-09-05 15:55 | disposition home or self-care (01) ==
LOC: ER 17:41 → ERHOLD 21:17 → 2ND 09-05 00:04
PROVIDERS: ADMIT Hospitalist; ATTEND Hospitalist
PROC: 0H98XZZ Drainage of Buttock Skin, External Approach (ICD-10-PCS; principal; 2020-09-04)
DX: L02.31 Cutaneous abscess of buttock (principal); E11.9 Type 2 diabetes mellitus without complications; I10 Essential (primary) hypertension; J44.9 Chronic obstructive pulmonary disease, unspecified; E03.9 Hypothyroidism, unspecified; Z20.828 Contact with and (suspected) exposure to other viral communicable diseases; F31.9 Bipolar disorder, unspecified; K76.0 Fatty (change of) liver, not elsewhere classified; G47.33 Obstructive sleep apnea (adult) (pediatric); G47.00 Insomnia, unspecified; E66.9 Obesity, unspecified; F41.9 Anxiety disorder, unspecified; Z87.891 Personal history of nicotine dependence; Z86.73 Personal history of transient ischemic attack (TIA), and cerebral infarction without residual deficits
CPT/HCPCS: 10061; 96365; 85025 ×2; 80048 ×2; 36415; 83735; 85610; 82947 ×2; 83605; 81003 ×2; 83036; 71045; 99285; 96366; U0003; J1650; J3370; J7050; J7030 ×3; J7040

== ENCOUNTER 2020-09-20 15:10 | Emergency (ER) | payer OTHER ==
--- OUTSIDE RECORDS SUMMARY | 2020-09-20 15:18 | XMS REPORT | Clinical Summary ---
:1975 Author Organization [facility] Address [address] [place] [id number] Care Team Providers Name Role Phone Asked, [...] INFLUENZA VACCINE 05/22/2020 Results Not on fileafter 09/20/2019 Insurance Payer Benefit Plan / Subscriber ID Effective Dates Phone Addre ss Type Group [employer] [place] [id number] 2015-[facility] [employer] t [employer] [id number] [facility] ADV t Advance Directives For more information, please contact: [phone] Type Date Recorded Patient Manager Documentation Explanati on Advance Directives, Living Will and Medical Power of International Logistics Analyst
--- OUTSIDE RECORDS SUMMARY | 2020-09-20 15:18 | XMS REPORT | Continuity of Care Document ---
:1975 Author Organization [facility] t Address [address] [place] [address] [address] [place] [address] Care Team Providers Name Role Phone Asked, [...] Comments Source Sex Assigned At [facility] Medications Ordered Filled Start Stop Current Ordering [...] Future Scheduled 2020-05-22 INFLUENZA VACCINE [place] [facility] Test 00:00:00 [code = INFLUENZA VACCINE] Future Scheduled 1996 Screening for [facility] Test 00:00:00 malignant neoplasm of cervix (procedure) [code = 499637226] Encounters Start End Encounter Admission Attending Care Care Encounter Source Date/Time Date/Time Type Type Clinicians Facility Department ID 2020-05-17 2020-05-17 [facility] [id number] [facility] [address] 08:08:00 08:08:00 [facility] [place] [facility] 2020-05-12 2020-05-12 Outpatient Marcia Kennedyt [id number] 09:30:00 09:30:00 [facility] [place] [facility] 2020-04-21 2020-04-21 Outpatient Marcia Kennedyt [id number] [facility] [address] 13:07:00 13:07:00 [facility] [place] [facility] 2020-04-13 2020-04-13 Outpatient Marcia Kennedyt [id number] [facility] 16:42:00 16:42:00 [facility] [place] [facility] 2020-04-12 2020-04-12 Outpatient Marcia Vang [id number] [address] 16:00:00 16:00:00 [facility] 2020-04-05 2020-04-05 Emergency Marcello [facility] [id number] 16:37:35 19:01:00 Yesi Mehta [id number] Tabiona [id number] [facility] L[facility] [id number] [id number] 2020-04-05 2020-04-05 Outpatient Marcia Vang [id number] [facility] [address] 14:31:00 14:31:00 [facility] 2020-03-29 2020-03-29 Outpatient Marcia Vang [id number] [facility] [address] 13:59:00 13:59:00 [facility] 2020-03-29 2020-03-29 Outpatient Marcia Kennedyt [id number] [address] 13:00:00 13:00:00 [facility] [place] [facility] 2020-03-29 2020-03-29 [facility] [id number] [facility] [address] 08:30:00 08:30:00 [facility] [place] [facility] 2019-11-30 2019-11-30 Case Puja [facility] [id number] 00:00:00 00:00:00 Management Titus Mehta [id number] Neo [id number] Professio [phone] nal [address] Building 2019-11-28 2019-11-28 Office Puja [facility] [id number] 14:36:59 15:44:36 Visit Titus Mehta [id number] Neo [id number] Professio [phone] nal [address] Building Results This patient has no known results.
[2020-09-20] MEDS ORDERED: HYDROCODONE/APAP 10/325 TAB ONE (15:54)
[2020-09-20] MEDS ORDERED: METHYLPREDNISOLONE 125 MG INJ ONE (15:54)
--- NOTE | 2020-09-20 16:54 | RAD REPORT ---
EXAM DESCRIPTION: CTSpine Lumbar Wo Con09/20/2020 4:34 pm CLINICAL HISTORY: Left leg radiculopathy COMPARISON: None TECHNIQUE: Computed axial tomography lumbar spine was obtained with coronal and sagittal reconstruct ion. All CT scans are performed using dose optimization technique as appropriate and may include automated exposure control or mA/KV adjustment according to patient size. FINDINGS: No fracture is seen. No dislocation is noted. Moderate left lateral disc herniation L2-3 suspected Possible small left lateral disc herniation L3-4 IMPRESSION: Negative for a lumbar fracture. Moderate left lateral disc herniation L2-3 suspected. Further evaluation with nonemergent MRI could b e obtained .
--- NOTE | 2020-09-20 17:02 | EDPHYS ---
Physician Documentation [facility] Name: Kelsy Gerber Age: 45 yrs Sex: Female : 1975 Arrival Date: 09/20/2020 Time: 15:14 Bed 16 Private MD: ED Physician Casa Rangel HPI: 09/20 16:57 This 45 yrs old Female presents to ER via Ambulatory with complaints of Back kb Pain. 16:57 The patient presents with pain that is acute, with no known mechanism of injury. The kb symptoms are located in the lumbar area and left low back. Onset: The symptoms/episode began/occurred 5 day(s) ago. The pain radiates to the left leg. Associated signs and symptoms: Pertinent positives:. The problem was sustained from unknown cause. Modifying factors: The patient symptoms are alleviated by nothing, the patient symptoms are aggravated by any movement. Severity of symptoms: At their worst the symptoms were moderate, in the emergency department the symptoms are unchanged. The patient has experienced similar episodes in the past. The patient has not recently seen a physician. Pt reports she felt a pop in low back when she got out of the shower on . Pain to lower back has been getting worse since then. Reports pain started in lumbar area and radiates to left low back and down left leg. Has had low back pain before and received injections, but this pain feels different. No numbness/tingling/incontinence. 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 - Social history:: Smoking status: Patient denies any tobacco usage or history of. ROS: 17:00 Constitutional: Negative for fever, chills, and weight loss, Cardiovascular: Negative kb for chest pain, palpitations, and edema, Respiratory: Negative for shortness of breath, cough, wheezing, and pleuritic chest pain, Abdomen/GI: Negative for abdominal pain, nausea, vomiting, diarrhea, and constipation, : Negative for injury, bleeding, discharge, and swelling, MS/Extremity: Negative for injury and deformity, Skin: Negative for injury, rash, and discoloration, Neuro: Negative for headache, weakness, numbness, tingling, and seizure. 17:00 Back: Positive for pain at rest, pain with movement, radiated pain, Negative for injury or acute deformity, decreased range of motion. Exam: 17:00 Constitutional: This is a well developed, well nourished patient who is awake, alert, kb and in no acute distress. Head/Face: Normocephalic, atraumatic. Chest/axilla: Normal chest wall appearance and motion. Nontender with no deformity. No lesions are appreciated. Cardiovascular: Regular rate and rhythm with a normal S1 and S2. No gallops, murmurs, or rubs. Normal PMI, no JVD. No pulse deficits. Respiratory: Lungs have equal breath sounds bilaterally, clear to auscultation and percussion. No rales, rhonchi or wheezes noted. No increased work of breathing, no retractions or nasal flaring. Abdomen/GI: Soft, non-tender, with normal bowel sounds. No distension or tympany. No guarding or rebound. No evidence of tenderness throughout. Skin: Warm, dry with normal turgor. Normal color with no rashes, no lesions, and no evidence of cellulitis. MS/ Extremity: Pulses equal, no cyanosis. Neurovascular intact. Full, normal range of motion. Neuro: Awake and alert, GCS 15, oriented to person, place, time, and situation. Cranial nerves II-XII grossly intact. Motor strength 5/5 in all extremities. Sensory grossly intact. Cerebellar exam normal. Normal gait. 17:00 Back: pain, that is moderate, of the lumbar area and left low back, ROM is painful, normal spinal alignment noted. Vital Signs: 15:29 BP 124 / 92; Pulse 75; Resp 18; Temp 98.2(TE); Pulse Ox 98% on R/A; Weight 104.33 kg; ss Height 5 ft. 2 in. (157.48 cm); Pain 10/10; 17:19 BP 118 / 65; Pulse 71; Resp 18; Pulse Ox 98% ; Pain 7/10; ll1 15:29 Body Mass Index 42.07 (104.33 kg, 157.48 cm) ss MDM: 15:21 Patient medically screened. kb 16:59 Data reviewed: vital signs, nurses notes. Data interpreted: Pulse oximetry: on room air kb is 98 %. Interpretation: normal. Counseling: I had a detailed discussion with the patient and/or guardian regarding: the historical points, exam findings, and any diagnostic results supporting the discharge/admit diagnosis, radiology results, the need for outpatient follow up, a family practitioner, to return to the emergency department if symptoms worsen or persist or if there are any questions or concerns that arise at home. 09/20 17:09 Order name: Urine Dipstick--Ancillary (enter results) bd 09/20 15:28 Order name: CT Lumbar Spine Wo Con; Complete Time: 16:57 kb 09/20 16:45 Order name: Urine Dipstick-Ancillary (obtain specimen); Complete Time: 17:11 kb Administered Medications: 15:55 Drug: [place] 10 mg-325 mg 1 tabs {Note: rass 0.} Route: PO; ll1 17:11 Follow up: Response: No adverse reaction; Pain is decreased; RASS: Alert and Calm (0) ll1 15:55 Drug: SOLU-Medrol 125 mg Route: IM; Site: left gluteus; ll1 17:11 Follow up: Response: No adverse reaction; Pain is decreased; RASS: Alert and Calm (0) ll1 17:15 Drug: Flexeril 10 mg Route: PO; ll1 17:19 Follow up: Response: No adverse reaction; RASS: Alert and Calm (0) ll1 Disposition: 17:25 Co-signature as Attending Physician, Casa Rangel MD. rn Disposition: 09/20/20 17:01 Discharged to Home. Impression: Low back pain, Sciatica, left side. - Condition is Stable. - Discharge Instructions: Back Pain, Adult, [id number], Sciatica, Qdzg-[id number]. - Prescriptions for Prednisone 20 mg Oral Tablet - take 1 tablet by ORAL route once daily for 5 days; 5 tablet. Cyclobenzaprine 10 mg Oral Tablet - take 1 tablet by ORAL route every 8 hours As needed; 21 tablet. - Medication Reconciliation Form, Thank You Letter, Antibiotic Education, Prescription Opioid Use form. - Follow up: Emergency Department; When: As needed; Reason: Worsening of condition. Follow up: Private Physician; When: 2 - 3 days; Reason: Recheck today's complaints, Continuance of care, Re-evaluation by your physician. Signatures: Dispatcher [employer] EDHyacinth Paulino, SHIP ENGINES OPERATING ENGINEER-C SHIP ENGINES OPERATING ENGINEER-Ckb Casa Rangel MD MD rn Smirch, Shelby, RN RN ss Lewis, Lynsay, RN RN ll1 Corrections: (The following items were deleted from the chart) 17:21 17:01 09/20/2020 17:01 Discharged to Home. Impression: Low back pain; Sciatica, left ll1 side. Condition is Stable. Forms are Medication Reconciliation Form, Thank You Letter, Antibiotic Education, Prescription Opioid Use. Follow up: Emergency Department; When: As needed; Reason: Worsening of condition. Follow up: Private Physician; When: 2 - 3 days; Reason: Recheck today's complaints, Continuance of care, Re-evaluation by your physician. kb
--- NOTE | 2020-09-20 17:02 | ER ---
[facility] Name: Kelsy Gerber Age: 45 yrs Sex: Female : 1975 Arrival Date: 09/20/2020 Time: 15:14 Bed 16 Private MD: Diagnosis: Low back pain;Sciatica, left side Presentation: 09/20 15:29 Chief complaint: Patient states: L low back pain that radiates down L leg that began ss . Coronavirus screen: Client denies travel out of the [place] in the last 14 days. Ebola Screen: Patient denies exposure to infectious person. Patient denies travel to an Ebola-affected area in the 21 days before illness onset. Initial Sepsis Screen: Does the patient meet any 2 criteria? No. Patient's initial sepsis screen is negative. Does the patient have a suspected source of infection? No. Patient's initial sepsis screen is negative. Risk Assessment: Do you want to hurt yourself or someone else? Patient reports no desire to harm self or others. Onset of symptoms was September 16, 2020. 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 - Social history:: Smoking status: Patient denies any tobacco usage or history of. Screenin:00 Abuse screen: Denies threats or abuse. Nutritional screening: No deficits noted. ll1 Tuberculosis screening: No symptoms or risk factors identified. Fall Risk None identified. Ambulatory Aid- Crutches/Cane/Walker (15 pts). Total Lewis Fall Scale indicates No Risk (0-24 pts). Assessment: 15:58 General: Appears uncomfortable, Behavior is calm, cooperative, appropriate for age. ll1 Pain: Complains of pain in Left lower back Pain currently is 10 out of 10 on a pain scale. Quality of pain is described as aching, throbbing, Is episodic. Neuro: Level of Consciousness is awake, alert, obeys commands, Oriented to person, place, time, situation, Appropriate for age Dairy Cattle Farm Manager are equal bilaterally Moves all extremities. Full function Gait is steady, Speech is normal. Cardiovascular: No deficits noted. Respiratory: No deficits noted. GI: No deficits noted. Musculoskeletal: Circulation, motion, and sensation intact. Capillary refill < 3 seconds, Range of motion: intact in all extremities, pain radiates down left leg at times. Reports pain in Left lower back. 17:00 Reassessment: Patient and/or family updated on plan of care and expected duration. Pain ll1 level reassessed. Patient is alert, oriented x 3, equal unlabored respirations, skin warm/dry/pink. Vital Signs: 15:29 BP 124 / 92; Pulse 75; Resp 18; Temp 98.2(TE); Pulse Ox 98% on R/A; Weight 104.33 kg; ss Height 5 ft. 2 in. (157.48 cm); Pain 10/10; 17:19 BP 118 / 65; Pulse 71; Resp 18; Pulse Ox 98% ; Pain 7/10; ll1 15:29 Body Mass Index 42.07 (104.33 kg, 157.48 cm) ED Course: 15:14 Patient arrived in ED. mr 15:21 Hyacinth Bowles, [facility]TI [facility] kb 15:21 Casa Rangel MD is Attending Physician. kb 15:30 Triage completed. ss 15:31 Arm band placed on right wrist. ss 15:34 Aayush Onofre, ELIZ is Primary Nurse. ll1 16:00 Patient has correct armband on for positive identification. Bed in low position. Call ll1 light in reach. Side rails up X 1. Pulse ox on. NIBP on. 16:35 CT Lumbar Spine Wo Con In Process Unspecified. EDMS 17:20 No provider procedures requiring assistance completed. Patient did not have IV access ll1 during this emergency room visit. Administered Medications: 15:55 Drug: [place] 10 mg-325 mg 1 tabs {Note: rass 0.} Route: PO; ll1 17:11 Follow up: Response: No adverse reaction; Pain is decreased; RASS: Alert and Calm (0) ll1 15:55 Drug: SOLU-Medrol 125 mg Route: IM; Site: left gluteus; ll1 17:11 Follow up: Response: No adverse reaction; Pain is decreased; RASS: Alert and Calm (0) ll1 17:15 Drug: Flexeril 10 mg Route: PO; ll1 17:19 Follow up: Response: No adverse reaction; RASS: Alert and Calm (0) 1 Outcome: 17:01 Discharge ordered by MD. morales 17:20 Discharged to home via wheelchair. ll1 17:20 Condition: stable 17:20 Discharge instructions given to patient, Instructed on discharge instructions, follow up and referral plans. medication usage, Demonstrated understanding of instructions, follow-up care, medications, Prescriptions given X 2. 17:21 Patient left the ED. 1 Signatures: Dispatcher [employer] EDMS Hyacinth Bowles, JEEVANC MARINE FIREMAN-Colleen Fernandez Shelby, RN RN ss Lewis, Lynsay, RN RN 1
[2020-09-20] MEDS ORDERED: CYCLOBENZAPRINE 10 MG TAB ONE (17:23)
[2020-09-20 18:51] LABS: Urine Blood NEGATIVE (NEG); Urine Glucose NEGATIVE (NEG); Urine Protein NEGATIVE (NEG); Urine Specific Gravity 1.025 (1.005-1.030); Urine pH 5.5 (5.0-7.0)
[2020-09-20 19:14] VITALS: TEMP 98.2; O2SAT 98
[2020-09-20 19:16] VITALS: BP 118/65
== END 2020-09-20 17:21 | disposition home or self-care (01) ==
LOC: ER 15:10
DX: M54.32 Sciatica, left side (principal); I10 Essential (primary) hypertension; Z88.5 Allergy status to narcotic agent; Z88.6 Allergy status to analgesic agent; Z88.8 Allergy status to other drugs, medicaments and biological substances
CPT/HCPCS: 81003; 72131; 96372; 99284; J2930

== ENCOUNTER 2020-12-14 19:02 | Observation (INO) | payer OTHER ==
--- OUTSIDE RECORDS SUMMARY | 2020-12-14 19:08 | XMS REPORT | Continuity of Care Document ---
:1975 Author Organization [facility] t Address [address] [place] [address] [address]. [address] [place] [address] Care Team Providers Name Role Phone Asked, [...] Future Scheduled 2020-05-22 INFLUENZA VACCINE [place] [facility] 00:00:00 [code = INFLUENZA VACCINE] Future Scheduled 1996 Screening for [facility] Test 00:00:00 malignant neoplasm of cervix (procedure) [code = 751942023] Future Scheduled 1991 COVID-19 VACCINE (1 [place] [facility] 00:00:00 of 2) [code = COVID-19 VACCINE (1 of 2)] Encounters Start End Encounter Admission Attending Care Care Encounter Source Date/Time Date/Time Type Type Clinicians Facility Department ID 2020-05-17 2020-05-17 Outpatient Marcia Vang [id number] [facility] 08:08:00 08:08[facility]00 [facility] 2020-05-12 2020-05-12 Outpatient Marcia Kennedyt [id number] [facility] 09:30:00 09:30:00 [facility] 2020-04-21 2020-04-21 Outpatient Marcia Kennedyt [id number] [facility] 13:07:00 13:07:00 [facility] 2020-04-13 2020-04-13 Outpatient Marcia Kennedyt [id number] [facility] 16:42:00 16:42:00 [facility] 2020-04-12 2020-04-12 Outpatient Marcia [place] [id number] [facility] 16:00:00 16:00:00 [facility] 2020-04-05 2020-04-05 Emergency [facility] [id number] 16:37:35 19:01:00 Yesi Mehta [id number] [place] [id number] [place] [phone] [id number] 2020-04-05 2020-04-05 Outpatient Marcia Kennedyt [id number] [facility] 14:31:00 14:31:00 [facility] 2020-03-29 2020-03-29 Outpatient Marcia [place] [id number] [facility] 13:59:00 13:59:00 [facility] 2020-03-29 2020-03-29 Outpatient Marcia Kennedyt [id number] 13:00:00 13:00:00 [facility] 2020-03-29 2020-03-29 Outpatient Estellajcarlos Marciat [id number] [facility] [address] 08:30:00 08:30:00 [facility] 2019-11-30 2019-11-30 Case [facility] [id number] 00:00:00 00:00:00 Management Titus Mehta [id number] [place] [id number] [facility] [phone] nal [address] Building 2019-11-28 2019-11-28 Office [facility] [id number] 14:36:59 15:44:36 Visit Titus Mehta [id number] [place] [id number] Professio [phone] nal 134 Building Results This patient has no known results.
[2020-12-14] MEDS ORDERED: GLUCAGON 1 MG/VIAL IM PRN (19:59)
[2020-12-14] MEDS ORDERED: D50W 25 GM/50 ML SYRINGE IV PRN (19:59)
[2020-12-14 20:58] LABS: Albumin 3.7 g/dL (3.4-5.0); Bilirubin Total 0.5 mg/dL (0.2-1.0); Potassium 3.4 mmol/L (3.5-5.1); Protein, Total 7.4 g/dL (6.4-8.2)
[2020-12-14] MEDS ORDERED: INSULIN GLARGINE 100 UNITS/ML SQ ONE (21:00)
[2020-12-14 21:27] VITALS: BMI 42.1
[2020-12-14] MEDS: NA CHLORIDE 0.9% 1,000 ML IV SCH (21:39)
[2020-12-14] MEDS: INSULIN -REGULAR HUMAN 50 UNIT/0.5 ML ML SQ SCH (21:41)
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
[2020-12-14 21:48] LABS: Urine Appearance CLEAR; Urine Bilirubin NEGATIVE (NEG); Urine Blood NEGATIVE (NEG); Urine Color YELLOW; Urine Glucose 3+ (NEG); Urine Protein NEGATIVE (NEG); Urine Specific Gravity >=1.030 (1.005-1.030); Urine Urobilinogen 0.2 mg/dL (0.2-1.0); Urine pH 5.5 (5.0-7.0)
[2020-12-14] MEDS ORDERED: ALBUTEROL INHALER 60 PUFF/8 GM IH PRN (22:06)
[2020-12-14] MEDS ORDERED: ALBUTEROL 2.5 MG/3 ML NEB SOL NEB PRN (22:09)
[2020-12-14 22:13] LABS: Urine Microscopic Reflex NO UMIC
[2020-12-15] MEDS: INSULIN -REGULAR HUMAN 50 UNIT/0.5 ML ML SQ SCH ×6 (00:49→20:21)
[2020-12-15] MEDS: LEVOTHYROXINE SOD 0.05 MG TABLET PO SCH (05:40)
[2020-12-15 06:03] LABS: Absolute Lymphocytes (CBC) 2.8 K/uL (0.7-4.9); Basophils % 0.9 % (0-1.3); Hematocrit 40.6 % (36.0-45.0); Lymphocytes % 48.3 % (15.3-44.8); MPV 7.5 fL (7.6-11.3); RBC Red Blood Cell Count 4.51 M/uL (3.86-4.86)
[2020-12-15 06:25] LABS: Albumin 3.1 g/dL (3.4-5.0); Bilirubin Total 0.6 mg/dL (0.2-1.0); Potassium 3.2 mmol/L (3.5-5.1); Protein, Total 6.5 g/dL (6.4-8.2); Thyroid Stimulating Hormone 3.33 uIU/mL (0.360-3.740)
[2020-12-15 07:56] LABS: Platelet Estimate ADEQ
[2020-12-15 07:57] LABS: Blood Morphology Comment NOT SEEN (NOT SEEN)
[2020-12-15] MEDS: HOME MED 1 EA UNK (Mirabegron [Myrbetriq] 25 MG Tab.Er.24h) PO SCH (09:00)
[2020-12-15] MEDS: HOME MED 1 EA UNK (Tiotropium Bromide [Spiriva Respimat] 4 GM Mist.Inhal) IH SCH ×2 (09:00→20:26)
[2020-12-15] MEDS: HOME MED 1 EA UNK (Dapagliflozin Propanediol [Farxiga] 10 MG Tablet) PO SCH (09:00)
[2020-12-15] MEDS: LOSARTAN POTASSIUM 50 MG TABLET PO SCH (09:00)
[2020-12-15] MEDS: chlordiazePOXIDE HCl 25 MG CAP PO SCH ×2 (09:25→20:24)
[2020-12-15] MEDS: MONTELUKAST 10 MG TAB PO SCH (09:25)
[2020-12-15] MEDS: BUPROPION HCL XL 150 MG TAB PO SCH (09:26)
[2020-12-15] MEDS: PANTOPRAZOLE 40MG TABLET PO SCH (09:27)
[2020-12-15] MEDS: PROPRANOLOL HCL 60 MG SA CAP PO SCH (09:29)
[2020-12-15] MEDS: FLUTICASONE 50MCG NASAL SPRAY NAS SCH ×2 (09:30→20:27)
[2020-12-15] MEDS: NA CHLORIDE 0.9% 1,000 ML IV SCH ×2 (09:31→20:22)
[2020-12-15] MEDS ORDERED: PNEUMOCOCCAL VACCINE 0.5 ML IMVAC ONE (10:00)
[2020-12-15] MEDS ORDERED: INFLUENZA VACCINE (for 3y+) 0.5 ML DOSE IMVAC ONE (10:00)
[2020-12-15 11:19] VITALS: O2SAT 96
[2020-12-15] MEDS ORDERED: POTASSIUM CL SA 10 MEQ TAB PO ONE (12:01)
--- NOTE | 2020-12-15 12:36 | P.PN ---
Subjective Date of Service: 12/15/20 Primary Care Provider: Pavithra Chief Complaint: Hyperosmolar non ketotic acidosis Subjective: Improving Review of Systems 10-point ROS is otherwise unremarkable Physical Examination - Vital Signs Temperature: 97.2 F Blood Pressure: 111/53 Pulse: 66 Respirations: 20 Pulse Ox (%): 96 - Physical Exam General: Alert, In no apparent distress HEENT: Atraumatic, PERRLA, EOMI Neck: Supple, JVD not distended Respiratory: Clear to auscultation bilaterally, Normal air movement Cardiovascular: Regular rate/rhythm, Normal S1 S2 Gastrointestinal: Normal bowel sounds, No tenderness Musculoskeletal: No tenderness Integumentary: No rashes Neurological: Normal speech, Normal tone, Normal affect Lymphatics: No axilla or inguinal lymphadenopathy - Studies Laboratory Data (last 24 hrs) 12/15/20 05:37: Sodium 141, Potassium 3.2 L, BUN 12, Creatinine 0.71, Glucose 201 H, Total Bilirubin 0.6, AST 32, ALT 80 H, Alkaline Phosphatase 107, Triglycerides 135, Cholesterol 169, HDL Cholesterol 51, Cholesterol/HDL Ratio 3.31 12/15/20 05:37: WBC 5.90, Hgb 13.7, Hct 40.6, Plt Count 304 12/15/20 05:00: Triglycerides Cancelled, Cholesterol Cancelled, HDL Cholesterol Cancelled, Cholesterol/HDL Ratio Cancelled 12/14/20 20:18: Sodium 138, Potassium 3.4 L, BUN 13, Creatinine 0.85, Glucose 355 H, Total Bilirubin 0.5, AST 38 H, ALT 93 H, Alkaline Phosphatase 142 H Assessment & Plan - Problems (Diagnosis) (1) Hyperosmolar non-ketotic state due to type 2 diabetes mellitus Current Visit: Yes Status: Acute Plan: Will start the patient on fluids and antibiotics. Will need to control her sleep apnea. Will work on her compliance. Would also like to reduce her need for prednisone. 12/15 Sugars are much better controlled. Will stop lantus and start the patient on metformin in the morning. (2) Obstructive sleep apnea Onset Date: 10/20/16 Current Visit: No Status: Acute Plan: Have asked the patient to bring her home bipap. Otherwise we can start using a bipap at 5/15. 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 Will need to work on intermission coordinator weaning . She is on a very high dose of diazepam. She may have seizures with abrupt withdrawal. Will need to treat her ptst as well. She has a history of one overdose on her meds Weather or not this was a suicide attempt or not is unclear as the patient does not recall. 2.24 Patient is doing well. She is stating she did not take the the diazepam tid. However she has been filling it regularly. Will keep her in house as diazepam has a long half life. Am worried about withdrawal and seizure. (4) PTSD (post-traumatic stress disorder) Current Visit: Yes Status: Chronic Plan: Will start the patient on buproprion. She has a fear of antidepressants. Have discussed that she is more at risk of overdose with benzodiazepam (5) GERD (gastroesophageal reflux disease) Current Visit: No Status: Chronic Plan: start the patient on protonix. She has been treated with creon. This has not been decreasing her symptoms 2.24 continue cpap and protonix Qualifiers: Esophagitis presence: esophagitis presence not specified Qualified Code(s): K21.9 - Gastro-esophageal reflux disease without esophagitis (6) Hypertension Current Visit: No Status: Chronic Plan: stable on losartan Qualifiers: Hypertension type: essential hypertension Qualified Code(s): I10 - Essential (primary) hypertension (7) Hypothyroidism Onset Date: 10/11/16 Current Visit: No Status: Chronic Plan: check her tsh. Continue levothyroxine Qualifiers: Hypothyroidism type: unspecified Qualified Code(s): E03.9 - Hypothyroidism, unspecified Discharge Plan: Home Plan to discharge in: 24 Hours - Code Status/Comfort Care Code Status Assessed: No Code Status: Full Code Physician Review: Patient Assessed, Agree with Above Assessment and Plan Critical Care: No Time Spent Managing Pts Care (In Minutes): 25
[2020-12-15] MEDS ORDERED: ENOXAPARIN 40 MG/0.4 ML SQ SCH (17:00)
[2020-12-15] MEDS ORDERED: ATORVASTATIN 20 MG TAB PO SCH (21:00)
[2020-12-16] MEDS: INSULIN -REGULAR HUMAN 50 UNIT/0.5 ML ML SQ SCH ×3 (00:11→09:20)
[2020-12-16 05:57] LABS: Absolute Lymphocytes (CBC) 2.4 K/uL (0.7-4.9); Hematocrit 39.4 % (36.0-45.0); Lymphocytes % 44.9 % (15.3-44.8); MPV 7.5 fL (7.6-11.3); RBC Red Blood Cell Count 4.39 M/uL (3.86-4.86)
[2020-12-16] MEDS: LEVOTHYROXINE SOD 0.05 MG TABLET PO SCH (05:59)
[2020-12-16] MEDS: NA CHLORIDE 0.9% 1,000 ML IV SCH (06:01)
[2020-12-16 06:16] LABS: ALT/SGPT 79 U/L (12-78); AST/SGOT 41 U/L (15-37); Alkaline Phosphatase 105 U/L (45-117); BUN Blood Urea Nitrogen 7 mg/dL (7-18); Bicarbonate 25 mmol/L (21-32); Bilirubin Total 0.7 mg/dL (0.2-1.0); Glucose Level 192 mg/dL (74-106); Potassium 3.6 mmol/L (3.5-5.1); Protein, Total 6.4 g/dL (6.4-8.2); Sodium Level 141 mmol/L (136-145)
[2020-12-16] MEDS ORDERED: METFORMIN HCL 500 MG TAB PO SCH (08:00)
[2020-12-16 08:40] VITALS: TEMP 97.8
[2020-12-16] MEDS ORDERED: POTASSIUM 25 MEQ EFFERV TAB PO ONE (09:00)
[2020-12-16] MEDS: HOME MED 1 EA UNK (Tiotropium Bromide [Spiriva Respimat] 4 GM Mist.Inhal) IH SCH (09:00)
[2020-12-16] MEDS: FLUTICASONE 50MCG NASAL SPRAY NAS SCH (09:00)
[2020-12-16] MEDS: HOME MED 1 EA UNK (Mirabegron [Myrbetriq] 25 MG Tab.Er.24h) PO SCH (09:16)
[2020-12-16] MEDS: BUPROPION HCL XL 150 MG TAB PO SCH (09:17)
[2020-12-16] MEDS: HOME MED 1 EA UNK (Dapagliflozin Propanediol [Farxiga] 10 MG Tablet) PO SCH (09:17)
[2020-12-16] MEDS: chlordiazePOXIDE HCl 25 MG CAP PO SCH (09:18)
[2020-12-16] MEDS: PANTOPRAZOLE 40MG TABLET PO SCH (09:18)
[2020-12-16] MEDS: MONTELUKAST 10 MG TAB PO SCH (09:18)
[2020-12-16] MEDS: PROPRANOLOL HCL 60 MG SA CAP PO SCH (09:19)
[2020-12-16] MEDS: LOSARTAN POTASSIUM 50 MG TABLET PO SCH (09:19)
[2020-12-16 09:21] VITALS: BP 114/72
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
--- NOTE | 2020-12-17 14:13 | EKG ---
Test Date: 2020-12-16 Test Time: 06:44:39 Railway Switch Operator: RT-O MEASUREMENT RESULTS: Intervals: Rate: 49 NM: 160 QRSD: 100 QT: 394 QTc: 355 [place]: P: 20 NM: 160 QRS: -32 T: -11 INTERPRETIVE STATEMENTS: Marked sinus bradycardia Left axis deviation Possible Anterolateral infarct, age undetermined Abnormal ECG Compared to ECG 08/17/2020 00:09:01 Left-axis deviation now present Sinus tachycardia no longer present Incomplete right bundle-branch block no longer present Myocardial infarct finding still present Electronically Signed On 12-17-20 14:09:24 FILING AND POLISHING SUPERVISOR by Go George
== END 2020-12-16 10:45 | disposition home or self-care (01) ==
LOC: UNDOADMOB 19:02 → ERHOLD 19:02 → 2ND 19:51
PROVIDERS: ADMIT Internal Medicine; ATTEND Internal Medicine
DX: E11.00 Type 2 diabetes mellitus with hyperosmolarity without nonketotic hyperglycemic-hyperosmolar coma (NKHHC) (principal); G47.33 Obstructive sleep apnea (adult) (pediatric); F43.12 Post-traumatic stress disorder, chronic; K21.9 Gastro-esophageal reflux disease without esophagitis; I10 Essential (primary) hypertension; E03.9 Hypothyroidism, unspecified; J45.50 Severe persistent asthma, uncomplicated; E78.5 Hyperlipidemia, unspecified; J44.9 Chronic obstructive pulmonary disease, unspecified; F41.9 Anxiety disorder, unspecified; G47.00 Insomnia, unspecified; K76.0 Fatty (change of) liver, not elsewhere classified; F31.9 Bipolar disorder, unspecified; E66.9 Obesity, unspecified; Z68.41 Body mass index [BMI] 40.0-44.9, adult; Z79.899 Other long term (current) drug therapy; Z20.822 Contact with and (suspected) exposure to COVID-19; Z90.49 Acquired absence of other specified parts of digestive tract; Z87.19 Personal history of other diseases of the digestive system; Z91.410 Personal history of adult physical and sexual abuse; Z88.6 Allergy status to analgesic agent; Z88.8 Allergy status to other drugs, medicaments and biological substances; Z82.3 Family history of stroke; Z82.49 Family history of ischemic heart disease and other diseases of the circulatory system; Z84.1 Family history of disorders of kidney and ureter; Z83.3 Family history of diabetes mellitus; Z83.6 Family history of other diseases of the respiratory system; Z83.79 Family history of other diseases of the digestive system
CPT/HCPCS: 93005; 85025 ×2; 36415 ×3; 80061; 82947 ×10; 84443; 81003; 80053 ×3; U0003; J1650; J7030 ×4; G0379; G0378 ×3; J1815

== ENCOUNTER 2021-05-24 15:34 | Inpatient (IN) | payer OTHER ==
--- OUTSIDE RECORDS SUMMARY | 2021-05-24 15:37 | XMS REPORT | Continuity of Care Document ---
:1975 Author Organization [facility] t Address [address] [place] [address] [address]. In[address] [place] [address] Care Team Providers Name Role Phone Asked, Pcp Primary Care Physician Unavailable Torrey Andrew DO Attending Clinician William Armendariz DO Attending Clinician Puja SILVESTRE [...] Date Quantity Comments Source Sex Assigned At [birth year] [facility] 00:00:00 00:00:00 Smoking Status Start Date Stop Date Source Unknown if ever smoked [facility] Medications Ordered Filled Start Stop Current Ordering Indication Dosage Frequency Signature Comments Components Source Medication Medication Date Date Medication? Clinician (SIG) Name Name Creon Creramon Yes Ruddy not [facility] defined [...] Planned Date Details Comments Source Future Scheduled Test COVID-19 VACCINE (1) [facility] [code = COVID-19 VACCINE (1)] Future Scheduled Test Screening for [facility] malignant neoplasm of cervix (procedure) [code = 515653077] Future Scheduled Test INFLUENZA VACCINE [facility] [code = INFLUENZA VACCINE] Encounters Start End Encounter Admission Attending Care Care Encounter Source Date/Time Date/Time Type Type Clinicians Facility Department ID 2021-01-06 2021-01-06 Patient LILLIAN Andrew [id number] 00:00:00 00:00:00 Outreach [facility] [id number] [facility] [id number] [place] [id number] 2020-05-17 2020-05-17 [facility] [id number] [facility] 08:08:00 08:08:00 [facility] 2020-05-12 2020-05-12 [facility] [id number] [facility] 09:30:00 09:30:00 [facility] 2020-04-21 2020-04-21 [facility] [id number] [facility] [address] 13:07:00 13:07:00 [facility] 2020-04-13 2020-04-13 [facility] [id number] [facility] 16:42:00 16:42:00 [facility] 2020-04-12 2020-04-12 [facility] [id number] [facility] 16:00:00 16:00:00 [facility] 2020-04-05 2020-04-05 Emergency Marcello [facility] [id number] 16:37:35 19:01:00 Yesi Mehta [id number] [place] [id number] [place] [id number] 2020-04-05 2020-04-05 Outpatient [facility] [id number] [facility] [address] 14:31:00 14:31:00 [facility] Clinics 2020-03-29 2020-03-29 Outpatient Marcia Vang [id number] [address] 13:59:00 13:59:00 [facility] 2020-03-29 2020-03-29 Outpatient Marcia Kennedyt [id number] [address] 13:00:00 13:00:00 [facility] 2020-03-29 2020-03-29 Outpatient Marcia Kennedyt [id number] [facility] 08:30:00 08:30:00 [facility] 2019-11-30 2019-11-30 Case Puja [facility] [id number] 00:00:00 00:00:00 Management Titus Mehta [id number] [place] [id number] [facility] [phone] [address] 2019-11-28 2019-11-28 Office Puja MIKRYSTA [id number] 14:36:59 15:44:36 Visit Titus Mehta [id number] [place] [id number] [facility] [phone] nal [address] Building Results This patient has no known results.
[2021-05-24] MEDS ORDERED: FENTANYL CITR 100 MCG/2 ML ONE ×3 (18:33→21:33)
[2021-05-24] MEDS ORDERED: FAMOTIDINE 20 MG/2 ML VIAL IV ONE (18:34)
[2021-05-24] MEDS ORDERED: NA CHLORIDE 0.9% 1,000 ML ONE (18:34)
[2021-05-24] MEDS ORDERED: ONDANSETRON 4 MG/2 ML VIAL ONE (18:34)
[2021-05-24 18:35] LABS: Urine Blood Negative (Negative); Urine Glucose Negative (Negative); Urine Protein Trace (Negative); Urine Specific Gravity 1.025 (1.005-1.030)
[2021-05-24 19:19] LABS: Absolute Lymphocytes (CBC) 2.9 K/uL (0.7-4.9); Basophils % 1.3 % (0-1.3); Hematocrit 43.8 % (36.0-45.0); Lymphocytes % 40.8 % (15.3-44.8); MPV 6.5 fL (7.6-11.3); RBC Red Blood Cell Count 4.74 M/uL (3.86-4.86)
[2021-05-24 19:26] LABS: Protime INR 1.05
[2021-05-24 19:45] LABS: ALT/SGPT 110 U/L (12-78); AST/SGOT 101 U/L (15-37); Albumin 3.3 g/dL (3.4-5.0); Alkaline Phosphatase 111 U/L (45-117); BUN Blood Urea Nitrogen 8 mg/dL (7-18); Bicarbonate 27 mmol/L (21-32); Bilirubin Direct 0.1 mg/dL (0-0.2); Bilirubin Total 0.6 mg/dL (0.2-1.0); Glucose Level 91 mg/dL (74-106); Lipase 25 U/L (73-393); Magnesium 2.3 mg/dL (1.8-2.4); NT PRO-BNP 43 pg/mL (<125); Sodium Level 141 mmol/L (136-145); Troponin (Emerg Dept Use Only) < 0.02 ng/mL (0.0-0.045)
--- NOTE | 2021-05-24 20:28 | RAD REPORT ---
EXAM DESCRIPTION: CT - Abdomen Pelvis W Contrast - 05/24/2021 8:12 pm CLINICAL HISTORY: Abdominal pain COMPARISON: 2019 TECHNIQUE: Computed axial tomography of the abdomen pelvis was obtained. 100 cc Isovue-300 was admin istered intravenously. Oral contrast was not requested which limits evaluation of bowel. All CT scans are performed using dose optimization technique as appropriate and may include automated exposure control or mA/KV adjustment according to patient size. FINDINGS: Fatty liver Spleen, pancreas, adrenal and kidneys appear unremarkable. Umbilical hernia contains. The neck measures 14 millimeters. Diverticula stem from the colon. Moderate stranding adjacent to the sigmoid colon with a couple of ex traluminal air bubbles. No abscess IMPRESSION: Moderate sigmoid diverticulitis with contained microperforation.
--- NOTE | 2021-05-24 20:29 | RAD REPORT ---
EXAM DESCRIPTION: Anita Single View05/24/2021 6:15 pm CLINICAL HISTORY: Chest pain COMPARISON: 2019 FINDINGS: The lungs appear clear of acute infiltrate. The heart is normal size IMPRESSION: No acute abnormalities displayed
[2021-05-24 20:43] LABS: Urine Specific Gravity/Preg 1.025 (1.005-1.030)
--- NOTE | 2021-05-24 20:47 | EDPHYS ---
Physician Documentation [facility] [place] Name: Kelsy Gerber Age: 45 yrs Sex: Female : 1975 Arrival Date: 05/24/2021 Time: 15:35 Bed 25 Private MD: OMAR Physician Jaime Ospina HPI: 05/24 19:32 This 45 yrs old Female presents to ER via EMS with complaints of Abdominal montse Pain. 19:32 The patient presents with abdominal pain in the upper abdomen, in the lower abdomen, montse abdominal distention in the upper abdomen, in the lower abdomen. Onset: The symptoms/episode began/occurred 9 day(s) ago. The symptoms do not radiate. Associated signs and symptoms: none. The symptoms are described as constant, crampy, sharp. Modifying factors: The symptoms are alleviated by nothing, the symptoms are aggravated by food, movement, pressure. Severity of pain: At its worst the pain was moderate in the emergency department the pain is unchanged. The patient has not experienced similar symptoms in the past. Historical: - Allergies: 15:36 Aspirin; iw 15:36 Daypro; iw 15:36 Ibuprofen; iw 15:36 Ketorolac; iw 15:36 Morphine; iw 15:36 NSAIDS; iw - PMHx: 15:36 Asthma; Bipolar disorder; Diabetes - NIDDM; Hypertension; LEFT SIDED WEAKNESS; iw Hypothyroidism; fatty liver; migranes; Pancreatitis; TIA; - Immunization history:: Adult Immunizations up to date, Client reports receiving the 1st dose of the Covid vaccine, May 24, 2021. - Social history:: Smoking status: Patient denies any tobacco usage or history of. - Family history:: not pertinent. ROS: 19:32 Constitutional: Negative for fever, chills, and weight loss, Eyes: Negative for injury, montse pain, redness, and discharge, ENT: Negative for injury, pain, and discharge, Neck: Negative for injury, pain, and swelling, Cardiovascular: Negative for chest pain, palpitations, and edema, Respiratory: Negative for shortness of breath, cough, wheezing, and pleuritic chest pain, Back: Negative for injury and pain, : Negative for injury, bleeding, discharge, and swelling, MS/Extremity: Negative for injury and deformity, Skin: Negative for injury, rash, and discoloration, Neuro: Negative for headache, weakness, numbness, tingling, and seizure, Psych: Negative for depression, anxiety, suicide ideation, homicidal ideation, and hallucinations, Allergy/Immunology: Negative for hives, rash, and allergies, Endocrine: Negative for neck swelling, polydipsia, polyuria, polyphagia, and marked weight changes, Hematologic/Lymphatic: Negative for swollen nodes, abnormal bleeding, and unusual bruising. 19:32 Abdomen/GI: Positive for abdominal pain, abdominal cramps, abdominal distension, of the right upper quadrant, left upper quadrant, right lower quadrant and left lower quadrant. Exam: 19:32 Constitutional: This is a well developed, well nourished patient who is awake, alert, montse and in no acute distress. Head/Face: Normocephalic, atraumatic. Eyes: Pupils equal round and reactive to light, extra-ocular motions intact. Lids and lashes normal. Conjunctiva and sclera are non-icteric and not injected. Cornea within normal limits. Periorbital areas with no swelling, redness, or edema. ENT: Nares patent. No nasal discharge, no septal abnormalities noted. Tympanic membranes are normal and external auditory canals are clear. Oropharynx with no redness, swelling, or masses, exudates, or evidence of obstruction, uvula midline. Mucous membranes moist. Neck: Trachea midline, no thyromegaly or masses palpated, and no cervical lymphadenopathy. Supple, full range of motion without nuchal rigidity, or vertebral point tenderness. No Meningismus. Chest/axilla: Normal chest wall appearance and motion. Nontender with no deformity. No lesions are appreciated. Cardiovascular: Regular rate and rhythm with a normal S1 and S2. No gallops, murmurs, or rubs. Normal PMI, no JVD. No pulse deficits. Respiratory: Lungs have equal breath sounds bilaterally, clear to auscultation and percussion. No rales, rhonchi or wheezes noted. No increased work of breathing, no retractions or nasal flaring. Back: No spinal tenderness. No costovertebral tenderness. Full range of motion. Skin: Warm, dry with normal turgor. Normal color with no rashes, no lesions, and no evidence of cellulitis. MS/ Extremity: Pulses equal, no cyanosis. Neurovascular intact. Full, normal range of motion. Neuro: Awake and alert, GCS 15, oriented to person, place, time, and situation. Cranial nerves II-XII grossly intact. Motor strength 5/5 in all extremities. Sensory grossly intact. Cerebellar exam normal. Normal gait. Psych: Awake, alert, with orientation to person, place and time. Behavior, mood, and affect are within normal limits. 19:32 ECG was reviewed by the Attending Physician. 19:32 Abdomen/GI: Inspection: distension, that is moderate, Bowel sounds: active, Palpation: moderate abdominal tenderness, in the right upper quadrant, left upper quadrant, right lower quadrant and left lower quadrant, Liver: no appreciated palpable abnormalities, Hernia: not appreciated. Vital Signs: 18:51 BP 113 / 68; Pulse 67; Resp 13; Pulse Ox 98% on R/A; ld1 20:38 BP 114 / 50; Pulse 55; Resp 18; Pulse Ox 100% ; ld1 MDM: 17:44 Patient medically screened. montse 19:36 Differential diagnosis: appendicitis, bowel obstruction, diverticulitis, gastritis, montse non-specific abd pain, pancreatitis, Peptic Ulcer Disease, Perf. Duodenal Ulcer, Peritonitis. Data reviewed: vital signs, nurses notes, lab test result(s), EKG, radiologic studies, CT scan, plain films. 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 Test interpretation: by ED physician or midlevel provider: ECG, plain radiologic studies. Counseling: I had a detailed discussion with the patient and/or guardian regarding: the historical points, exam findings, and any diagnostic results supporting the discharge/admit diagnosis, lab results, radiology results. 19:38 ED course: DENNIS OLMEDO TO CHECK LABS, CT ABD DISPO APPROPRIATELY. montse 20:30 Physician consultation: Nnamdi Arshad MD regarding admission, patient's condition, and pm1 will see patient in ED, shortly, would like consultation with Dr. Phillip, would like medications started, d5 1/2 NS, NPO. 20:43 Physician consultation: Joshua Phillip MD regarding consult, patient's condition, and will pm1 see patient tomorrow. 05/24 17:46 Order name: Basic Metabolic Panel [facility] 05/24 17:46 Order name: CBC with Diff; Complete Time: 19:25 [facility] 05/24 17:46 Order name: LFT's [facility] 05/24 17:46 Order name: Magnesium montse 05/24 17:46 Order name: NT PRO-BNP; Complete Time: 19:50 montse 05/24 17:46 Order name: PT-INR; Complete Time: 19:42 montse 05/24 17:46 Order name: Troponin (emerg Dept Use Only); Complete Time: 19:50 montse 05/24 17:46 Order name: Lipase; Complete Time: 19:50 montse 05/24 17:47 Order name: Basic Metabolic Panel; Complete Time: 19:50 EDMS 05/24 17:47 Order name: Liver (Hepatic) Function; Complete Time: 19:50 EDMS 05/24 17:47 Order name: Magnesium; Complete Time: 19:50 EDMS 05/24 18:34 Order name: Urine Dipstick-Ancillary; Complete Time: 19:25 EDMS 05/24 19:38 Order name: Test, Serum [facility] 05/24 17:46 Order name: XRAY Chest (1 view); Complete Time: 20:30 montse 05/24 17:46 Order name: CT Abd/Pelvis - IV Contrast Only; Complete Time: 20:30 montse 05/24 19:53 Order name: Urine --Ancillary (enter results); Complete Time: 20:46 em 05/24 20:27 Order name: SARS-COV-2 RT PCR; Complete Time: 20:30 EDMS 05/24 21:09 Order name: CBC with Automated Diff EDMS / 21:09 Order name: CBC with Automated Diff EDMS 05/24 21:09 Order name: CBC with Automated Diff EDMS 05/24 21:09 Order name: CBC with Automated Diff EDMS 05/24 21:09 Order name: Comprehensive Metabolic Panel EDMS 05/24 21:09 Order name: Comprehensive Metabolic Panel EDMS 05/24 21:09 Order name: Comprehensive Metabolic Panel EDMS 05/24 21:09 Order name: Comprehensive Metabolic Panel EDMS 05/24 21:09 Order name: C.difficile GDH Ag EDMS 05/25 15:42 Order name: Glucose, Ancillary Testing EDMS 05/24 17:46 Order name: EKG; Complete Time: 17:47 montse 05/24 17:46 Order name: Cardiac monitoring; Complete Time: 18:07 montse 05/24 17:46 Order name: EKG - Nurse/Tech; Complete Time: 18:34 montse 08/03 17:46 Order name: IV Saline Lock; Complete Time: 18:07 montse 05/24 17:46 Order name: Labs collected and sent; Complete Time: 19:02 montse 05/24 17:46 Order name: O2 Per Protocol; Complete Time: 18:07 montse 05/24 17:46 Order name: O2 Sat Monitoring; Complete Time: 18:07 montse 05/24 17:46 Order name: Urine Dipstick-Ancillary (obtain specimen); Complete Time: 18:34 montse 05/24 18:49 Order name: Labs - recollect needed: recollect labs; Complete Time: 19:01 bd 05/24 19:38 Order name: Urine Test (obtain specimen); Complete Time: 19:53 montse 05/24 20:42 Order name: NPO; Complete Time: 21:04 pm1 05/24 22:37 Order name: CONS Physician Consult EDMS EC:32 Rate is 67 beats/min. Rhythm is regular. QRS [place] is Normal. [place] interval is normal. QRS montse interval is normal. QT interval is normal. No Q waves. T waves are Normal. No ST changes noted. Clinical impression: Normal ECG and No evidence of ischemia. Interpreted by me. Reviewed by me. Administered Medications: 18:50 Drug: NS 0.9% 1000 ml Route: IV; Rate: 1 bolus; Site: left antecubital; ld1 18:50 Drug: Pepcid (famotidine) 20 mg Route: IVP; Site: left antecubital; ld1 18:50 Drug: Zofran (Ondansetron) 4 mg Route: IVP; Site: left antecubital; ld1 19:01 Drug: fentaNYL (PF) 50 mcg Route: IVP; Site: left antecubital; ld1 20:37 Drug: Flagyl (metroNIDAZOLE) 500 mg Volume: 100 ml; Route: IVPB; Rate: 200 ml/hr; ld1 Infused Over: 30 mins; Site: left antecubital; 20:37 Drug: fentaNYL (PF) 25 mcg Route: IVP; Site: left antecubital; ld1 21:08 Drug: Cipro (ciprofloxacin) 400 mg Volume: 200 ml; Route: IVPB; Infused Over: 60 mins; ld1 Site: left antecubital; 21:16 Drug: fentaNYL (PF) 50 mcg Route: IVP; Site: left antecubital; ld1 21:16 Drug: D5-1/2 NS 1000 ml Route: IV; Rate: 100 ml/hr; Site: left antecubital; ld1 Disposition: 05/26 07:31 Co-signature as Attending Physician, Jaime Ospina MD I agree with the assessment and montse plan of care. Disposition Summary: 05/24/21 20:46 Hospitalization Ordered Hospitalization Status: Inpatient Admission pm1 Provider: Nnamdi Arshad pmAnirudh Condition: Stable pm1 Problem: new pm1 Symptoms: have improved pm1 Bed/Room Type: Standard pm1 Location: Telemetry/MedSurg (Inpatient)(05/25/21 13:47) Room Assignment: [facility](05/25/21 13:47) Diagnosis - Diverticulitis of large intestine with perforation and without abscess pm1 Forms: - Medication Reconciliation Form pm1 - SBAR form pm1 Signatures: Dispatcher [employer] EDMS Jennifer Rosales Corey, MD MD cha Williams, Irene, ELIZ WELLINGTON Yasmine Sarmiento RN RN Patrick Silvestre, BASEBALL PITCHER-C BASEBALL PITCHER-Cla1 Dennis Olmedo, DRUM TENDER DRUM TENDER pm1 Yoko Jackson RN RN ld1 Corrections: (The following items were deleted from the chart) 05/24 19:08 17:47 CORONAVIRUS+Z ordered. EDAZ EDMS 21:04 20:46 Telemetry/MedSurg (Inpatient) pm1 la1 21:04 20:46 pm1 la1 05/25 13:47 05/24 21:04 [facility] ER HOLD la1 ss 05/25 13:47 05/24 21:04 ERHOLD- la1 ss
--- NOTE | 2021-05-24 20:47 | ER ---
Nurse's Notes [facility] Name: Kelsy Gerber Age: 45 yrs Sex: Female : 1975 Arrival Date: 05/24/2021 Time: 15:35 Bed 25 Private MD: Diagnosis: Diverticulitis of large intestine with perforation and without abscess Presentation: 05/24 15:35 Chief complaint: EMS states: was sent by Dr. Arshad for lower abd pain X 9 days, iw radiates to back, UA was normal at office [id number]. Coronavirus screen: At this time, the client does not indicate any symptoms associated with coronavirus-19. Ebola Screen: Patient negative for fever greater than or equal to 101.5 degrees Fahrenheit, and additional compatible Ebola Virus Disease symptoms Patient denies exposure to infectious person. Patient denies travel to an Ebola-affected area in the 21 days before illness onset. No symptoms or risks identified at this time. Initial Sepsis Screen: Does the patient meet any 2 criteria? No. Patient's initial sepsis screen is negative. Does the patient have a suspected source of infection? No. Patient's initial sepsis screen is negative. Risk Assessment: Do you want to hurt yourself or someone else? Patient reports no desire to harm self or others. Onset of symptoms was May 15, 2021. 15:35 Method Of Arrival: EMS: [facility] iw 15:35 Acuity: KELLEY 3 iw Historical: - Allergies: 15:36 Aspirin; iw 15:36 Daypro; iw 15:36 Ibuprofen; iw 15:36 Ketorolac; iw 15:36 Morphine; iw 15:36 NSAIDS; iw - PMHx: 15:36 Asthma; Bipolar disorder; Diabetes - NIDDM; Hypertension; LEFT SIDED WEAKNESS; iw Hypothyroidism; fatty liver; migranes; Pancreatitis; TIA; - Immunization history:: Adult Immunizations up to date, Client reports receiving the 1st dose of the Covid vaccine, May 24, 2021. - Social history:: Smoking status: Patient denies any tobacco usage or history of. - Family history:: not pertinent. Screenin:00 Abuse screen: Denies threats or abuse. Denies injuries from another. Nutritional ld1 screening: No deficits noted. Tuberculosis screening: No symptoms or risk factors identified. Fall Risk None identified. Assessment: 18:00 General: Appears in no apparent distress. uncomfortable, Behavior is calm, cooperative, ld1 appropriate for age. 18:00 Pain: Complains of pain in right lower quadrant and left lower quadrant Pain does not ld1 radiate. Pain currently is 8 out of 10 on a pain scale. Quality of pain is described as burning, Pain began 2-3 days ago. Is continuous. Neuro: Level of Consciousness is awake, alert, obeys commands, Oriented to person, place, time, situation. Cardiovascular: Capillary refill < 3 seconds Patient's skin is warm and dry. Rhythm is regular. Respiratory: Airway is patent Respiratory effort is even, unlabored, Respiratory pattern is regular, symmetrical. GI: Bowel sounds present X 4 quads. Abd is soft Abdomen is tender to palpation in right lower quadrant and left lower quadrant Reports lower abdominal pain. : No signs and/or symptoms were reported regarding the genitourinary system. EENT: No signs and/or symptoms were reported regarding the EENT system. Derm: No signs and/or symptoms reported regarding the dermatologic system. Musculoskeletal: No signs and/or symptoms reported regarding the musculoskeletal system. 20:38 Reassessment: Patient appears in no apparent distress at this time. Patient is alert, ld1 oriented x 3, equal unlabored respirations, skin warm/dry/pink. Vital Signs: 18:51 BP 113 / 68; Pulse 67; Resp 13; Pulse Ox 98% on R/A; ld1 20:38 BP 114 / 50; Pulse 55; Resp 18; Pulse Ox 100% ; ld1 ED Course: 15:35 Patient arrived in ED. iw 15:36 Triage completed. iw 17:43 Yoko Jackson, ELIZ is Primary Nurse. ld1 17:44 Jaime Ospina MD is Attending Physician. montse 17:45 Arm band placed on. iw 18:00 Patient has correct armband on for positive identification. Placed in gown. Bed in low ld1 position. Call light in reach. Side rails up X2. combat systems operator mine warfare on. Pulse ox on. NIBP on. Door closed. Noise minimized. Visitors limited. Warm blanket given. 18:00 No provider procedures requiring assistance completed. ld1 18:00 Missed attempt(s): 20 gauge in left antecubital area. ld1 18:15 XRAY Chest (1 view) In Process Unspecified. EDMS 20:10 Dennis Miles NP is PHCP. pm1 20:12 CT Abd/Pelvis - IV Contrast Only In Process Unspecified. EDMS 20:24 Test, Serum Sent. ld1 20:25 Urine --Ancillary (enter results) Sent. ld1 20:46 Nnamdi Arshad MD is Hospitalizing Provider. pm1 Administered Medications: 18:50 Drug: NS 0.9% 1000 ml Route: IV; Rate: 1 bolus; Site: left antecubital; ld1 18:50 Drug: Pepcid (famotidine) 20 mg Route: IVP; Site: left antecubital; ld1 18:50 Drug: Zofran (Ondansetron) 4 mg Route: IVP; Site: left antecubital; ld1 19:01 Drug: fentaNYL (PF) 50 mcg Route: IVP; Site: left antecubital; ld1 20:37 Drug: Flagyl (metroNIDAZOLE) 500 mg Volume: 100 ml; Route: IVPB; Rate: 200 ml/hr; ld1 Infused Over: 30 mins; Site: left antecubital; 20:37 Drug: fentaNYL (PF) 25 mcg Route: IVP; Site: left antecubital; ld1 21:08 Drug: Cipro (ciprofloxacin) 400 mg Volume: 200 ml; Route: IVPB; Infused Over: 60 mins; ld1 Site: left antecubital; 21:16 Drug: fentaNYL (PF) 50 mcg Route: IVP; Site: left antecubital; ld1 21:16 Drug: D5-1/2 NS 1000 ml Route: IV; Rate: 100 ml/hr; Site: left antecubital; ld1 Outcome: 20:46 Decision to Hospitalize by Provider. pm1 [id number] 15:44 Patient left the ED. ph Signatures: Dispatcher [employer] EDMS Jaime Ospina MD MD cha Williams, Irene, ELIZ WELLINGTON Ronel Grullon RN RN Dennis Miles NP FITNESS COORDINATOR pm1 Yoko Jackson RN RN ld1
[2021-05-24] MEDS ORDERED: CIPROFLOXACIN 400mg IV 400 MG/200 ML BAG IV ONE (20:50)
[2021-05-24] MEDS ORDERED: METRONIDAZOLE 500mg IVPB 500 MG/100 ML BAG IV ONE (20:50)
[2021-05-24] MEDS ORDERED: GLUCAGON 1 MG/VIAL IM PRN (21:06)
[2021-05-24] MEDS ORDERED: D50W 25 GM/50 ML SYRINGE IV PRN (21:06)
[2021-05-24] MEDS ORDERED: PIPER/TAZO/NS 4.5gm 4.5 GM/100 ML BAG IVPB ONE (21:07)
--- NOTE | 2021-05-24 21:16 | P.HP ---
Certification for Inpatient Patient admitted to: Inpatient With expected LOS: >2 Midnights Patient will require the following post-hospital care: None Practitioner: I am a practitioner with admitting privileges, knowledge of patient current condition, hospital course, and medical plan of care. Services: Services provided to patient in accordance with Admission requirements found in Title 42 Section 412.3 of the Code of Federal Regulations Patient History Date of Service: 05/24/21 Primary Care Provider: andrea Reason for admission: sigmoid diverticulitis History of Present Illness: Patient presented to the office with 9 days of abdominal pain. She was sent to the ER by ems. The patient was found to have sigmoid diverticulitis with some microperforations. Considering she was diaphoretic and tachycardic in the office seems like an appropriated admission. Allergies aspirin Allergy (Mild, Verified 09/05/20 03:17) Shortness of breath ibuprofen Allergy (Mild, Verified 09/05/20 03:17) Hives ketorolac Allergy (Mild, Verified 09/05/20 03:17) Shortness of breath morphine Allergy (Mild, Verified 09/05/20 03:17) Shortness of breath oxaprozin [From Daypro] Allergy (Mild, Verified 09/05/20 03:17) Shortness of breath NSAIDS (Non-Steroidal Anti-Inflamma Allergy (Verified 09/05/20 03:17) Hives tea Allergy (Uncoded 12/02/18 09:26) Hives Home Medications: Montelukast [Singulair*] 10 mg PO DAILY 09/02/14 Pantoprazole [Protonix Tab*] 40 mg PO DAILY 10/10/16 Albuterol Sulfate [Proair Hfa] 1 puff IH PRN PRN 10/11/16 Atorvastatin Calcium [Lipitor*] 20 mg PO BEDTIME 11/30/18 Fluticasone Propionate [Flonase Allergy Relief] 1 spray NS BID 12/08/19 Losartan Potassium 50 mg PO DAILY 12/08/19 Tiotropium Olar [Spiriva Respimat] 2 puff IH BID 12/08/19 Levothyroxine [Synthroid*] 50 mcg PO DAILY 09/05/20 Dapagliflozin Propanediol [Farxiga] 10 mg PO DAILY 12/14/20 Lipase/Protease/Amylase [[place] 12,000 Units Capsule] 48,000 units PO TID 12/14/20 Mirabegron [Myrbetriq] 25 mg PO DAILY 12/14/20 Prednisone [Sterapred Ds] 10 mg PO DAILY 12/14/20 Propranolol HCl [Propranolol HCl ER] 120 mg PO DAILY 12/14/20 Rimegepant Sulfate [Nurtec Odt] 75 mg PO DAILY 12/14/20 Escitalopram [Lexapro*] 10 mg PO DAILY 90 Days #90 tab 12/16/20 Metformin HCl [Glucophage*] 500 mg PO BIDWM 90 Days #180 tab 12/16/20 - Past Medical/Surgical History Diabetic: Yes -: Asthma -: Bipolar -: Fatty liver -: RON -: DM-Type 2- states no longer diabetic -: Insomnia -: Hypothyroidism -: COPD -: Obesity -: History of pancreatitis -: anxiety -: back problems -: hysterectomy -: gall bladder removal -: skin graft Lt upper thigh Psychosocial/ Personal History: She is with 2 children. She lives with a daughter. - Family History Brother -: Stroke, Kidney disease Mother -: Hypertension, Diabetes, Stroke, Other (see notes) Notes: Alzheimer's/dementia Father -: Heart disease, Hypertension, Lung disease, GI disease, Diabetes Notes: absestos - Social History Alcohol use: Yes CD- Drugs: No Caffeine use: Yes Review of Systems 10-point ROS is otherwise unremarkable Gastrointestinal: Nausea, Vomiting, Abdominal Pain, Diarrhea Physical Examination - Physical Exam General: Alert, In no apparent distress HEENT: Atraumatic, PERRLA, Mucous membr. moist/pink, EOMI, Sclerae nonicteric Neck: Supple, 2+ carotid pulse no bruit, No LAD, Without JVD or thyroid abnormality Respiratory: Clear to auscultation bilaterally, Normal air movement Cardiovascular: Regular rate/rhythm, Normal S1 S2 Gastrointestinal: Normal bowel sounds, Tenderness, Guarding Musculoskeletal: No tenderness Integumentary: No rashes Neurological: Normal gait, Normal speech, Normal strength at 5/5 x4 extr, Normal tone, Normal affect Lymphatics: No axilla or inguinal lymphadenopathy - Studies Laboratory Data (last 24 hrs) 05/24/21 19:00: PT 12.1, INR 1.05 05/24/21 19:00: WBC 7.00, Hgb 15.0, Hct 43.8, Plt Count 390 05/24/21 19:00: Sodium 141, Potassium 4.0, BUN 8, Creatinine 0.76, Glucose 91, Magnesium 2.3, Total Bilirubin 0.6, AST 101 H, ALT 110 H, Alkaline Phosphatase 111, Lipase 25 L Assessment and Plan - Problems (Diagnosis) (1) Sigmoid diverticulitis Current Visit: Yes Status: Acute Plan: will start her on zosyn. consult to Dr. Phillip (2) Hypothyroidism Current Visit: Yes Status: Suspected Plan: will continue her home medications. Will check a tsh in the morning Qualifiers: Hypothyroidism type: unspecified Qualified Code(s): E03.9 - Hypothyroidism, unspecified (3) Diabetes mellitus type II, non insulin dependent Onset Date: 09/28/15 Current Visit: No Status: Chronic Plan: hold her medications. Will keep her npo. Start a sliding scale on the patent. Will keep her on d51/2 N saline for now. If she continues to go up we can switch her to N saline. Discharge Plan: Home Plan to discharge in: 24 Hours - Advance Directives Does patient have a Living Will: No Does patient have a Durable POA for Healthcare: No - Code Status/Comfort Care Code Status Assessed: No Code Status: Full Code Physician Review: Patient Assessed, Agree with Above Assessment and Plan Critical Care: No Time Spent Managing Pts Care (In Minutes): 75
[2021-05-24] MEDS ORDERED: D5 0.45 NS 1,000 ML IV ONE (21:33)
[2021-05-24 23:03] VITALS: BMI 40.6
[2021-05-24] MEDS: D5 0.45 NS 1,000 ML IV SCH (23:04)
[2021-05-24] MEDS: HYDROMORPHONE HCL 2 MG/ML inj IV PRN (23:28)
[2021-05-24] MEDS ORDERED: PIPERACIL/TAZO 4.5 GM VIAL IV ONE (23:46)
[2021-05-24] MEDS ORDERED: NA CHLORIDE 0.9% 100 ML ONE (23:46)
[2021-05-24] MEDS ORDERED: HYDROMORPHONE HCL 2 MG/ML inj ONE (23:46)
[2021-05-25] MEDS: HYDROMORPHONE HCL 2 MG/ML inj IV PRN ×3 (05:07→18:12)
[2021-05-25] MEDS: LEVOTHYROXINE SOD 0.05 MG TABLET PO SCH (05:07)
[2021-05-25 05:16] LABS: Absolute Lymphocytes (CBC) 1.4 K/uL (0.7-4.9); Basophils % 0.8 % (0-1.3); Hematocrit 40.4 % (36.0-45.0); Lymphocytes % 26.2 % (15.3-44.8); MPV 6.4 fL (7.6-11.3); RBC Red Blood Cell Count 4.35 M/uL (3.86-4.86)
[2021-05-25] MEDS ORDERED: HYDROMORPHONE HCL 2 MG/ML inj ONE ×2 (05:26→11:40)
[2021-05-25 05:39] LABS: Albumin 2.9 g/dL (3.4-5.0); Bilirubin Total 0.9 mg/dL (0.2-1.0); Potassium 3.7 mmol/L (3.5-5.1); Protein, Total 7.1 g/dL (6.4-8.2)
[2021-05-25] MEDS: INSULIN -REGULAR HUMAN 50 UNIT/0.5 ML ML SQ SCH ×4 (07:30→21:00)
--- NOTE | 2021-05-25 07:41 | EKG ---
Test Date: 2021-05-24 Test Time: 18:28:42 Hotel Maintenance Worker: JESSICA MEASUREMENT RESULTS: Intervals: Rate: 67 IL: 154 QRSD: 88 QT: 416 QTc: 439 [place]: P: 22 IL: 154 QRS: -79 T: -16 INTERPRETIVE STATEMENTS: Normal sinus rhythm Left anterior fascicular block Possible Anterolateral infarct, age undetermined Abnormal ECG Compared to ECG 12/16/2020 06:44:39 Left anterior fascicular block now present Sinus bradycardia no longer present Left-axis deviation no longer present Myocardial infarct finding still present Electronically Signed On 05-25-21 07:39:49 CDT by Go George
--- NOTE | 2021-05-25 07:45 | P.PN ---
Subjective Date of Service: 05/25/21 Primary Care Provider: andrea Chief Complaint: sigmoid diverticulitis Subjective: Improving Review of Systems 10-point ROS is otherwise unremarkable Gastrointestinal: Nausea, Abdominal Pain Physical Examination - Vital Signs Temperature: 97 F Blood Pressure: 101/62 Pulse: 55 Respirations: 15 Pulse Ox (%): 100 - Physical Exam General: Alert, In no apparent distress HEENT: Atraumatic, PERRLA, EOMI Neck: Supple, JVD not distended Respiratory: Clear to auscultation bilaterally, Normal air movement Cardiovascular: Regular rate/rhythm, Normal S1 S2 Gastrointestinal: Normal bowel sounds, No tenderness Musculoskeletal: No tenderness Integumentary: No rashes Neurological: Normal speech, Normal tone, Normal affect Lymphatics: No axilla or inguinal lymphadenopathy - Studies Laboratory Data (last 24 hrs) 05/24/21 19:00: PT 12.1, INR 1.05 05/24/21 19:00: WBC 7.00, Hgb 15.0, Hct 43.8, Plt Count 390 05/24/21 19:00: Sodium 141, Potassium 4.0, BUN 8, Creatinine 0.76, Glucose 91, Magnesium 2.3, Total Bilirubin 0.6, AST 101 H, ALT 110 H, Alkaline Phosphatase 111, Lipase 25 L Assessment & Plan - Problems (Diagnosis) (1) Sigmoid diverticulitis Current Visit: Yes Status: Acute Plan: will start her on zosyn. consult to Dr. Phillip 05/25/21 Patient improving. Will continue fluids, antibiotics and bowel rest. Will keep her npo today. Possible starting a clear liquid diet tomorrow. (2) Hypothyroidism Current Visit: Yes Status: Suspected Plan: will continue her home medications. Will check a tsh in the morning Qualifiers: Hypothyroidism type: unspecified Qualified Code(s): E03.9 - Hypothyroidism, unspecified (3) Diabetes mellitus type II, non insulin dependent Onset Date: 09/28/15 Current Visit: No Status: Chronic Plan: hold her medications. Will keep her npo. Start a sliding scale on the patent. Will keep her on d51/2 N saline for now. If she continues to go up we can switch her to N saline. Discharge Plan: Home Plan to discharge in: Greater than 2 days - Code Status/Comfort Care Code Status Assessed: No Physician Review: Patient Assessed, Agree with Above Assessment and Plan Critical Care: No Time Spent Managing Pts Care (In Minutes): 20
[2021-05-25] MEDS: D5 0.45 NS 1,000 ML IV SCH ×2 (08:00→17:22)
[2021-05-25] MEDS ORDERED: ONDANSETRON 4 MG/2 ML VIAL ONE (08:32)
[2021-05-25] MEDS ORDERED: PIPER/TAZO/NS 3.375gm 3.375 GM/100 ML BAG IV SCH (09:00)
[2021-05-25] MEDS: ESCITALOPRAM 20 MG TAB PO SCH (09:00)
[2021-05-25] MEDS: PIPER/TAZO/NS 3.375gm 3.375 GM/100 ML BAG IV SCH ×2 (09:00→18:12)
[2021-05-25] MEDS ORDERED: D5 0.45 NS 1,000 ML IV ONE (09:10)
--- NOTE | 2021-05-25 12:47 | CON ---
Date of Consultation: 05/25/2021 Brief History Of Present Illness: The patient is a 45-year-old female, who presented from Dr. Arshad with complaints of abdominal pain beginning in the suprapubic area approximately 9 days prior to her presentation to the office and to the emergency room. She stated that the pain got progressively wor se and as such, she was brought to the hospital by EMS. She states the pain radiated to bilateral fl ank areas from the suprapubic area. She has never had similar episodes before in the past. She has had a colonoscopy many years ago and cannot recall the details of which at this point. She had subje ctive fever, chills. No nausea. No vomiting. No change in bowel or bladder habits. Past Medical History: Significant for asthma, bipolar disorder, fatty steatotic liver, obstructive s leep apnea, diabetes, insomnia, hypothyroidism, COPD, obesity, pancreatitis, anxiety, back problems. Past Surgical History: Includes hysterectomy, cholecystectomy, skin graft to the left upper thigh. Social History: She is , has 2 children. Lives with a daughter. She denies smoking. She a dmits to alcohol usage recreationally. Denies any recreational drug use. Home Medications: Include Singulair, Protonix, ProAir, Lipitor, Flonase, losartan, Spiriva, Synthroi d, Farxiga, Creon, Myrbetriq, prednisone, propranolol, Neurotrack, Lexapro, Glucophage. Review of Systems: Ten-point review of systems other than HPI, denies. Allergies: TO ASPIRIN, IBUPROFEN, TORADOL, MORPHINE, DAYPRO, NSAIDS, TEA. Physical Examination: Vital Signs: At the time of my examination, blood pressure 101/62, heart rate 65, respiratory rate 1 6, temperature 97.0, oxygen saturation 100% on room air. General: She is awake, alert, and oriented. Psychiatric: She is appropriate. Conversive. HEENT: She is normocephalic. Sclerae anicteric. Mucous membranes are moist. Oropharynx is clear. Neck: Supple without JVD. Chest: Normal expansion and excursion. Cardiovascular: Regular rate and rhythm. Pulmonary: Clear to auscultation bilaterally. Abdomen: Obese with large pannus. She has suprapubic and left lower quadrant tenderness to palpatio n. No rebound. No guarding. No focal peritonitis. Extremities: No clubbing, cyanosis, or edema. Skin: Warm and dry. Laboratory Data: Revealed a white blood cell count of 5.4, hemoglobin 13.5, hematocrit 40.4, platele t count is 353, neutrophils were 64%. Her sodium 140, potassium 3.7, chloride 105, carbon dioxide 30 , BUN 8, creatinine 0.76, glucose 120. Magnesium was 2.3 on admission. Total bilirubin 0.9, AST 279 , ALT 189, alkaline phosphatase is 181, lipase is 25. She has had a hysterectomy, so no urine pregna ncy necessary. PT 12.1, INR 1.05. She had a UA, which showed trace protein only. COVID was negativ e. She had imaging performed, which included a CT of the abdomen and pelvis performed on 05/24/2021, officially read as moderate sigmoid diverticulitis with contained micro perforation, specifically um bilical hernia contents, neck measures 30 mm. She has diverticula stem from the colon. Moderate str anding adjacent to the sigmoid colon. A couple extraluminal air bubbles. No abscess. Assessment And Plan: This is a 45-year-old female, who comes in with signs and symptoms of acute div erticulitis with microperforation. 1.IV fluid hydration. 2.Antibiotic coverage. 3.Serial abdominal exams. 4.Continue medical management per Dr. Arshad. 5.I recommend discontinuation of steroids during her recovery from this. 6.I have discussed the need for outpatient elective colonoscopy after she completes treatment of thi s and is asymptomatic. I have explained the risks, benefits, and alternatives of the above stated plan. The patient agrees to proc eed as indicated. SD/VITALIY Voice ID: [id number] Report ID: [id number]
[2021-05-25] MEDS: ENOXAPARIN 40 MG/0.4 ML SQ SCH (17:22)
[2021-05-25] MEDS: ONDANSETRON 4 MG/2 ML VIAL IV PRN ×2 (18:35→23:18)
[2021-05-26] MEDS: HYDROMORPHONE HCL 2 MG/ML inj IV PRN ×4 (00:29→21:38)
[2021-05-26] MEDS: PIPER/TAZO/NS 3.375gm 3.375 GM/100 ML BAG IV SCH ×3 (00:30→16:18)
[2021-05-26] MEDS: ONDANSETRON 4 MG/2 ML VIAL IV PRN ×3 (04:25→16:17)
[2021-05-26] MEDS: D5 0.45 NS 1,000 ML IV SCH ×3 (04:28→18:06)
[2021-05-26] MEDS: LEVOTHYROXINE SOD 0.05 MG TABLET PO SCH (05:43)
[2021-05-26 06:26] LABS: Absolute Lymphocytes (CBC) 1.2 K/uL (0.7-4.9); Basophils % 0.9 % (0-1.3); Hematocrit 37.6 % (36.0-45.0); Lymphocytes % 27.3 % (15.3-44.8); MPV 6.2 fL (7.6-11.3); RBC Red Blood Cell Count 4.03 M/uL (3.86-4.86)
[2021-05-26 06:48] LABS: Bilirubin Total 1.2 mg/dL (0.2-1.0); Potassium 4.1 mmol/L (3.5-5.1); Protein, Total 7.1 g/dL (6.4-8.2)
[2021-05-26] MEDS: INSULIN -REGULAR HUMAN 50 UNIT/0.5 ML ML SQ SCH ×4 (07:30→21:00)
[2021-05-26] MEDS: ESCITALOPRAM 20 MG TAB PO SCH (08:32)
--- NOTE | 2021-05-26 08:46 | P.PN ---
Subjective Date of Service: 05/26/21 Primary Care Provider: andrea Chief Complaint: sigmoid diverticulitis Subjective: Improving (having a soft diet) Review of Systems 10-point ROS is otherwise unremarkable Gastrointestinal: Nausea Physical Examination - Vital Signs Temperature: 96.6 F Blood Pressure: 103/55 Pulse: 59 Respirations: 16 Pulse Ox (%): 94 - Physical Exam General: Alert, In no apparent distress HEENT: Atraumatic, PERRLA, EOMI Neck: Supple, JVD not distended Respiratory: Clear to auscultation bilaterally, Normal air movement Cardiovascular: Regular rate/rhythm, Normal S1 S2 Gastrointestinal: Normal bowel sounds, No tenderness Musculoskeletal: No tenderness Integumentary: No rashes Neurological: Normal speech, Normal tone, Normal affect Lymphatics: No axilla or inguinal lymphadenopathy Assessment & Plan - Problems (Diagnosis) (1) Sigmoid diverticulitis Current Visit: Yes Status: Acute Plan: will start her on zosyn. consult to Dr. Phillip 05/26 Patients pain has improved. has some nausea. Plan for an outpatient colonoscopy per Dr. Phillip's note. Will continue fluids and antibiotics Will be out of town for the rest of the week. The hospitalists will be planning the patients care. (2) Hypothyroidism Current Visit: Yes Status: Suspected Plan: will continue her home medications. Will check a tsh in the morning Qualifiers: Hypothyroidism type: unspecified Qualified Code(s): E03.9 - Hypothyroidism, unspecified (3) Diabetes mellitus type II, non insulin dependent Onset Date: 09/28/15 Current Visit: No Status: Chronic Plan: hold her medications. Will keep her npo. Start a sliding scale on the patent. Will keep her on d51/2 N saline for now. If she continues to go up we can switch her to N saline. Discharge Plan: Home Plan to discharge in: 24 Hours - Code Status/Comfort Care Code Status Assessed: No Physician Review: Patient Assessed, Agree with Above Assessment and Plan Critical Care: No Time Spent Managing Pts Care (In Minutes): 20
[2021-05-26] MEDS: ENOXAPARIN 40 MG/0.4 ML SQ SCH (16:17)
[2021-05-26] MEDS: ACETAMINOPHEN 500 MG TAB PO PRN (16:18)
[2021-05-26] MEDS ORDERED: DIAZEPAM 5 MG TABLET PO ONE (17:48)
--- NOTE | 2021-05-26 17:48 | P.CNS ---
Date of Consult: 05/26/21 PC: This patient called my office and requested that I see her as a hospital consultation. Dr. Phillip who had been following her kindly agreed and has asked me to take over her surgical management. HPC: This patient, who is well-known to me, presented to the hospital with severe lower abdominal pain for diagnosis and treatment. She had a 12-day history of pain prior to her admission. She describes it as a feeling of pressure in the lower portion of her abdomen, and is wracked every couple hours or so by strong hard pelvic pressure type pains. She has had minimal bowel movements, and is only occasionally passing gas. PSHx: Previous hysterectomy, gallbladder surgery, PMHx: History of asthma, fatty liver, pancreatitis in the past as well as diabetes type 2 Social Hx: States she is allergic to aspirin ibuprofen morphine Sys R: No cough, wheeze, shortness of breath. No chest pain or palpitations. Has been at home where she lives with her daughter. States she has been in relatively good health. O/E: Awake alert uncomfortable at the moment vital signs are stable HEENT: Nonicteric Chest: Chest movement equal bilaterally Abd: Patient has some considerable suprapubic tenderness today on examination. No true guarding or rebound [place]: Intact Data: Mildly elevated, CT scan reviewed, has some microperforations of the sigmoid colon, but no free fluid Impression: Acute diverticulitis with microperforation Plan: Keep on clear liquids for the moment. Continue IV fluids, patient is on appropriate antibiotics, will add on one 5 mg Valium tonight to help with colonic spasms.
[2021-05-26] MEDS ORDERED: MINERAL OIL 30 ML UCUP PO ONE (19:19)
[2021-05-27] MEDS ORDERED: MINERAL OIL 30 ML UCUP PO ONE
[2021-05-27] MEDS: ONDANSETRON 4 MG/2 ML VIAL IV PRN ×4 (00:02→22:03)
[2021-05-27] MEDS: PIPER/TAZO/NS 3.375gm 3.375 GM/100 ML BAG IV SCH ×3 (01:17→16:17)
[2021-05-27] MEDS: HYDROMORPHONE HCL 2 MG/ML inj IV PRN ×2 (02:14→09:47)
[2021-05-27] MEDS: ACETAMINOPHEN 500 MG TAB PO PRN (04:21)
[2021-05-27] MEDS: D5 0.45 NS 1,000 ML IV SCH ×4 (05:19→22:02)
[2021-05-27] MEDS: LEVOTHYROXINE SOD 0.05 MG TABLET PO SCH (05:19)
--- NOTE | 2021-05-27 06:12 | P.PN ---
Subjective Date of Service: 05/27/21 Primary Care Provider: Dr. Arshad Chief Complaint: sigmoid diverticulitis Subjective: Improving (Less pain noted. Still no bowel movement or passage of gas.) Physical Examination - Vital Signs Temperature: 97.9 F Blood Pressure: 98/54 Pulse: 65 Respirations: 16 Pulse Ox (%): 96 Assessment & Plan Discharge Plan: Home Plan to discharge in: 48 Hours Physician Review Additional Text: COVID: Negative CT abdomen: COMPARISON: 2019 TECHNIQUE: Computed axial tomography of the abdomen pelvis was obtained. 100 cc Isovue-300 was administered intravenously. Oral contrast was not requested which limits evaluation of bowel. All CT scans are performed using dose optimization technique as appropriate and may include automated exposure control or mA/KV adjustment according to patient size. FINDINGS: Fatty liver Spleen, pancreas, adrenal and kidneys appear unremarkable. Umbilical hernia contains. The neck measures 14 millimeters. Diverticula stem from the colon. Moderate stranding adjacent to the sigmoid colon with a couple of extraluminal air bubbles. No abscess IMPRESSION: Moderate sigmoid diverticulitis with contained microperforation. Physical exam: General: Alert, In no apparent distress HEENT: Atraumatic, PERRLA, EOMI Neck: Supple, JVD not distended Respiratory: Clear to auscultation bilaterally, Normal air movement Cardiovascular: Regular rate/rhythm, Normal S1 S2 Gastrointestinal: Normal bowel sounds, No tenderness Musculoskeletal: Mild tenderness to the left lower quadrant. No significant distention Integumentary: No rashes Neurological: Normal speech, Normal tone, Normal affect Lymphatics: No axilla or inguinal lymphadenopathy Impression: Moderate sigmoid diverticulitis with contained microperforation Hypertension Hypothyroidism GERD Diabetes mellitus type 2 insulin-dependent Depression with anxiety Plan: Moderate sigmoid diverticulitis with contained microperforation: New surgeon on boardDrJob Montez. Continue with full liquid diet. We will slowly advance diet as tolerated. Still no bowel movement or passage of stool. Patient given mineral oil yesterday. Encourage ambulation. Encourage incentive spirometer. Will monitor closely. No surgical intervention needed at this time. Continue IV antibiotic therapy. Discontinue IV pain medication. Continue with oral options. Anticipate continued improvement over the next 48 hours. Hypertension: Blood pressure stable off medication. Will monitor this closely. Hypothyroidism: Continue home medication GERD: Continue home medication Diabetes mellitus type 2 insulin-dependent: Continue sliding scale. Monitor Accu-Cheks. Depression with anxiety: Continue home medication. DVT prophylaxis: Lovenox CODE STATUS: Full code Advanced care [id number] minutes: Home at discharge Time Spent Managing Pts Care (In Minutes): 55
[2021-05-27 06:39] LABS: Absolute Lymphocytes (CBC) 1.7 K/uL (0.7-4.9); Basophils % 1.1 % (0-1.3); Hematocrit 35.8 % (36.0-45.0); Lymphocytes % 44.1 % (15.3-44.8); MPV 6.3 fL (7.6-11.3); RBC Red Blood Cell Count 3.86 M/uL (3.86-4.86)
[2021-05-27 07:06] LABS: Albumin 2.8 g/dL (3.4-5.0); Bilirubin Total 0.8 mg/dL (0.2-1.0); Potassium 3.4 mmol/L (3.5-5.1); Protein, Total 6.7 g/dL (6.4-8.2)
[2021-05-27] MEDS: INSULIN -REGULAR HUMAN 50 UNIT/0.5 ML ML SQ SCH ×4 (07:30→21:00)
[2021-05-27] MEDS: ESCITALOPRAM 20 MG TAB PO SCH (09:47)
--- NOTE | 2021-05-27 16:14 | P.PN ---
Date of Service: 05/27/21 S: Patient feels slightly better than yesterday. Has had some bowel movements, definitely middle lobe going through. O: Abdomen is softer, less tender today. A: Surgically patient appears to be improving, P: Encourage patient to ambulate, will repeat mineral tonight, possibly add some mag citrate. I believe that her situation is resolving, and she will most likely be discharged soon on oral medications.
[2021-05-27] MEDS: ENOXAPARIN 40 MG/0.4 ML SQ SCH (16:17)
[2021-05-27] MEDS: HYDROCODONE/APAP 7.5/325 MG TAB PO PRN ×2 (16:17→22:03)
[2021-05-28] MEDS: PIPER/TAZO/NS 3.375gm 3.375 GM/100 ML BAG IV SCH ×3 (01:47→16:55)
[2021-05-28] MEDS: LEVOTHYROXINE SOD 0.05 MG TABLET PO SCH (05:45)
[2021-05-28] MEDS: D5 0.45 NS 1,000 ML IV SCH ×2 (05:52→16:00)
--- NOTE | 2021-05-28 06:04 | P.PN ---
Subjective Date of Service: 05/28/21 Primary Care Provider: Dr. Arshad Chief Complaint: sigmoid diverticulitis Subjective: Other (Slow improvement noted. Some passage of gas but no stool yet. Pain seems to be well controlled) Physical Examination - Vital Signs Temperature: 98.2 F Blood Pressure: 114/58 Pulse: 60 Respirations: 18 Pulse Ox (%): 97 Assessment & Plan Discharge Plan: Home Plan to discharge in: 48 Hours Physician Review Additional Text: COVID: Negative CT abdomen: COMPARISON: 2019 TECHNIQUE: Computed axial tomography of the abdomen pelvis was obtained. 100 cc Isovue-300 was administered intravenously. Oral contrast was not requested which limits evaluation of bowel. All CT scans are performed using dose optimization technique as appropriate and may include automated exposure control or mA/KV adjustment according to patient size. FINDINGS: Fatty liver Spleen, pancreas, adrenal and kidneys appear unremarkable. Umbilical hernia contains. The neck measures 14 millimeters. Diverticula stem from the colon. Moderate stranding adjacent to the sigmoid colon with a couple of extraluminal air bubbles. No abscess IMPRESSION: Moderate sigmoid diverticulitis with contained microperforation. Physical exam: General: Alert, In no apparent distress HEENT: Atraumatic, PERRLA, EOMI Neck: Supple, JVD not distended Respiratory: Clear to auscultation bilaterally, Normal air movement Cardiovascular: Regular rate/rhythm, Normal S1 S2 Gastrointestinal: Normal bowel sounds, No tenderness Musculoskeletal: Mild tenderness to the left lower quadrant. No significant distention Integumentary: No rashes Neurological: Normal speech, Normal tone, Normal affect Lymphatics: No axilla or inguinal lymphadenopathy Impression: Moderate sigmoid diverticulitis with contained microperforation Hypertension Hypothyroidism GERD Diabetes mellitus type 2 insulin-dependent Depression with anxiety Plan: Moderate sigmoid diverticulitis with contained microperforation: Continue with ambulation, incentive spirometer. Some passage of gas noted. Still no bowel movement. Continue with surgery recommendation. Patient remains on full liquid diet. Will advance slowly. Will start simethicone to help with upper GI gas. Encourage ambulation. Continue IV antibiotic therapy. Pain medications adjusted. Hypertension: Blood pressure stable off medication. Will monitor this closely. Hypothyroidism: Continue home medication GERD: Continue home medication Diabetes mellitus type 2 insulin-dependent: Continue sliding scale. Monitor Accu-Cheks. Depression with anxiety: Continue home medication. DVT prophylaxis: Lovenox CODE STATUS: Full code Advanced care [id number] minutes: Home at discharge Time Spent Managing Pts Care (In Minutes): 55
[2021-05-28] MEDS: ONDANSETRON 4 MG/2 ML VIAL IV PRN (06:50)
[2021-05-28] MEDS: HYDROCODONE/APAP 7.5/325 MG TAB PO PRN ×2 (06:51→20:38)
[2021-05-28] MEDS: INSULIN -REGULAR HUMAN 50 UNIT/0.5 ML ML SQ SCH ×4 (07:30→20:39)
[2021-05-28 08:16] LABS: Absolute Lymphocytes (CBC) 1.2 K/uL (0.7-4.9); Basophils % 1.2 % (0-1.3); Hematocrit 40.7 % (36.0-45.0); Lymphocytes % 36.6 % (15.3-44.8); MPV 6.4 fL (7.6-11.3); RBC Red Blood Cell Count 4.38 M/uL (3.86-4.86)
[2021-05-28] MEDS: MONTELUKAST 10 MG TAB PO SCH (08:56)
[2021-05-28] MEDS: SIMETHICONE 80 MG TAB PO SCH ×3 (08:56→20:38)
[2021-05-28] MEDS: PANTOPRAZOLE 40MG TABLET PO SCH (08:56)
[2021-05-28] MEDS: ESCITALOPRAM 20 MG TAB PO SCH (08:57)
[2021-05-28 09:16] LABS: Albumin 3.1 g/dL (3.4-5.0); Bilirubin Total 0.6 mg/dL (0.2-1.0); Magnesium 2.4 mg/dL (1.8-2.4); Potassium 3.7 mmol/L (3.5-5.1); Protein, Total 7.4 g/dL (6.4-8.2)
[2021-05-28] MEDS: ENOXAPARIN 40 MG/0.4 ML SQ SCH (16:56)
[2021-05-29] MEDS: D5 0.45 NS 1,000 ML IV SCH ×2 (01:33→12:00)
[2021-05-29] MEDS: PIPER/TAZO/NS 3.375gm 3.375 GM/100 ML BAG IV SCH ×2 (01:33→09:00)
[2021-05-29] MEDS: TRAMADOL HCL 50 MG TAB PO PRN ×2 (01:37→10:24)
[2021-05-29] MEDS: LEVOTHYROXINE SOD 0.05 MG TABLET PO SCH (05:26)
--- NOTE | 2021-05-29 06:00 | P.PN ---
Subjective Date of Service: 05/29/21 Primary Care Provider: Dr. Arshad Chief Complaint: sigmoid diverticulitis Subjective: Improving (Patient had a bowel movement. Doing well. Tolerating diet.) Physical Examination - Vital Signs Temperature: 97.6 F Blood Pressure: 103/91 Pulse: 55 Respirations: 14 Pulse Ox (%): 95 Assessment & Plan Discharge Plan: Home Physician Review Additional Text: COVID: Negative CT abdomen: COMPARISON: 2019 TECHNIQUE: Computed axial tomography of the abdomen pelvis was obtained. 100 cc Isovue-300 was administered intravenously. Oral contrast was not requested which limits evaluation of bowel. All CT scans are performed using dose optimization technique as appropriate and may include automated exposure control or mA/KV adjustment according to patient size. FINDINGS: Fatty liver Spleen, pancreas, adrenal and kidneys appear unremarkable. Umbilical hernia contains. The neck measures 14 millimeters. Diverticula stem from the colon. Moderate stranding adjacent to the sigmoid colon with a couple of extraluminal air bubbles. No abscess IMPRESSION: Moderate sigmoid diverticulitis with contained microperforation. Physical exam: General: Alert, In no apparent distress HEENT: Atraumatic, PERRLA, EOMI Neck: Supple, JVD not distended Respiratory: Clear to auscultation bilaterally, Normal air movement Cardiovascular: Regular rate/rhythm, Normal S1 S2 Gastrointestinal: Normal bowel sounds, No tenderness Musculoskeletal: Mild tenderness to the left lower quadrant. No significant distention Integumentary: No rashes Neurological: Normal speech, Normal tone, Normal affect Lymphatics: No axilla or inguinal lymphadenopathy Impression: Moderate sigmoid diverticulitis with contained microperforation Hypertension Hypothyroidism GERD Diabetes mellitus type 2 insulin-dependent Depression with anxiety Plan: Moderate sigmoid diverticulitis with contained microperforation: Patient improved. Doing well. Patient had bowel movement. Tolerated soft diet. We will plan to discharge if okay with surgery. Hypertension: Blood pressure stable off medication. Will monitor this closely. Hypothyroidism: Continue home medication GERD: Continue home medication Diabetes mellitus type 2 insulin-dependent: Continue sliding scale. Monitor Accu-Cheks. Depression with anxiety: Continue home medication. DVT prophylaxis: Lovenox CODE STATUS: Full code Advanced care [id number] minutes: Home at discharge Time Spent Managing Pts Care (In Minutes): 55
[2021-05-29 06:51] LABS: Absolute Lymphocytes (CBC) 1.8 K/uL (0.7-4.9); Basophils % 0.3 % (0-1.3); Hematocrit 38.4 % (36.0-45.0); Lymphocytes % 48.1 % (15.3-44.8); MPV 6.3 fL (7.6-11.3); RBC Red Blood Cell Count 4.17 M/uL (3.86-4.86)
[2021-05-29 07:00] LABS: Bilirubin Total 0.6 mg/dL (0.2-1.0); Magnesium 2.2 mg/dL (1.8-2.4); Potassium 3.1 mmol/L (3.5-5.1); Protein, Total 6.9 g/dL (6.4-8.2)
[2021-05-29] MEDS: INSULIN -REGULAR HUMAN 50 UNIT/0.5 ML ML SQ SCH ×2 (07:30→11:30)
[2021-05-29] MEDS: SIMETHICONE 80 MG TAB PO SCH ×2 (10:25→13:41)
[2021-05-29] MEDS: PANTOPRAZOLE 40MG TABLET PO SCH (10:26)
[2021-05-29] MEDS: ESCITALOPRAM 20 MG TAB PO SCH (10:26)
[2021-05-29] MEDS: MONTELUKAST 10 MG TAB PO SCH (10:26)
[2021-05-29 10:32] VITALS: O2SAT 97
[2021-05-29 12:21] LABS: Platelet Estimate ADEQ
[2021-05-29 12:22] LABS: Blood Morphology Comment NOT SEEN (NOT SEEN)
[2021-05-29 13:56] VITALS: BP 103/91; TEMP 97.6
--- NOTE | 2021-05-29 13:58 | P.DS ---
Admission Date: 05/24/21 Discharge Date: 05/29/21 Primary Care Provider: Dr. Arshad Disposition: ROUTINE DISCHARGE Discharge Condition: GOOD Reason for Admission: sigmoid diverticulitis Consultations: Surgery-Dr. Phillip and Dr. Montez Procedures: COVID: Negative CT abdomen: COMPARISON: 2019 TECHNIQUE: Computed axial tomography of the abdomen pelvis was obtained. 100 cc Isovue-300 was administered intravenously. Oral contrast was not requested which limits evaluation of bowel. All CT scans are performed using dose optimization technique as appropriate and may include automated exposure control or mA/KV adjustment according to patient size. FINDINGS: Fatty liver Spleen, pancreas, adrenal and kidneys appear unremarkable. Umbilical hernia contains. The neck measures 14 millimeters. Diverticula stem from the colon. Moderate stranding adjacent to the sigmoid colon with a couple of extraluminal air bubbles. No abscess IMPRESSION: Moderate sigmoid diverticulitis with contained microperforation. Medical problem list Moderate sigmoid diverticulitis with contained microperforation Hypertension Hypothyroidism GERD Diabetes mellitus type 2 insulin-dependent Depression with anxiety Migraine headaches Elevated liver function may be related to hyperlipidemia medication Obesity, BMI 40.6 Brief History of Present Illness: 45-year-old female presented to the ER with abdominal pain. Patient had pain for several days. Patient found to have sigmoid diverticulitis with microperforation. Patient was admitted for treatment. Hospital Course: Patient presented with moderate sigmoid diverticulitis with contained microperforation. Patient is seen by PCP Dr. Arshad. I was helping him cover as he was on vacation. Patient did well in the course of his stay. Patient was seen by surgery. No surgical intervention was required. At discharge patient able to tolerate a GI soft diet. At discharge patient will continue with Cipro 500 mg 1 pill twice daily and Flagyl 500 mg 3 times a day for 10 days. Patient will be provided a limited supply of tramadol 50 mg 1 pill 3 times a day as needed for pain and simethicone 1 pill 3 times a day as needed for upper GI gas. The patient will follow up with surgery on Sunday. Patient will need to see GI in the near future for colonoscopy and further evaluation. Further recommendations will come from surgery. Recommend follow-up with PCP in 1 week to follow-up hospitalization. Patient with hypertension. Patient takes losartan 50 mg once daily at home. Blood pressures have been stable without medication. Recommend to discontinue losartan at this time. Recommend to monitor blood pressures daily. Recommend to maintain blood pressure less than 130/80. If blood pressures are elevated greater than 140/90 then medication may need to be reconsidered. This can be further addressed by her PCP. Patient with diabetes mellitus type 2 insulin-dependent. Overall stable. At discharge patient will continue with her medications including Toujeo 10 units subcu daily, zigduo 07/1000 mg 1 pill daily, Ozempic 1 shot once a week. Recommend to maintain blood sugar less than 140 fasting and less than 200 after meals. Recommend to recheck hemoglobin A1c every 3 months to monitor her progress. Further adjustment in medication may be required. This can be done with the help of her PCP. Recommend follow-up with PCP in 1 week to follow-up this hospitalization and continue her care. Patient with hypothyroidism. At discharge patient will continue with levothyroxine 50 mcg daily. Patient with hyperlipidemia. Patient takes Lipitor 20 g daily. LFTs were elevated. During the course of her stay this was held. Recommend to hold Lipitor at this time. Recommend to recheck fasting lipid panel and BMP in 1 to 2 weeks. If improved consider restarting Lipitor at a lower dose. This can be further addressed by her PCP. Lifestyle modification education provided. Patient with depression. At discharge she will continue with Lexapro 10 mg daily. Patient with GERD. At discharge she will continue with Protonix 40 mg daily. Patient with seasonal allergies. At discharge she may continue with Singulair 10 mg daily. Patient with chronic migraine headaches. Patient will continue with her medications Ubrelvy 10 mg daily as needed. Vital Signs/Physical Exam: Temp Pulse Resp BP Pulse Ox 97.6 F 55 14 103/91 H 95 05/29/21 13:56 05/29/21 13:56 05/29/21 13:56 05/29/21 13:56 05/29/21 13:56 General: Alert, In no apparent distress, Oriented x3, Cooperative HEENT: Atraumatic Neck: Supple Respiratory: Clear to auscultation bilaterally, Normal air movement Cardiovascular: Normal pulses, Regular rate/rhythm Gastrointestinal: Normal bowel sounds, No ascites, No tenderness, No masses, No rebound, No guarding Musculoskeletal: No erythema, No tenderness, No warmth Integumentary: No tenderness/swelling, No erythema, No warmth, No cyanosis Neurological: Normal speech, Normal strength at 5/5 x4 extr, Normal tone, Normal affect Laboratory Data at Discharge: WBC 3.80 K/uL (4.3-10.9) L 05/29/21 06:08 Hgb 13.3 g/dL (12.0-15.0) 05/29/21 06:08 Hct 38.4 % (36.0-45.0) 05/29/21 06:08 Plt Count 342 K/uL (152-406) 05/29/21 06:08 PT 12.1 SECONDS (9.5-12.5) 05/24/21 19:00 INR 1.05 05/24/21 19:00 Sodium 140 mmol/L (136-145) 05/29/21 06:08 Potassium 3.1 mmol/L (3.5-5.1) L 05/29/21 06:08 BUN 2 mg/dL (7-18) L 05/29/21 06:08 Creatinine 0.74 mg/dL (0.55-1.3) 05/29/21 06:08 Glucose 96 mg/dL (74-106) 05/29/21 06:08 Magnesium 2.2 mg/dL (1.8-2.4) 05/29/21 06:08 Total Bilirubin 0.6 mg/dL (0.2-1.0) 05/29/21 06:08 AST 49 U/L (15-37) H 05/29/21 06:08 ALT 159 U/L (12-78) H 05/29/21 06:08 Alkaline Phosphatase 148 U/L (45-117) H 05/29/21 06:08 Lipase 25 U/L (73-393) L 05/24/21 19:00 Home Medications: Biotin 2 tab PO DAILY 05/24/21 Cholecalciferol (Vitamin D3) [Vitamin D3] 1 tab PO DAILY 05/24/21 Dapagliflozin/Metformin HCl [Xigduo Xr 10 mg-1,000 mg Tab] 1 tab PO DAILY Escitalopram [Lexapro*] 10 mg PO DAILY 05/24/21 Insulin Glargine,Hum.rec.anlog [Toujeo Solostar] 10 units SQ DAILY 05/24/21 Levothyroxine [Synthroid*] 50 mcg PO [id number] 05/24/21 Mirabegron [Myrbetriq] 1 tab PO DAILY 05/24/21 Montelukast [Singulair*] 10 mg PO DAILY 05/24/21 Pantoprazole [Protonix Tab*] 40 mg PO DAILY 05/24/21 Semaglutide [Ozempic] 0.25 mcg SQ EVERY 7TH DAY 05/24/21 Ubrogepant [Ubrelvy] 100 mg PO DAILY PRN 05/24/21 Ciprofloxacin HCl [Cipro 500 MG Tablet] 500 mg PO BID #20 tab 05/29/21 Simethicone [Mylicon*] 80 mg PO TID PRN #30 tab 05/29/21 metroNIDAZOLE [Flagyl] 500 mg PO Q8H #30 tablet 05/29/21 traMADol HCL [Ultram*] 50 mg PO TID PRN #15 tab 05/29/21 New Medications: Ciprofloxacin HCl [Cipro 500 MG Tablet] 500 mg PO BID #20 tab metroNIDAZOLE [Flagyl] 500 mg PO Q8H #30 tablet Simethicone [Mylicon*] 80 mg PO TID PRN #30 tab PRN Reason: Abdominal Cramps traMADol HCL [Ultram*] 50 mg PO TID PRN #15 tab PRN Reason: Pain Scale 2-4 (Mild) Physician Discharge Instructions: Patient presented with moderate sigmoid diverticulitis with contained microperforation. Patient is seen by PCP Dr. Arshad. I was helping him cover as he was on vacation. Patient did well in the course of his stay. Patient was seen by surgery. No surgical intervention was required. At discharge patient able to tolerate a GI soft diet. At discharge patient will continue with Cipro 500 mg 1 pill twice daily and Flagyl 500 mg 3 times a day for 10 days. Patient will be provided a limited supply of tramadol 50 mg 1 pill 3 times a day as needed for pain and simethicone 1 pill 3 times a day as needed for upper GI gas. The patient will follow up with surgery on Sunday. Patient will need to see GI in the near future for colonoscopy and further evaluation. Further recommendations will come from surgery. Recommend follow-up with PCP in 1 week to follow-up hospitalization. Patient with hypertension. Patient takes losartan 50 mg once daily at home. Blood pressures have been stable without medication. Recommend to discontinue losartan at this time. Recommend to monitor blood pressures daily. Recommend to maintain blood pressure less than 130/80. If blood pressures are elevated greater than 140/90 then medication may need to be reconsidered. This can be further addressed by her PCP. Patient with diabetes mellitus type 2 insulin-dependent. Overall stable. At discharge patient will continue with her medications including Toujeo 10 units subcu daily, zigduo 07/1000 mg 1 pill daily, Ozempic 1 shot once a week. Recommend to maintain blood sugar less than 140 fasting and less than 200 after meals. Recommend to recheck hemoglobin A1c every 3 months to monitor her progress. Further adjustment in medication may be required. This can be done with the help of her PCP. Recommend follow-up with PCP in 1 week to follow-up this hospitalization and continue her care. Patient with hypothyroidism. At discharge patient will continue with levothyroxine 50 mcg daily. Patient with hyperlipidemia. Patient takes Lipitor 20 g daily. LFTs were elevated. During the course of her stay this was held. Recommend to hold Lipitor at this time. Recommend to recheck fasting lipid panel and BMP in 1 to 2 weeks. If improved consider restarting Lipitor at a lower dose. This can be further addressed by her PCP. Lifestyle modification education provided. Patient with depression. At discharge she will continue with Lexapro 10 mg daily. Patient with GERD. At discharge she will continue with Protonix 40 mg daily. Patient with seasonal allergies. At discharge she may continue with Singulair 10 mg daily. Patient with chronic migraine headaches. Patient will continue with her medications Ubrelvy 10 mg daily as needed. Diet: ADA (Soft GI) Activity: Ad robb Followup: Nnamdi Arshad MD [Primary Care Provider] - Time spent managing pt's care (in minutes): 55
== END 2021-05-29 15:30 | disposition home or self-care (01) | DRG 392 ==
LOC: ER 15:34 → ERHOLD 22:34 → 2ND 05-25 15:12
PROVIDERS: ADMIT Internal Medicine; ATTEND Internal Medicine
DX: K57.20 Diverticulitis of large intestine with perforation and abscess without bleeding (principal); Z68.41 Body mass index [BMI] 40.0-44.9, adult; E66.9 Obesity, unspecified; I10 Essential (primary) hypertension; E03.9 Hypothyroidism, unspecified; J44.9 Chronic obstructive pulmonary disease, unspecified; F41.8 Other specified anxiety disorders; G43.909 Migraine, unspecified, not intractable, without status migrainosus; K21.9 Gastro-esophageal reflux disease without esophagitis; J30.2 Other seasonal allergic rhinitis; E11.9 Type 2 diabetes mellitus without complications; E78.5 Hyperlipidemia, unspecified; T50.905A Adverse effect of unspecified drugs, medicaments and biological substances, initial encounter; R79.89 Other specified abnormal findings of blood chemistry; Z88.8 Allergy status to other drugs, medicaments and biological substances; Z88.5 Allergy status to narcotic agent; Z86.73 Personal history of transient ischemic attack (TIA), and cerebral infarction without residual deficits; Z91.018 Allergy to other foods; Z79.890 Hormone replacement therapy; Z79.4 Long term (current) use of insulin; Z79.52 Long term (current) use of systemic steroids; Z90.710 Acquired absence of both cervix and uterus; Z90.49 Acquired absence of other specified parts of digestive tract; Z79.899 Other long term (current) drug therapy; Z20.822 Contact with and (suspected) exposure to COVID-19
CPT/HCPCS: 36415; 71045; 74177; 80048; 80053; 80076; 81003; 81025; 82947; 83690; 83735; 83880; 84484; 85025; 85610; 93005; 94010; 96374; 96375; 97116; 97530; 99284; J0744; J1170; J1650; J2405; J2543; J3010; J7030; J7799; Q9967; U0003

== ENCOUNTER 2021-06-06 14:37 | Emergency (ER) | payer OTHER ==
--- OUTSIDE RECORDS SUMMARY | 2021-06-06 14:40 | XMS REPORT | Continuity of Care Document ---
:1975 Author Organization [facility] t Address [address] [place] [address] [address]. [address] [place] [address] Care Team Providers Name Role Phone Asked, [...] Comments Source Sex Assigned At [birth year] [facility] 00:00:00 00:00:00 Smoking Status Start Date Stop Date Source Unknown if ever smoked [facility] Medications Ordered Filled Start Stop Current Ordering [...] Source Future Scheduled Test COVID-19 VACCINE (1) [facility] [code = COVID-19 VACCINE (1)] Future Scheduled Test Screening for [facility] malignant neoplasm of cervix (procedure) [code = 750743494] Future Scheduled Test INFLUENZA VACCINE [facility] [code = INFLUENZA VACCINE] Future Scheduled Test COVID-19 VACCINE (1) [facility] [code = COVID-19 VACCINE (1)] Future Scheduled Test Screening for [facility] malignant neoplasm of cervix (procedure) [code = 296624864] Future Scheduled Test INFLUENZA VACCINE [facility] [code = INFLUENZA VACCINE] Encounters Start End Encounter Admission Attending Care Care Encounter Source Date/Time Date/Time Type Type Clinicians Facility Department ID 2021-01-06 2021-01-06 Patient LILLIAN Andrew [id number] 00:00:00 00:00:00 Outreach [facility] [id number] [facility] [id number] [place] [id number] 2020-05-17 2020-05-17 Outpatient Marcia Kennedyt [id number] [facility] [address] 08:08:00 08:08:00 [facility] Clin[facility] 2020-05-12 2020-05-12 [facility] [id number] [facility] [address] 09:30:00 09:30:00 [facility] 2020-04-21 2020-04-21 [facility] [id number] [facility] [address] 13:07:00 13:07:00 [facility] 2020-04-13 2020-04-13 [facility] [id number] [facility] [address] 16:42:00 16:42:00 [facility] 2020-04-12 2020-04-12 [facility] [id number] [facility] 16:00:00 16:00:00 [facility] 2020-04-05 2020-04-05 Emergency LILLIAN Armendariz [id number] 16:37:35 19:01:00 Yesi Mehta [id number] [place] [id number] [place] [id number] 2020-04-05 2020-04-05 [facility] [id number] [facility] [address] 14:31:00 14:31:00 [facility] Clinics 2020-03-29 2020-03-29 [facility] [id number] [facility] [address] 13:59:00 13:59:00 [facility] Clinics 2020-03-29 2020-03-29 [facility] [id number] [facility] [address] 13:00:00 13:00:00 [facility] Clinics 2020-03-29 2020-03-29 [facility] [id number] [facility] 08:30:00 08:30:00 [facility] 2019-11-30 2019-11-30 Case Puja [facility] [id number] 00:00:00 00:00:00 Management Titus Mehta [id number] [place] [id number] [facility] [id number] nal [address] Building 2019-11-28 2019-11-28 Office LILLIAN Luo [id number] 14:36:59 15:44:36 Visit Titus Mehta [id number] [place] [id number] [phone] [facility] Building Results This patient has no known results.
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
[2021-06-06 17:57] VITALS: BP 131/89; TEMP 96.5; O2SAT 100
== END 2021-06-06 17:21 | disposition home or self-care (01) ==
LOC: ER 14:37
DX: S00.80XA Unspecified superficial injury of other part of head, initial encounter (principal); M79.10 Myalgia, unspecified site; M54.2 Cervicalgia; Y04.2XXA Assault by strike against or bumped into by another person, initial encounter; Y92.009 Unspecified place in unspecified non-institutional (private) residence as the place of occurrence of the external cause; I10 Essential (primary) hypertension; Z88.5 Allergy status to narcotic agent; Z88.6 Allergy status to analgesic agent; Z88.8 Allergy status to other drugs, medicaments and biological substances
CPT/HCPCS: 70450; 72125; 70486; 70491; 76377; 71045; Q9967; 99283

== ENCOUNTER 2022-09-27 14:15 | Emergency (ER) | payer OTHER ==
--- OUTSIDE RECORDS SUMMARY | 2022-09-27 14:31 | XMS REPORT | Continuity of Care Document ---
:1975 Author Organization [facility] t Address [address] [place] [address] [address]. [address] [place] [address] Care Team Providers Name Role Phone Asked, No Pcp Primary Care Physician Unavailable Ryan Schulte Attending Clinician Unavailable Tony Andrew DO Attending Clinician Yesi Mckeon DO Attending Clinician YESI MCKEON Attending Clinician Unavailable AMIRA LUO Attending Clinician Unavailable AMIRA LUO Attending Clinician Unavailable ROBSON SIMMONS Attending Clinician Unavailable Amira Luo MD Attending Clinician Doctor Unassigned, [place] Attending Clinician Unavailable DAHLIA DIAZ Attending Clinician Unavailable AURELIANO BLUM Attending Clinician Unavailable YESI MCKEON Admitting Clinician Unavailable FAUZIA NULL Admitting Clinician Unavailable Payers Payer Name Policy Type Policy Number Effective Date Expiration Date S ource Problems Condition Condition Condition Status Onset Resolution Last Treating Co mments Source Name Details Category Date Date Treatment Clinician Date 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 and 11-28 it y of urge urge 00:00: [place] urinary urinary 00 Medical incontinen incontinen Br anch ce ce Personal Personal Disease Active Overview: Un arnulfo history of history of 2-11/28/2019 ity of cervical cervical 00:00: - pap [place] dysplasia dysplasia 00 smear of [place] dical vaginal Branch cuff normal with negative HPV Vulvar Vulvar Disease Active Univers boil boil 1-10 ity of 00:00: [place] 00 Medical Branch Morbid Morbid Disease Active 2020-0 Univers obesity obesity 1-10 it[place] of with body with body 00:[place] mass index mass index 00 Me dical of of Branch 40.0-49.9 40.0-49.9 Candidal Candidal Disease Active 2020-0 Unive rs vulvitis vulvitis 1-10 ity of 00:00: [place] 00 Medical Branch Primary Primary Problem Active 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 - [facility] left knee left knee [facility] Sprain of Sprain of Diagnosis Active C ommon other other Spirit ligament ligament - [facility] of left of left knee, knee, kes initial initial Medical encounter encounter Cent er Allergies, Adverse Reactions, Alerts Allergy Allergy Status Severity Reaction(s) Onset Inactive Treating Comm ents Source Name Type Date Date Clinician Ketorola Propensi Active Hives 2020-0 Univer s c ty to 6-15 ity of Trometha adverse 00:00: [place] mine reaction 00 Medical s Branch KETOROLA DRUG Active Hives 2020-0 Univers C INGREDI 6-15 ity of TROMETHA 00:00: [place] MINE 00 Medical Branch Morphine Propensi Active Hives 2020-0 Univer s ty to 1-08 ity of adverse 00:00: [place] reaction 00 Medical s Branch MORPHINE DRUG Active Hives 2020-0 Univers INGREDI 1-08 ity of 00:00: [place] 00 Medical Branch NSAIDS Drug Active Hives 2020-0 Univers (NON-GOMEZ Class 1-08 ity of ROIDAL 00:00: [place] ANTI-INF 00 Medical LAMMATOR Branch Y DRUG) Nsaids Propensi Active Hives 2020-0 Univers (Non-Gomez ty to 1-08 ity of roidal adverse 00:00: [place] Anti-Inf reaction 00 Medica l lammator s Branch y Drug) NSAIDS Adverse Active hives Common Reaction [facility] Toradol Adverse Active Info Not Common Reaction Available [facility] Ibuprofe Adverse Active Info Not Commo n n Reaction Available [facility] Aleve Adverse Active Info Not Common Reaction Available [facility] Advil Adverse Active Info Not Common Reaction Available [facility] Social History Social Habit Start Date Stop Date Quantity Comments Source Exposure to Not sure [facility] SARS-CoV-2 [facility] (event) [place] Tobacco use and 2020-04-05 2020-04-05 Never used Universit y of exposure 00:00:00 00:00:00 [facility] [place] [facility] Alcohol intake 2020-04-05 2020-04-05 Current drinker Unive rsity of 00:00:00 00:00:00 of alcohol [facility] (finding) [place] Alcohol Comment 2019-10-31 2019-10-31 rare Universit y of 00:00:00 00:00:00 [facility] [place] [facility] Sex Ass[birth year] At [birth year] [facility] 00:00:00 00:00:00 Smoking Status Start Date Stop Date Source Tobacco smoking consumption Meth [facility] [place] unknown Never smoker [facility] acute hospital Medications Ordered Filled Start Stop Current Ordering Indication Dosage Frequency Signature Comments Components Source Medication Medication Date Date Medication? Clinician (SIG) Name Name acetaminoph 2019- No 650mg 650 mg, U nivers en 04-06 Oral, ity of (TYLENOL) 00:15: 23:02 ONCE, 1 [place] tablet 650 [place] :00 dose, Mon Medi tim mg 04/05/20 at [place] 1915, ADRIANA iohexol 2020- No 100mL 100 mL, Unive rs (OMNIPAQUE 04-05 Intravenou it y of 350 23:00: 22:40 s, ONCE, 1 [place] BULK-100 00 :00 dose, Mon Medica l mL) 04/05/20 at [place] injection 1800, 100 mL Routine gabapentin 2020- No [id number] 300mg Take 1 Univers 300 mg 04-05 capsule by ity of capsule 00:00: 04:59 mouth 3 [place] 00 :00 (three) Medical times [place] daily for 30 days. dapaglifloz 2019-0 Yes 1{tbl} Take 1 Un arnulfo in 2-07 tablet by ity of (FARXIGA) 21:39: mouth. [place] 10 mg 00 Medical tablet Branch dapaglifloz 2019-0 Yes 1{tbl} Take 1 Un arnulfo in 2-07 tablet by ity of (FARXIGA) 21:39: mouth. [place] 10 mg 00 Medical tablet Branch dapaglifloz 2020-0 Yes 1{tbl} Take 1 Un arnulfo in 2-07 tablet by ity of (FARXIGA) 21:39: mouth. [place] 10 mg 00 Medical tablet Branch dapaglifloz 2020-0 Yes 1{tbl} Take 1 Un arnulfo in 2-07 tablet by ity of (FARXIGA) 21:39: mouth. [place] 10 mg 00 Medical tablet Branch dapaglifloz 2020-0 Yes 1{tbl} Take 1 Un arnulfo in 2-07 tablet by ity of (FARXIGA) 21:39: mouth. [place] 10 mg 00 Medical tablet Branch rizatriptan 2020-0 2020- No Take by Un arnulfo benzoate 11-28-07 mouth. ity of (RIZATRIPTA 21:36: 00:00 [place] N ORAL) 16 :00 Medical Branch rizatriptan 2020-0 2020- No Take by Un arnulfo benzoate 11-28-07 mouth. ity of (RIZATRIPTA 21:36: 00:00 [place] N ORAL) 16 :00 Medical Branch PREDNISOLON 2020-0 2020- No Take by Un arnulfo E ORAL 11-28-07 mouth. ity of 21:35: 00:00 [place] 54 :00 Medical Branch PREDNISOLON 2020-0 2020- No Take by Un arnulfo E ORAL 2-07 mouth. ity of 21:35: 00:00 [place] 54 :00 Medical Branch mirabegron 2020-0 Yes [id number] 25mg Take 1 Univers (MYRBETRIQ) 2-07 tablet by ity of 25 mg 00:00: mouth [place] tablet 00 daily. Medical Branch mirabegron 2020-0 Yes [id number] 25mg Take 1 Univers (MYRBETRIQ) 2-07 tablet by ity of 25 mg 00:00: mouth [place] tablet 00 daily. Medical Branch mirabegron 2020-0 Yes [id number] 25mg Take 1 Univers (MYRBETRIQ) 2-07 tablet by ity of 25 mg 00:00: mouth [place] tablet 00 daily. Medical Branch mirabegron 2020-0 Yes [id number] 25mg Take 1 Univers (MYRBETRIQ) 2-07 tablet by ity of 25 mg 00:00: mouth [place] tablet 00 daily. Medical Branch mirabegron 2020-0 Yes [id number] 25mg Take 1 Univers (MYRBETRIQ) 2-07 tablet by ity of 25 mg 00:00: mouth [place] tablet 00 daily. Medical Branch lipase/prot 2020-0 Yes Take by Uni vers ease/amylas 1-10 mouth. ity of e (CREON 21:14: [place] ORAL) 46 Medical Branch pantoprazol 2020-0 Yes Take by Uni vers e sodium 1-10 mouth. ity of (PANTOPRAZO 21:14: [place] LE ORAL) 46 Medical Branch TOPIRAMATE 2020-0 Yes Take by Univ ers ORAL 1-10 mouth. ity of 21:14: [place] [address] Medical Branch levothyroxi 2020-0 Yes Take by Uni vers ne sodium 1-10 mouth. ity of (LEVOTHYROX 21:14: [place] INE ORAL) 46 Medical Branch losartan 2019-0 Yes Take by Univer s potassium 1-10 mouth. ity of (LOSARTAN 21:14: [place] ORAL) 46 Medical Branch montelukast 2020-0 Yes Take by Uni vers sodium 1-10 mouth. ity of (MONTELUKAS 21:14: [place] T ORAL) Medical Branch lipase/prot 2020-0 Yes Take by Uni vers ease/amylas 1-10 mouth. ity of e (CREON 21:14: [place] ORAL) 46 Medical Branch OXYBUTYNIN 2019-0 Yes Take by Univ ers CHLORIDE 1-10 mouth. ity of ORAL 21:14: [place] [address] Medical Branch atorvastati 2019-0 Yes Take by Uni vers n calcium 1-10 mouth. ity of (ATORVASTAT 21:14: [place] IN ORAL) 46 Medical Branch ALBUTEROL 2019-0 Yes [facility]ale. [facility] [place] [facility] SULFATE HFA 1-10 ity of INHALE 21:14: [place] [address] Medical Branch fluticasone 2019-0 Yes 2{spray Use 2 Un arnulfo 27.5 1-10 } Sprays in ity of mcg/actuati 21:14: each [place] on nasal 46 nostril Medical spray daily. Branch meclizine 2020-0 Yes Take by Unive rs HCl 1-10 mouth. ity of (MECLIZINE 21:14: [place] ORAL) 46 Medical Branch BUDESONIDE 2020-0 Yes Take by Univ ers ORAL 1-10 mouth. ity of 21:14: [place] [address] Medical Branch metformin 2020-0 Yes Take by Unive rs HCl 1-10 mouth. ity of (METFORMIN 21:14: [place] ORAL) Medical Branch GLIMEPIRIDE 2020-0 Yes Take by Uni vers ORAL 1-10 mouth. ity of 21:14: [place] [address] Medical Branch pantoprazol 2020-0 Yes Take by Uni vers e sodium 1-10 mouth. ity of (PANTOPRAZO 21:14: [place] LE ORAL) Medical Branch lipase/prot 2020-0 Yes Take by Uni vers ease/amylas 1-10 mouth. ity of e (CREON 21:14: [place] ORAL) Medical Branch pantoprazol 2020-0 Yes Take by Uni vers e sodium 1-10 mouth. ity of (PANTOPRAZO 21:14: [place] LE ORAL) Medical Branch TOPIRAMATE 2020-0 Yes Take by Univ ers ORAL 1-10 mouth. ity of 21:14: [place] [address] Medical Branch TOPIRAMATE 2020-0 Yes Take by Univ ers ORAL 1-10 mouth. ity of 21:14: [place] [address] Medical Branch levothyroxi 2020-0 Yes Take by Uni vers ne sodium 1-10 mouth. ity of (LEVOTHYROX 21:14: [place] INE ORAL) Medical Branch losartan 2020-0 Yes Take by Univer s potassium 1-10 mouth. ity of (LOSARTAN 21:14: [place] ORAL) Medical Branch montelukast 2020-0 Yes Take by Un arnulfo sodium 1-10 mouth. ity of (MONTELUKAS 21:14: [place] T ORAL) Medical Branch OXYBUTYNIN 2019-0 Yes Take by Univ ers CHLORIDE 1-10 mouth. ity of ORAL 21:14: [place] [address] Medical Branch atorvastati 2020-0 Yes Take by Uni vers n calcium 1-10 mouth. ity of (ATORVASTAT 21:14: [place] IN ORAL) Medical Branch ALBUTEROL 2020-0 Yes Inhale. Unive rs SULFATE HFA 1-10 ity of INHALE 21:14: [place] [address] Medical Branch fluticasone 2020-0 Yes 2{spray Use 2 Un arnulfo 27.5 1-10 } Sprays in ity of mcg/actuati 21:14: each [place] on nasal 46 nostril Medical spray daily. Branch meclizine 2020-0 Yes Take by Unive rs HCl 1-10 mouth. ity of (MECLIZINE 21:14: [place] ORAL) Medical Branch BUDESONIDE 2020-0 Yes Take by Univ ers ORAL 1-10 mouth. ity of 21:14: [place] [address] Medical Branch metformin 2020-0 Yes Take by Unive rs HCl 1-10 mouth. ity of (METFORMIN 21:14: [place] ORAL) 46 Medical Branch levothyroxi 2020-0 Yes Take by Uni vers ne sodium 1-10 mouth. ity of (LEVOTHYROX 21:14: [place] INE ORAL) 46 Medical Branch GLIMEPIRIDE 2020-0 Yes Take by Uni vers ORAL 1-10 mouth. ity of 21:14: [place] [address] Medical Branch losartan 2020-0 Yes Take by Univer s potassium 1-10 mouth. ity of (LOSARTAN 21:14: [place] ORAL) 46 Medical Branch montelukast 2019-0 Yes Take by Uni vers sodium 1-10 mouth. ity of (MONTELUKAS 21:14: [place] T ORAL) 46 Medical Branch OXYBUTYNIN 2019-0 Yes Take by Univ ers CHLORIDE 1-10 mouth. ity of ORAL 21:14: [place] [address] Medical Branch atorvastati 2019-0 Yes Take by Uni vers n calcium 1-10 mouth. ity of (ATORVASTAT 21:14: [place] IN ORAL) 46 Medical Branch lipase/prot 2020-0 Yes Take by Uni vers ease/amylas 1-10 mouth. ity of e (CREON 21:14: [place] ORAL) 46 Medical Branch pantoprazol 2019-0 Yes Take by Uni vers e sodium 1-10 mouth. ity of (PANTOPRAZO 21:14: [place] LE ORAL) 46 Medical Branch TOPIRAMATE 2020-0 Yes Take by Univ ers ORAL 1-10 mouth. ity of 21:14: [place] [address] Medical Branch levothyroxi 2020-0 Yes Take by Uni vers ne sodium 1-10 mouth. ity of (LEVOTHYROX 21:14: [place] INE ORAL) 46 Medical Branch losartan 2020-0 Yes Take by Univer s potassium 1-10 mouth. ity of (LOSARTAN 21:14: [place] ORAL) 46 Medical Branch montelukast 2020-0 Yes Take by Uni vers sodium 1-10 mouth. ity of (MONTELUKAS 21:14: [place] T ORAL) 46 Medical Branch rizatriptan 2020-0 Yes Take by Uni vers benzoate 1-10 mouth. ity of (RIZATRIPTA 21:14: [place] N ORAL) Medical Branch OXYBUTYNIN 2020-0 Yes Take by Univ ers CHLORIDE 1-10 mouth. ity of ORAL 21:14: [place] [address] Medical Branch atorvastati 2020-0 Yes Take by Uni vers n calcium 1-10 mouth. ity of (ATORVASTAT 21:14: [place] IN ORAL) Medical Branch ALBUTEROL 2020-0 Yes Inhale. Unive rs SULFATE HFA 1-10 ity of INHALE 21:14: [place] [address] Medical Branch fluticasone 2020-0 Yes 2{spray Use 2 Un arnulfo 27.5 1-10 } Sprays in ity of mcg/actuati 21:14: each [place] on nasal 46 nostril Medical spray daily. Branch meclizine 2020-0 Yes Take by Unive rs HCl 1-10 mouth. ity of (MECLIZINE 21:14: [place] ORAL) Medical Branch BUDESONIDE 2020-0 Yes Take by Univ ers ORAL 1-10 mouth. ity of 21:14: [place] [address] Medical Branch metformin 2020-0 Yes Take by Unive rs HCl 1-10 mouth. ity of (METFORMIN 21:14: [place] ORAL) Medical Branch GLIMEPIRIDE 2020-0 Yes Take by Uni vers ORAL 1-10 mouth. ity of 21:14: [place] [address] Medical Branch ALBUTEROL 2020-0 Yes Inhale. Unive rs SULFATE HFA 1-10 ity of INHALE 21:14: [place] [address] Medical Branch fluticasone 2020-0 Yes 2{spray Use 2 Un arnulfo 27.5 1-10 } Sprays in ity of mcg/actuati 21:14: each [place] on nasal 46 nostril Medical spray daily. Branch meclizine 2020-0 Yes Take by Unive rs HCl 1-10 mouth. ity of (MECLIZINE 21:14: [place] ORAL) Medical Branch PREDNISOLON 2020-0 Yes Take by Uni vers E ORAL 1-10 mouth. ity of 21:14: [place] [address] Medical Branch BUDESONIDE 2020-0 Yes Take by Univ ers ORAL 1-10 mouth. ity of 21:14: [place] [address] Medical Branch metformin 2020-0 Yes Take by Unive rs HCl 1-10 mouth. ity of (METFORMIN 21:14: [place] ORAL) Medical Branch GLIMEPIRIDE 2020-0 Yes Take by Uni vers ORAL 1-10 mouth. ity of 21:14: [place] [address] Medical Branch lipase/prot 2020-0 Yes Take by Uni vers ease/amylas 1-10 mouth. ity of e (CREON 21:14: [place] ORAL) Medical Branch pantoprazol 2020-0 Yes Take by Uni vers e sodium 1-10 mouth. ity of (PANTOPRAZO 21:14: [place] LE ORAL) Medical Branch TOPIRAMATE 2020-0 Yes Take by Univ ers ORAL 1-10 mouth. ity of 21:14: [place] [address] Medical Branch levothyroxi 2019-0 Yes Take by Uni vers ne sodium 1-10 mouth. ity of (LEVOTHYROX 21:14: [place] INE ORAL) Medical Branch losartan 2019-0 Yes Take by Univer s potassium 1-10 mouth. ity of (LOSARTAN 21:14: [place] ORAL) Medical Branch montelukast 2019-0 Yes Take by Uni vers sodium 1-10 mouth. ity of (MONTELUKAS 21:14: [place] T ORAL) Medical Branch OXYBUTYNIN 2019-0 Yes Take by Univ ers CHLORIDE 1-10 mouth. ity of ORAL 21:14: [place] [address] Medical Branch atorvastati 2019-0 Yes Take by Uni vers n calcium 1-10 mouth. ity of (ATORVASTAT 21:14: [place] IN ORAL) Medical Branch ALBUTEROL 2019-0 Yes Inhale. Unive rs SULFATE HFA 1-10 ity of INHALE 21:14: [place] [address] Medical Branch fluticasone 2019-0 Yes 2{spray Use 2 Un arnulfo 27.5 1-10 } Sprays in ity of mcg/actuati 21:14: each [place] on nasal 46 nostril Medical spray daily. Branch meclizine 2019-0 Yes Take by Unive rs HCl 1-10 mouth. ity of (MECLIZINE 21:14: [place] ORAL) Medical Branch BUDESONIDE 2019-0 Yes Take by Univ ers ORAL 1-10 mouth. ity of 21:14: [place] [address] Medical Branch metformin 2019-0 Yes Take by Unive rs HCl 1-10 mouth. ity of (METFORMIN 21:14: [place] ORAL) Medical Branch GLIMEPIRIDE 2020-0 Yes Take by Uni vers ORAL 1-10 mouth. ity of 21:14: [place] [address] Medical Branch lipase/prot 2020-0 Yes Take by Uni vers ease/amylas 1-10 mouth. ity of e (CREON 21:14: [place] ORAL) Medical Branch pantoprazol 2019-0 Yes Take by Uni vers e sodium 1-10 mouth. ity of (PANTOPRAZO 21:14: [place] LE ORAL) Medical Branch TOPIRAMATE 2020-0 Yes Take by Univ ers ORAL 1-10 mouth. ity of 21:14: [place] [address] Medical Branch levothyroxi 2019-0 Yes Take by Uni vers ne sodium 1-10 mouth. ity of (LEVOTHYROX 21:14: [place] INE ORAL) Medical Branch losartan 2019-0 Yes Take by Univer s potassium 1-10 mouth. ity of (LOSARTAN 21:14: [place] ORAL) Medical Branch montelukast 2019-0 Yes Take by Uni vers sodium 1-10 mouth. ity of (MONTELUKAS 21:14: [place] T ORAL) Medical Branch OXYBUTYNIN 2019-0 Yes Take by Univ ers CHLORIDE 1-10 mouth. ity of ORAL 21:14: [place] [address] Medical Branch atorvastati 0 Yes Take by Uni vers n calcium 1-10 mouth. ity of (ATORVASTAT 21:14: [place] IN ORAL) Medical Branch ALBUTEROL 0 Yes Inhale. Unive rs SULFATE HFA 1-10 ity of INHALE 21:14: [place] [address] Medical Branch fluticasone 2019-0 Yes 2{spray Use 2 Un arnulfo 27.5 1-10 } Sprays in ity of mcg/actuati 21:14: each [place] on nasal 46 nostril Medical spray daily. Branch meclizine 2019-0 Yes Take by Unive rs HCl 1-10 mouth. ity of (MECLIZINE 21:14: [place] ORAL) Medical Branch BUDESONIDE 2020-0 Yes Take by Univ ers ORAL 1-10 mouth. ity of 21:14: [place] [address] Medical Branch metformin 2019-0 Yes Take by Unive rs HCl 1-10 mouth. ity of (METFORMIN 21:14: [place] ORAL) Medical Branch GLIMEPIRIDE 2019-0 Yes Take by Uni vers ORAL 1-10 mouth. ity of 21:14: [place] [address] Medical Branch lidocaine-p 2019-0 Yes Apply to Univers rilocaine 1-10 area(s) as ity of 2.5-2.5 % 00:00: [place] for [place] cream 00 Local Medical anesthesia Branch . polyethylen 2020-0 Yes [id number] 17g Take 17 g Univers e glycol 1-10 by mouth ity of (MIRALAX) 00:00: daily. [place] Medical gram/dose Branch powder lidocaine-p 2020-0 Yes Apply to Univers rilocaine 1-10 area(s) as ity of 2.5-2.5 % 00:00: [place] for [place] cream 00 Local Medical anesthesia Branch . polyethylen 2020-0 Yes [id number] 17g Take 17 g Univers e glycol 1-10 by mouth ity of (MIRALAX) 00:00: daily. [place] Medical gram/dose Branch powder lidocaine-p 2020-0 Yes Apply to Univers rilocaine 1-10 area(s) as ity of 2.5-2.5 % 00:00: needed for [place] cream 00 Local Medical anesthesia Branch . polyethylen 2020-0 Yes [id number] 17g Take 17 g Univers e glycol 1-10 by mouth ity of (MIRALAX) 00:00: daily. [place] Medical gram/dose Branch powder lidocaine-p 2020-0 Yes Apply to Univers rilocaine 1-10 area(s) as ity of 2.5-2.5 % 00:00: needed for [place] cream 00 Local Medical anesthesia Branch . fluconazole 2020-0 Yes [id number] 100mg Take 1 Univers 100 mg 1-10 tablet by ity of tablet 00:00: mouth [place] 00 daily. Medical Branch metoclopram 2020-0 Yes [id number] 10mg Take 1 Univers jeronimo HCl 10 1-10 tablet by ity of mg tablet 00:00: mouth [place] 00 every 6 Medical (six) Branch hours as needed for Nausea and Vomiting (N/V). dicyclomine 2020-0 Yes [id number] 20mg Take 1 Univers (BENTYL) 20 1-10 tablet by ity of mg tablet 00:00: mouth [place] 00 every 6 Medical (six) Branch hours as needed for Abdominal pain. polyethylen 2020-0 Yes [id number] 17g Take 17 g Univers e glycol 1-10 by mouth ity of (MIRALAX) 00:00: daily. [place] Medical gram/dose Branch powder lidocaine-p 2020-0 Yes [id number] Apply to Univers rilocaine 1-10 area(s) as ity of 2.5-2.5 % 00:00: needed for [place] cream 00 Local Medical anesthesia Branch . polyethylen 2020-0 Yes [id number] 17g Take 17 g Univers e glycol 1-10 by mouth ity of (MIRALAX) 00:00: daily. [place] Medical gram/dose Branch powder lidocaine-p 2020-0 Yes [id number] Apply to Univers rilocaine 1-10 area(s) as ity of 2.5-2.5 % 00:00: [place] for [place] cream 00 Local Medical anesthesia Branch . polyethylen 2020-0 Yes [id number] 17g Take 17 g Univers e glycol 1-10 by mouth ity of (MIRALAX) 00:00: daily. [place] Medical gram/dose Branch powder fluconazole 2019-0 2020- No [id number] 100mg Take 1 Univers 100 mg 1-10 02-07 tablet by ity of tablet 00:00: 00:00 mouth [place] 00 :00 daily. Medical Branch metoclopram 2019-0 2020- No [id number] 10mg Take 1 Univers jeronimo HCl 10 1-10 02-07 tablet by ity of mg tablet 00:00: 00:00 mouth [place] 00 :00 every 6 Medical (six) Branch hours as needed for Nausea and Vomiting (N/V). dicyclomine 2019-0 2020- No [id number] 20mg Take 1 Univers (BENTYL) 20 1-10 02-07 tablet by it y of mg tablet 00:00: 00:00 mouth [place] 00 :00 every 6 Medical (six) Branch hours as needed for Abdominal pain. fluconazole 2019-0 2020- No [id number] 100mg Take 1 Univers 100 mg 1-10 02-07 tablet by ity of tablet 00:00: 00:00 mouth [place] 00 :00 daily. Medical Branch metoclopram 2020-0 2020- No [id number] 10mg Take 1 Univers jeronimo HCl 10 1-10 02-07 tablet by ity of mg tablet 00:00: 00:00 mouth [place] 00 :00 every 6 Medical (six) Branch hours as needed for Nausea and Vomiting (N/V). dicyclomine 2020-0 2020- No [id number] 20mg Take 1 Univers (BENTYL) 20 1-10 11-28 tablet by it y of mg tablet 00:00: 00:00 mouth [place] 00 :00 every 6 Medical (six) Branch hours as needed for Abdominal pain. Creon Creon Yes Ruddy not Common Moon defined [facility] Budesonide Budesonide Yes Ruddy not Common Moon defined [facility] Losartan Losartan Yes Ruddy not Comm on Potassium Potassium Moon defined [facility] Atorvastati Atorvastati Yes Ruddy not Common n Calcium n Calcium Moon defined [facility] PredniSONE PredniSONE Yes [place]dy not Common Moon defined [facility] Tramadol Tramadol Yes Ruddy not Comm on HCl HCl Moon defined [facility] Fluticasone Fluticasone Yes Ruddy not Common Propionate Propionate Moon defined [facility] Lorazepam Lorazepam Yes Ruddy not Co mmon Moon defined [facility] EPINEPHrine EPINEPHrine Yes Ruddy not Common Moon defined [facility] Farxiga Farxiga Yes Ruddy not Common Moon defined [facility] Alprazolam Alprazolam Yes Ruddy not Common Moon defined [facility] Myrbetriq Myrbetriq Yes Ruddy not Co mmon Moon defined [facility] Rizatriptan Rizatriptan Yes Ruddy not Common Benzoate Benzoate Moon defined [facility] Levothyroxi Levothyroxi Yes Ruddy not Common ne Sodium ne Sodium Moon defined [facility] Glimepiride Glimepiride Yes Ruddy not Common Moon defined [facility] Immunizations Ordered Filled Immunization Date Status Comments Sour e Immunization Name Name Influenza Virus 2019-10-09 Completed Universit y of Vaccine Quad .5 mL 00:00:00 [place] [facility] 6+ MO Branch Influenza Virus 2019-10-09 Completed Universit y of Vaccine Quad .5 mL 00:00:00 [place] [facility] 6+ MO Branch Vital Signs Vital Name Observation Time Observation Value Comments Source Systolic blood 2020-04-05 23:45:00 108 mm[Hg] Univer sity of pressure [place] [facility] Diastolic blood 2020-04-05 23:45:00 74 mm[Hg] Unive rsity of pressure [place] [facility] Heart rate 2020-04-05 23:45:00 75 /min Universi ty of [place] [facility] Respiratory rate 2020-04-05 23:45:00 21 /min Univ ersity of [place] [facility] Oxygen saturation in 2020-04-05 23:45:00 98 /min University of Arterial blood by [facility] Pulse oximetry Branch Body temperature 2020-04-05 21:40:00 36.89 Karoline Univ ersity of [place] [facility] Body weight 2020-04-05 21:40:00 90.719 kg Universi ty of [place] [facility] BMI 2020-04-05 21:40:00 36.58 kg/m2 Universi ty of [place] [facility] Systolic blood 2020-04-05 23:45:00 108 mm[Hg] Univer sity of pressure [place] [facility] Diastolic blood 2020-04-05 23:45:00 74 mm[Hg] Unive rsity of pressure [place] [facility] Heart rate 2020-04-05 23:45:00 75 /min Universi ty of [place] [facility] Respiratory rate 2020-04-05 23:45:00 21 /min Univ ersity of [place] [facility] Oxygen saturation in 2020-04-05 23:45:00 98 /min University of Arterial blood by [facility] Pulse oximetry Branch Body temperature 2020-04-05 21:40:00 36.89 [place] Univ ersity of [place] [facility] Body weight 2020-04-05 21:40:00 90.719 kg Universi ty of [place] [facility] BMI 2020-04-05 21:40:00 36.58 kg/m2 [facility] ty of [place] [facility] Systolic blood 2019-11-28 20:55:00 125 mm[Hg] Univer sity of pressure [place] [facility] Diastolic blood 2019-11-28 20:55:00 83 mm[Hg] Unive rsity of pressure [place] [facility] Heart rate 2019-11-28 20:55:00 78 /min [facility] Body temperature 2019-11-28 20:55:00 36.72 Karoline [facility] [place] [facility] Respiratory rate 2019-11-28 20:55:00 18 /min [facility] [place] [facility] Body height 2019-11-28 20:55:00 157.5 cm [facility] [place] [place] Body weight 2019-11-28 20:55:00 101.606 kg [facility] BMI 2019-11-28 20:55:00 40.97 kg/m2 [facility] Systolic blood 2019-11-28 20:55:00 125 mm[Hg] Univer sity of pressure [facility] Diastolic blood 2019-11-28 20:55:00 83 mm[Hg] [facility] Heart rate 2019-11-28 20:55:00 78 /min [facility] Body temperature 2019-11-28 20:55:00 36.72 Karoline [facility] Respiratory rate 2019-11-28 20:55:00 18 /min [facility] Body height 2019-11-28 20:55:00 157.5 cm [facility] Body weight 2019-11-28 20:55:00 101.606 kg [facility] BMI 2019-11-28 20:55:00 40.97 kg/m2 [facility] Procedures Procedure Date / Time Performing Clinician Source Performed CT ANGIOGRAM HEAD 2020-04-05 22:49:50 Yesi Mckeon [facility] CT ANGIOGRAM NECK 2020-04-05 22:49:50 Yesi Mckeon [facility] CT HEAD WO CONTRAST 2020-04-05 22:38:15 [facility] CHEST 1 VW 2020-04-05 22:33:20 Yesi Mckeon [facility] URINALYSIS 2020-04-05 22:08:00 Yesi Mckeon [facility] COVID-19 (ID NOW RAPID 2020-04-05 21:54:00 [facility] 2020-04-05 21:53:00 Yesi Mckeon [facility] HEPATIC FUNCTION PANEL 2020-04-05 21:53:00 Yesi Mckeon [facility] ([id number]) (ALB,T.PRO,BILI Medical Branch T,BU/BC,ALT,AST,ALK PHOS) BASIC METABOLIC PANEL 2020-04-05 21:53:[address] [facility] [place] (NA, K, CL, CO2, Medical Branch GLUCOSE, BUN, CREATININE, CA) CBC WITH DIFFERENTIAL 2020-04-05 21:53:00 Yesi Mckeon [facility] PROTHROMBIN TIME / INR 2020-04-05 21:53:00 Yesi Mckeon [facility] NOTICE OF PRIVACY 2020-04-05 21:35:28 Doctor Unassigned, No [facility] CONSENT/REFUSAL FOR 2020-04-05 21:31:55 Doctor Unassigned, No [facility]REATMENT Name [facility] PAP SMEAR-LIQUID 2019-11-28 22:24:00 Amira Luo of [facility] NOTICE OF BILLING 2019-11-28 20:36:45 Doctor Unassigned, No Univ [facility] PRACTICES FOR MEDICARE Name [facility] PATIENTS Plan of Care Planned Activity Planned Date Details Comments Source Future Scheduled 2022-08-26 HEPATITIS B VACCINES Met [facility] Test 17:22:16 (1 of 3 - 3-dose series) [code = HEPATITIS B VACCINES (1 of 3 - 3-dose series)] Future Scheduled 2022-08-26 COVID-19 VACCINE (#1) [facility] Test 17:22:16 [code = COVID-19 VACCINE (#1)] Future Scheduled 2022-08-26 Screening for [facility] Test 17:22:16 malignant neoplasm of cervix (procedure) [code = 974083971] Future Scheduled 2022-08-26 BREAST CANCER [facility] Test 17:22:16 SCREENING [code = BREAST CANCER SCREENING] Future Scheduled 2022-08-26 COLONOSCOPY SCREENING Me [facility] Test 17:22:16 [code = COLONOSCOPY SCREENING] Future Scheduled 2022-08-26 INFLUENZA VACCINE [facility] Test 17:22:16 [code = INFLUENZA VACCINE] Future Scheduled COVID-19 VACCINE (1) [facility] Test [code = COVID-19 VACCINE (1)] Future Scheduled Screening for [facility] Test malignant neoplasm of cervix (procedure) [code = 937902897] Future Scheduled IN[facility]UENZA VACCINE [facility] Test [code = INFLUENZA VACCINE] Encounters Start End Encounter Admission Attending Care Care Encounter Source Date/Time Date/Time Type Type Clinicians Facility Department ID 2021-11-[address] [facility] [id number] Common 11:31:10 Ryan [id number] [facility] 2021-11-[address] [facility] [id number] Common 11:25:21 Ryan [id number] [facility] 2021-01-06 2021-01-06 Patient Kamran [facility] [id number] Univers 00:00:00 00:00:00 Outreach Tony PRIMARY [id number] i [id number] [phone] Oh dical [address] Branch 2021-01-06 2021-01-06 Patient Kamran [facility] [id number] 00:00:00 00:00:00 Outreach Tony PRIMARY [id number] [place] [facility] [id number] PAVILLION [id number] 388 2020-05-17 2020-05-17 Outpatient Marcia Vang [id number] Common 08:08:00 08:08:00 t [facility] 2020-05-12 2020-05-12 Outpatient Marcia Vang [id number] Common 09:30:00 09:30:00 t [facility] - [facility] 2020-04-21 2020-04-21 Outpatient Marcia Vang [id number] Common 13:07:00 13:07:00 t [facility] Bone and Spiri t and Joint [facility] - [facility] 2020-04-13 2020-04-13 Outpatient Marcia Vang [id number] Common 16:42:00 16:42:00 t [facility] Bone and Spiri t and Joint [facility] - [facility] 2020-04-12 2020-04-12 Outpatient Marcia Vang [id number] Common 16:00:00 16:00:00 t [facility] Sp[facility] t [facility] - [facility] 2020-04-05 2020-04-05 [facility] [id number] Univers 16:37:35 19:01:00 Yesira William Mehta [id number] [facility] [id number] [facility] [phone] [address] 2020-04-05 2020-04-05 Emergency [facility] E[facility] [id number] Univers 16:37:35 19:01:[address] [facility] 2020-04-05 2020-04-05 [facility] [id number] 16:37:35 19:01:00 Yesira William Mehta [id number] [place] [id number] [place] [id number] [facility] 2020-04-05 2020-04-05 Outpatient [facility] [id number] Common 14:31:00 14:31:00 t Bone Bone and Spiri t and Joint [facility] - [facility] 2020-03-29 2020-03-29 Outpatient [facility] [id number] Common 13:59:00 13:59:00 t Bone Bone and Spiri t and [facility] - [facility] 2020-03-29 2020-03-29 Out[facility] [id number] Common 13:00:00 13:00:00 t Bone Bone and Spiri t and Joint [facility] - [facility] 2020-03-29 2020-03-29 Outpatient [facility] [id number] Common 08:30:00 08:30:00 t Bone Bone and Spiri t and Joint [facility] - [facility] 2019-12-26 2019-12-26 Outpatient AMIRA VEGA [facility] B [id number] Univers 13:15:00 13:15:[address] [facility] 2019-12-03 2019-12-03 Outpatient R [facility]OY [facility] [id number] Univers 08:00:00 08:00:00 WENTONG ity of [facility] 2019-11-30 2019-11-30 [facility] 1.2.840.114 [id number] Univers 00:00:00 00:00:00 Management Amira Mehta [id number] [id number] [id number] [place] dic[address] 2019-11-30 2019-11-30 Case Puja, [facility] 1.2.840.114 [id number] 00:00:00 00:00:00 Management Amira Mehta [id number] [place] [id number] Professio [phone] [address] 2019-11-28 2019-11-28 Office [facility] 1.2.840.114 [id number] Univers 14:36:59 15:44:36 Visit Amira Mehta [id number] [place] [phone] [place] dic[address] 2019-11-28 2019-11-28 Office [facility] 1.2.840.114 [id number] 14:36:59 15:44:36 Visit Amira Mehta [id number] [place] [id number] Professio [id number] [address] 2019-11-28 2019-11-28 Outpatient R ALEJANDRAAMIRA HEREDIA [facility] B [id number] Univers 14:30:00 15:44:36 ALEJANDRAAMIRA HEREDIA [place] [facility] 2019-11-28 2019-11-28 Orders Doctor ALEXIS [id number] Univers 00:00:00 00:00:00 Only Unassigned, SHARRON 350.1.13.10 ity [place] [facility] 4.2.7.2.686 [place] as [id number] [address] 2019-10-31 2019-10-31 Emergency X JOE [facility] ERT [id number] Univers 16:40:55 20:33:[address] [facility] 2019-10-29 2019-10-29 Emergency X KULWANT, [facility] ERT [id number] Univers 16:19:52 18:29:[address] [facility] Results Test Description Test Time Test Results Result Source Comments Comments CT Head W/O 2020-03-[address] findings of Unive rsity of Contrast 5 acute intracranial [facility] 23:35:38 abnormality. Branch Preliminary Report Dictated by Resident: Jane Kenney MD., have reviewed this study and agree with the abovereport.EXAM: CT HEAD WO CONTRAST HISTORY: 44 years-old Female presenting with Stroke suspected, ataxia COMPARISON: None TECHNIQUE: Axial CT imaging of the head was obtained without IV contrast.Coronal and sagittal reformats were constructed. FINDINGS: The ventricles and cerebral sulci are normal in caliber and configuration.No hydrocephalus, midline shift, or significant mass effect is detected.The basal cisterns are intact. No acute intracranial hemorrhage or pathological extra-axial fluidcollection is demonstrated. No parenchymal attenuation abnormality isidentified. The felix-white matter differentiation is preserved. The mastoid air cells and paranasal air sinuses are clear. The calvariumand remaining skull base are unremarkable. The foramen magnum is notcompletely imaged on the current exam [facility], Radiant Results Inft User - 04/05/2020 6:36 PM CDTEXAM: CT HEAD WO CONTRASTHISTORY: 44 years-old Female presenting with Stroke suspected, ataxia COMPARISON: NoneTECHNIQUE: Axial CT imaging of the head was obtained without IV contrast.Coronal and sagittal reformats were constructed.FINDINGS:T he ventricles and cerebral sulci are normal in caliber and configuration.No hydrocephalus, midline shift, or significant mass effect is detected.The basal cisterns are intact.No acute intracranial hemorrhage or pathological extra-axial fluidcollection is demonstrated. No parenchymal attenuation abnormality isidentified. The felix-white matter differentiation is preserved.The mastoid air cells and paranasal air sinuses are clear. The calvariumand remaining skull base are unremarkable. The foramen magnum is notcompletely imaged on the current examIMPRESSIONNo CT findings of acute intracranial abnormality.Preliminar y Report Dictated by Resident: Jane Sousa MD., have reviewed this study and agree with the abovereport. CT ANGIOGRAM 2020-03-22 Normal CTA head and Un iversity of HEAD 5 neck.HISTORY:Stroke [facility] 22:59:39 suspected, ataxia Branch TECHNIQUE: CTA of the head and neck was performed with IV contrast. MIPreconstructions were performed. COMPARISON: CT head 04/05/2020 FINDINGS: CTA NECK: Aortic arch and major vessels: There is a three-vessel aortic arch. The vessels originating from the archare patent. Common carotid arteries: Both common carotid arteries are within normal limits. Right internal carotid artery: Unremarkable. Left internal carotid artery: Unremarkable. Vertebral arteries: The vertebral arteries originate from the subclavian arteries bilaterally.The vessels are codominant and unremarkable. CTA HEAD: There is normal contrast enhancement in the petrous, cavernous andsupraclinoid ICAs bilaterally. An anterior communicating artery is seen. The SARAH and MCA branches are within normal limits. A left UNION REPRESENTATIVE seen. No sizable right P-comm is identified The UNION REPRESENTATIVE and basilar arteries are otherwise within normal limits. The intracranial vertebral arteries are unremarkable. The left PICA originis noted. An AICA /PICA variant is suspected on the right [facility], Radiant Results Inft User - 04/05/2020 6:00 PM CDTHISTORY:Stroke suspected, ataxia TECHNIQUE: CTA of the head and neck was performed with IV contrast. MIPreconstructions were performed. COMPARISON: CT head 04/05/2020FINDINGS:CTA NECK:Aortic arch and major vessels:There is a three-vessel aortic arch. The vessels originating from the archare patent.Common carotid arteries:Both common carotid arteries are within normal limits.Right internal carotid artery:Unremarkable.Le ft internal carotid artery:Unremarkable.Ve rtebral arteries:The vertebral arteries originate from the subclavian arteries bilaterally.The vessels are codominant and unremarkable.CTA HEAD:There is normal contrast enhancement in the petrous, cavernous andsupraclinoid ICAs bilaterally.An anterior communicating artery is seen.The SARAH and MCA branches are within normal limits.A left UNION REPRESENTATIVE seen. No sizable right P-comm is identifiedThe UNION REPRESENTATIVE and basilar arteries are otherwise within normal limits. The intracranial vertebral arteries are unremarkable. The left PICA originis noted. An AICA /PICA variant is suspected on the right IMPRESSIONNormal CTA head and neck. CT ANGIOGRAM 2020-03-22 Normal CTA head and Un iversity of NECK 5 neck.HISTORY:Stroke [facility] 22:59:39 suspected, ataxia Branch TECHNIQUE: CTA of the head and neck was performed with IV contrast. MIPreconstructions were performed. COMPARISON: CT head 04/05/2020 FINDINGS: CTA NECK: Aortic arch and major vessels: There is a three-vessel aortic arch. The vessels originating from the archare patent. Common carotid arteries: Both common carotid arteries are within normal limits. Right internal carotid artery: Unremarkable. Left internal carotid artery: Unremarkable. Vertebral arteries: The vertebral arteries originate from the subclavian arteries bilaterally.The vessels are codominant and unremarkable. CTA HEAD: There is normal contrast enhancement in the petrous, cavernous andsupraclinoid ICAs bilaterally. An anterior communicating artery is seen. The SARAH and MCA branches are within normal limits. A left UNION REPRESENTATIVE seen. No sizable right P-comm is identified The UNION REPRESENTATIVE and basilar arteries are otherwise within normal limits. The intracranial vertebral arteries are unremarkable. The left PICA originis noted. An AICA /PICA variant is suspected on the right [facility], Radiant Results Inft User - 04/05/2020 6:00 PM CDTHISTORY:Stroke suspected, ataxia TECHNIQUE: CTA of the head and neck was performed with IV contrast. MIPreconstructions were performed. COMPARISON: CT head 04/05/2020FINDINGS:CTA NECK:Aortic arch and major vessels:There is a three-vessel aortic arch. The vessels originating from the archare patent.Common carotid arteries:Both common carotid arteries are within normal limits.Right internal carotid artery:Unremarkable.Le ft internal carotid artery:Unremarkable.Ve rtebral arteries:The vertebral arteries originate from the subclavian arteries bilaterally.The vessels are codominant and unremarkable.CTA HEAD:There is normal contrast enhancement in the petrous, cavernous andsupraclinoid ICAs bilaterally.An anterior communicating artery is seen.The SARAH and MCA branches are within normal limits.A left UNION REPRESENTATIVE seen. No sizable right P-comm is identifiedThe UNION REPRESENTATIVE and basilar arteries are otherwise within normal limits. The intracranial vertebral arteries are unremarkable. The left PICA originis noted. An AICA /PICA variant is suspected on the right IMPRESSIONNormal CTA head and neck. Chest 1 View 2020-03-22 No acute University o f 5 cardiopulmonary [facility] 22:52:04 abnormality. Branch Preliminary Report Dictated by Resident: Raul Kenney MD., have reviewed this study and agree with the abovereport.EXAM: XR CHEST 1 VW HISTORY: 44 years-old Female presenting with suspected cva COMPARISON: None TECHNIQUE: AP images of the thorax were obtained. FINDINGS: The lungs are well-expanded and clear without focal consolidation. ?Nopleural effusion or pneumothorax. The cardiomediastinal silhouette is normal. No acute bony abnormality. [facility], Radiant Results Inft User - 04/05/2020 5:53 PM CDTEXAM: XR CHEST 1 VWHISTORY: 44 years-old Female presenting with suspected cva COMPARISON: NoneTECHNIQUE: AP images of the thorax were obtained.FINDINGS:The lungs are well-expanded and clear without focal consolidation. Nopleural effusion or pneumothorax.The cardiomediastinal silhouette is normal.No acute bony abnormality. IMPRESSIONNo acute cardiopulmonary abnormality. Preliminary Report Dictated by Resident: Raul Sousa MD., have reviewed this study and agree with the abovereport. Urinalysis 2020-04-05 22:37:00 Test Item Value Reference Range Interpretation Comme nts APPEARANCE (test code = Clear Clear 2463106763) COLOR (test code = 4241725193) Yellow Yellow PH (test code = 7665887314) 4.8-8.0 SP GRAVITY (test code = 1.003-1.030 H 9151287770) GLU U QUAL (test code = 500 mg/dL Normal A 5382080920) BLOOD (test code = 9909298364) Negative Negative KETONES (test code = 7634470730) Negative Negative PROTEIN (test code = 2887-8) Negative Negative UROBILIN (test code = 2.0 mg/dL Normal A 1849511363) BILIRUBIN (test code = Negative Negative 2803879470) NITRITE (test code = 3514329638) Negative Negative LEUK LETTY (test code = Negative Negative 4863279977) RBC/HPF (test code = 2536008023) <1 See_Comment [Automated message] The system which ge nerated this result transmit piper reference range: 0 - 3 HP F. The reference range was not used to interpret th is result as normal/abnormal . WBC/HPF (test code = 1123864854) See_Comment [Automated message] The system which ge nerated this result transmit piper reference range: 0 - 5 HP F. The reference range was not used to interpret th is result as normal/abnormal . BACTERIA (test code = Negative Negative 8111969452) MUCOUS (test code = 3144301395) Slight Negative LPF A SQ EPITH (test code = HPF 8607189572) Lab Interpretation (test code = Abnormal 04435-0) [facility] [id number] 22:26:00 Test Item Value Reference Range Interpretation Comments TROPONIN I (test <0.012 See_Comment [Automated code = 7389945601) message] The system which generated this result transmitted reference range : <=0.034 ng/mL. The reference range was not used to interpr et this result as normal/abnormal . GILA (test code = Equal or Less than GILA) 0.034 ng/ml---Normal ?Note: Cardiac troponin begins to rise 3-4 hours after the onset of ischemia. Repeat in 4-6 hours if the sample was drawn within 3-4 hours of the onset of the symptom and found normal. Between 0.035 and 0.120 ng/mL--- Borderline. Questionable myocardial injury or necrosis ? ?Note: Serial measurement may be necessary to confirm or exclude the diagnosis of myocardial injury or necrosis; Clinical correlation (symptoms, EKGs, imaging studies, and others) required; Repeat in 4-6 hours if clinically indicated. ? Equal or Higher than 0.121 ng/mL---Abnormal. Myocardial Injury or Necrosis Likely ? Biotin has been reported to cause a negative bias, interpret results relative to patient's use of biotin. ? Lab Interpretation Normal (test code = 45980-6) [facility] (ID NOW RAPID TESTING)2020-04-05 22:18:00 Test Item Value Reference Range Interpretation Comments SARS-CoV-2 Rapid ID NOW Not Detected Not Detected (test code = 83206-9) GILA (test code = GILA) ID NOW COVID-19 Assay is an isothermal nucleic acid amplification test intended for the qualitative detection of nucleic acid from SARS-CoV-2 viral RNA in nasopharyngeal (TOOL TECHNICIAN) specimens. It is used under Emergency Use Authorization (EUA) by FDA. The limit of detection (LOD) of the assay is 125 Genome Equivalents/mL. A positive result is indicative of the presence of SARS-CoV-2 RNA. ?Clinical correlation with patient history and other diagnostic [...] for repeat patient testing if clinically indicated. Lab Interpretation Normal (test code = 99679-7) [facility] Metabolic Panel (NA, K, CL, CO2, GLUCOSE, BUN, CREATININE, CA)2020-04-05 22:15:00 Test Item Value Reference Range Interpretation Comments NA (test code = 139 mmol/L 135-145 9549576738) K (test code = 3.7 mmol/L 3.5-5 8415452082) CL (test code = 105 mmol/L 98-108 2451450608) CO2 TOTAL (test code = 26 mmol/L 23-31 2393700346) AGAP (test code = 2-16 4972496455) BUN (test code = 11 mg/dL 7-23 4996108491) GLUCOSE (test code = 107 mg/dL 70-110 5071331048) CREATININE (test code 0.77 mg/dL 0.5-1.04 = 2037828122) CALCIUM (test code = 9.7 mg/dL 8.6-10.6 4115896341) eGFR Calculation mL/min/1.73m2 (Non-) (test code = 8078792058) eGFR Calculation mL/min/1.73m2 () (test code = 1242949939) GILA (test code = GILA) Association of Glomerular Filtration Rate (GFR) and Staging of Kidney Disease* + -+ + ---+| GFR (mL/min/1.73 m2) ?| With Kidney Damage ?| ?Without Kidney Damage+ -------+ ------+ ---------+| ?>90 ?| ?Stage one ?| ? Normal ?+ --+ -+ ----+| ?60-89 ?| ?Stage two ?| ? Decreased GFR ? + -+ + ---+| ?30-59 ?| ?Stage three ?| ? Stage three ? + -+ + ---+| ?15-29 ?| ?Stage four ? | ? Stage four ?+ --+ -+ ----+| ?<15 (or dialysis) ? ?| ?Stage five ? | ? Stage five ?+ --+ -+ ----+ *Each stage assumes the associated GFR level has been in effect for at least three months. ?Stages 1 to 5, with or without kidney disease, indicate chronic kidney disease. Notes: Determination of stages one and two (with eGFR >59mL/min/1.73 m2) requires estimation of kidney damage for at least three months as defined by structural or functional abnormalities of the kidney, manifested by either:Pathological abnormalities or Markers of kidney damage (including abnormalities in the composition of the blood or urine or abnormalities in imaging tests). [facility] (ALB, T.PRO, BILI T, BU/BC, ALT, AST, ALK PHOS)2020-04-05 22:15:00 Test Item Value Reference Range Interpretation Comments TOTAL BILI (test code = 4303135688) 0.8 mg/dL 0.1-1.1 BILI UNCON (test code = 2878396468) 0.8 mg/dL 0.1-1.1 BILI CONJ (test code = 1625966518) 0.0 mg/dL 0-0.3 T PROTEIN (test code = 5179165020) 7.7 g/dL 6.3-8.2 ALBUMIN (test code = 1763760581) 4.4 g/dL 3.5-5 ALK PHOS (test code = 0021417278) 101 U/L 34-122 ALTv (test code = 1742-6) 34 U/L 5-35 AST(SGOT) (test code = 5728289356) 30 U/L 13-40 Lab Interpretation (test code = Normal 32417-4) [facility] Time (PT) / [id number] 22:12:00 Test Item Value Reference Range Interpretation Comments PROTIME PATIENT (test See_Comment [Auto mated message] code = 5964-2) The system wh ich generated this result transmitted ref erence range: 12.0 - 1 4.7 Seconds. The re ference range was not u sed to interpret this result as normal/abnor mal. INR (test code = 6301-6) Nor mal INR <1.1; Warfarin Therap eutic range 2.0 to 3. 0 or 2.5 to 3.5, dep ending upon the indica tions. Lab Interpretation (test Normal code = 70030-0) [facility] WITH [id number] 22:05:00 Test Item Value Reference Range Interpretation Comments WBC (test code = See_Comment [Automated 6490-2) message] The sy stem which generated this result transmitted reference range : 4.30 - 11.10 10*3/?L. The reference range was not used to interpret this result as normal/abnormal . RBC (test code = See_Comment [Automated 439-8) message] The sy stem which generated this result transmitted reference range : 3.93 - 5.25 10*6/?L. The reference range was not used to interpret this result as normal/abnormal . HGB (test code = 14.5 g/dL 11.6-15 718-7) HCT (test code = 43.9 % 35.7-45.2 4544-3) MCV (test code = 88.7 fL 80.6-95.5 787-2) MCH (test code = 29.3 pg 25.9-32.8 785-6) MCHC (test code = 33.0 g/dL 31.6-35.1 786-4) RDW-SD (test code = 42.2 fL 39-49.9 96609-7) RDW-CV (test code = 13.1 % 12-15.5 788-0) PLT (test code = See_Comment H [Automated 777-3) message] The sy stem which generated this result transmitted reference range : 166 - 358 10*3/ ?L. The reference r abran was not used to interpret this result as normal/abnormal . MPV (test code = 8.8 fL 9.5-12.9 L 26310-6) NRBC/100 WBC (test See_Comment [Automat ed code = [id number]) message] The system which generated this result transmitted reference range : 0.0 - 10.0 /100 WBCs. The refer ence range was not u sed to interpret th is result as normal/abnormal . NRBC x10^3 (test code <0.01 See_Comment [Auto mated = [id number]) message] The s ystem which generated this result transmitted reference range : 10*3/?L. The reference range was not used to interpret this result as normal/abnormal . GRAN MAT (NEUT) % 51.0 % (test code = 770-8) IMM GRAN % (test code 0.30 % = 3595377829) LYMPH % (test code = 39.3 % 736-9) MONO % (test code = 6.6 % 5905-5) EOS % (test code = 2.0 % 713-8) BASO % (test code = 0.8 % 706-2) GRAN MAT x10^3(ANC) 3.61 10*3/uL 1.88-7.09 (test code = 5270655268) IMM GRAN x10^3 (test <0.03 0-0.06 code = 3877896371) LYMPH x10^3 (test code 2.78 10*3/uL 1.32-3.29 = 731-0) MONO x10^3 (test code 0.47 10*3/uL 0.33-0.92 = 742-7) EOS x10^3 (test code = 0.14 10*3/uL 0.03-0.39 711-2) BASO x10^3 (test code 0.06 10*3/uL 0.01-0.07 = 704-7) Lab Interpretation Abnormal (test code = 52932-6) [facility]"
[2022-09-27] MEDS ORDERED: HYDROMORPHONE HCL 1 MG/ML INJ ONE ×2 (15:43→17:44)
[2022-09-27] MEDS ORDERED: ONDANSETRON 4 MG/2 ML VIAL ONE (15:43)
[2022-09-27] MEDS ORDERED: LEVALBUTEROL 1.25 MG/3 ML NEB ONE (15:43)
[2022-09-27 16:11] LABS: Absolute Lymphocytes (CBC) 2.7 K/uL (0.7-4.9); Hematocrit 43.8 % (36.0-45.0); MCV 89.8 fL (80-100); MPV 6.4 fL (7.6-11.3); RBC Red Blood Cell Count 4.87 M/uL (3.86-4.86)
[2022-09-27 16:16] LABS: SARS-CoV-2 Antigen Rapid Res Negative (Negative)
--- NOTE | 2022-09-27 16:21 | RAD REPORT ---
EXAM DESCRIPTION: RAD - Chest Single View - 09/27/2022 4:12 pm CLINICAL HISTORY: DYSPNEA COMPARISON: PA chest 06/06/2021 TECHNIQUE: AP portable chest image was obtained 09/27/2022 4:12 pm . FINDINGS: Lungs are clear. Heart and vasculature are normal. No measurable pleural effusion and no p neumothorax. No acute bony abnormality seen. No acute aortic findings suspected. IMPRESSION: No acute cardiopulmonary process. No significant change from comparison study.
[2022-09-27 16:24] LABS: Albumin 3.7 g/dL (3.4-5.0); Bilirubin Total 0.6 mg/dL (0.2-1.0); Potassium 3.9 mmol/L (3.5-5.1); Protein, Total 8.3 g/dL (6.4-8.2)
[2022-09-27 17:15] LABS: Urine Blood Negative (Negative); Urine Glucose 2+ (Negative); Urine Protein Trace (Negative); Urine Specific Gravity >=1.030 (1.005-1.030); Urine pH 6.5 (5.0-7.0)
--- NOTE | 2022-09-27 17:50 | RAD REPORT ---
EXAM DESCRIPTION: CT - Abdomen Pelvis W Contrast - 09/27/2022 5:34 pm CLINICAL HISTORY: LLQ abd pain, treated for diverticulitis COMPARISON: Abdomen Pelvis W Contrast dated 04/07/2022 TECHNIQUE: Biphasic, helical CT imaging of the abdomen and pelvis was performed following 100 ml non -ionic IV contrast. Oral contrast: No. All CT scans are performed using dose optimization technique as appropriate and may include automated exposure control or mA/KV adjustment according to patient size. FINDINGS: No suspicious findings in the lung bases. The liver, spleen, and pancreas show no suspicious findings. Anterior cyst is present in the medial s egment left lobe liver similar to prior imaging. Fatty infiltration or volume loss changes in the camara creatic parenchyma noted. Gallbladder is absent. No abnormal biliary tree dilatation. Symmetric renal function is seen with no hydronephrosis or suspicious renal mass. No pyelonephritis o r acute parenchymal process. No bladder abnormalities. No adrenal abnormalities. Uterus is absent. Ov gale are absent or atrophic. No DISCOUNT CLERK acute process seen. No stomach or small bowel abnormality. Cecum is low lying along the pelvic floor. Appendix not clearl y defined. There are no direct or indirect appendicitis findings. Sigmoid diverticulosis is present w ithout diverticulitis. Moderately large stool volume distends the rectum and distal sigmoid colon. No free air, free fluid or inflammatory stranding. No hernia, mass or bulky lymphadenopathy. No suspicious bony findings. IMPRESSION: Contrast enhanced CT abdomen and pelvis showing no acute or emergent finding. Nonacute findings detailed in the body of the report.
--- NOTE | 2022-09-27 17:59 | ER ---
Nurse's Notes [facility] Name: Kelsy Gerber Age: 47 yrs Sex: Female : 1975 Arrival Date: 09/27/2022 Time: 14:19 Bed 7 Private MD: Nnamdi Arshad Diagnosis: Lower abdominal pain, unspecified;Constipation, unspecified Presentation: 09/27 15:22 Chief complaint: Patient states: LLQ pain x 3 weeks, states has hx of diverticulitis, vg1 stated NVD. Pt stated ate tomatoes about three weeks ago. Coronavirus screen: Vaccine status: Patient reports receiving the 2nd dose of the covid vaccine. Client denies travel out of the [place] in the last 14 days. Ebola Screen: Patient negative for fever greater than or equal to 101.5 degrees Fahrenheit, and additional compatible Ebola Virus Disease symptoms. Initial Sepsis Screen: Does the patient meet any 2 criteria? No. Patient's initial sepsis screen is negative. Does the patient have a suspected source of infection? No. Patient's initial sepsis screen is negative. Risk Assessment: Do you want to hurt yourself or someone else? Patient reports no desire to harm self or others. Onset of symptoms was September 06, 2022. 15:22 Method Of Arrival: Ambulatory vg1 15:22 Acuity: KELLEY 3 vg1 Triage Assessment: 15:29 General: Appears uncomfortable, Behavior is calm, cooperative. Pain: Complains of pain vg1 in left lower quadrant Pain currently is 10 out of 10 on a pain scale. GI: Abdomen is round non-distended, Reports diarrhea, nausea, vomiting. 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 - Social history:: Smoking status: Patient denies any tobacco usage or history of. - Family history:: not pertinent. - Hospitalizations: : No recent hospitalization is reported. Screenin:24 Abuse screen: Denies threats or abuse. Nutritional screening: No deficits noted. kl Tuberculosis screening: No symptoms or risk factors identified. Fall Risk None identified. Assessment: 15:55 General: Appears uncomfortable, Behavior is anxious, crying. Pain: Complains of pain in mb9 left lower quadrant Pain radiates to back Pain currently is 10 out of 10 on a pain scale. Quality of pain is described as sharp, stabbing, Aggravated by increased activity, repositioning, weight bearing. 15:55 Neuro: Baptiste Agitation-Sedation Scale (RASS): 0 - Alert and Calm Level of mb9 Consciousness is awake, alert, obeys commands, Oriented to person, place, time, situation, Appropriate for age. Cardiovascular: Heart tones S1 S2 present Rhythm is regular. Respiratory: Airway is patent Respiratory effort is even, unlabored, Respiratory pattern is regular, symmetrical, Breath sounds are clear bilaterally. GI: Abdomen is round non-distended, Bowel sounds present X 4 quads. Abd is soft in left lower quadrant Abdomen is tender to palpation. : No signs and/or symptoms were reported regarding the genitourinary system. EENT: No signs and/or symptoms were reported regarding the EENT system. Derm: Skin is pink, warm \T\ dry. Musculoskeletal: Range of motion: intact in all extremities. 17:22 Reassessment: MD notified about pts pain. Pain: Complains of pain in left lower mb9 quadrant Pain currently is 10 out of 10 on a pain scale. Neuro: Level of Consciousness is awake, alert, obeys commands, Oriented to person, place, time, situation, Appropriate for age. Respiratory: Airway is patent. Derm: Skin is pink, warm \T\ dry. 17:24 Reassessment: pt taken to CT via wheelchair. mb9 18:12 Reassessment: pt stating she's having chest pain/pressure. Pt currently crying and mb9 anxious. Rhythm is regular and respirations are unlabored. Claire SILVESTRE, notified. 18:56 Reassessment:. General: Appears uncomfortable, Behavior is anxious, crying. Pain: mb9 Complains of pain in chest Pain does not radiate. Pain currently is 10 out of 10 on a pain scale. Quality of pain is described as burning, aching, Alleviated by nothing. Aggravated by increased activity, repositioning. Neuro: Level of Consciousness is awake, alert, obeys commands, Oriented to person, place, time, situation, Appropriate for age. Cardiovascular: Rhythm is regular. Respiratory: Airway is patent Respiratory effort is even, unlabored, Respiratory pattern is regular, symmetrical. Derm: Skin is pink, warm \T\ dry. 19:25 Reassessment: No changes from previously documented assessment. Patient is alert, kl oriented x 3, equal unlabored respirations, skin warm/dry/pink. Patient states feeling better. Patient states symptoms have improved. Vital Signs: 15:22 BP 119 / 83; Pulse 83; Resp 18; Temp 98.6; Pulse Ox 100% ; Weight 84.82 kg; Height 5 vg1 ft. 2 in. (157.48 cm); Pain 10/10; 16:05 BP 109 / 79; Pulse 80; Resp 18; Pulse Ox 100% on R/A; Pain 10/10; mb9 17:23 BP 119 / 70; Pulse 50; Resp 18; Pulse Ox 100% on R/A; Pain 10/10; mb9 18:13 BP 126 / 86; Pulse 83; Resp 20; Pulse Ox 100% on R/A; mb9 18:58 BP 115 / 66; Pulse 61; Resp 18; Pulse Ox 100% on R/A; mb9 19:25 BP 108 / 61; Pulse 75; Resp 18; Pulse Ox 98% on R/A; Pain 6/10; kl 15:22 Body Mass Index 34.20 (84.82 kg, 157.48 cm) vg1 ED Course: 14:19 Patient arrived in ED. rg4 14:19 Nnamdi Arshad MD is Private Physician. rg4 15:16 Casa Rangel MD is Attending Physician. rn 15:29 Triage completed. vg1 15:29 Arm band placed on. vg1 15:34 Colleen Shell RN is Primary Nurse. mb9 15:40 Colleen Shell RN is Primary Nurse. mb9 15:50 Inserted saline lock: 20 gauge in right antecubital area, using aseptic technique. mb9 Blood collected. 16:01 SARS RAPID Sent. mb9 16:01 CBC with Diff Sent. mb9 16:01 CMP Sent. mb9 16:01 Lipase Sent. mb9 16:14 XRAY Chest (1 view) In Process Unspecified. EDMS 17:36 CT Abd/Pelvis - IV Contrast Only In Process Unspecified. EDMS 17:58 Nnamdi Arshad MD is Referral Physician. rn 18:23 EKG done, by ED staff, reviewed by Casa Rangel MD. mb9 19:25 No provider procedures requiring assistance completed. IV discontinued, intact, kl bleeding controlled, No redness/swelling at site. Pressure dressing applied. 19:27 Patient has correct armband on for positive identification. kl Administered Medications: 15:06 Drug: Dilaudid (HYDROmorphone) 1 mg Route: IVP; Site: right antecubital; mb9 17:48 Follow up: Response: No adverse reaction mb9 15:50 Drug: Xopenex (levalbuterol) 1.25 mg Route: Inhalation; mb9 17:48 Follow up: Response: No adverse reaction mb9 15:56 Drug: Zofran (Ondansetron) 4 mg Route: IVP; Site: right antecubital; mb9 17:48 Follow up: Response: No adverse reaction mb9 17:47 Drug: Dilaudid (HYDROmorphone) 1 mg Route: IVP; Site: right antecubital; mb9 17:59 Follow up: Response: No adverse reaction mb9 18:11 Drug: NS 0.9% 500 ml Route: IV; Rate: bolus; Site: right antecubital; mb9 18:56 Follow up: Response: No adverse reaction; IV Status: Completed infusion mb9 18:14 Drug: Lactulose 20 grams Volume: 30 ml; Route: PO; mb9 18:56 Follow up: Response: No adverse reaction mb9 18:56 Drug: Benadryl (diphenhydrAMINE) 50 mg Route: IVP; Site: right antecubital; mb9 18:58 Follow up: Response: No adverse reaction mb9 18:56 Drug: Pepcid (famotidine) 20 mg Route: IVP; Site: right antecubital; mb9 18:58 Follow up: Response: No adverse reaction mb9 Medication: 19:25 VIS not applicable for this client. kl Outcome: 17:59 Discharge ordered by . rn 19:25 Discharged to home ambulatory, with family. kl 19:25 Condition: improved 19:25 Discharge instructions given to patient, Instructed on discharge instructions, follow up and referral plans. Demonstrated understanding of instructions, follow-up care. 19:27 Patient left the ED. Signatures: Dispatcher [employer] EDYazmin Orona RN RN kl Williams, Irene RN Casa Viveros MD MD rn Garcia, Rubi rg4 Hailey Londono RN RN vg1 Sumaya, Colleen Baker RN RN mb9 Corrections: (The following items were deleted from the chart) 15:30 15:22 Chief complaint: Patient states: LLQ pain x 3 weeks, states has hx of vg1 diverticulitis, stated NVD vg1
--- NOTE | 2022-09-27 18:00 | EDPHYS ---
Physician Documentation [facility] Name: Kelsy Gerber Age: 47 yrs Sex: Female : 1975 Arrival Date: 09/27/2022 Time: 14:19 Bed 7 Private MD: Nnamdi Arshad ED Physician Casa Rangel HPI: 09/27 16:26 This 47 yrs old Female presents to ER via Ambulatory with complaints of rn Abdominal Pain, Breathing Difficulty. 16:26 The patient presents with abdominal pain in the left lower quadrant. rn 16:58 Onset: The symptoms/episode began/occurred 3 week(s) ago. The symptoms do not radiate. rn Associated signs and symptoms: Pertinent positives: nausea and vomiting, Pertinent negatives: blood in stools, chest pain, fever. The symptoms are described as sharp, stabbing. Modifying factors: The symptoms are alleviated by nothing, the symptoms are aggravated by touching the area. Severity of pain: At its worst the pain was moderate in the emergency department the pain is unchanged. The patient has experienced similar episodes in the past. The patient has not recently seen a physician. Pt reports 3 weeks of LLQ abd pain, told had diverticulitis and given abx, finished them, still having pain. Also feels like having anxiety with sob and rapid breathing. No fever. No blood in stool. No trauma. . 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 - Social history:: Smoking status: Patient denies any tobacco usage or history of. - Family history:: not pertinent. - Hospitalizations: : No recent hospitalization is reported. ROS: 16:58 Constitutional: Negative for fever, chills, and weight loss, Eyes: Negative for injury, rn pain, redness, and discharge, Neck: Negative for injury, pain, and swelling, Cardiovascular: Negative for chest pain, palpitations, and edema, Respiratory: Negative for cough, wheezing, and pleuritic chest pain, Abdomen/GI: + LLQ abd pain and nausea/vomiting Back: Negative for injury and pain, : Negative for injury, bleeding, discharge, and swelling, MS/Extremity: Negative for injury and deformity, Skin: Negative for injury, rash, and discoloration, Neuro: Negative for headache, weakness, numbness, tingling, and seizure. Exam: 16:58 Constitutional: This is a well developed, well nourished patient who is awake, alert, rn appears anxious and hyperventilating Head/Face: Normocephalic, atraumatic. Cardiovascular: Regular rate and rhythm. No pulse deficits. Respiratory: + hyperventilating without stridor or wheezing Abdomen/GI: soft, + LLQ tenderness, no peritoneal signs. Skin: Warm, dry MS/ Extremity: Pulses equal, no cyanosis. Neuro: Awake and alert, GCS 15 Vital Signs: 15:22 BP 119 / 83; Pulse 83; Resp 18; Temp 98.6; Pulse Ox 100% ; Weight 84.82 kg; Height 5 vg1 ft. 2 in. (157.48 cm); Pain 10/10; 16:05 BP 109 / 79; Pulse 80; Resp 18; Pulse Ox 100% on R/A; Pain 10/10; mb9 17:23 BP 119 / 70; Pulse 50; Resp 18; Pulse Ox 100% on R/A; Pain 10/10; mb9 18:13 BP 126 / 86; Pulse 83; Resp 20; Pulse Ox 100% on R/A; mb9 18:58 BP 115 / 66; Pulse 61; Resp 18; Pulse Ox 100% on R/A; mb9 19:25 BP 108 / 61; Pulse 75; Resp 18; Pulse Ox 98% on R/A; Pain 6/10; kl 15:22 Body Mass Index 34.20 (84.82 kg, 157.48 cm) vg1 MDM: 15:16 Patient medically screened. rn 17:57 Differential diagnosis: bowel obstruction, diverticulitis, non-specific abd pain, rn urinary tract infection, constipation. Data reviewed: vital signs, nurses notes, lab test result(s), radiologic studies, CT scan, plain films, and as a result, I will discharge patient. Counseling: I had a detailed discussion with the patient and/or guardian regarding: the historical points, exam findings, and any diagnostic results supporting the discharge/admit diagnosis, lab results, radiology results, the need for outpatient follow up, to return to the emergency department if symptoms worsen or persist or if there are any questions or concerns that arise at home. Response to treatment: the patient's symptoms have markedly improved after treatment, and as a result, I will discharge patient. Special discussion: Based on the patient's Hx, exam, and Dx evaluation, there is no indication for emergent surgery or inpatient Tx. It is understood by the patient/guardian that if the Sx's persist or worsen they need to return immediately for re-evaluation. I discussed with the patient/guardian in detail that at this point there is no indication for admission to the hospital. It is understood, however, that if the symptoms persist or worsen the patient needs to return immediately for re-evaluation. Based on the history and exam findings, there is no indication for further emergent testing or inpatient evaluation. I discussed with the patient/guardian the need to see the primary care provider for further evaluation of the symptoms. ED course: CT without acute findings or to suggest diverticulitis. CT does show moderate constipation and stool load in rectum/sigmoid colon. Discussed case with Dr. Arshad her pcp, who wants patient to get lactulose and can dc home with f/u. . 18:48 ED course: Pt began to report chest pain, ecg obtained, no ischemia, stable vitals, pt rn reports indigestion and states has had this type of reaction to morphine. Will given benadryl and pepcid. . 09/27 15:28 Order name: CBC with Diff; Complete Time: 16:25 rn 09/27 15:28 Order name: CMP; Complete Time: 16:25 rn 09/27 15:28 Order name: Lipase; Complete Time: 16:25 rn 09/27 15:28 Order name: CT Abd/Pelvis - IV Contrast Only; Complete Time: 17:53 rn 09/27 15:28 Order name: SARS RAPID; Complete Time: 16:25 rn 09/27 17:16 Order name: Urine Dipstick-Ancillary; Complete Time: 17:30 EDMS 09/27 15:28 Order name: XRAY Chest (1 view); Complete Time: 16:25 rn 09/27 15:28 Order name: IV Saline Lock; Complete Time: 16:00 rn 09/27 15:28 Order name: Labs collected and sent; Complete Time: 16:00 rn 09/27 15:28 Order name: Urine Dipstick-Ancillary (obtain specimen); Complete Time: 17:24 rn 09/27 18:23 Order name: EKG - Nurse/Tech; Complete Time: 18:23 mb9 Administered Medications: 15:06 Drug: Dilaudid (HYDROmorphone) 1 mg Route: IVP; Site: right antecubital; mb9 17:48 Follow up: Response: No adverse reaction mb9 15:50 Drug: Xopenex (levalbuterol) 1.25 mg Route: Inhalation; mb9 17:48 Follow up: Response: No adverse reaction mb9 15:56 Drug: Zofran (Ondansetron) 4 mg Route: IVP; Site: right antecubital; mb9 17:48 Follow up: Response: No adverse reaction mb9 17:47 Drug: Dilaudid (HYDROmorphone) 1 mg Route: IVP; Site: right antecubital; mb9 17:59 Follow up: Response: No adverse reaction mb9 18:11 Drug: NS 0.9% 500 ml Route: IV; Rate: bolus; Site: right antecubital; mb9 18:56 Follow up: Response: No adverse reaction; IV Status: Completed infusion mb9 18:14 Drug: Lactulose 20 grams Volume: 30 ml; Route: PO; mb9 18:56 Follow up: Response: No adverse reaction mb9 18:56 Drug: Benadryl (diphenhydrAMINE) 50 mg Route: IVP; Site: right antecubital; mb9 18:58 Follow up: Response: No adverse reaction mb9 18:56 Drug: Pepcid (famotidine) 20 mg Route: IVP; Site: right antecubital; mb9 18:58 Follow up: Response: No adverse reaction mb9 Disposition Summary: 09/27/22 17:59 Discharge Ordered Location: Home rn Problem: new rn Symptoms: have improved rn Condition: Stable rn Diagnosis - Lower abdominal pain, unspecified rn - Constipation, unspecified rn Followup: rn - With: Nnamdi Arshad MD - When: As needed - Reason: Recheck today's complaints, Re-evaluation by your physician Discharge Instructions: - Discharge Summary Sheet rn - Abdominal Pain, Adult rn - Constipation, Adult rn Forms: - Medication Reconciliation Form rn - Thank You Letter rn - 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
[2022-09-27] MEDS ORDERED: LACTULOSE 20 GM/30 ML UCUP ONE (18:05)
[2022-09-27] MEDS ORDERED: NA CHLORIDE 0.9% 500 ML ONE (18:05)
[2022-09-27] MEDS ORDERED: DIPHENHYDRAMINE 50 MG/ML VIAL ONE (18:50)
[2022-09-27] MEDS ORDERED: FAMOTIDINE 20 MG/2 ML VIAL IV ONE (18:51)
[2022-09-27 23:52] VITALS: TEMP 98.6
[2022-09-27 23:58] VITALS: BP 108/61; O2SAT 98
--- NOTE | 2022-09-28 16:01 | EKG ---
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
== END 2022-09-27 19:27 | disposition home or self-care (01) ==
LOC: ER 14:15
DX: K59.00 Constipation, unspecified (principal); Z20.822 Contact with and (suspected) exposure to COVID-19; I10 Essential (primary) hypertension; Z88.5 Allergy status to narcotic agent; Z88.6 Allergy status to analgesic agent
CPT/HCPCS: 85025; 36415; 81003; 83690; 80053; 74177; 71045; 87811; Q9967; J1200; J7614; J1170 ×2; J7040; J2405; 93005

== ENCOUNTER 2023-04-19 12:23 | Emergency (ER) | payer OTHER ==
--- OUTSIDE RECORDS SUMMARY | 2023-04-19 12:27 | XMS REPORT | Continuity of Care Document ---
:1975 Author Organization [facility] t Address [address] [place] [address] [address] [place] [address] Care Team Providers Name Role Phone Asked, No Pcp Primary Care Physician Unavailable Ryan Schulte Attending Clinician Unavailable Tony Andrew DO Attending Clinician Yesi Mckeon DO Attending Clinician YESI MCKEON Attending Clinician Unavailable AMIRA LUO Attending Clinician Unavailable AMIRA LUO Attending Clinician Unavailable ROBSON SIMMONS Attending Clinician Unavailable Amira Luo MD Attending Clinician Doctor Unassigned, Perdido Attending Clinician Unavailable DAHLIA DIAZ Attending Clinician [...] pap [place] dysplasia dysplasia 00 smear of [place] dical vaginal Branch cuff normal with negative [...] of - [facility] left knee left knee [facility] Sprain of Sprain of Diagnosis Active C [...] Drug) NSAIDS Adverse Active hives Common Reaction [facility] Toradol Adverse Active Info Not Common Reaction Available [facility] Ibuprofe Adverse Active Info Not Commo n n Reaction Available [facility] Aleve Adverse Active Info Not Common Reaction Available [facility] Advil Adverse Active Info Not Common Reaction Available [facility] Social History Social Habit Start Date Stop Date Quantity Comments Source Exposure to Not sure [facility] SARS-CoV-2 (event) [facility] Gender identity Gnosticism [facility] Tobacco use and 2020-04-05 2020-04-05 Never used Universit y of exposure 00:00:00 00:00:00 [facility] Alcohol intake 2020-04-05 2020-04-05 Current drinker Unive rsity of 00:00:00 00:00:00 of alcohol [facility] (finding) [place] Alcohol Comment 2019-10-31 2019-10-31 rare Universit y of 00:00:00 00:00:00 [facility] Sex Assigned At [birth year] Gnosticism 00:00:00 00:00:00 Hospital Smoking Status Start Date Stop Date Source [facility] Medications Ordered Filled Start Stop Current Ordering Indication Dosage Frequency Signature Comments Components Source Medication Medication Date Date Medication? Clinician (SIG) Name Name acetaminoph 2019-2019- No 650mg 650 mg, U nivers en 04-06 Oral, ity of (TYLENOL) 00:15: 23:02 ONCE, 1 [place] tablet 650 [place] :00 dose, Mon Medi tim mg 04/05/20 at [place] 1915, ADRIANA iohexol 2020- No 100mL 100 mL, Unive rs (OMNIPAQUE 04-05 Intravenou it y of 350 23:00: 22:40 s, ONCE, 1 [place] BULK-100 00 :00 dose, Mon Medica l mL) 04/05/20 at [place] injection 1800, 100 mL Routine gabapentin 2019-0 2020- No [id number] 300mg Take 1 Univers 300 mg 04-05 capsule by ity of capsule 00:00: 04:59 mouth 3 [place] 00 :00 (three) Medical times [place] daily for 30 days. dapaglifloz 2019-0 Yes [...] 2020- No Take by Un arnulfo benzoate 2- 02-07 mouth. ity of (RIZATRIPTA 21:36: 00:00 [place] N ORAL) 16 :00 Medical Branch rizatriptan 2020-0 2020- No Take by Un arnulfo benzoate 2- 02-07 mouth. ity of (RIZATRIPTA 21:36: 00:00 [place] N ORAL) 16 :00 Medical Branch PREDNISOLON 2020-0 2020- No Take by Un arnulfo E ORAL 2-07 02-07 mouth. ity of 21:35: 00:00 [place] 54 :00 Medical Branch PREDNISOLON 2020-0 2020- No Take by Un arnulfo E ORAL 2- 02-07 mouth. ity of 21:35: 00:00 [place] 54 :00 Medical Branch mirabegron 2020-0 Yes [id number] 25mg Take 1 Univers (MYRBETRIQ) 2-07 tablet by ity of 25 mg 00:00: mouth [place] tablet 00 daily. Medical Branch mirabegron 2020-0 Yes [id number] 25mg Take 1 Univers (MYRBETRIQ) 2-07 tablet by ity of 25 mg 00:00: mouth [place] tablet 00 daily. Medical Branch mirabegron 2020-0 Yes [id number] 25mg Take 1 Univers (MYRBETRIQ) 2-07 tablet by ity of 25 mg 00:00: mouth [place] tablet 00 daily. Medical Branch mirabegron 2020-0 Yes [id number] 25mg Take 1 Univers (MYRBETRIQ) 2-07 tablet by ity of 25 mg 00:00: mouth [place] tablet 00 daily. Medical Branch mirabegron 2020-0 Yes [id number] 25mg Take 1 Univers (MYRBETRIQ) 2-07 tablet [...] ers ORAL 1-10 mouth. ity of 21:14: [place] [address] Medical Branch levothyroxi 2020-0 Yes Take by Uni vers ne sodium 1-10 mouth. ity of (LEVOTHYROX 21:14: [place] INE ORAL) 46 Medical Branch losartan 2019-0 Yes Take by Univer s potassium 1-10 mouth. ity of (LOSARTAN 21:14: [place] ORAL) 46 Medical Branch montelukast 2020-0 Yes Take by Uni vers sodium 1-10 mouth. ity of (MONTELUKAS 21:14: [place] T ORAL) 46 Medical Branch lipase/prot 2020-0 Yes Take by Uni vers ease/amylas 1-10 mouth. ity of e (CREON 21:14: [place] ORAL) 46 Medical Branch OXYBUTYNIN 2019-0 Yes Take by Univ ers CHLORIDE 1-10 mouth. ity of ORAL 21:14: [place] [address] Medical Branch atorvastati 2019-0 Yes Take by Uni vers n calcium 1-10 mouth. ity of (ATORVASTAT 21:14: [place] IN ORAL) 46 Medical Branch ALBUTEROL 2019-0 Yes Inhale. Unive rs SULFATE HFA 1-10 ity of INHALE 21:14: [place] [address] Medical Branch fluticasone 2020-0 Yes 2{spray Use 2 Un arnulfo 27.5 1-10 } Sprays in ity of mcg/actuati 21:14: each [place] on nasal 46 nostril Medical spray daily. Branch meclizine 2020-0 Yes Take by Unive rs HCl 1-10 mouth. ity of (MECLIZINE 21:14: [place] ORAL) 46 Medical Branch BUDESONIDE 2020-0 Yes Take by Univ ers ORAL 1-10 mouth. ity of 21:14: [place] [address] Medical Branch metformin 2020-0 Yes Take by Unive rs HCl 1-10 mouth. ity of (METFORMIN 21:14: [place] ORAL) Medical Branch GLIMEPIRIDE 2020-0 Yes Take by Uni vers ORAL 1-10 mouth. ity of 21:14: [place] [address] Medical Branch pantoprazol 2020-0 Yes Take by [...] ers ORAL 1-10 mouth. ity of 21:14: [place] [address] Medical Branch TOPIRAMATE 2019-0 Yes Take by Univ ers ORAL 1-10 mouth. ity of 21:14: [place] [address] Medical Branch levothyroxi 2019-0 Yes Take by Uni vers ne sodium 1-10 mouth. ity of (LEVOTHYROX 21:14: [place] INE ORAL) Medical Branch losartan 2019-0 Yes Take by Univer s potassium 1-10 mouth. ity of (LOSARTAN 21:14: [place] ORAL) Medical Branch montelukast 2020-0 Yes Take by Uni vers sodium 1-10 mouth. ity of (MONTELUKAS 21:14: [place] T ORAL) Medical Branch OXYBUTYNIN 2019-0 Yes Take by Univ ers CHLORIDE 1-10 mouth. ity of ORAL 21:14: [place] [address] Medical Branch atorvastati 2019-0 Yes Take by Uni vers n calcium 1-10 mouth. ity of (ATORVASTAT 21:14: [place] IN ORAL) Medical Branch ALBUTEROL 2020-0 Yes Inhale. Unive rs SULFATE HFA 1-10 ity of INHALE 21:14: [place] [address] Medical Branch fluticasone 2020-0 Yes 2{spray Use 2 Un arnulfo 27.5 1-10 } Sprays in ity of mcg/actuati 21:14: each [place] on nasal 46 nostril Medical spray daily. Branch meclizine 2020-0 Yes Take by Unive rs HCl 1-10 mouth. ity of (MECLIZINE 21:14: [place] ORAL) 46 Medical Branch BUDESONIDE 2020-0 Yes Take by Univ ers ORAL 1-10 mouth. ity of 21:14: [place] [address] Medical Branch metformin 2020-0 Yes Take by Unive rs HCl 1-10 mouth. ity of (METFORMIN 21:14: [place] ORAL) 46 Medical Branch levothyroxi 2020-0 Yes Take by Uni vers ne sodium 1-10 mouth. ity of (LEVOTHYROX 21:14: [place] INE ORAL) 46 Medical Branch GLIMEPIRIDE 2020-0 Yes Take by Uni vers ORAL 1-10 mouth. ity of 21:14: [place] [address] Medical Branch losartan 2020-0 Yes Take by Univer s potassium 1-10 mouth. ity of (LOSARTAN 21:14: [place] ORAL) 46 Medical Branch montelukast 2019-0 Yes Take by Uni vers sodium 1-10 mouth. ity of (MONTELUKAS 21:14: [place] T ORAL) 46 Medical Branch OXYBUTYNIN 2020-0 Yes Take by Univ ers CHLORIDE 1-10 mouth. ity of ORAL 21:14: [place] [address] Medical Branch atorvastati 2020-0 Yes Take by Uni vers n calcium 1-10 mouth. ity of (ATORVASTAT 21:14: [place] IN ORAL) Medical Branch lipase/prot 2020-0 Yes Take by Uni vers ease/amylas 1-10 mouth. ity of e (CREON 21:14: [place] ORAL) 46 Medical Branch pantoprazol 2020-0 Yes Take by Uni vers e sodium 1-10 mouth. ity of (PANTOPRAZO 21:14: [place] LE ORAL) 46 Medical Branch TOPIRAMATE 2020-0 Yes Take by Univ ers ORAL 1-10 mouth. ity of 21:14: [place] [address] Medical Branch levothyroxi 2020-0 Yes Take by [...] 1-10 mouth. ity of (RIZATRIPTA 21:14: [place] N ORAL) Medical Branch OXYBUTYNIN 2020-0 Yes Take by Univ ers CHLORIDE 1-10 mouth. ity of ORAL 21:14: [address] Branch atorvastati 2020-0 Yes Take by Uni vers n calcium 1-10 mouth. ity of (ATORVASTAT 21:14: [place] IN [place]) Medical Branch ALBUTEROL 2020-0 Yes Inhale. Unive rs SULFATE HFA 1-10 ity of INHALE 21:14: [address] fluticasone 2020-0 Yes 2{spray Use 2 Un arnulfo 27.5 1-10 } Sprays in ity of mcg/actuati 21:14: each [place] on nasal 46 nostril Medical spray daily. Branch meclizine 2019-0 Yes Take by Unive rs HCl 1-10 mouth. ity of (MECLIZINE 21:14: [facility]) [address] [place] [address] BUDESONIDE 2019-0 Yes Take by Univ ers ORAL 1-10 mouth. ity of 21:14: [address] metformin 2019-0 Yes Take by Unive rs HCl 1-10 mouth. ity of (METFORMIN 21:14: [facility]) [address] [place] [address] Branch GLIMEPIRIDE 2019-0 Yes Take by Uni vers ORAL 1-10 mouth. ity of 21:14: [address] ALBUTEROL 2019-0 Yes Inhale. Unive rs SULFATE HFA 1-10 ity of INHALE 21:14: [address] fluticasone 2020-0 Yes 2{spray Use 2 Un arnulfo 27.5 1-10 } Sprays in ity of mcg/actuati 21:14: each [place] on nasal 46 nostril Medical spray daily. Branch meclizine 2020-0 Yes Take by Unive rs HCl 1-10 mouth. ity of (MECLIZINE 21:14: [facility]) Medical Branch PREDNISOLON 2019-0 Yes Take by Uni vers E ORAL 1-10 mouth. ity of 21:14: [address] Branch BUDESONIDE 2020-0 Yes Take by Univ ers ORAL 1-10 mouth. ity of 21:14: [address] metformin 2020-0 Yes Take by Unive rs HCl 1-10 mouth. ity of (METFORMIN 21:14: [place] ORAL) 46 Medical Branch GLIMEPIRIDE 2020-0 Yes Take by Uni vers ORAL 1-10 mouth. ity of 21:14: [place] [address] Medical Branch lipase/prot 2020-0 Yes Take by Uni vers ease/amylas 1-10 mouth. ity of e (CREON 21:14: [place] ORAL) Medical Branch pantoprazol 2020-0 Yes Take by Uni vers e sodium 1-10 mouth. ity of (PANTOPRAZO 21:14: [place] LE ORAL) Medical Branch TOPIRAMATE 2020-0 Yes Take by Univ ers ORAL 1-10 mouth. ity of 21:14: [place] [address] Medical Branch levothyroxi 2020-0 Yes Take by Uni vers ne sodium 1-10 mouth. ity of (LEVOTHYROX 21:14: [place] INE ORAL) Medical Branch losartan 2019-0 Yes Take by Univer s potassium 1-10 mouth. ity of (LOSARTAN 21:14: [place] ORAL) Medical Branch montelukast 2020-0 Yes Take by Uni vers sodium 1-10 mouth. ity of (MONTELUKAS 21:14: [place] T ORAL) Medical Branch OXYBUTYNIN 2019-0 Yes Take by Univ ers CHLORIDE 1-10 mouth. ity of ORAL 21:14: [place] [address] Medical Branch atorvastati 2019-0 Yes Take by Uni vers n calcium 1-10 mouth. ity of (ATORVASTAT 21:14: [place] IN ORAL) Medical Branch ALBUTEROL 2019-0 Yes Inhale. Unive rs SULFATE HFA 1-10 ity of INHALE 21:14: [place] [address] Medical Branch fluticasone 2020-0 Yes 2{spray Use 2 Un arnulfo 27.5 1-10 } Sprays in ity of mcg/actuati 21:14: each [place] on nasal 46 nostril Medical spray daily. Branch meclizine 2020-0 Yes Take by Unive rs HCl 1-10 mouth. ity of (MECLIZINE 21:14: [place] ORAL) Medical Branch BUDESONIDE 2020-0 Yes Take by Univ ers ORAL 1-10 mouth. ity of 21:14: [place] [address] Medical Branch metformin 2020-0 Yes Take by Unive rs HCl 1-10 mouth. ity of (METFORMIN 21:14: [place] ORAL) Medical Branch GLIMEPIRIDE 2020-0 Yes Take by Uni vers ORAL 1-10 mouth. ity of 21:14: [place] [address] Medical Branch lipase/prot 2020-0 Yes Take by Uni vers ease/amylas 1-10 mouth. ity of e (CREON 21:14: [place] ORAL) Medical Branch pantoprazol 2019-0 Yes Take by Uni vers e sodium 1-10 mouth. ity of (PANTOPRAZO 21:14: [place] LE ORAL) Medical Branch TOPIRAMATE 2020-0 Yes Take by Univ ers ORAL 1-10 mouth. ity of 21:14: [place] [address] Medical Branch levothyroxi 2020-0 Yes Take by Uni vers ne sodium 1-10 mouth. ity of (LEVOTHYROX 21:14: [place] INE ORAL) Medical Branch losartan 2019-0 Yes Take by Univer s potassium 1-10 mouth. ity of (LOSARTAN 21:14: [place] ORAL) Medical Branch montelukast 2019-0 Yes Take by Uni vers sodium 1-10 mouth. ity of (MONTELUKAS 21:14: [place] T ORAL) Medical Branch OXYBUTYNIN 2019-0 Yes Take by Univ ers CHLORIDE 1-10 mouth. ity of ORAL 21:14: [place] [address] Medical Branch atorvastati 2019-0 Yes Take by Uni vers n calcium 1-10 mouth. ity of (ATORVASTAT 21:14: [place] IN ORAL) Medical Branch ALBUTEROL 2019-0 Yes Inhale. Unive rs SULFATE HFA 1-10 ity of INHALE 21:14: [place] [address] Medical Branch fluticasone 2019-0 Yes 2{spray Use 2 Un arnulfo 27.5 1-10 } Sprays in ity of mcg/actuati 21:14: each [place] on nasal 46 nostril Medical spray daily. Branch meclizine 2019-0 Yes Take by Unive rs HCl 1-10 mouth. ity of (MECLIZINE 21:14: [place] ORAL) Medical Branch BUDESONIDE 2019-0 Yes Take by Univ ers ORAL 1-10 mouth. ity of 21:14: [place] [address] Medical Branch metformin 2019-0 Yes Take by Unive rs HCl 1-10 mouth. ity of (METFORMIN 21:14: [place] ORAL) Medical Branch GLIMEPIRIDE 2020-0 Yes Take by Uni vers ORAL 1-10 mouth. ity of 21:14: [place] [address] Medical Branch lidocaine-p 2020-0 Yes [id number] Apply to Univers rilocaine 1-10 area(s) as ity of 2.5-2.5 % 00:00: needed for [place] cream 00 Local Medical anesthesia Branch . polyethylen 2020-0 Yes [id number] 17g Take 17 g Univers e glycol 1-10 by mouth ity of (MIRALAX) 00:00: daily. [place] 17 Medical gram/dose Branch powder lidocaine-p 2020-0 Yes [id number] Apply to Univers rilocaine 1-10 area(s) as ity of 2.5-2.5 % 00:00: [place] for [place] cream 00 Local Medical anesthesia Branch . polyethylen 2020-0 Yes [id number] 17g Take 17 g Univers e glycol 1-10 by mouth ity of (MIRALAX) 00:00: daily. [place] [address] Medical gram/dose Branch powder lidocaine-p 2020-0 Yes [id number] Apply to Univers rilocaine 1-10 area(s) as ity of 2.5-2.5 % 00:00: needed for [place] cream 00 Local Medical anesthesia Branch . polyethylen 2020-0 Yes [id number] 17g Take 17 g Univers e glycol 1-10 by mouth ity of (MIRALAX) 00:00: daily. [place] [address] Medical gram/dose Branch powder lidocaine-p 2020-0 Yes [id number] Apply to Univers rilocaine 1-10 area(s) as ity of 2.5-2.5 % 00:00: [place] for [place] cream 00 Local Medical anesthesia Branch . fluconazole 2020-0 Yes [id number] 100mg Take 1 Univers 100 mg 1-10 tablet by ity of tablet 00:00: mouth [place] 00 daily. Medical Branch metoclopram 2020-0 Yes [id number] 10mg Take 1 Univers jeronimo HCl 10 1-10 tablet by ity of mg tablet 00:00: mouth [place] 00 every 6 Medical (six) Branch hours as needed for Nausea and Vomiting (N/V). dicyclomine 2020-0 Yes [id number] 20mg Take 1 Univers (BENTYL) 20 1-10 tablet by ity of mg tablet 00:00: mouth [place] 00 every 6 Medical (six) Branch hours as needed for Abdominal pain. polyethylen 2020-0 Yes [id number] 17g Take 17 g Univers e glycol 1-10 by mouth ity of (MIRALAX) 00:00: daily. [place] Medical gram/dose Branch powder lidocaine-p 2020-0 Yes [id number] Apply to Univers rilocaine 1-10 area(s) as ity of 2.5-2.5 % 00:00: needed for [place] cream 00 Local Medical anesthesia Branch . polyethylen 2020-0 Yes [id number] 17g Take 17 g Univers e glycol 1-10 by mouth ity of (MIRALAX) 00:00: daily. [place] Medical gram/dose Branch powder lidocaine-p 2020-0 Yes [id number] Apply to Univers rilocaine 1-10 area(s) as ity of 2.5-2.5 % 00:00: needed for [place] cream 00 Local Medical anesthesia Branch . polyethylen 2020-0 Yes [id number] 17g Take 17 g Univers e glycol 1-10 by mouth ity of (MIRALAX) 00:00: daily. [place] Medical gram/dose Branch powder fluconazole 2019-0 2020- No [id number] 100mg Take 1 Univers 100 mg 1-10 -07 tablet by ity of tablet 00:00: 00:00 mouth [place] 00 :00 daily. Medical Branch metoclopram 2019- 2020- No [id number] 10mg Take 1 Univers jeronimo HCl 10 1-10 -07 tablet by ity of mg tablet 00:00: 00:00 mouth [place] 00 :00 every 6 Medical (six) Branch hours as needed for Nausea and Vomiting (N/V). dicyclomine 2019-0 2020- No [id number] 20mg Take 1 Univers (BENTYL) 20 -10 -07 tablet by it y of mg tablet 00:00: 00:00 mouth [place] 00 :00 every 6 Medical (six) Branch hours as needed for Abdominal pain. fluconazole 2019-0 2020- No [id number] 100mg Take 1 Univers 100 mg 1-10 02-07 tablet by ity of tablet 00:00: 00:00 mouth [place] 00 :00 daily. Medical Branch metoclopram 2019-0 2020- No [id number] 10mg Take 1 Univers jeronimo HCl 10 1-10 02-07 tablet by ity of mg tablet 00:00: 00:00 mouth [place] 00 :00 every 6 Medical (six) Branch hours as needed for Nausea and Vomiting (N/V). dicyclomine 2020- No [id number] 20mg Take 1 Univers (BENTYL) 20 1-10 11-28 tablet by it y of mg tablet 00:00: 00:00 mouth [place] 00 :00 every 6 Medical (six) Branch hours as needed for Abdominal pain. Creon Creon Yes Ruddy not Common Moon defined [facility] Budesonide Budesonide Yes Ruddy not Common Moon defined [facility] Losartan Losartan Yes Ruddy not Comm on Potassium Potassium Moon defined [facility] Atorvastati Atorvastati Yes Ruddy not Common n Calcium n Calcium Moon defined [facility] PredniSONE PredniSONE Yes Ruddy not Common Moon defined [facility] Tramadol Tramadol Yes Ruddy not Comm on HCl HCl Moon defined [facility] Fluticasone Fluticasone Yes Ruddy not Common Propionate Propionate Moon defined [facility] Lorazepam Lorazepam Yes Ruddy not Co mmon Moon defined [facility] EPINEPHrine EPINEPHrine Yes Ruddy not Common Moon defined [facility] Farxiga Farxiga Yes Ruddy not Common Moon defined [facility] Alprazolam Alprazolam Yes Ruddy not Common Moon defined [facility] Myrbetriq Myrbetriq Yes Ruddy not Co mmon Moon defined [facility] Rizatriptan Rizatriptan Yes Ruddy not Common Benzoate Benzoate Moon defined [facility] Levothyroxi Levothyroxi Yes Ruddy not Common ne Sodium ne Sodium Moon defined [facility] Glimepiride Glimepiride Yes Ruddy not Common Moon defined [facility] Immunizations Ordered Filled Immunization Date Status Comments [facility] e Immunization Name Name Influenza Virus 2019-10-09 Completed Universit y of Vaccine Quad .5 mL 00:00:00 [place] [facility] 6+ MO Branch Influenza Virus 2019-10-09 Completed Universit y of Vaccine [place] .5 mL 00:00:00 [facility] 6+ MO Branch Vital Signs Vital Name Observation Time Observation Value Comments Source Systolic blood 2020-04-05 23:45:00 108 mm[Hg] Univer sity of pressure [place] [facility] Diastolic blood 2020-04-05 23:45:00 74 mm[Hg] Unive rsity of pressure [place] [facility] Heart rate 2020-04-05 23:45:00 75 /min Universi ty of [place] [facility] Respiratory rate 2020-04-05 23:45:00 21 /min Univ ersity of [place] [facility] Oxygen saturation in 2020-04-05 23:45:00 98 /min University of Arterial blood by [facility] Pulse oximetry Branch Body temperature 2020-04-05 21:40:00 36.89 Karoline Univ ersity of [place] [facility] Body weight 2020-04-05 21:40:00 90.719 kg Universi ty of [place] [facility] BMI 2020-04-05 21:40:00 36.58 kg/m2 Universi ty of [place] [facility] Systolic blood 2020-04-05 23:45:00 108 mm[Hg] Univer sity of pressure [place] [facility] Diastolic blood 2020-04-05 23:45:00 74 mm[Hg] Unive rsity of pressure [place] [facility] Heart rate 2020-04-05 23:45:00 75 /min Universi ty of [place] [facility] Respiratory rate 2020-04-05 23:45:00 21 /min Univ ersity of [place] [facility] Oxygen saturation in 2020-04-05 23:45:00 98 /min University of Arterial blood by [facility] Pulse oximetry Branch Body temperature 2020-04-05 21:40:00 36.89 Karoline Univ ersity of [place] [facility] Body weight 2020-04-05 21:40:00 90.719 kg Universi ty of [place] [facility] BMI 2020-04-05 21:40:00 36.58 kg/m2 Universi ty of [place] [facility] Systolic blood 2019-11-28 20:55:00 125 mm[Hg] Univer sity of pressure [place] [facility] Diastolic blood 2019-11-28 20:55:00 83 mm[Hg] Unive rsity of pressure [place] [facility] Heart rate 2019-11-28 20:55:00 78 /min Universi ty of [place] [facility] Body temperature 2019-11-28 20:55:00 36.72 Karoline Univ ersity of [place] [facility] Respiratory rate 2019-11-28 20:55:00 18 /min [facility] Body height 2019-11-28 20:55:00 157.5 cm Universi ty [facility] Body weight 2019-11-28 20:55:00 101.606 kg Universi [facility] BMI 2019-11-28 20:55:00 40.97 [facility]2 [facility] Systolic blood 2019-11-28 20:55:00 125 mm[Hg] Univer sity of pressure [facility] Diastolic blood 2019-11-28 20:55:00 83 mm[facility]Hg[facility] 2019-11-28 20:55:00 78 /min Universi ty [facility] Body temperature 2019-11-28 20:55:00 36.72 Karoline [facility] Respiratory rate 2019-11-28 20:55:00 18 /min [facility] Body height 2019-11-28 20:55:00 157.5 cm Universi [facility] Body weight 2019-11-28 20:55:00 101.606 [facility] [place] [facility] BMI 2019-11-28 20:55:00 40.97 kg/m2 [place] [facility] Procedures Procedure Date / Time Performing Clinician Source Performed CT ANGIOGRAM HEAD 2020-04-05 22:49:50 Yesi Mckeon [facility] CT ANGIOGRAM NECK 2020-04-05 22:49:50 Yesi Mckeon [facility] CT HEAD WO CONTRAST 2020-04-05 22:38:15 Yesi Mckeon [facility] XR CHEST 1 VW 2020-04-05 22:33:20 Yesi Mckeon [facility] URINALYSIS 2020-04-05 22:08:00 Yesi Mckeon [facility] COVID-19 (ID NOW RAPID 2020-04-05 21:54:00 [facility]ke[facility] 2020-04-05 21:53:00 Yesi Mckeon [facility] HEPATIC FUNCTION PANEL 2020-04-05 21:53:00 Yesi Mckeon [facility] ([id number]) (ALB,T.PRO,BILI Medical Branch T,BU/BC,ALT,AST,ALK PHOS) BASIC METABOLIC PANEL 2020-04-05 21:53:00 Yesi Mckeon [facility] versity [facility] (NA, K, CL, CO2, Medical Branch GLUCOSE, BUN, CREATININE, CA) CBC WITH DIFFERENTIAL 2020-04-05 21:53:00 Yesi Mckeon Uni versity of [facility] PROTHROMBIN TIME / INR 2020-04-05 21:53:00 [facility] NOTICE OF PRIVACY 2020-04-05 21:35:28 [facility]assigned, [facility] CONSENT/REFUSAL FOR 2020-04-05 21:31:55 Doctor Unassigned, [facility] PAP SMEAR-LIQUID 2019-11-28 22:24:00 Amira Luo [facility] NOTICE OF BILLING 2019-11-28 20:36:45 [facility] FOR [facility]IC[facility] Name [facility] PATIENTS Plan of Care Planned Activity Planned Date Details Comments Source Future Scheduled 2023-04-07 Screening for [facility] Test 03:42:47 malignant neoplasm of cervix (procedure) [code = 216392435] Future Scheduled 2023-04-07 BREAST CANCER [facility] Test 03:42:47 SCREENING [code = BREAST CANCER SCREENING] Future Scheduled 2023-04-07 Screening for [facility] Test 03:42:47 malignant neoplasm of colon (procedure) [code = 404947389] Future Scheduled 2023-04-07 Screening for [facility] Test 03:42:47 malignant neoplasm of colon (procedure) [code = [id number]] Future Scheduled 2023-04-07 INFLUENZA VACCINE [facility] 03:42:47 [code = INFLUENZA VACCINE] Future Scheduled 2023-04-07 Screening for [facility] Test 03:42:47 malignant neoplasm of colon (procedure) [code = 161066902] Future Scheduled 2023-04-07 Screening for [facility] Test 03:42:47 malignant neoplasm of colon (procedure) [code = 078443045] Future Scheduled 2023-04-07 Screening for [facility] Test 03:42:47 malignant neoplasm of colon (procedure) [code = 119179230] Future Scheduled 2023-04-07 COVID-19 VACCINE (#1) [facility] Test 03:42:47 [code = COVID-19 VACCINE (#1)] Future Scheduled 2022-08-26 COVID-19 VACCINE (#1) [facility] Test 17:22:16 [code = COVID-19 VACCINE (#1)] Future Scheduled 2022-08-26 Screening for [facility] Test 17:22:16 malignant neoplasm of cervix (procedure) [code = 135834064] Future Scheduled 2022-08-26 BREAST CANCER [facility] Test 17:22:16 SCREENING [code = BREAST CANCER SCREENING] Future Scheduled 2022-08-26 COLONOSCOPY SCREENING [facility] Test 17:22:16 [code = COLONOSCOPY SCREENING] Future Scheduled 2022-08-26 INFLUENZA VACCINE [facility] 17:22:16 [code = INFLUENZA VACCINE] Future Scheduled 2022-08-26 HEPATITIS B VACCINES Met [facility] Test 17:22:16 (1 of 3 - 3-dose series) [code = HEPATITIS B VACCINES (1 of 3 - 3-dose series)] Future Scheduled [facility] [code = INFLUENZA VACCINE] Future Scheduled COVID-19 VACCINE (1) [facility] Test [code = COVID-19 VACCINE (1)] Future Scheduled Screening for [facility] Test malignant neoplasm of cervix (procedure) [code = 986667352] Encounters Start End Encounter Admission Attending Care Care Encounter Source Date/Time Date/Time Type Type Clinicians Facility Department ID 2021-11-16 Outpatient MARGA Schulte [facility] [id number] Common 11:31:10 Ryan [id number] [facility] 2021-11-16 Outpatient MARGA Schulte [facility] [id number] Common 11:25:21 Ryan Aponte [facility] 2021-01-06 2021-01-06 Patient LILLIAN Andrew [id number] Univers 00:00:00 00:00:00 Outreach Tony PRIMARY [id number] i ty of [facility] 4.2.7.2.686 Arlene WILCOX [phone] Ga dical [address] Branch 2021-01-06 2021-01-06 Patient LILLIAN Andrew [id number] 00:00:00 00:00:00 Outreach Tony [facility] [id number] [facility] [id number] RIGG[place] [id number] 2020-05-17 2020-05-17 Outpatient Marcia Vang 31 [id number] Common 08:08:00 08:08:00 [facility] 2020-05-12 2020-05-12 Outpatient Marcia Vang 31 [id number] Common 09:30:00 09:30:00 t [facility] 2020-04-21 2020-04-21 Outpatient Marcia Vang 31 [id number] Common 13:07:00 13:07:00 t [facility] 2020-04-13 2020-04-13 Outpatient Marcia Vang 31 [id number] Common 16:42:00 16:42:00 t [facility] 2020-04-12 2020-04-12 Outpatient Marcia Vang 31 [id number] Common 16:00:00 16:00:00 t [facility] 2020-04-05 2020-04-05 Emergency LILLIAN Mckeon 1.2.840.114 [id number] [facility] 16:37:35 19:01:00 Yesi Mehta [id number] ity [facility] 4.2.7.2.686 [facility] [phone] [place] [address] Branch 2020-04-05 2020-04-05 Emergency X LILLIAN MCKEON ERT [id number] Univers 16:37:35 19:01:00 [place]I [place] [facility] 2020-04-05 2020-04-05 Emergency LILLIAN Mckeon 1.2.840.114 [id number] 16:37:35 19:01:00 Yesi Mehta [id number] [place] 4.2.7.2.686 [place] [id number] 2020-04-05 2020-04-05 Outpatient [facility] [id number] Common 14:31:00 14:31:00 t [facility] 2020-03-29 2020-03-29 Outpatient [facility] [id number] Common 13:59:00 13:59:00 t [facility] 2020-03-29 2020-03-29 [facility]patient [facility] [id number] Common 13:00:00 13:00:00 t [facility] 2020-03-29 2020-03-29 [facility] [id number] Common 08:30:00 08:30:00 t [facility] 2019-12-26 2019-12-26 Outpatient R AMIRA LUO [facility] B [id number] Univers 13:15:00 13:15:00 AMIRA LUO [facility] 2019-12-03 2019-12-03 Outpatient R TROY [facility] [id number] Univers 08:00:00 08:00:00 ROBSON [facility] 2019-11-30 2019-11-30 [facility] 1.2.840.114 [id number] Univers 00:00:00 00:00:00 Management Amira Mehta [id number] [facility] [place]7.2.[place] [phone] [place] dical [address] 2019-11-30 2019-11-[address] [facility] 1.2.840.114 [id number] 00:00:00 00:00:00 Management Amira Mehta [id number] [place] 4.2.7.2.686 Professio [id number] [address] 2019-11-28 2019-11-[address] [facility] 1.2.840.114 [id number] Univers 14:36:59 15:44:36 Visit Amira Mehta 350.1.13.10 i ty [place] [phone] Me dical [address] 2019-11-28 2019-11-[address] [facility] 1.2.840.114 [id number] 14:36:59 15:44:36 Visit Amira Mehta [id number] [place] 4.2.7.2.686 Professio [id number] [address] 2019-11-28 2019-11-28 Outpatient R AMIRA LUO [facility] B [id number] Univers 14:30:00 15:44:36 CECILYAMIRA VELEZ [facility] 2019-11-28 2019-11-28 Orders Doctor ALEXIS 1.2.840.114 [id number] Univers 00:00:00 00:00:00 Only Unassigned, SHARRON 350.1.13.10 ity of [place] [facility] 4.2.7.2.686 [place] as [phone] [address] 2019-10-31 2019-10-31 Emergency [facility] ERT [id number] Univers 16:40:55 20:33:00 DAHLIA [facility] 2019-10-29 2019-10-29 Emergency [facility] ERT [id number] Univers 16:19:52 18:29:00 ARUELIANO [facility] Results Test Description Test Time Test Results Result Source Comments Comments CT Head W/O 2020-03-[address] findings of Unive rsity of Contrast 5 acute intracranial [facility] 23:35:38 abnormality. [place] Preliminary Report Dictated by Resident: Jane Kenney [...] is notcompletely imaged on the current exam [facility], Radiant Results Inft User - 04/05/2020 6:36 [...] and Un iversity of HEAD 5 neck.HISTORY:Stroke [facility] 22:59:39 suspected, ataxia Branch TECHNIQUE: CTA of [...] branches are within normal limits. A left FOUNDER seen. No sizable right P-comm is identified The FOUNDER and basilar arteries are otherwise within normal [...] MCA branches are within normal limits.A left FOUNDER seen. No sizable right P-comm is identifiedThe FOUNDER and basilar arteries are otherwise within normal limits. The intracranial vertebral arteries are unremarkable. The left PICA originis noted. An AICA /PICA variant is suspected on the right IMPRESSIONNormal CTA head and neck. CT ANGIOGRAM 2020-03-22 Normal CTA head and Un iversity of NECK 5 neck.HISTORY:Stroke [facility] 22:59:39 suspected, ataxia Branch TECHNIQUE: CTA of [...] branches are within normal limits. A left FOUNDER seen. No sizable right P-comm is identified The FOUNDER and basilar arteries are otherwise within normal [...] MCA branches are within normal limits.A left FOUNDER seen. No sizable right P-comm is identifiedThe FOUNDER and basilar arteries are otherwise within normal limits. The intracranial vertebral arteries are unremarkable. The left PICA originis noted. An AICA /PICA variant is suspected on the right IMPRESSIONNormal CTA head and neck. Chest 1 View 2020-03-22 No acute [facility] o f 5 cardiopulmonary [place] [facility] 22:52:04 abnormality. Branch Preliminary Report Dictated by Resident: Raul Kenney ?MD. Chago, have reviewed this study and agree with [...] cardiopulmonary abnormality. Preliminary Report Dictated by Resident: Young Cotton, Raul Anders MD., have reviewed this study and agree with the abovereport. Urinalysis 2020-04-05 22:37:00 Test Item Value Reference Range Interpretation Comme nts APPEARANCE (test code = Clear Clear 6560573590) COLOR (test code = 0424135528) Yellow Yellow PH (test code = 4186153564) 4.8-8.0 SP GRAVITY (test code = 1.003-1.030 H 7722639546) GLU U QUAL (test code = 500 mg/dL Normal A 3519051149) BLOOD (test code = 0948995103) Negative Negative KETONES (test code = 2449387746) Negative Negative PROTEIN (test code = 2887-8) Negative Negative UROBILIN (test code = 2.0 mg/dL Normal A 9128219907) BILIRUBIN (test code = Negative Negative 6705547652) NITRITE (test code = 0937622051) Negative Negative LEUK LETTY (test code = Negative Negative 8517195922) RBC/HPF (test code = 4182903617) <1 See_Comment [Automated message] The system which ge nerated this result transmit piper reference range: 0 - 3 HP F. The reference range was not used to interpret th is result as normal/abnormal . WBC/HPF (test code = 4290171013) See_Comment [Automated message] The system which ge nerated this result transmit piper reference range: 0 - 5 HP F. The reference range was not used to interpret th is result as normal/abnormal . BACTERIA (test code = Negative Negative 6589240264) MUCOUS (test code = 8865297123) Slight Negative LPF A SQ EPITH (test code = HPF 7274401692) Lab Interpretation (test code = Abnormal 79276-7) [id number] 22:26:00 Test Item Value Reference Range Interpretation Comments TROPONIN I (test <0.012 See_Comment [Automated code = 6016123255) message] The system which generated this result [...] ? Lab Interpretation Normal (test code = 19964-5) [facility] (ID NOW RAPID TESTING)2020-04-05 22:18:00 Test Item Value Reference Range Interpretation Comments SARS-CoV-2 Rapid ID NOW Not Detected Not Detected (test code = 19404-1) GILA (test code = GILA) ID NOW COVID-19 Assay is an isothermal nucleic acid amplification test intended for the qualitative detection of nucleic acid from SARS-CoV-2 viral RNA in nasopharyngeal (STEEL PICKLER) specimens. It is used under Emergency Use [...] indicated. Lab Interpretation Normal (test code = 36541-7) [facility] Metabolic Panel (NA, K, CL, CO2, GLUCOSE, BUN, CREATININE, CA)2020-04-05 22:15:00 Test Item Value Reference Range Interpretation Comments NA (test code = 139 mmol/L 135-145 1552577031) K (test code = 3.7 mmol/L 3.5-5 9768505365) CL (test code = 105 mmol/L 98-108 3877810582) CO2 TOTAL (test code = 26 mmol/L 23-31 8897526620) AGAP (test code = 2-16 0568158763) BUN (test code = 11 mg/dL 7-23 1604916327) GLUCOSE (test code = 107 mg/dL 70-110 0412985309) CREATININE (test code 0.77 mg/dL 0.5-1.04 = 3473114918) CALCIUM (test code = 9.7 mg/dL 8.6-10.6 9714359786) eGFR Calculation mL/min/1.73m2 (Non-) (test code = 1136446461) eGFR Calculation mL/min/1.73m2 () (test code = 5017225996) GILA (test code = GILA) Association of [...] or urine or abnormalities in imaging tests). [facility] (ALB, T.PRO, BILI T, BU/BC, ALT, AST, ALK PHOS)2020-04-05 22:15:00 Test Item Value Reference Range Interpretation Comments TOTAL BILI (test code = 5234271189) 0.8 mg/dL 0.1-1.1 BILI UNCON (test code = 3510523132) 0.8 mg/dL 0.1-1.1 BILI CONJ (test code = 4036627707) 0.0 mg/dL 0-0.3 T PROTEIN (test code = 0861151059) 7.7 g/dL 6.3-8.2 ALBUMIN (test code = 1729203313) 4.4 g/dL 3.5-5 ALK PHOS (test code = 8764230220) 101 U/L 34-122 ALTv (test code = 1742-6) 34 U/L 5-35 AST(SGOT) (test code = 3424116967) 30 U/L 13-40 Lab Interpretation (test code = Normal 42816-4) [facility]throm[facility] Time (PT) / [id number] 22:12:00 Test Item Value Reference Range Interpretation Comments PROTIME PATIENT (test See_Comment [Auto mated message] code = 5964-2) The system ich generated this result transmitted ref erence range: 12.0 - 1 4.7 Seconds. The re ference range was not u sed to interpret this result as normal/abnor mal. INR (test code = 6301-6) Nor mal INR <1.1; Warfarin Therap eutic range 2.0 to 3. 0 or 2.5 to 3.5, dep ending upon the indica tions. Lab Interpretation (test Normal code = 94045-5) [facility] WITH [id number] 22:05:00 Test Item Value Reference Range Interpretation Comments WBC (test code = See_Comment [Automated 6290-2) message] The sy stem which generated this result transmitted reference range : 4.30 - 11.10 10*3/?L. The reference range was not used to interpret this result as normal/abnormal . RBC (test code = See_Comment [Automated 789-8) message] The sy stem which generated this [...] RDW-SD (test code = 42.2 fL 39-49.9 33390-6) RDW-CV (test code = 13.1 % 12-15.5 788-0) PLT (test code = See_Comment H [Automated 777-3) message] The sy stem which generated this result transmitted reference range : 166 - 358 10*3/ ?L. The reference r abran was not used to interpret this result as normal/abnormal . MPV (test code = 8.8 fL 9.5-12.9 L 83693-9) NRBC/100 WBC (test See_Comment [Automat ed code = 8958613414) message] The system which generated this result transmitted reference range : 0.0 - 10.0 /100 WBCs. The refer ence range was not u sed to interpret th is result as normal/abnormal . NRBC x10^3 (test code <0.01 See_Comment [Auto mated = 3669863405) message] The s ystem which generated this result transmitted reference range : 10*3/?L. The reference range was not used to interpret this result as normal/abnormal . GRAN MAT (NEUT) % 51.0 % (test code = 770-8) IMM GRAN % (test code 0.30 % = 1159359654) LYMPH % (test code = 39.3 % 736-9) MONO % (test code = 6.6 % 5905-5) EOS % (test code = 2.0 % 713-8) BASO % (test code = 0.8 % 706-2) GRAN MAT x10^3(ANC) 3.61 10*3/uL 1.88-7.09 (test code = 1332527113) IMM GRAN x10^3 (test <0.03 0-0.06 code = 6193267215) LYMPH x10^3 (test code 2.78 10*3/uL 1.32-3.29 = 731-0) MONO x10^3 (test code 0.47 10*3/uL 0.33-0.92 = 742-7) EOS x10^3 (test code = 0.14 10*3/uL 0.03-0.39 711-2) BASO x10^3 (test code 0.06 10*3/uL 0.01-0.07 = 704-7) Lab Interpretation Abnormal (test code = 32692-3) [facility]"
[2023-04-19 13:01] LABS: Absolute Lymphocytes (CBC) 3.4 K/uL (0.7-4.9); Hematocrit 39.2 % (36.0-45.0); Lymphocytes % 41.9 % (15.3-44.8); MCV 86.9 fL (80-100); MPV 6.6 fL (7.6-11.3); RBC Red Blood Cell Count 4.52 M/uL (3.86-4.86)
--- NOTE | 2023-04-19 13:19 | RAD REPORT ---
EXAM DESCRIPTION: Pedro Luist Single View04/19/2023 1:01 pm CLINICAL HISTORY: COUGH COMPARISON: Chest Single View dated 09/27/2022; Chest Single View dated 06/06/2021; Chest Single View dated 05/24/2021; Chest Single View dated 09/04/2020 TECHNIQUE: Portable AP view of the chest. FINDINGS: The lungs are clear. No pneumothorax or effusion. The cardiomediastinal contours are unre markable. IMPRESSION: No acute cardiopulmonary process.
[2023-04-19 13:20] LABS: Albumin 3.5 g/dL (3.4-5.0); Bilirubin Direct 0.1 mg/dL (0-0.2); Bilirubin Indirect, Calculated 0.3 mg/dL (0.2-0.8); Bilirubin Total 0.4 mg/dL (0.2-1.0); Magnesium 2.3 mg/dL (1.6-2.4); Potassium 3.5 mEq/L (3.5-5.1); Protein, Total 7.7 g/dL (6.4-8.2); Troponin High Sensitivity 3.2 pg/mL (<58.9)
[2023-04-19 13:27] LABS: Specific Gravity 1.025 (1.005-1.030); Urine Bacteria None Seen /HPF (<20); Urine Bilirubin NEGATIVE (Negative); Urine Blood Negative (Negative); Urine Clarity Clear (Clear); Urine Color Yellow (Yellow); Urine Glucose NEGATIVE (Negative); Urine Mucus Slight /HPF (None Seen); Urine Protein TRACE (Negative); Urine RBC <5 /HPF (None Seen); Urine Urobilinogen Normal (Normal)
--- NOTE | 2023-04-19 14:04 | EDPHYS ---
Physician Documentation [facility] Name: Kelsy Gerber Age: 47 yrs Sex: Female : 1975 Arrival Date: 04/19/2023 Time: 12:23 Bed 6 Private MD: ED Physician Darren Hardin HPI: 04/19 13:09 This 47 yrs old Female presents to ER via Ambulatory with complaints of jr11 Shortness Of Breath. 13:09 The patient has shortness of breath at rest. Onset: The symptoms/episode began/occurred jr11 3 day(s) ago. Duration: The symptoms are continuous, and are steadily getting worse. The patient's shortness of breath is aggravated by coughing, light activity, is alleviated by nothing. Associated signs and symptoms: Pertinent positives: chest pain, non-productive cough, >8hrs, sharp. Severity of symptoms: At their worst the symptoms were moderate in the emergency department the symptoms are worse. The patient has experienced similar episodes in the past. 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 - Social history:: Smoking status: Patient denies any tobacco usage or history of. ROS: 13:09 All other systems are negative. jr11 Exam: 13:09 Constitutional: This is a well developed, well nourished patient who is awake, alert, jr11 and in no acute distress. Head/Face: Normocephalic, atraumatic. Eyes: Extra-ocular motions intact. Lids and lashes normal. Conjunctiva and sclera are non-icteric and not injected. Cornea within normal limits. Periorbital areas with no swelling, redness, or edema. ENT: Nares patent. No nasal discharge, no septal abnormalities noted. Oropharynx with no redness, swelling, or masses, exudates, or evidence of obstruction, uvula midline. Mucous membranes moist. Chest/axilla: Normal chest wall appearance and motion. Nontender with no deformity. No lesions are appreciated. Cardiovascular: Regular rate and rhythm with a normal S1 and S2. No gallops, murmurs, or rubs. Normal PMI, no JVD. No pulse deficits. Respiratory: Lungs have equal breath sounds bilaterally, clear to auscultation and percussion. No rales, rhonchi or wheezes noted. No increased work of breathing, no retractions or nasal flaring. Abdomen/GI: Soft, non-tender, with normal bowel sounds. No distension or tympany. No guarding or rebound. No evidence of tenderness throughout. Skin: Warm, dry with normal turgor. Normal color with no rashes, no lesions, and no evidence of cellulitis. MS/ Extremity: Pulses equal, no cyanosis. Neurovascular intact. Full, normal range of motion. Vital Signs: 12:23 BP 119 / 78; Pulse 66; Resp 26; Temp 97.7(O); Pulse Ox 100% on R/A; Weight 92.99 kg; nj1 Height 5 ft. 1 in. ; 13:12 Pulse 61; Resp 21; Pulse Ox 99% on R/A; aa5 15:09 BP 123 / 79; Pulse 74; Resp 18; Pulse Ox 99% on R/A; iw 12:23 Body Mass Index 38.73 (92.99 kg, 154.94 cm) nj1 MDM: 12:43 Patient medically screened. [facility] 13:09 Differential diagnosis: Anxiety Reaction asthma, Bronchitis CHF exacerbation, Chronic jr11 Obstructive Pulmonary Disease reactive airway disease. Data reviewed: vital signs. ED course: EKG interpreted by me shows normal sinus rhythm, left axis deviation, normal intervals no acute ST changes. property assessment monitor interpreted by me shows normal sinus rhythm rate of 65. 14:02 ED course: Patient is a 47-year-old acute exacerbation of asthma, patient no concern jr for ACS, heart score less than 3, troponin negative. No concern for PE, D-dimer negative. I will write the patient a Medrol Dosepak, return if worsening, follow-up primary care. 04/19 12:45 Order name: Basic Metabolic Panel; Complete Time: 13:24 04/19 12:45 Order name: CBC with Diff; Complete Time: 13:24 04/19 12:45 Order name: D-Dimer; Complete Time: 13:52 04/19 12:45 Order name: LFT's; Complete Time: 13:24 04/19 12:45 Order name: Magnesium; Complete Time: 13:24 04/19 12:45 Order name: NT PRO-BNP; Complete Time: 13:24 04/19 12:45 Order name: Troponin HS; Complete Time: 13:24 04/19 12:45 Order name: UAM; Complete Time: 13:44 04/19 12:45 Order name: RSV; Complete Time: 13:52 04/19 12:45 Order name: COVID-19 SARS RT PCR; Complete Time: 13:54 04/19 12:45 Order name: XRAY Chest (1 view); Complete Time: 13:24 04/19 12:45 Order name: EKG; Complete Time: 12:46 04/19 12:45 Order name: Cardiac monitoring; Complete Time: 13:13 04/19 12:45 Order name: EKG - Nurse/Tech; Complete Time: 13:13 04/19 12:45 Order name: IV Saline Lock; Complete Time: 13:13 04/19 12:45 Order name: Labs collected and sent; Complete Time: 13:13 04/19 12:45 Order name: O2 Per Protocol; Complete Time: 13:13 04/19 12:45 Order name: O2 Sat Monitoring; Complete Time: 13:13 Administered Medications: 15:09 Drug: Lidoderm Topical Patch 5 % (700 mg/patch) 1 patches Route: Topical; Site: iw affected area; Disposition Summary: 04/19/23 14:03 Discharge Ordered Location: Home jr11 Condition: Stable jr11 Diagnosis - Chest pain, unspecified jr11 - Dyspnea jr11 Followup: jr11 - With: Private Physician - When: 2 - 3 days - Reason: Re-evaluation by your physician Discharge Instructions: - Discharge Summary Sheet jr11 - Nonspecific Chest Pain, Adult jr11 - Asthma Attack jr11 Forms: - Medication Reconciliation Form jr11 - Thank You Letter jr11 - Antibiotic Education jr11 - Prescription Opioid Use jr11 - [email or web address] jr11 Prescriptions: - Medrol (Damaso) 4 mg Oral Tablets, Dose Pack - take 1 tablet by ORAL route as directed - follow package instructions; 1 11 packet; Refills: 0, Product Selection Permitted Signatures: Dispatcher [employer] Sarah Julien, Darren Zepeda RN, MD MD jr11 Nubia Briones RN RN nj1
--- NOTE | 2023-04-19 14:04 | ER ---
Nurse's Notes [facility] Name: Kelsy Gerber Age: 47 yrs Sex: Female : 1975 Arrival Date: 04/19/2023 Time: 12:23 Bed 6 Private MD: Diagnosis: Chest pain, unspecified;Dyspnea Presentation: 04/19 12:23 Chief complaint: Patient states: Short of breath, cough and chest pain for 3 days, nj1 getting worse. Pt does not have breathing tx at home, just inhalers, states she called her PCP today and was advised to come to ED for further treatment. Coronavirus screen: Vaccine status: Patient reports receiving the 2nd dose of the covid vaccine. 12:23 Method Of Arrival: Ambulatory [facility] 12:23 Ebola Screen: Patient denies travel to an Ebola-affected area in the 21 days before nj1 illness onset. Initial Sepsis Screen: Does the patient meet any 2 criteria? RR > 20 per min. No. Patient's initial sepsis screen is negative. Does the patient have a suspected source of infection? No. Patient's initial sepsis screen is negative. Risk Assessment: Do you want to hurt yourself or someone else? Patient reports no desire to harm self or others. Onset of symptoms was April 16, 2023. 12:23 Acuity: KELLEY 2 nj1 Triage Assessment: 15:10 Respiratory: the patient has mild shortness of breath. 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 - Social history:: Smoking status: Patient denies any tobacco usage or history of. Screenin:40 [facility] ED Fall Risk Assessment (Adult) History of falling in the last 3 months, aa5 including since admission No falls in past 3 months (0 pts) Confusion or Disorientation No (0 pts) Intoxicated or Sedated No (0 pts) Impaired Gait No (0 pts) Mobility Assist Device Used No (0 pt) Altered Elimination No (0 pt) Score/Fall Risk Level 0 - 2 = Low Risk. Abuse screen: Denies threats or abuse. Nutritional screening: No deficits noted. Tuberculosis screening: No symptoms or risk factors identified. Assessment: 12:40 General: Appears uncomfortable, Behavior is cooperative, anxious. Pain: Complains of aa5 pain in left low back and right low back Pain currently is 5 out of 10 on a pain scale. Pain began 2-3 days ago. Neuro: Level of Consciousness is awake, alert, obeys commands, Oriented to person, place, time, situation. Cardiovascular: Heart tones S1 S2 present Rhythm is regular. Respiratory: Reports shortness of breath since sunday Airway is patent Respiratory effort is even, unlabored, Respiratory pattern is regular, symmetrical, Breath sounds are clear bilaterally. GI: Abdomen is round non-distended, Bowel sounds present X 4 quads. Abd is soft and non tender X 4 quads. : Denies burning with urination, pain in lower back. EENT: No signs and/or symptoms were reported regarding the EENT system. Derm: Skin is pink, warm \T\ dry. Musculoskeletal: Range of motion: intact in all extremities. Vital Signs: 12:23 BP 119 / 78; Pulse 66; Resp 26; Temp 97.7(O); Pulse Ox 100% on R/A; Weight 92.99 kg; nj1 Height 5 ft. 1 in. ; 13:12 Pulse 61; Resp 21; Pulse Ox 99% on R/A; aa5 15:09 BP 123 / 79; Pulse 74; Resp 18; Pulse Ox 99% on R/A; iw 12:23 Body Mass Index 38.73 (92.99 kg, 154.94 cm) nj1 ED Course: 12:31 Patient arrived in ED. aa5 12:31 Carolin Bazan, ELIZ is Primary Nurse. aa5 12:31 Darren Hardin MD is Attending Physician. [id number] 12:39 Triage completed. nj1 12:40 Arm band placed on left wrist. nj1 12:40 Patient has correct armband on for positive identification. Bed in low position. Call aa5 light in reach. Side rails up X 1. 12:40 Client placed on continuous cardiac and pulse oximetry monitoring. NIBP monitoring aa5 applied. 13:00 Initial lab(s) drawn, by me, sent to lab. Inserted saline lock: 20 gauge in right aa5 antecubital area, using aseptic technique. Blood collected. 13:03 XRAY Chest (1 view) In Process Unspecified. EDMS 13:11 EKG done, by ED staff, reviewed by Darren Hardin MD Flu and/or RSV swab sent to lab. aa5 13:13 Urine collected: clean catch specimen, sent to lab. aa5 13:16 Urine collected: clean catch specimen, clear. ls5 15:10 No provider procedures requiring assistance completed. IV discontinued, intact, iw bleeding controlled, No redness/swelling at site. Pressure dressing applied. Administered Medications: 15:09 Drug: Lidoderm Topical Patch 5 % (700 mg/patch) 1 patches Route: Topical; Site: iw affected area; Medication: 15:10 VIS not applicable for this client. iw Outcome: 14:03 Discharge ordered by MD. ng 15:10 Discharged to home ambulatory. iw 15:10 Condition: good 15:10 Discharge instructions given to patient, Instructed on discharge instructions, follow up and referral plans. medication usage, Demonstrated understanding of instructions, follow-up care, medications, Prescriptions given X 1. 15:10 Patient left the ED. iw Signatures: Dispatcher [employer] Sarah Julien, ELIZ [place] iw Carolin Bazan RN Darren Zaragoza MD MD [id number] Micheal Quezada 5 Nubia Briones RN RN nj1
[2023-04-19] MEDS ORDERED: LIDOCAINE 4% PATCH ONE (15:10)
[2023-04-19 15:41] VITALS: TEMP 97.7
[2023-04-19 15:42] VITALS: O2SAT 99
[2023-04-19 15:44] VITALS: BP 123/79
--- NOTE | 2023-04-20 08:50 | EKG ---
Test Date: 2023-04-19 Test Time: 13:07:40 Client Relations Associate: MONISHA MEASUREMENT RESULTS: Intervals: Rate: 70 CA: 158 QRSD: 94 QT: 406 QTc: 438 [place]: P: 60 CA: 158 QRS: -58 T: 18 INTERPRETIVE STATEMENTS: Normal sinus rhythm Pulmonary disease pattern Left anterior fascicular block Abnormal ECG Compared to ECG 09/27/2022 18:20:42 Left anterior fascicular block now present Sinus bradycardia no longer present Left-axis deviation no longer present T-wave abnormality no longer present Electronically Signed On 04-20-23 08:48:00 CDT by Manoj Bean
== END 2023-04-19 15:10 | disposition home or self-care (01) ==
LOC: ER 12:23
DX: R07.9 Chest pain, unspecified (principal); R06.00 Dyspnea, unspecified; I10 Essential (primary) hypertension; E11.9 Type 2 diabetes mellitus without complications; E03.9 Hypothyroidism, unspecified; J45.909 Unspecified asthma, uncomplicated; Z88.5 Allergy status to narcotic agent; Z88.6 Allergy status to analgesic agent; Z88.8 Allergy status to other drugs, medicaments and biological substances
CPT/HCPCS: 85025; 81001; 80048; 36415; 83735; 85379; 80076; 84484; 83880; 87635; 87807; 71045; J2001; 93005

== ENCOUNTER 2023-08-14 15:04 | Emergency (ER) | payer OTHER ==
--- OUTSIDE RECORDS SUMMARY | 2023-08-14 15:09 | XMS REPORT | Continuity of Care Document ---
:1975 Author Organization [facility] t Address [address] [place] [address] [address] [place] [address] Care Team Providers Name Role Phone Asked, No Pcp Primary Care Physician Unavailable Ryan Schulte Attending Clinician Unavailable Tony Andrew DO Attending Clinician Yesi Mckeon DO Attending Clinician YESI MCKEON Attending Clinician Unavailable AMIRA LUO Attending Clinician Unavailable AMIRA LUO Attending Clinician Unavailable ROBSON SIMMONS Attending Clinician Unavailable Amira Luo MD Attending Clinician Doctor Unassigned, [place] Attending Clinician Unavailable DAHLIA DIAZ Attending Clinician [...] pap [place] dysplasia dysplasia 00 smear of [place] dical vaginal Branch cuff normal with negative [...] of - [facility] left knee left knee [facility] Sprain of Sprain of Diagnosis Active [...] Drug) NSAIDS Adverse Active hives Common Reaction [facility] Toradol Adverse Active Info Not Common Reaction Available [facility] Ibuprofe Adverse Active Info Not Commo n n Reaction Available [facility] Aleve Adverse Active Info Not Common Reaction Available [facility] Advil Adverse Active Info Not Common Reaction Available [facility] Social History Social Habit Start Date Stop Date Quantity Comments Source Gender identity [facility] Exposure to Not sure University SARS-CoV-2 (event) [facility] Tobacco use and 2020-04-05 2020-04-05 Never used Universit y of exposure 00:00:00 00:00:00 [facility] Alcohol intake 2020-04-05 2020-04-05 Current drinker Unive rsity of 00:00:00 00:00:00 of alcohol [facility] (finding) [place] Alcohol Comment 2019-10-31 2019-10-31 rare Universit y of 00:00:00 00:00:00 [facility] Sex Assigned At [birth year] [facility] Smoking Status Start Date Stop Date Source [facility] Medications Ordered Filled Start Stop Current Ordering Indication Dosage Frequency Signature Comments Components Source Medication Medication Date Date Medication? Clinician (SIG) Name Name acetaminoph 2019-2019- No 650mg 650 mg, U nivers en 04-06 Oral, ity of (TYLENOL) 00:15: 23:02 ONCE, 1 [place] tablet 650 00 :00 dose, Mon Medi tim mg 04/05/20 at [place] 1915, ADRIANA iohexol 2020- No 100mL 100 mL, Unive rs (OMNIPAQUE 04-05 Intravenou it y of 350 23:00: 22:40 s, ONCE, 1 [place] BULK-100 00 :00 dose, Mon Medica l mL) 04/05/20 at [place] injection 1800, 100 mL Routine gabapentin 2019-0 2020- No [id number] 300mg Take 1 Univers 300 mg 04-05 capsule by ity of capsule 00:00: 04:59 mouth 3 [place] 00 :00 (three) Medical times [place] daily for 30 days. dapaglifloz 2019-0 Yes [...] 54 :00 Medical Branch mirabegron 2020-0 Yes [id number] 25mg Take 1 Univers (MYRBETRIQ) 2-07 tablet by ity of 25 mg 00:00: mouth [place] tablet 00 daily. Medical Branch mirabegron 2020-0 Yes [id number] 25mg Take 1 Univers (MYRBETRIQ) 2-07 tablet by ity of 25 mg 00:00: mouth [place] tablet 00 daily. Medical Branch mirabegron 2020-0 Yes [id number] 25mg Take 1 Univers (MYRBETRIQ) 2-07 tablet by ity of 25 mg 00:00: mouth [place] tablet 00 daily. Medical Branch mirabegron 2020-0 Yes [id number] 25mg Take 1 Univers (MYRBETRIQ) 2-07 tablet by ity of 25 mg 00:00: mouth [place] tablet 00 daily. Medical Branch mirabegron 2020-0 Yes [id number] 25mg Take 1 Univers (MYRBETRIQ) 2-07 tablet [...] ers ORAL 1-10 mouth. ity of 21:14: [place] [address] Medical Branch levothyroxi 2020-0 Yes Take by [...] CHLORIDE 1-10 mouth. ity of ORAL 21:14: [place] [address] Medical Branch atorvastati 2019-0 Yes Take by Uni vers n calcium 1-10 mouth. ity of (ATORVASTAT 21:14: [place] IN ORAL) 46 Medical Branch ALBUTEROL 2019-0 Yes Inhale. Unive rs SULFATE HFA 1-10 ity of INHALE 21:14: [place] [address] Medical Branch fluticasone 2020-0 Yes 2{spray Use 2 Un arnulfo 27.5 1-10 } Sprays in ity of mcg/actuati 21:14: each [place] on nasal 46 nostril Medical spray daily. Branch meclizine 2020-0 Yes Take by Unive rs HCl 1-10 mouth. ity of (MECLIZINE 21:14: [place] ORAL) 46 Medical Branch BUDESONIDE 2020-0 Yes Take by Univ ers ORAL 1-10 mouth. ity of 21:14: [place] [address] Medical Branch metformin 2020-0 Yes Take by Unive rs HCl 1-10 mouth. ity of (METFORMIN 21:14: [place] ORAL) Medical Branch GLIMEPIRIDE 2020-0 Yes Take by Uni vers ORAL 1-10 mouth. ity of 21:14: [place] [address] Medical Branch pantoprazol 2020-0 Yes Take by [...] ers ORAL 1-10 mouth. ity of 21:14: [place] [address] Medical Branch TOPIRAMATE 2019-0 Yes Take by Univ ers ORAL 1-10 mouth. ity of 21:14: [place] [address] Medical Branch levothyroxi 2019-0 Yes Take by Uni vers ne sodium 1-10 mouth. ity of (LEVOTHYROX 21:14: [place] INE ORAL) Medical Branch losartan 2019-0 Yes Take by Univer s potassium 1-10 mouth. ity of (LOSARTAN 21:14: [place] ORAL) Medical Branch montelukast 2020-0 Yes Take by Uni vers sodium 1-10 mouth. ity of (MONTELUKAS 21:14: [place] T ORAL) Medical Branch OXYBUTYNIN 2019-0 Yes Take by Univ ers CHLORIDE 1-10 mouth. ity of ORAL 21:14: [place] [address] Medical Branch atorvastati 2019-0 Yes Take by Uni vers n calcium 1-10 mouth. ity of (ATORVASTAT 21:14: [place] IN ORAL) Medical Branch ALBUTEROL 2020-0 Yes Inhale. Unive rs SULFATE HFA 1-10 ity of INHALE 21:14: [place] [address] Medical Branch fluticasone 2020-0 Yes 2{spray Use 2 Un arnulfo 27.5 1-10 } Sprays in ity of mcg/actuati 21:14: each [place] on nasal 46 nostril Medical spray daily. Branch meclizine 2020-0 Yes Take by Unive rs HCl 1-10 mouth. ity of (MECLIZINE 21:14: [place] ORAL) 46 Medical Branch BUDESONIDE 2020-0 Yes Take by Univ ers ORAL 1-10 mouth. ity of 21:14: [place] [address] Medical Branch metformin 2020-0 Yes Take by Unive rs HCl 1-10 mouth. ity of (METFORMIN 21:14: [place] ORAL) 46 Medical Branch levothyroxi 2020-0 Yes Take by Uni vers ne sodium 1-10 mouth. ity of (LEVOTHYROX 21:14: [place] INE ORAL) 46 Medical Branch GLIMEPIRIDE 2020-0 Yes Take by Uni vers ORAL 1-10 mouth. ity of 21:14: [place] [address] Medical Branch losartan 2020-0 Yes Take by Univer s potassium 1-10 mouth. ity of (LOSARTAN 21:14: [place] ORAL) 46 Medical Branch montelukast 2019-0 Yes Take by Uni vers sodium 1-10 mouth. ity of (MONTELUKAS 21:14: [place] T ORAL) 46 Medical Branch OXYBUTYNIN 2020-0 Yes Take by Univ ers CHLORIDE 1-10 mouth. ity of ORAL 21:14: [place] [address] Medical Branch atorvastati 2020-0 Yes Take by Uni vers n calcium 1-10 mouth. ity of (ATORVASTAT 21:14: [place] IN ORAL) Medical Branch lipase/prot 2020-0 Yes Take by Uni vers ease/amylas 1-10 mouth. ity of e (CREON 21:14: [place] ORAL) 46 Medical Branch pantoprazol 2020-0 Yes Take by Uni vers e sodium 1-10 mouth. ity of (PANTOPRAZO 21:14: [place] LE ORAL) 46 Medical Branch TOPIRAMATE 2020-0 Yes Take by Univ ers ORAL 1-10 mouth. ity of 21:14: [place] [address] Medical Branch levothyroxi 2020-0 Yes Take by [...] benzoate 1-10 mouth. ity of (RIZATRIPTA 21:14: [place] N ORAL) Medical Branch OXYBUTYNIN 2020-0 Yes Take by Univ ers CHLORIDE 1-10 mouth. ity of ORAL 21:14: [address] Branch atorvastati 2020-0 Yes Take by Uni vers n calcium 1-10 mouth. ity of (ATORVASTAT 21:14: [place] IN [place]) Medical Branch ALBUTEROL 2020-0 Yes Inhale. Unive rs SULFATE HFA 1-10 ity of INHALE 21:14: [address] fluticasone 2020-0 Yes 2{spray Use 2 Un arnulfo 27.5 1-10 } Sprays in ity of mcg/actuati 21:14: each [place] on nasal 46 nostril Medical spray daily. Branch meclizine 2019-0 Yes Take by Unive rs HCl 1-10 mouth. ity of (MECLIZINE 21:14: [facility]) [address] [place] [address] BUDESONIDE 2019-0 Yes Take by Univ ers ORAL 1-10 mouth. ity of 21:14: [address] metformin 2019-0 Yes Take by Unive rs HCl 1-10 mouth. ity of (METFORMIN 21:14: [facility]) [address] [place] [address] Branch GLIMEPIRIDE 2019-0 Yes Take by Uni vers ORAL 1-10 mouth. ity of 21:14: [address] ALBUTEROL 2019-0 Yes Inhale. Unive rs SULFATE HFA 1-10 ity of INHALE 21:14: [address] fluticasone 2020-0 Yes 2{spray Use 2 Un arnulfo 27.5 1-10 } Sprays in ity of mcg/actuati 21:14: each [place] on nasal 46 nostril Medical spray daily. Branch meclizine 2020-0 Yes Take by Unive rs HCl 1-10 mouth. ity of (MECLIZINE 21:14: [facility]) Medical Branch PREDNISOLON 2019-0 Yes Take by Uni vers E ORAL 1-10 mouth. ity of 21:14: [address] Branch BUDESONIDE 2020-0 Yes Take by Univ ers ORAL 1-10 mouth. ity of 21:14: [address] metformin 2020-0 Yes Take by Unive rs HCl 1-10 mouth. ity of (METFORMIN 21:14: [place] ORAL) 46 Medical Branch GLIMEPIRIDE 2020-0 Yes Take by Uni vers ORAL 1-10 mouth. ity of 21:14: [place] [address] Medical Branch lipase/prot 2020-0 Yes Take by Uni vers ease/amylas 1-10 mouth. ity of e (CREON 21:14: [place] ORAL) Medical Branch pantoprazol 2020-0 Yes Take by Uni vers e sodium 1-10 mouth. ity of (PANTOPRAZO 21:14: [place] LE ORAL) Medical Branch TOPIRAMATE 2020-0 Yes Take by Univ ers ORAL 1-10 mouth. ity of 21:14: [place] [address] Medical Branch levothyroxi 2020-0 Yes Take by Uni vers ne sodium 1-10 mouth. ity of (LEVOTHYROX 21:14: [place] INE ORAL) Medical Branch losartan 2019-0 Yes Take by Univer s potassium 1-10 mouth. ity of (LOSARTAN 21:14: [place] ORAL) Medical Branch montelukast 2020-0 Yes Take by Uni vers sodium 1-10 mouth. ity of (MONTELUKAS 21:14: [place] T ORAL) Medical Branch OXYBUTYNIN 2019-0 Yes Take by Univ ers CHLORIDE 1-10 mouth. ity of ORAL 21:14: [place] [address] Medical Branch atorvastati 2019-0 Yes Take by Uni vers n calcium 1-10 mouth. ity of (ATORVASTAT 21:14: [place] IN ORAL) Medical Branch ALBUTEROL 2019-0 Yes Inhale. Unive rs SULFATE HFA 1-10 ity of INHALE 21:14: [place] [address] Medical Branch fluticasone 2020-0 Yes 2{spray Use 2 Un arnulfo 27.5 1-10 } Sprays in ity of mcg/actuati 21:14: each [place] on nasal 46 nostril Medical spray daily. Branch meclizine 2020-0 Yes Take by Unive rs HCl 1-10 mouth. ity of (MECLIZINE 21:14: [place] ORAL) Medical Branch BUDESONIDE 2020-0 Yes Take by Univ ers ORAL 1-10 mouth. ity of 21:14: [place] [address] Medical Branch metformin 2020-0 Yes Take by Unive rs HCl 1-10 mouth. ity of (METFORMIN 21:14: [place] ORAL) Medical Branch GLIMEPIRIDE 2020-0 Yes Take by Uni vers ORAL 1-10 mouth. ity of 21:14: [place] [address] Medical Branch lipase/prot 2020-0 Yes Take by Uni vers ease/amylas 1-10 mouth. ity of e (CREON 21:14: [place] ORAL) Medical Branch pantoprazol 2019-0 Yes Take by Uni vers e sodium 1-10 mouth. ity of (PANTOPRAZO 21:14: [place] LE ORAL) Medical Branch TOPIRAMATE 2020-0 Yes Take by Univ ers ORAL 1-10 mouth. ity of 21:14: [place] [address] Medical Branch levothyroxi 2020-0 Yes Take by Uni vers ne sodium 1-10 mouth. ity of (LEVOTHYROX 21:14: [place] INE ORAL) Medical Branch losartan 2019-0 Yes Take by Univer s potassium 1-10 mouth. ity of (LOSARTAN 21:14: [place] ORAL) Medical Branch montelukast 2019-0 Yes Take by Uni vers sodium 1-10 mouth. ity of (MONTELUKAS 21:14: [place] T ORAL) Medical Branch OXYBUTYNIN 2019-0 Yes Take by Univ ers CHLORIDE 1-10 mouth. ity of ORAL 21:14: [place] [address] Medical Branch atorvastati 2019-0 Yes Take by Uni vers n calcium 1-10 mouth. ity of (ATORVASTAT 21:14: [place] IN ORAL) Medical Branch ALBUTEROL 2019-0 Yes Inhale. Unive rs SULFATE HFA 1-10 ity of INHALE 21:14: [place] [address] Medical Branch fluticasone 2019-0 Yes 2{spray Use 2 Un arnulfo 27.5 1-10 } Sprays in ity of mcg/actuati 21:14: each [place] on nasal 46 nostril Medical spray daily. Branch meclizine 2019-0 Yes Take by Unive rs HCl 1-10 mouth. ity of (MECLIZINE 21:14: [place] ORAL) Medical Branch BUDESONIDE 2019-0 Yes Take by Univ ers ORAL 1-10 mouth. ity of 21:14: [place] [address] Medical Branch metformin 2019-0 Yes Take by Unive rs HCl 1-10 mouth. ity of (METFORMIN 21:14: [place] ORAL) Medical Branch GLIMEPIRIDE 2020-0 Yes Take by Uni vers ORAL 1-10 mouth. ity of 21:14: [place] [address] Medical Branch lidocaine-p 2020-0 Yes [id number] Apply to Univers rilocaine 1-10 area(s) as ity of 2.5-2.5 % 00:00: needed for [place] cream 00 Local Medical anesthesia Branch . polyethylen 2020-0 Yes [id number] 17g Take 17 g Univers e glycol 1-10 by mouth ity of (MIRALAX) 00:00: daily. [place] 17 Medical gram/dose Branch powder lidocaine-p 2020-0 Yes [id number] Apply to Univers rilocaine 1-10 area(s) as ity of 2.5-2.5 % 00:00: needed for [place] cream 00 Local Medical anesthesia Branch . polyethylen 2020-0 Yes [id number] 17g Take 17 g Univers e glycol 1-10 by mouth ity of (MIRALAX) 00:00: daily. [place] [address] Medical gram/dose Branch powder lidocaine-p 2020-0 Yes [id number] Apply to Univers rilocaine 1-10 area(s) as ity of 2.5-2.5 % 00:00: needed for [place] cream 00 Local Medical anesthesia Branch . polyethylen 2020-0 Yes [id number] 17g Take 17 g Univers e glycol 1-10 by mouth ity of (MIRALAX) 00:00: daily. [place] [address] Medical gram/dose Branch powder lidocaine-p 2020-0 Yes [id number] Apply to Univers rilocaine 1-10 area(s) as ity of 2.5-2.5 % 00:00: needed for [place] cream 00 Local Medical anesthesia Branch . fluconazole 2020-0 Yes [id number] 100mg Take 1 Univers 100 mg 1-10 tablet by ity of tablet 00:00: mouth [place] 00 daily. Medical Branch metoclopram 2020-0 Yes [id number] 10mg Take 1 Univers jeronimo HCl 10 1-10 tablet by ity of mg tablet 00:00: mouth [place] 00 every 6 Medical (six) Branch hours as needed for Nausea and Vomiting (N/V). dicyclomine 2020-0 Yes [id number] 20mg Take 1 Univers (BENTYL) 20 1-10 tablet by ity of mg tablet 00:00: mouth [place] 00 every 6 Medical (six) Branch hours as needed for Abdominal pain. polyethylen 2020-0 Yes [id number] 17g Take 17 g Univers e glycol 1-10 by mouth ity of (MIRALAX) 00:00: daily. [place] Medical gram/dose Branch powder lidocaine-p 2020-0 Yes [id number] Apply to Univers rilocaine 1-10 area(s) as ity of 2.5-2.5 % 00:00: needed for [place] cream 00 Local Medical anesthesia Branch . polyethylen 2020-0 Yes [id number] 17g Take 17 g Univers e glycol 1-10 by mouth ity of (MIRALAX) 00:00: daily. [place] Medical gram/dose Branch powder lidocaine-p 2020-0 Yes [id number] Apply to Univers rilocaine 1-10 area(s) as ity of 2.5-2.5 % 00:00: needed for [place] cream 00 Local Medical anesthesia Branch . polyethylen 2020-0 Yes [id number] 17g Take 17 g Univers e glycol 1-10 by mouth ity of (MIRALAX) 00:00: daily. [place] Medical gram/dose Branch powder fluconazole 2019-0 2020- No [id number] 100mg Take 1 Univers 100 mg 1-10 -07 tablet by ity of tablet 00:00: 00:00 mouth [place] 00 :00 daily. Medical Branch metoclopram 2019- 2020- No [id number] 10mg Take 1 Univers jeronimo HCl 10 1-10 -07 tablet by ity of mg tablet 00:00: 00:00 mouth [place] 00 :00 every 6 Medical (six) Branch hours as needed for Nausea and Vomiting (N/V). dicyclomine 2019-0 2020- No [id number] 20mg Take 1 Univers (BENTYL) 20 -10 -07 tablet by it y of mg tablet 00:00: 00:00 mouth [place] 00 :00 every 6 Medical (six) Branch hours as needed for Abdominal pain. fluconazole 2019-0 2020- No [id number] 100mg Take 1 Univers 100 mg 1-10 02-07 tablet by ity of tablet 00:00: 00:00 mouth [place] 00 :00 daily. Medical Branch metoclopram 2019-0 2020- No [id number] 10mg Take 1 Univers jeronimo HCl 10 1-10 02-07 tablet by ity of mg tablet 00:00: 00:00 mouth [place] 00 :00 every 6 Medical (six) Branch hours as needed for Nausea and Vomiting (N/V). dicyclomine 2020- No [id number] 20mg Take 1 Univers (BENTYL) 20 1-10 11-28 tablet by it y of mg tablet 00:00: 00:00 mouth [place] 00 :00 every 6 Medical (six) Branch hours as needed for Abdominal pain. Creon Creon Yes Ruddy not Common Moon defined [facility] Budesonide Budesonide Yes Ruddy not Common Moon defined [facility] Losartan Losartan Yes Ruddy not Comm on Potassium Potassium Moon defined [facility] Atorvastati Atorvastati Yes Ruddy not Common n Calcium n Calcium Moon defined [facility] PredniSONE PredniSONE Yes Ruddy not Common Moon defined [facility] Tramadol Tramadol Yes Ruddy not Comm on HCl HCl Moon defined [facility] Fluticasone Fluticasone Yes Ruddy not Common Propionate Propionate Moon defined [facility] Lorazepam Lorazepam Yes Ruddy not Co mmon Moon defined [facility] EPINEPHrine EPINEPHrine Yes Ruddy not Common Moon defined [facility] Farxiga Farxiga Yes Ruddy not Common Moon defined [facility] Alprazolam Alprazolam Yes Ruddy not Common Moon defined [facility] Myrbetriq Myrbetriq Yes Ruddy not Co mmon Moon defined [facility] Rizatriptan Rizatriptan Yes Ruddy not Common Benzoate Benzoate Moon defined [facility]ir [facility] Levothyroxi Levothyroxi Yes Ruddy not Common ne Sodium ne Sodium Moon defined [facility] Glimepiride Glimepiride Yes Ruddy not Common Moon defined [facility] Vital Signs Vital Name Observation Time Observation Value Comments Source Systolic blood 2020-04-05 23:45:00 108 mm[Hg] Univer sity [facility] Diastolic blood 2020-04-05 23:45:00 74 [facility]Hg[facility] 2020-04-05 23:45:00 75 /min [facility] [place] [facility] Respiratory rate 2020-04-05 23:45:00 21 /min Univ ers[facility] [place] [facility] Oxygen saturation in 2020-04-05 23:45:00 98 /min University of Arterial blood by [facility] Pulse oximetry Branch Body temperature 2020-04-05 21:40:00 36.89 Karoline [facility] [place] [facility] Body weight 2020-04-05 21:40:00 90.719 kg [facility] [place] [facility] BMI 2020-04-05 21:40:00 36.58 kg/m2 [facility] [place] [facility] Systolic blood 2020-04-05 23:45:00 108 mm[Hg] Univer sity of pressure [place] [facility] Diastolic blood 2020-04-05 23:45:00 74 mm[Hg] Unive rsity of pressure [place] [facility] Heart rate 2020-04-05 23:45:00 75 /min [facility] [place] [facility] Respiratory rate 2020-04-05 23:45:00 21 /min [facility] [place] [facility] Oxygen saturation in 2020-04-05 23:45:00 98 /min University of Arterial blood by [facility] Pulse oximetry Branch Body temperature 2020-04-05 21:40:00 36.89 Karoline [facility] [place] [facility] Body weight 2020-04-05 21:40:00 90.719 kg [facility] [place] [facility] BMI 2020-04-05 21:40:00 36.58 kg/m2 [facility] [place] [facility] Systolic blood 2019-11-28 20:55:00 125 mm[Hg] Univer sity of pressure [place] [facility] Diastolic blood 2019-11-28 20:55:00 83 mm[Hg] Unive rsity of pressure [place] [facility] Heart rate 2019-11-28 20:55:00 78 /min [facility] [place] [facility] Body temperature 2019-11-28 20:55:00 36.72 Karoline [facility] [place] [facility] Respiratory rate 2019-11-28 20:55:00 18 /min [facility] [place] [facility] Body height 2019-11-28 20:55:00 157.5 cm [facility] [place] [facility] Body weight 2019-11-28 20:55:00 101.606 kg [facility] [place] [facility] BMI 2019-11-28 20:55:00 40.97 kg/m2 [facility] [place] [facility] Systolic blood 2019-11-28 20:55:00 125 mm[Hg] Univer sity of pressure [facility] Diastolic blood 2019-11-28 20:55:00 83 mm[Hg] [facility] 2019-11-28 20:55:00 78 /min [facility] Body temperature 2019-11-28 20:55:00 36.72 Karoline [facility] Respiratory rate 2019-11-28 20:55:00 18 /min [facility] Body height 2019-11-28 20:55:00 157.5 cm [facility] Body weight 2019-11-28 20:55:00 101.606 kg [facility] BMI 2019-11-28 20:55:00 40.97 kg/m2 [facility] Procedures Procedure Date / Time Performing Clinician Source Performed CT ANGIOGRAM HEAD 2020-04-05 22:49:50 Yesi Mckeon [facility] CT ANGIOGRAM NECK 2020-04-05 22:49:50 Yesi Mckeon [facility] CT HEAD WO CONTRAST 2020-04-05 22:38:15 Yesi Mckeon [facility] XR CHEST 1 VW 2020-04-05 22:33:20 Yesi Mkceon [facility] URINALYSIS 2020-04-05 22:08:00 Yesi Mckeon [facility] COVID-19 (ID NOW RAPID 2020-04-05 21:54:00 Yesi Mckeon [facility] TESTING) [facility] TROPONIN I 2020-04-05 21:53:00 Yesi Mckeon [facility] HEPATIC FUNCTION PANEL 2020-04-05 21:53:00 [id number] ([facility]B,T.PRO,BILI [facility] Branch T,BU/BC,ALT,AST,ALK PHOS) BASIC METABOLIC PANEL 2020-04-05 21:53:00 Yesi Mckeon [facility] (NA, K, CL, CO2, Medical Branch GLUCOSE, BUN, CREATININE, CA) CBC WITH DIFFERENTIAL 2020-04-05 21:53:00 Yesi Mckeon Uni versity of [facility] PROTHROMBIN TIME / INR 2020-04-05 21:53:00 Yesi Mckeon Un iversity of [facility] NOTICE OF PRIVACY 2020-04-05 21:35:28 [facility] CONSENT/REFUSAL FOR 2020-04-05 21:31:55 Doctor Unassigned, No [facility] [place] DIAGNOSIS AND TREATMENT Name [facility] PAP SMEAR-LIQUID 2019-11-28 22:24:00 Amira Luo [facility] NOTICE OF BILLING 2019-11-28 20:36:45 Doctor Unassigned, No Univ ersity [facility] [place] PRACTICES FOR MEDICARE Name [facility] PATIENTS Plan of Care Planned Activity Planned Date Details Comments Source Future Scheduled 2023-08-03 BREAST CANCER [facility] Test 15:57:17 SCREENING [code = BREAST CANCER SCREENING] Future Scheduled 2023-08-03 Screening for [facility] Test 15:57:17 malignant neoplasm of colon (procedure) [code = 844886734] Future Scheduled 2023-08-03 Screening for [facility] Test 15:57:17 malignant neoplasm of colon (procedure) [code = 560363829] Future Scheduled 2023-08-03 [facility]ACCINE [facility] 15:57:17 (#1) [code = INFLUENZA VACCINE (#1)] Future Scheduled 2023-08-03 RSV VACCINES > 60 YR [facility] 15:57:17 (1 - 1-dose 60+ series) [code = RSV VACCINES > 60 YR (1 - 1-dose 60+ series)] Future Scheduled 2023-08-03 Screening for [facility] Test 15:57:17 malignant neoplasm of colon (procedure) [code = 373187532] Future Scheduled 2023-08-03 Screening for [facility] Test 15:57:17 malignant neoplasm of colon (procedure) [code = 263225669] Future Scheduled 2023-08-03 Screening for [facility] Test 15:57:17 malignant neoplasm of colon (procedure) [code = 797535963] Future Scheduled 2023-08-03 COVID-19 [facility]ACCINE (#[facility]) [facility] 15:57:17 [code = COVID-19 VACCINE (#1)] Future Scheduled 2023-08-03 Screening [facility] Test 15:57:17 malignant neoplasm of cervix (procedure) [code = 758103873] Future Scheduled 2023-04-07 [facility]ACCINE [facility] 03:42:47 [code = INFLUENZA VACCINE] Future Scheduled 2023-04-07 Screening [facility] Test 03:42:47 malignant neoplasm of colon (procedure) [code = 081593798] Future Scheduled 2023-04-07 [facility] Test 03:42:47 malignant neoplasm of colon (procedure) [code = 143445025] Future Scheduled 2023-04-07 [facility] Test 03:42:47 malignant neoplasm of colon (procedure) [code = 273582216] Future Scheduled 2023-04-07 COVID-19 VACCINE (#1) [facility] Test 03:42:47 [code = COVID-19 VACCINE (#1)] Future Scheduled 2023-04-07 Screening [facility] Test 03:42:47 malignant neoplasm of cervix (procedure) [code = 552722150] Future Scheduled 2023-04-07 BREAST CANCER [facility] Test 03:42:47 SCREENING [code = BREAST CANCER SCREENING] Future Scheduled 2023-04-07 [facility] Test 03:42:47 malignant neoplasm of colon (procedure) [code = 833154605] Future Scheduled 2023-04-07 [facility] Test 03:42:47 malignant neoplasm of colon (procedure) [code = 394153282] Future Scheduled 2022-08-26 COVID-19 VACCINE (#1) [facility] Test 17:22:16 [code = COVID-19 VACCINE (#1)] Future Scheduled 2022-08-26 [facility] Test 17:22:16 malignant neoplasm of cervix (procedure) [code = 696736016] Future Scheduled 2022-08-26 BREAST CANCER [facility] Test 17:22:16 SCREENING [code = BREAST CANCER SCREENING] Future Scheduled 2022-08-26 COLONOSCOPY SCREENING [facility] Test 17:22:16 [code = COLONOSCOPY SCREENING] Future Scheduled 2022-08-26 [facility]ACCINE [facility] 17:22:16 [code = INFLUENZA VACCINE] Future Scheduled 2022-08-26 HEPATITIS B VACCINES [facility] Test 17:22:16 (1 of 3 - 3-dose series) [code = HEPATITIS B VACCINES (1 of 3 - 3-dose series)] Future Scheduled COVID-19 [facility]ACCINE (1) [facility] [code = COVID-19 VACCINE (1)] Future Scheduled Scre[facility] for [facility] Test malignant neoplasm of cervix (procedure) [code = 859360625] Future Scheduled INFLUENZA VACCINE [facility] [code = INFLUENZA VACCINE] Encounters Start End Encounter Admission Attending Care Care Encounter Source Date/Time Date/Time Type Type Clinicians Facility Department ID 2021-11-16 [facility] [id number] Common 11:31:10 Ryan [id number] [facility] 2021-11-16 [facility] [id number] Common 11:25:21 Ryan [id number] [facility] 2021-01-06 2021-01-06 Patient Kamran MTKRYSTA [id number] Univers 00:00:00 00:00:00 Outreach Tony PRIMARY [id number] [facility] [id number] [id number] [place] [address] 2021-01-06 2021-01-06 Patient LILLIAN Andrew [id number] 00:00:00 00:00:00 Outreach Tony PRIMARY [id number] [facility] [id number] PAVILLION [id number] 2020-05-17 2020-05-17 Outpatient Marcia Vang [id number] Common 08:08:00 08:08:00 t [facility] 2020-05-12 2020-05-12 Outpatient Marcia Vang [id number] Common 09:30:00 09:30:00 t Bone Bone and Spiri t and Joint [facility] 2020-04-21 2020-04-21 Outpatient Marcia Vang 31 [id number] Common 13:07:00 13:07:00 t Bone Bone and Spiri t and Joint [facility] 2020-04-13 2020-04-13 Outpatient Brazjcarlos Kennedyt [id number] Common 16:42:00 16:42:00 t Bone Bone and Spiri t and Joint [facility] 2020-04-12 2020-04-12 Outpatient Brazjcarlos Kennedyt 31 [id number] Common 16:00:00 16:00:00 t Bone Bone and Spiri t and Joint [facility] 2020-04-05 2020-04-05 Emergency [facility] [id number] [facility] 16:37:35 19:01:00 Yesi Mehta [id number] [facility] 4.2.7.2.686 [facility] [id number] [address] 2020-04-05 2020-04-05 [facility] [id number] [facility] 16:37:35 19:01:00 YESI white [facility] 2020-04-05 2020-04-05 Emergency [facility] 1.2.840.114 [id number] 16:37:35 19:01:00 Yesi Mehta [id number] [place] [id number] [place] [id number] 2020-04-05 2020-04-05 Outpatient Marcia Kennedyt 31 [id number] Common 14:31:00 14:31:00 t Bone Bone and Spiri t and [facility] 2020-03-29 2020-03-29 Outpatient [facility] [id number] Common 13:59:00 13:59:00 t Bone Bone and Spiri t and Joint [facility] 2020-03-29 2020-03-29 Outpatient [facility]los [place] 31 [id number] Common 13:00:00 13:00:00 t Bone Bone and Spiri t and Joint [facility] 2020-03-29 2020-03-29 Outpatient [place] [place] 30 [id number] Common 08:30:00 08:30:00 t Bone Bone and Spiri t and [facility] 2019-12-26 2019-12-26 Outpatient R ANTONIOFabi AMIRA [facility] B [id number] Univers 13:15:00 13:15:00 AMIRA LUO [facility] 2019-12-03 2019-12-03 Outpatient R TROY [facility] [id number] Univers 08:00:00 08:00:00 WENTDAMIR orville [facility] 2019-11-30 2019-11-30 Case Puja, [facility] 1.2.840.114 [id number] Univers 00:00:00 00:00:00 Management Amira Mehta [id number] it[place] [id number] [address] 2019-11-30 2019-11-30 [facility] Puja [facility] 1.2.840.114 [id number] 00:00:00 00:00:00 Management Amira Mehta [id number] [place] 4.2.7.2.686 Professio [id number] [address] 2019-11-28 2019-11-28 Office [facility] 1.2.840.114 [id number] Univers 14:36:59 15:44:36 Visit Amira Mehta 350.1.13.10 i ty of [place] [id number] [address] 2019-11-28 2019-11-28 Office [facility] 1.2.840.114 [id number] 14:36:59 15:44:36 Visit Amira Mehta 350.1.13.10 [place] 4.2.7.2.686 Professio [id number] [address] 2019-11-28 2019-11-28 Outpatient R AMIRA LUO [facility] B [id number] Univers 14:30:00 15:44:36 AMIRA LUO [place] [facility] 2019-11-28 2019-11-28 Orders Doctor ALEXIS 1.2.840.114 [id number] Univers 00:00:00 00:00:00 Only Unassigned, SHARRON 350.1.13.10 ity of [place] [facility] 4.2.7.2.686 [place] as [phone] [address] 2019-10-31 2019-10-31 Emergency X JOE, [facility] ERT [id number] Univers 16:40:55 20:33:00 MATTHIASLI ity [facility] 2019-10-29 2019-10-29 Emergency X KULWANT, [facility] ERT [id number] Univers 16:19:52 18:29:00 JODIEO ity [facility] Results Test Description Test Time Test Results Result Source Comments Comments CT Head W/O 2020-03-[address] findings of Unive rsity of Contrast 5 acute intracranial [facility] 23:35:38 abnormality. [place] Preliminary Report Dictated by Resident: Young Carson I, Jane Morris MD., have reviewed this study and agree [...] is notcompletely imaged on the current exam [facility], Radiant Results Inft User - 04/05/2020 [...] and Un iversity of HEAD 5 neck.HISTORY:Stroke [facility] 22:59:39 suspected, ataxia Branch TECHNIQUE: CTA of [...] branches are within normal limits. A left ORACLE APPLICATIONS DEVELOPER seen. No sizable right P-comm is identified The ORACLE APPLICATIONS DEVELOPER and basilar arteries are otherwise within normal [...] MCA branches are within normal limits.A left ORACLE APPLICATIONS DEVELOPER seen. No sizable right P-comm is identifiedThe ORACLE APPLICATIONS DEVELOPER and basilar arteries are otherwise within normal limits. The intracranial vertebral arteries are unremarkable. The left PICA originis noted. An AICA /PICA variant is suspected on the right IMPRESSIONNormal CTA head and neck. CT ANGIOGRAM 2020-03-22 Normal CTA head and Un iversity of NECK 5 neck.HISTORY:Stroke [facility] 22:59:39 suspected, ataxia Branch TECHNIQUE: CTA of [...] branches are within normal limits. A left ORACLE APPLICATIONS DEVELOPER seen. No sizable right P-comm is identified The ORACLE APPLICATIONS DEVELOPER and basilar arteries are otherwise within normal [...] MCA branches are within normal limits.A left ORACLE APPLICATIONS DEVELOPER seen. No sizable right P-comm is identifiedThe ORACLE APPLICATIONS DEVELOPER and basilar arteries are otherwise within normal [...] acute bony abnormality. [facility], Radiant Results Inft 04/05/2020 5:53 PM CDTEXAM: XR CHEST 1 [...] nts APPEARANCE (test code = Clear Clear 8540079728) COLOR (test code = 3980907608) Yellow Yellow PH (test code = 8591984459) 4.8-8.0 SP GRAVITY (test code = 1.003-1.030 H 1212775985) GLU U QUAL (test code = 500 mg/dL Normal A 0318645425) BLOOD (test code = 3839643706) Negative Negative KETONES (test code = 8572533311) Negative Negative PROTEIN (test code = 2887-8) Negative Negative UROBILIN (test code = 2.0 mg/dL Normal A 9016773493) BILIRUBIN (test code = Negative Negative 9028891717) NITRITE (test code = 7996088374) Negative Negative LEUK LETTY (test code = Negative Negative 9537093526) RBC/HPF (test code = 1671045309) <1 See_Comment [Automated message] The system which ge nerated this result transmit piper reference range: 0 - 3 HP F. The reference range was not used to interpret th is result as normal/abnormal . WBC/HPF (test code = 6649738854) See_Comment [Automated message] The system which ge nerated this result transmit piper reference range: 0 - 5 HP F. The reference range was not used to interpret th is result as normal/abnormal . BACTERIA (test code = Negative Negative 4944851531) MUCOUS (test code = 6335709073) Slight Negative LPF A SQ EPITH (test code = HPF 7381766431) Lab Interpretation (test code = Abnormal 02733-6) [facility] [id number] 22:26:00 Test Item Value Reference Range Interpretation Comments TROPONIN I (test <0.012 See_Comment [Automated code = 9281517144) message] The system which generated this result [...] ? Lab Interpretation Normal (test code = 94199-4) [facility]ID [facility]2020-04-05 22:18:00 Test Item Value Reference Range Interpretation Comments SARS-CoV-2 Rapid ID NOW Not Detected Not Detected (test code = 59738-4) GILA (test code = GILA) ID NOW COVID-19 Assay is an isothermal nucleic acid amplification test intended for the qualitative detection of nucleic acid from SARS-CoV-2 viral RNA in nasopharyngeal (SAND CUTTER OPERATOR) specimens. It is used under Emergency Use [...] indicated. Lab Interpretation Normal (test code = 57360-7) [facility] (NA, K, CL, CO2, GLUCOSE, BUN, CREATININE, CA)2020-04-05 22:15:00 Test Item Value Reference Range Interpretation Comments NA (test code = 139 mmol/L 135-145 7028886922) K (test code = 3.7 mmol/L 3.5-5 9886442923) CL (test code = 105 mmol/L 98-108 2337851055) CO2 TOTAL (test code = 26 mmol/L 23-31 2981099937) AGAP (test code = 2-16 3347055668) BUN (test code = 11 mg/dL 7-23 2806596862) GLUCOSE (test code = 107 mg/dL 70-110 4941781292) CREATININE (test code 0.77 mg/dL 0.5-1.04 = 9632465555) CALCIUM (test code = 9.7 mg/dL 8.6-10.6 6750466295) eGFR Calculation mL/min/1.73m2 (Non-) (test code = 4041626922) eGFR Calculation mL/min/1.73m2 () (test code = 2628949039) GILA (test code = GILA) Association of [...] or urine or abnormalities in imaging tests). [facility] (ALB, T.PRO, BILI T, BU/BC, ALT, AST, ALK PHOS)2020-04-05 22:15:00 Test Item Value Reference Range Interpretation Comments TOTAL BILI (test code = 2268221844) 0.8 mg/dL 0.1-1.1 BILI UNCON (test code = 9333870198) 0.8 mg/dL 0.1-1.1 BILI CONJ (test code = 3959999599) 0.0 mg/dL 0-0.3 T PROTEIN (test code = 4399778232) 7.7 g/dL 6.3-8.2 ALBUMIN (test code = 3733500525) 4.4 g/dL 3.5-5 ALK PHOS (test code = 3385005595) 101 U/L 34-122 ALTv (test code = 1742-6) 34 U/L 5-35 AST(SGOT) (test code = 9056078575) 30 U/L 13-40 Lab Interpretation (test code = Normal 94453-3) [facility] / [id number] 22:12:00 Test Item Value Reference Range Interpretation [...] tions. Lab Interpretation (test Normal code = 36531-2) [facility] WITH [id number] 22:05:00 Test Item Value Reference Range Interpretation Comments WBC (test code = See_Comment [Automated 6637-2) message] The sy stem which generated this result transmitted reference range : 4.30 - 11.10 10*3/?L. The reference range was not used to interpret this result as normal/abnormal . RBC (test code = See_Comment [Automated 837-8) message] The sy stem which generated this [...] RDW-SD (test code = 42.2 fL 39-49.9 94943-7) RDW-CV (test code = 13.1 % 12-15.5 788-0) PLT (test code = See_Comment H [Automated 777-3) message] The sy stem which generated this result transmitted reference range : 166 - 358 10*3/ ?L. The reference r abran was not used to interpret this result as normal/abnormal . MPV (test code = 8.8 fL 9.5-12.9 L 69613-8) NRBC/100 WBC (test See_Comment [Automat ed code = 1731541166) message] The system which generated this result transmitted reference range : 0.0 - 10.0 /100 WBCs. The refer ence range was not u sed to interpret th is result as normal/abnormal . NRBC x10^3 (test code <0.01 See_Comment [Auto mated = 4622263357) message] The s ystem which generated this result transmitted reference range : 10*3/?L. The reference range was not used to interpret this result as normal/abnormal . GRAN MAT (NEUT) % 51.0 % (test code = 770-8) IMM GRAN % (test code 0.30 % = 7117717663) LYMPH % (test code = 39.3 % 736-9) MONO % (test code = 6.6 % 5905-5) EOS % (test code = 2.0 % 713-8) BASO % (test code = 0.8 % 706-2) GRAN MAT x10^3(ANC) 3.61 10*3/uL 1.88-7.09 (test code = 1127057713) IMM GRAN x10^3 (test <0.03 0-0.06 code = 3588969524) LYMPH x10^3 (test code 2.78 10*3/uL 1.32-3.29 = 731-0) MONO x10^3 (test code 0.47 10*3/uL 0.33-0.92 = 742-7) EOS x10^3 (test code = 0.14 10*3/uL 0.03-0.39 711-2) BASO x10^3 (test code 0.06 10*3/uL 0.01-0.07 = 704-7) Lab Interpretation Abnormal (test code = 58358-8) [facility]"
[2023-08-14] MEDS ORDERED: ACETAMINOPHEN 500 MG TAB ONE (15:36)
[2023-08-14 16:10] LABS: Absolute Lymphocytes (CBC) 1.3 K/uL (0.7-4.9); Hematocrit 41.9 % (36.0-45.0); Lymphocytes % 29.6 % (15.3-44.8); Platelets 312 thou/uL (152-406); RBC Red Blood Cell Count 4.82 M/uL (3.86-4.86)
[2023-08-14] MEDS ORDERED: ALBUTEROL 2.5 MG/3 ML NEB SOL ONE (16:10)
[2023-08-14 16:47] LABS: Potassium 3.4 mEq/L (3.5-5.1)
[2023-08-14] MEDS ORDERED: HYDROCODONE/CHLORPHEN 5 ML/OSYR ONE (17:24)
--- NOTE | 2023-08-14 17:48 | EDPHYS ---
Physician Documentation [facility] Name: Kelsy Gerber Age: 48 yrs Sex: Female : 1975 Arrival Date: 08/14/2023 Time: 15:04 Bed DIS2 Private MD: ED Physician Gabe Chamberlain HPI: 08/14 15:20 This 48 yrs old Female presents to ER via Wheelchair with complaints of Sent jh7 by Pavithra, Breathing Difficulty. 15:20 48-year-old female presents to the ER complaining of cough, mild shortness of breath, jh7 body aches, and fever since yesterday. The patient states that she tested positive for COVID yesterday. Dr. Arshad states that he sent the patient to the ER for a chest x-ray to rule out pneumonia. Patient has a history of asthma, hypertension, and diabetes.. Historical: - Allergies: 15:20 Aspirin; cm10 15:20 Daypro; cm10 15:20 Ibuprofen; cm10 15:20 Ketorolac; cm10 15:20 Morphine; cm10 15:20 NSAIDS; cm10 15:20 NSAIDS (Non-Steroidal Anti-Inflamma; cm10 - PMHx: 15:20 Asthma; Bipolar disorder; Diabetes - NIDDM; fatty liver; Hypertension; Hypothyroidism; cm10 LEFT SIDED WEAKNESS; migranes; Pancreatitis; TIA; - PSHx: 15:20 Total abdominal hysterectomy; cm10 - Immunization history:: Adult Immunizations unknown. - Social history:: Smoking status: Patient denies any tobacco usage or history of. ROS: 15:20 Eyes: Negative for injury, pain, redness, and discharge, ENT: Negative for injury, jh7 pain, and discharge, Neck: Negative for injury, pain, and swelling, Cardiovascular: Negative for chest pain, palpitations, and edema, Abdomen/GI: Negative for abdominal pain, nausea, vomiting, diarrhea, and constipation, Back: Negative for injury and pain, MS/Extremity: Negative for injury and deformity, Skin: Negative for injury, rash, and discoloration, Neuro: Negative for headache, weakness, numbness, tingling, and seizure, 15:20 Constitutional: Positive for body aches, chills, fever, 15:20 Respiratory: Positive for cough, shortness of breath, Negative for orthopnea, 15:20 All other systems are negative, Exam: 15:20 Head/Face: Normocephalic, atraumatic. Eyes: Pupils equal round and reactive to light, [facility] extra-ocular motions intact. Lids and lashes normal. Conjunctiva and sclera are non-icteric and not injected. Cornea within normal limits. Periorbital areas with no swelling, redness, or edema. ENT: Nares patent. No nasal discharge, no septal abnormalities noted. Tympanic membranes are normal and external auditory canals are clear. Oropharynx with no redness, swelling, or masses, exudates, or evidence of obstruction, uvula midline. Mucous membranes moist. Neck: Trachea midline, no thyromegaly or masses palpated, and no cervical lymphadenopathy. Supple, full range of motion without nuchal rigidity, or vertebral point tenderness. No Meningismus. Cardiovascular: Regular rate and rhythm with a normal S1 and S2. No gallops, murmurs, or rubs. Normal PMI, no JVD. No pulse deficits. Abdomen/GI: Soft, non-tender, with normal bowel sounds. No distension or tympany. No guarding or rebound. No evidence of tenderness throughout. Skin: Warm, dry with normal turgor. Normal color with no rashes, no lesions, and no evidence of cellulitis. MS/ Extremity: Pulses equal, no cyanosis. Neurovascular intact. Full, normal range of motion. Neuro: Awake and alert, GCS 15, oriented to person, place, time, and situation. Motor strength 5/5 in all extremities. Sensory grossly intact. Normal gait. 15:20 Constitutional: The patient appears alert, awake, obviously ill, 15:20 Respiratory: the patient does not display signs of respiratory distress, Respirations: normal, Breath sounds: are clear throughout, Persistent hacking cough noted on exam, Vital Signs: 15:18 BP 99 / 65; Pulse 97; Resp 18 S; Temp 100.2(O); Pulse Ox 97% on R/A; Pain 10/10; cm10 17:59 BP 101 / 68; Pulse 85; Resp 16; Temp 98.4(O); Pulse Ox 99% on R/A; mb9 15:18 Pain Scale: Adult cm10 MDM: 15:10 Patient medically screened. [facility] 17:30 Differential diagnosis: viral Infection, URI, bronchitis, pneumonia COVID-19 virus. [facility] Data reviewed: vital signs, nurses notes, lab test result(s), radiologic studies, plain films. I considered the following discharge prescriptions or medication management in the emergency department Medications were administered in the Emergency Department. See MAR. Independent interpretation of the following test(s) in the Emergency Department X-Ray: My interpretation is No pneumonia. Care significantly affected by the following chronic conditions: Diabetes, Hypertension. Scoring Tools PERC Rule for PE. Counseling: I had a detailed discussion with the patient and/or guardian regarding the historical points, exam findings, and any diagnostic results supporting the discharge/admit diagnosis, to return to the emergency department if symptoms worsen or persist or if there are any questions or concerns that arise at home. Response to treatment: the patient's symptoms have mildly improved after treatment. ED course: PERC score 0. 08/14 15:20 Order name: BMP; Complete Time: 16:49 7 08/14 15:20 Order name: CBC with Diff; Complete Time: 16:34 [facility] 08/14 15:20 Order name: XRAY Chest (1 view); Complete Time: 17:59 jh7 Administered Medications: 15:27 Drug: Acetaminophen PO 1000 mg PO once Route: PO; cm10 18:00 Follow up: Response: No adverse reaction mb9 15:39 Drug: Albuterol Inhalation 2.5 mg Inhalation every 20 minutes x3 Route: Inhalation; mb9 15:59 Drug: Albuterol Inhalation 2.5 mg Inhalation every 20 minutes x3 Route: Inhalation; mb9 16:19 Drug: Albuterol Inhalation 2.5 mg Inhalation every 20 minutes x3 Route: Inhalation; mb9 17:03 Not Given (Physician Discretion): guaifenesinliquid 15 ml PO once jh7 17:11 Drug: Tussionex Pennkinetic ER PO Suspension 5 ml PO once Route: PO; mb9 18:00 Follow up: Response: No adverse reaction mb9 Disposition Summary: 08/14/23 17:48 Discharge Ordered Notes: Location: Home [facility] Problem: new [facility] Symptoms: have improved jh Condition: Stable [facility] Diagnosis - Coronavirus infection, unspecified jh7 - Acute bronchitis secondary to COVID-19 virus [facility] Followup: [facility] - With: Nnamdi Arshad MD - When: 2 - 3 days - Reason: Recheck today's complaints Discharge Instructions: - Discharge Summary Sheet jh7 - COVID-19 jh7 - 10 Things You Can Do to Manage Your COVID-19 Symptoms at Home - [facility] (05/06/2021) [facility] Forms: - Medication Reconciliation Form [facility] - Thank You Letter [facility] - Patient Portal Instructions [facility] - Leadership Thank You Letter [facility] Prescriptions: - albuterol sulfate 90 mcg/actuation Inhalation HFA Aerosol Inhaler - inhale 2 inhalation INHALATION route every 6 hours As needed; 1 Each; Refills: [facility] 0, Product Selection Permitted - Tessalon Perles 100 mg Oral Capsule - take 1 capsule ORAL route every 8 hours As needed; 15 capsule; Refills: 0, [facility] Product Selection Permitted Addendum: 08/15/2023 18:16 Co-signature as Attending Physician, Gabe Chamberlain MD. e c2 Signatures: Dispatcher [employer] Kelle Hutchison, TIER LIFT TRUCK OPERATOR TIER LIFT TRUCK OPERATOR 7 Colleen Shell RN RN mb9 Gail Tatum RN RN cm10 Gabe Chamberlain MD MD ec2
--- NOTE | 2023-08-14 17:48 | ER ---
Nurse's Notes [facility] Name: Kelsy Gerber Age: 48 yrs Sex: Female : 1975 Arrival Date: 08/14/2023 Time: 15:04 Bed DIS2 Private MD: Diagnosis: Coronavirus infection, unspecified;Acute bronchitis secondary to COVID-19 virus Presentation: 08/14 15:18 Chief complaint: Patient states: diagnosed with COVID yesterday and is having a cough, cm10 fever and shortness of breath. Pt states that she was sent to the ED by Dr. Arshad. Pt states that she has pain in her chest when she coughs and takes a deep breath. Coronavirus screen: Vaccine status: Patient reports receiving the 2nd dose of the covid vaccine. Ebola Screen: Patient denies travel to an Ebola-affected area in the 21 days before illness onset. No symptoms or risks identified at this time. Initial Sepsis Screen: Does the patient meet any 2 criteria? No. Patient's initial sepsis screen is negative. Does the patient have a suspected source of infection? No. Patient's initial sepsis screen is negative. Risk Assessment: Do you want to hurt yourself or someone else? Patient reports no desire to harm self or others. Onset of symptoms was August 14, 2023. 15:18 Method Of Arrival: Wheelchair cm10 15:18 Acuity: KELLEY 3 cm10 Triage Assessment: 15:21 General: Appears in no apparent distress. uncomfortable. Neuro: No deficits noted. cm10 Level of Consciousness is awake, alert, obeys commands, Oriented to person, place, time, situation. Respiratory: Reports shortness of breath cough that is dry, Airway is patent Respiratory effort is even, unlabored, Respiratory pattern is regular, symmetrical. Historical: - Allergies: 15:20 Aspirin; cm10 15:20 Daypro; cm10 15:20 Ibuprofen; cm10 15:20 Ketorolac; cm10 15:20 Morphine; cm10 15:20 NSAIDS; cm10 15:20 NSAIDS (Non-Steroidal Anti-Inflamma; cm10 - PMHx: 15:20 Asthma; Bipolar disorder; Diabetes - NIDDM; fatty liver; Hypertension; Hypothyroidism; cm10 LEFT SIDED WEAKNESS; migranes; Pancreatitis; TIA; - PSHx: 15:20 Total abdominal hysterectomy; cm10 - Immunization history:: Adult Immunizations unknown. - Social history:: Smoking status: Patient denies any tobacco usage or history of. Assessment: 16:31 Reassessment: No changes from previously documented assessment. Patient and/or family mb9 updated on plan of care and expected duration. Pain level reassessed. Patient is alert, oriented x 3, equal unlabored respirations, skin warm/dry/pink. 17:59 Reassessment: Patient and/or family updated on plan of care and expected duration. Pain mb9 level reassessed. Patient is alert, oriented x 3, equal unlabored respirations, skin warm/dry/pink. Patient states feeling better. Patient states symptoms have improved. Vital Signs: 15:18 BP 99 / 65; Pulse 97; Resp 18 S; Temp 100.2(O); Pulse Ox 97% on R/A; Pain 10/10; cm10 17:59 BP 101 / 68; Pulse 85; Resp 16; Temp 98.4(O); Pulse Ox 99% on R/A; mb9 15:18 Pain Scale: Adult cm10 ED Course: 15:05 Patient arrived in ED. rg4 15:09 [facility] jh7 15:09 Gabe Chamberlain MD is Attending Physician. jh7 15:20 Triage completed. cm10 15:21 Arm band placed on Patient placed in waiting room. cm10 15:59 CBC with Diff Sent. mb9 15:59 BMP Sent. mb9 16:41 XRAY Chest (1 view) In Process Unspecified. EDMS 17:47 Nnamdi Arshad MD is Referral Physician. jh7 17:59 No provider procedures requiring assistance completed. IV discontinued, intact, mb9 bleeding controlled, No redness/swelling at site. Pressure dressing applied. Administered Medications: 15:27 Drug: Acetaminophen PO 1000 mg PO once Route: PO; cm10 18:00 Follow up: Response: No adverse reaction mb9 15:39 Drug: Albuterol Inhalation 2.5 mg Inhalation every 20 minutes x3 Route: Inhalation; mb9 15:59 Drug: Albuterol Inhalation 2.5 mg Inhalation every 20 minutes x3 Route: Inhalation; mb9 16:19 Drug: Albuterol Inhalation 2.5 mg Inhalation every 20 minutes x3 Route: Inhalation; mb9 17:03 Not Given (Physician Discretion): guaifenesinliquid 15 ml PO once 7 17:11 Drug: Tussionex Pennkinetic ER PO Suspension 5 ml PO once Route: PO; mb9 18:00 Follow up: Response: No adverse reaction mb9 Outcome: 17:48 Discharge ordered by . [facility] 17:59 Discharged to home ambulatory, with family, 9 17:59 Condition: stable 17:59 Discharge instructions given to patient, Instructed on discharge instructions, follow up and referral plans. Demonstrated understanding of instructions, follow-up care, medications, Prescriptions given X 2, 18:00 Patient left the ED. mb9 Signatures: Dispatcher [employer] EDMS Mervat Londono 4 Kelle Dodd, APPLIANCE ASSEMBLER APPLIANCE ASSEMBLER 7 Colleen Shell RN RN mb9 Gail Tatum RN RN cm10 Corrections: (The following items were deleted from the chart) 18:00 17:59 BP 101 / 68; Pulse 85bpm; Resp 16bpm; Pulse Ox 99% RA; 9 9
--- NOTE | 2023-08-14 17:58 | RAD REPORT ---
EXAM DESCRIPTION: RADChest Single View08/14/2023 4:39 pm CLINICAL HISTORY: Cough;Dyspnea COMPARISON: Chest Single View dated 04/19/2023; Chest Single View dated 09/27/2022; Chest Single View dated 06/06/2021; Chest Single View dated 05/24/2021 TECHNIQUE: Portable AP view of the chest. FINDINGS: The lungs are clear. No pneumothorax or effusion. The cardiomediastinal contours are unre markable. IMPRESSION: No acute cardiopulmonary process.
== END 2023-08-14 18:00 | disposition home or self-care (01) ==
LOC: ER 15:04
DX: U07.1 COVID-19 (principal); J20.9 Acute bronchitis, unspecified; I10 Essential (primary) hypertension; E11.9 Type 2 diabetes mellitus without complications; Z88.5 Allergy status to narcotic agent; Z88.6 Allergy status to analgesic agent; Z88.8 Allergy status to other drugs, medicaments and biological substances
CPT/HCPCS: 85025; 80048; 36415; 71045; J7613

== ENCOUNTER 2024-01-30 15:14 | Emergency (ER) | payer OTHER ==
[2024-01-30 16:40] LABS: Absolute Basophils 0.1 K/uL (0-0.5); Absolute Eosinophils 0.1 K/uL (0-0.5); Absolute Lymphocytes (CBC) 1.6 K/uL (0.7-4.9); Absolute Monocytes 0.4 K/uL (0.1-1.3); Absolute Neutrophil 7.3 K/uL (1.8-8.0); Basophils % 1.1 % (0-1.3); Eosinophils % 1.1 % (0-4.4); Hematocrit 40.8 % (36.0-45.0); Hemoglobin 13.6 g/dL (12.0-15.0); Lymphocytes % 16.9 % (15.3-44.8); MCH 28.2 pg (27.0-35.0); MCHC 33.4 g/dL (32.0-36.0); MCV 84.6 fL (80-100); MPV 6.9 fL (7.6-11.3); Neutrophils % 76.9 % (41.7-73.7); Platelets 440 thou/uL (152-406); RBC Red Blood Cell Count 4.83 M/uL (3.86-4.86); Red Cell Distribution Width 14.3 % (12.1-15.2)
[2024-01-30 16:45] LABS: PT Prothrombin Time 11.7 SECONDS (9.5-12.5); Protime INR 1.07
[2024-01-30] MEDS ORDERED: LORazepam 2 MG/ML VIAL ONE (16:49)
[2024-01-30 17:09] LABS: ALT/SGPT 20 U/L (13-56); AST/SGOT 10 U/L (15-37); Albumin 3.6 g/dL (3.4-5.0); Albumin/Globulin Ratio 0.8 (1.1-1.8); Alkaline Phosphatase 134 U/L (45-117); Anion Gap 7.3 mEq/L (5.0-15.0); BUN Blood Urea Nitrogen 10 mg/dL (7-18); Bicarbonate 28 mEq/L (21-32); Bilirubin Direct 0.1 mg/dL (0-0.2); Bilirubin Indirect, Calculated 0.5 mg/dL (0.2-0.8); Bilirubin Total 0.6 mg/dL (0.2-1.0); Globulin 4.3 g/dL (2.3-3.5); Glomerular Filtration Rate 77 ml/min (=/>90); Glucose Level 106 mg/dL (74-106); Potassium 3.3 mEq/L (3.5-5.1); Protein, Total 7.9 g/dL (6.4-8.2); Sodium Level 139 mEq/L (136-145)
--- NOTE | 2024-01-30 19:38 | ER ---
Nurse's Notes [facility] Name: Kelsy Gerber Age: 48 yrs Sex: Female : 1975 Arrival Date: 01/30/2024 Time: 15:14 Bed 17 Private MD: Diagnosis: Suicidal ideations Presentation: 01/29 15:20 Chief complaint: Chief complaint: Patient states: pt feels like she would be better off as6 . she feels like she is to blame for her husbands 3 years ago. pt reports she has tried an attempt in the past by taking pills but it was unsuccessful. SHAYE in place. Risk Assessment: Do you want to hurt yourself or someone else? Patient reports desire/thoughts of hurting themselves or someone else. Provider notified. 15:27 Coronavirus screen: At this time, the client does not indicate any symptoms associated as6 with coronavirus-19. Ebola Screen: No symptoms or risks identified at this time. Initial Sepsis Screen: Does the patient meet any 2 criteria? No. Patient's initial sepsis screen is negative. Does the patient have a suspected source of infection? No. Patient's initial sepsis screen is negative. 15:27 Method Of Arrival: EMS: [facility] as6 15:27 Acuity: KELLEY 2 as6 17:21 Onset of symptoms was January 30, 2024. as6 Triage Assessment: 15:30 General: Appears distressed, obese, Behavior is cooperative, anxious, crying. Pain: as6 Complains of pain in chest. EENT: No deficits noted. No signs and/or symptoms were reported regarding the EENT system. Neuro: Level of Consciousness is awake, alert, obeys commands, Oriented to person, place, time, situation. Cardiovascular: Reports chest pain, Heart tones S1 S2 present Capillary refill < 3 seconds Patient's skin is warm and dry. Respiratory: Airway is patent Trachea midline Respiratory effort is even, unlabored, Respiratory pattern is regular, symmetrical. GI: No deficits noted. No signs and/or symptoms were reported involving the gastrointestinal system. : No deficits noted. No signs and/or symptoms were reported regarding the genitourinary system. Derm: Skin is intact, is healthy with good turgor. Musculoskeletal: Circulation, motion, and sensation intact. 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 - Infectious Disease History:: Denies. - Social history:: Smoking status: Reported history of juuling and/or vaping. Screenin:26 [facility] ED Fall Risk Assessment (Adult) History of falling in the last 3 months, as6 including since admission No falls in past 3 months (0 pts) Confusion or Disorientation No (0 pts) Intoxicated or Sedated No (0 pts) Impaired Gait No (0 pts) Mobility Assist Device Used No (0 pt) Altered Elimination No (0 pt) Score/Fall Risk Level 0 - 2 = Low Risk Oriented to surroundings, Maintained a safe environment, Educated pt \\T\\ family on fall prevention, incl call for assistance when getting out of bed, Assessed \\T\\ reinforced patient's understanding of fall precautions, Hourly rounding (assess needs \\T\\ fall precautionary measures) done. Abuse screen: Denies threats or abuse. Denies injuries from another. Nutritional screening: No deficits noted. Tuberculosis screening: No symptoms or risk factors identified. Assessment: 15:30 General: see triage assessment . as6 17:30 Reassessment: Patient appears in no apparent distress at this time. Patient and/or as6 family updated on plan of care and expected duration. Pain level reassessed. Patient is alert, oriented x 3, equal unlabored respirations, skin warm/dry/pink. 18:42 General: [place] at bedside . as6 19:30 Reassessment: Patient appears in no apparent distress at this time. Patient and/or as6 family updated on plan of care and expected duration. Pain level reassessed. Patient is alert, oriented x 3, equal unlabored respirations, skin warm/dry/pink. 21:30 Reassessment: Patient appears in no apparent distress at this time. Patient and/or as6 family updated on plan of care and expected duration. Pain level reassessed. Patient is alert, oriented x 3, equal unlabored respirations, skin warm/dry/pink. Psych: 15:20 [place] Suicide Severity Screening: In the past month, have you wished you were as6 or wished you could go to sleep and not wake up? Patient responds "yes." Based off the client's responses additional C-SSRS screening is required. "In the past month, have you actually had any thoughts of killing yourself?" Patient responds "yes." Based off the client's response additional [place] suicide severity screening questions to be further documented on paper forms. "In your lifetime, have you ever done anything, started to do anything, or prepared to do anything to end your life?" Patient responds "yes." Patient reports suicidal intent within 3 past months. Patient reports suicidal intent occurred greater than 3 months prior. Subjective: Patient's mood is sad, hopeless, Delusions are denied, Hallucinations are denied Having thoughts of suicide. Plan for suicide is to take pills. Objective: Patient is cooperative, using poor eye contact, Speech is rambling, Affect is appropriate. Interventions: Removed personal items and placed in bag. Patient placed in hospital gown. Searched person for dangerous items. Belonging list filled out. Safety Checks: Personal items have been removed. Door is open. No visitors are present at this time. pt reports in the past she has used street drugs but not recently. Commitment: Patient will be an involuntary commitment. Commitment papers completed. Vital Signs: 15:25 BP 120 / 76; Pulse 75; Resp 20 S; Temp 98.2(TE); Pulse Ox 96% on R/A; Weight 99.79 kg as6 (R); Height 5 ft. 1 in. (R); Pain 10/10; 21:50 BP 125 / 81; Pulse 87; Resp 16 S; Temp 98.1(TE); Pulse Ox 100% on R/A; as6 15:25 Body Mass Index 41.57 (99.79 kg, 154.94 cm) as6 15:25 Pain Scale: Adult as6 ED Course: 15:20 Patient has correct armband on for positive identification. Bed in low position. as6 15:21 Patient arrived in ED. em1 15:23 Deniz Reynolds, ELIZ is Primary Nurse. as6 15:25 Arm band placed on left wrist. as6 15:26 Gabe Chamberlain MD is Attending Physician. ec2 15:27 Triage completed. as6 16:21 Initial lab(s) drawn, by me, sent to lab. Inserted saline lock: 20 gauge in right as6 antecubital area, using aseptic technique. Blood collected. 17:32 Mental health screener arranged with [facility]. em1 17:52 Hyacinth Bowles FNP-C is PHCP. kb 18:41 [facility] screener arrives to talk to pt. em1 19:45 Safety checks: Items removed: yes. Sitter present: Yes. Valuables inventory done. rv1 Locked in safe. See valuables checklist. Door closed. Noise minimized. Warm blanket given. Sitter at bedside. 19:47 Warm blanket given. Diet tray given. PO fluids given. as6 20:45 Faxed current chart to all Psych Facilities we have listed. wm 20:55 Alicia with [facility] called for a Nurse to Nurse. wm 21:00 Pt accepted to [facility] by Dr. Garcia per Maggy Betancourt. 21:23 EMS will be transporting with an ETA \\T\\ 2150. 22:01 Provided Education on: need for transfer . as6 22:01 No provider procedures requiring assistance completed. IV discontinued, intact, as6 bleeding controlled, No redness/swelling at site. Pressure dressing applied. Administered Medications: 16:50 Drug: Ativan IVP 1 mg IVP once Route: IVP; Site: right antecubital; as6 19:47 Follow up: Response: No adverse reaction as6 20:44 Drug: Acetaminophen PO 1000 mg PO once Route: PO; as6 22:02 Follow up: Response: No adverse reaction as6 Medication: 15:26 VIS not applicable for this client. as6 Outcome: 19:38 ER care complete, transfer ordered by . kb 21:56 Patient left the ED. pf1 21:56 Transferred by ground EMS Transfer form completed. 21:56 Condition: stable 21:56 Instructed on the need for transfer, Signatures: Hyacinth Bowles FNP-C REGISTRATION SCHEDULING SPECIALIST-Juan C Pulido em1 Faith Mallory Ashby, RN RN as6 Glenda Grimes RN RN pf1 Mi Rodrigez rv1 Gabe Chamberlain MD MD ec2 Corrections: (The following items were deleted from the chart) 18:30 15:20 Chief complaint: as6 as6 23:00 22:01 Transferred by ground EMS Transfer form completed. as6 pf1 23:00 22:01 Condition: stable as6 pf1 23:00 22:01 Instructed on the need for transfer, as6 pf1 23:00 22:02 Patient left the ED. as6 pf1
--- NOTE | 2024-01-30 19:38 | EDPHYS ---
Physician Documentation [facility] Name: Kelsy Gerber Age: 48 yrs Sex: Female : 1975 Arrival Date: 01/30/2024 Time: 15:14 Bed 17 Private MD: ED Physician Gabe Chamberlain HPI: 01/29 15:52 This 48 yrs old Female presents to ER via EMS with complaints of SI. ec2 15:52 Patient arrives today for suicidal thoughts. Patient brought in by EMS, SHAYE placed by ec2 PD, patient reports thoughts of wanting to harm himself. Patient with history of depression, states she has had previous history of suicidal attempt. Reports that she has issues coping with the loss of her as well as not having stable support at home.. 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 - Infectious Disease History:: Denies. - Social history:: Smoking status: Reported history of juuling and/or vaping. ROS: 15:52 Constitutional: as per hpi ec2 Exam: 15:52 Constitutional: GEN: NAD Head: atraumatic Eyes: EOMI Ears: External ears are ec2 normal. CV: regular rate LUNGS: no respiratory distress ABD: non-distended SKIN: no evidence of rashes MSK: no evidence of trauma NEURO: moves all extremities equally. Psych: Tearful individual who expresses SI Vital Signs: 15:25 BP 120 / 76; Pulse 75; Resp 20 S; Temp 98.2(TE); Pulse Ox 96% on R/A; Weight 99.79 kg as6 (R); Height 5 ft. 1 in. (R); Pain 10/10; 21:50 BP 125 / 81; Pulse 87; Resp 16 S; Temp 98.1(TE); Pulse Ox 100% on R/A; as6 15:25 Body Mass Index 41.57 (99.79 kg, 154.94 cm) as6 15:25 Pain Scale: Adult as6 MDM: 15:33 Patient medically screened. ec2 15:52 Data reviewed: vital signs. ED course: Patient arrives today for evaluation of suicidal ec2 ideation. Examination remarkable for suicidal thoughts as well as tearfulness. Will obtain psychiatric evaluation, patient on SHAYE.. 16:52 ED course: EKG independently reviewed and interpreted by me, shows normal sinus rhythm, ec2 rate of 66, no acute ST elevations, normal nonconcerning. . 17:20 ED course: Patient medically clear and no emergent diagnoses found on workup. Pending ec2 urine studies however this cannot be management changing. Patient appropriate for psychiatric evaluation. . 21:33 ED course: Pt accepted to [facility] without conference by Dr carmen Garcia. 01/29 15:52 Order name: Acetaminophen; Complete Time: 17:20 ec2 01/29 15:52 Order name: Basic Metabolic Panel; Complete Time: 17:20 ec2 01/29 15:52 Order name: CBC with Diff; Complete Time: 17:20 ec2 01/29 15:52 Order name: ETOH Level; Complete Time: 17:20 ec2 01/29 15:52 Order name: Hepatic Function; Complete Time: 17:20 ec2 01/29 15:52 Order name: PT-INR; Complete Time: 17:20 ec2 01/29 15:52 Order name: Ptt, Activated; Complete Time: 17:20 ec2 01/29 15:52 Order name: Salicylate; Complete Time: 17:20 ec2 01/29 15:52 Order name: Urinalysis w/ reflexes; Complete Time: 20:19 ec2 01/29 15:52 Order name: Urine Drug Screen; Complete Time: 20:34 ec2 01/29 15:52 Order name: EKG - Nurse/Tech; Complete Time: 16:46 ec2 01/29 15:52 Order name: IV Saline Lock; Complete Time: 16:21 ec2 01/29 15:52 Order name: Labs collected and sent; Complete Time: 16:21 ec2 01/29 15:52 Order name: Suicide Precautions; Complete Time: 16:46 ec2 01/29 15:52 Order name: Suicide Screening ([place]); Complete Time: 16:46 ec2 Administered Medications: 16:50 Drug: Ativan IVP 1 mg IVP once Route: IVP; Site: right antecubital; as6 19:47 Follow up: Response: No adverse reaction as6 20:44 Drug: Acetaminophen PO 1000 mg PO once Route: PO; as6 22:02 Follow up: Response: No adverse reaction as6 Disposition Summary: 01/30/24 19:38 Transfer Ordered Notes: Transfer Location: Psych Facility kb Reason: Higher level of care kb Condition: Stable kb Problem: new kb Symptoms: are unchanged kb Accepting Physician: Dr Garcia(01/30/24 22:02) as6 Diagnosis - Suicidal ideations kb Forms: - Medication Reconciliation Form kb - SBAR form kb Signatures: Dispatcher [employer] EDHyacinth Paulino FNP-Deniz Betancourt RN RN as6 Gabe Chamberlain MD MD ec2 Corrections: (The following items were deleted from the chart) 15:52 15:52 ACETAMINOPHEN+C.LAB.BRZ ordered. EDMS EDMS 15:52 15:52 BASIC METABOLIC PANEL+C.LAB.BRZ ordered. EDMS EDMS 15:52 15:52 CBC+H.LAB.BRZ ordered. EDMS EDMS 15:52 15:52 ETHANOL+C.LAB.BRZ ordered. EDMS EDMS 15:52 15:52 HEPATIC FUNCTION+C.LAB.BRZ ordered. EDMS EDMS 15:52 15:52 PROTIME (+INR)+COAG.LAB.BRZ ordered. EDMS EDMS 15:52 15:52 PTT, ACTIVATED+COAG.LAB.BRZ ordered. EDMS EDMS 15:52 15:52 SALICYLATE+C.LAB.BRZ ordered. EDMS EDMS 15:52 15:52 Urinalysis+U.LAB.BRZ ordered. EDMS EDMS 15:52 15:52 URINE DRUG SCREEN+UC.LAB.BRZ ordered. EDMS EDMS 21:33 19:38 Dr morales kb 22:02 21:33 Dr Garcia kb as6
[2024-01-30 20:18] LABS: Specific Gravity 1.018 (1.005-1.030); Sqamous Epithelial <5 /HPF (None Seen); Urine Bacteria <20 /HPF (<20); Urine Bilirubin NEGATIVE (Negative); Urine Blood Negative (Negative); Urine Clarity Turbid (Clear); Urine Color Light-Yellow (Yellow); Urine Culture Reflex Order NOT NEEDED; Urine Glucose NEGATIVE (Negative); Urine Ketones NEGATIVE (Negative); Urine Microscopic Reflex YN ORDER UMIC; Urine Mucus Slight /HPF (None Seen); Urine Nitrite NEGATIVE (Negative); Urine Protein NEGATIVE (Negative); Urine RBC <5 /HPF (None Seen); Urine Urobilinogen Normal (Normal); Urine WBC <5 /HPF (<5); Urine pH 5.5 (5.0-7.0)
[2024-01-30 20:24] LABS: Barbiturates NEGATIVE (NEGATIVE); Benzodiazepines NEGATIVE (NEGATIVE); Cocaine NEGATIVE (NEGATIVE); METHAMPHETAM NEGATIVE (NEGATIVE); Methadone NEGATIVE (NEGATIVE); Opiates NEGATIVE (NEGATIVE); Phencyclidine NEGATIVE (NEGATIVE); THC Cannibis NEGATIVE (NEGATIVE)
[2024-01-30] MEDS ORDERED: ACETAMINOPHEN 500 MG TAB ONE (20:41)
[2024-01-31 01:11] VITALS: BP 125/81; TEMP 98.1; O2SAT 100
--- NOTE | 2024-01-31 17:47 | EKG ---
Test Date: 2024-01-30 Test Time: 16:43:18 Event Marketing Assistant: REBECCA MEASUREMENT RESULTS: Intervals: Rate: 66 MN: 166 QRSD: 102 QT: 402 QTc: 421 [place]: P: 43 MN: 166 QRS: -57 T: -1 INTERPRETIVE STATEMENTS: Normal sinus rhythm Left anterior fascicular block Abnormal ECG Compared to ECG 04/19/2023 13:07:40 No significant changes Electronically Signed On 01-31-24 17:46:12 CDT by Manoj Bean
== END 2024-01-30 22:02 ==
LOC: ER 15:14
DX: R45.851 Suicidal ideations (principal); Z88.5 Allergy status to narcotic agent; Z88.6 Allergy status to analgesic agent; Z88.8 Allergy status to other drugs, medicaments and biological substances
CPT/HCPCS: 36415; 80048; 80076; 80143; 80179; 80307; 81001; 82077; 85025; 85610; 85730; 93005

== ENCOUNTER 2024-08-14 12:01 | Emergency (ER) | payer OTHER ==
[2024-08-14 14:11] LABS: Specific Gravity > 1.030 (1.005-1.030)
[2024-08-14 14:12] LABS: Absolute Lymphocytes (CBC) 0.9 K/uL (0.7-4.9); Absolute Monocytes 0.1 K/uL (0.1-1.3); Absolute Neutrophil 6.8 K/uL (1.8-8.0); Basophils % 0.6 % (0-1.3); Eosinophils % 0.2 % (0-4.4); Hematocrit 41.3 % (36.0-45.0); Hemoglobin 13.7 g/dL (12.0-15.0); Lymphocytes % 11.4 % (15.3-44.8); MCH 28.8 pg (27.0-35.0); MCHC 33.3 g/dL (32.0-36.0); MCV 86.3 fL (80-100); MPV 7.1 fL (7.6-11.3); Monocytes % 1.3 % (3.3-12.3); Neutrophils % 86.5 % (41.7-73.7); Nucleated Red Blood Cells % 0.2 % (0-0); Platelets 407 thou/uL (152-406); RBC Red Blood Cell Count 4.78 M/uL (3.86-4.86); Red Cell Distribution Width 14.1 % (12.1-15.2); Specific Gravity > 1.030 (1.005-1.030); Urine Bacteria <20 /HPF (<20); Urine Bilirubin NEGATIVE (Negative); Urine Blood Negative (Negative); Urine Clarity Extremely Turbid (Clear); Urine Color Orange (Yellow); Urine Crystals Unidentified Moderate /HPF (None Seen); Urine Culture Reflex Order REFLEXED; Urine Glucose NEGATIVE (Negative); Urine Ketones NEGATIVE (Negative); Urine Microscopic Reflex YN ORDER UMIC; Urine Mucus 4+ /HPF (None Seen); Urine Nitrite NEGATIVE (Negative); Urine Protein 1+ (Negative); Urine Urobilinogen 1+ (Normal); Urine WBC >50 /HPF (<5); Urine WBC Clump Many /HPF (None Seen); Urine Yeast (Budding) Few /HPF (None Seen); Urine pH 5.5 (5.0-7.0)
[2024-08-14 14:24] LABS: Albumin 3.9 g/dL (3.4-5.0); Albumin/Globulin Ratio 0.9 (1.1-1.8); Bilirubin Total 0.8 mg/dL (0.2-1.0); Globulin 4.3 g/dL (2.3-3.5); Protein, Total 8.2 g/dL (6.4-8.2)
[2024-08-14] MEDS ORDERED: CEFTRIAXONE 1000 MG/VIAL ONE (15:26)
[2024-08-14] MEDS ORDERED: FAMOTIDINE 20 MG/2 ML VIAL IV ONE (15:27)
[2024-08-14] MEDS ORDERED: NA CHLORIDE 0.9% 1,000 ML ONE (15:27)
[2024-08-14] MEDS ORDERED: ONDANSETRON 4 MG/2 ML VIAL ONE (15:27)
[2024-08-14] MEDS ORDERED: MORPHINE 4 MG/ML SYR ONE (15:27)
[2024-08-14] MEDS ORDERED: FENTANYL CITR 100 MCG/2 ML ONE (16:06)
--- NOTE | 2024-08-14 16:09 | RAD REPORT ---
EXAMINATION: CT Abdomen Pelvis W Contrast CLINICAL INDICATION: Female, 49 years old. ABD PAIN TECHNIQUE: CT abdomen and pelvis was performed, after the administration of IV contrast, [facility]. Axial, sagittal and coronal reconstructions were obtained. One or more of the following dose reduction techniques were used: Automated exposure control, adjustment of the mA and k V according to patient size, and iterative reconstruction. Unless otherwise specified, incidental findings do not require dedicated imaging follow-up. COMPARISON: 09/27/2022 FINDINGS: LOWER CHEST: The visualized lung bases are clear. LIVER: Normal in size and contour. Anterior segment for a well-circumscribed 11 mL hypoattenuating le jimmy, stable, may suggest a small cyst, not well characterized. No other suspicious focal lesion. BILIARY SYSTEM: Status post cholecystectomy. SPLEEN: Normal size. No focal lesion. PANCREAS: No mass, ductal dilation, or janelle-pancreatic fluid. ADRENALS: Normal; no mass. KIDNEYS: Normal size and contour. No hydronephrosis. URINARY BLADDER: Compressed limiting evaluation. GASTROINTESTINAL TRACT: No evidence of free air, significant intra-abdominal free fluid, bowel obstru ction or abscess. Mild distal colonic diverticulosis. APPENDIX: Appendix not visualized, but no inflammatory changes in region of appendix. LYMPH NODES: No lymphadenopathy. MUSCULOSKELETAL: No acute or suspicious osseous abnormality. ADDITIONAL FINDINGS: Small umbilical hernia containing fat. IMPRESSION: No acute or concerning abnormalities seen in the abdomen or pelvis. Stable incidental findings as above..
--- NOTE | 2024-08-14 16:30 | EDPHYS ---
Physician Documentation [facility] Name: Kelsy Gerber Age: 49 yrs Sex: Female : 1975 Arrival Date: 08/14/2024 Time: 12:01 Bed 13 Private MD: ED Physician Jaime Ospina HPI: 08/14 16:25 This 49 yrs old Female presents to ER via Ambulatory with complaints of montse Abdominal Pain. 16:25 The patient presents with abdominal pain in the lower abdomen, right lower quadrant, montse abdominal distention in the upper abdomen, in the lower abdomen. The symptoms do not radiate. Associated signs and symptoms: none. The symptoms are described as crampy. Modifying factors: The symptoms are alleviated by nothing, the symptoms are aggravated by movement, pressure. Severity of pain: At its worst the pain was mild in the emergency department the pain. The patient has not experienced similar symptoms in the past. 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 - Infectious Disease History:: Denies. - Social history:: Smoking status: Patient denies any tobacco usage or history of. - Family history:: not pertinent. ROS: 16:25 Constitutional: Negative for fever, chills, and weight loss, Eyes: Negative for injury, montse pain, redness, and discharge, ENT: Negative for injury, pain, and discharge, Neck: Negative for injury, pain, and swelling, Cardiovascular: Negative for chest pain, palpitations, and edema, Respiratory: Negative for shortness of breath, cough, wheezing, and pleuritic chest pain, Back: Negative for injury and pain, : Negative for injury, bleeding, discharge, and swelling, MS/Extremity: Negative for injury and deformity, Skin: Negative for injury, rash, and discoloration, Neuro: Negative for headache, weakness, numbness, tingling, and seizure, Psych: Negative for depression, anxiety, suicide ideation, homicidal ideation, and hallucinations, Allergy/Immunology: Negative for hives, rash, and allergies, Endocrine: Negative for neck swelling, polydipsia, polyuria, polyphagia, and marked weight changes, Hematologic/Lymphatic: Negative for swollen nodes, abnormal bleeding, and unusual bruising, 16:25 Abdomen/GI: Positive for abdominal pain, of the right lower quadrant, Exam: 16:25 Constitutional: This is a well developed, well nourished patient who is awake, alert, montse and in no acute distress. Head/Face: Normocephalic, atraumatic. Eyes: Pupils equal round and reactive to light, extra-ocular motions intact. Lids and lashes normal. Conjunctiva and sclera are non-icteric and not injected. Cornea within normal limits. Periorbital areas with no swelling, redness, or edema. ENT: Nares patent. No nasal discharge, no septal abnormalities noted. Tympanic membranes are normal and external auditory canals are clear. Oropharynx with no redness, swelling, or masses, exudates, or evidence of obstruction, uvula midline. Mucous membranes moist. Neck: Trachea midline, no thyromegaly or masses palpated, and no cervical lymphadenopathy. Supple, full range of motion without nuchal rigidity, or vertebral point tenderness. No Meningismus. Chest/axilla: Normal chest wall appearance and motion. Nontender with no deformity. No lesions are appreciated. Cardiovascular: Regular rate and rhythm with a normal S1 and S2. No gallops, murmurs, or rubs. Normal PMI, no JVD. No pulse deficits. Respiratory: Lungs have equal breath sounds bilaterally, clear to auscultation and percussion. No rales, rhonchi or wheezes noted. No increased work of breathing, no retractions or nasal flaring. Back: No spinal tenderness. No costovertebral tenderness. Full range of motion. Skin: Warm, dry with normal turgor. Normal color with no rashes, no lesions, and no evidence of cellulitis. MS/ Extremity: Pulses equal, no cyanosis. Neurovascular intact. Full, normal range of motion. Neuro: Awake and alert, GCS 15, oriented to person, place, time, and situation. Cranial nerves II-XII grossly intact. Motor strength 5/5 in all extremities. Sensory grossly intact. Cerebellar exam normal. Normal gait. Psych: Awake, alert, with orientation to person, place and time. Behavior, mood, and affect are within normal limits. 16:25 Abdomen/GI: Inspection: distension, Bowel sounds: normal, Palpation: mild abdominal tenderness, in the right lower quadrant, Liver: no appreciated palpable abnormalities, Hernia: not appreciated, 17:04 ECG was reviewed by the Attending Physician. [facility] Vital Signs: 12:34 BP 112 / 73; Pulse 78; Resp 18; Temp 98.5(O); Pulse Ox 95% ; Weight 91.17 kg; Height 5 db ft. 2 in. ; Pain 10/10; 16:22 BP 123 / 64; Pulse 51; Pulse Ox 98% on R/A; MAP 82 mmHg; Pain 7/10; tm6 17:23 BP 135 / 76; Pulse 60; Resp 19; Temp 98.5; Pulse Ox 98% on R/A; MAP 94 mmHg; Pain 5/10; tm6 12:34 Body Mass Index 36.76 (91.17 kg, 157.48 cm) db 12:34 Pain Scale: Adult db 16:22 Pain Scale: Adult tm6 17:23 Pain Scale: Adult tm6 MDM: 12:37 Medical Screening Exam initiated montse 16:27 Differential diagnosis: cholecystitis, Cholelithiasis, diverticulitis, gastritis, montse Mesenteric ischemia or infarction, myocardia ischemia or infarction, non-specific abd pain, pancreatitis, Peptic Ulcer Disease, Peritonitis, Ureterolithiasis, urinary tract infection. Data reviewed: vital signs, nurses notes, lab test result(s), radiologic studies, CT scan. Consideration of Admission/Observation Escalation of care including admission/observation considered. I considered the following discharge prescriptions or medication management in the emergency department Medications were administered in the Emergency Department. See MAR. Independent interpretation of the following test(s) in the Emergency Department CT Scan: My interpretation is ct ab/ pel with iv. Care significantly affected by the following chronic conditions: Diabetes, Hypertension, Obesity, astma, bipolar. 08/14 12:37 Order name: CBC with Diff; Complete Time: 15:09 [facility] 08/14 12:37 Order name: CMP; Complete Time: 15: [facility] 08/14 12:37 Order name: Lipase; Complete Time: 15: [facility] 08/14 12:37 Order name: Test, Urine; Complete Time: 15:09 [facility] 08/14 12:37 Order name: Urinalysis w/ reflexes; Complete Time: 15:09 [facility] 08/14 14:16 Order name: Urine Culture [facility] 08/14 12:37 Order name: CT Abd/Pelvis - IV Contrast Only; Complete Time: 16:15 [facility] 08/14 16:59 Order name: EKG; Complete Time: 16:59 [facility] 08/14 12:38 Order name: IV Saline Lock; Complete Time: 14:02 [facility] 08/14 12:38 Order name: Labs collected and sent; Complete Time: 14:02 [facility] 08/14 16:59 Order name: EKG - Nurse/Tech; Complete Time: 17:17 [facility] EC:04 Rate is 66 beats/min. Rhythm is regular. QRS [place] is Normal. [place] interval is normal. QRS montse interval is normal. QT interval is normal. No Q waves. T waves are Normal. No ST changes noted. Clinical impression: Normal ECG and No evidence of ischemia. Interpreted by me. Reviewed by me. Administered Medications: 15:38 Drug: Famotidine IVP 20 mg IVP once; dilute with 10 mL 0.9% NaCl; give over 2 minutes tm6 Route: IVP; Site: left antecubital; 17:24 Follow up: Response: No adverse reaction tm6 15:38 Drug: Ondansetron IVP 4 mg IVP once; over 2 minutes Route: IVP; Site: left antecubital; tm6 17:24 Follow up: Response: No adverse reaction tm6 15:38 Not Given (patient allergic): morphineor iv 4 mg IVP once over 4 mins tm6 15:38 Drug: NS 0.9% IV 1000 ml IV at 1 bolus Per protocol; to be given as a bolus over 60 tm6 minutes Route: IV; Rate: 1 bolus; Site: left antecubital; 16:38 Follow up: Response: No adverse reaction; IV Status: Completed infusion; IV Intake: tm6 1000ml 15:38 Drug: Rocephin IV 1 grams IV at per protocol once; Given slow IV push per pharmacy tm6 instructions Route: IV; Rate: per protocol; Site: left antecubital; 15:40 Follow up: Response: No adverse reaction; IV Status: Completed infusion; IV Intake: [id number] 16:12 Drug: fentaNYL (PF) IVP 50 mcg IVP once Route: IVP; Site: left antecubital; tm6 17:24 Follow up: Response: No adverse reaction tm6 17:17 Drug: LevOfloxacin PO 750 mg PO once Route: PO; tm6 17:24 Follow up: Response: Medication administered at discharge. tm6 Disposition Summary: 08/14/24 16:29 Discharge Ordered Notes: Location: Home [facility] Problem: new montse Symptoms: have improved montse Condition: Stable montse Diagnosis - UTI/ Urinary tract infection, site not specified montse - Abdominal tenderness montse - Obesity, unspecified montse Followup: montse - With: Private Physician - When: 2 - 3 days - Reason: Recheck today's complaints, Continuance of care, Re-evaluation by your physician Followup: montse - With: Joshua Phillip MD - When: 2 - 3 days - Reason: Recheck today's complaints, Re-evaluation by your physician Discharge Instructions: - Discharge Summary Sheet montse - Abdominal Pain, Adult montse - Dysuria montse - Urinary Tract Infection, Adult montse - Urinary Tract Infection, Adult, Faoz-ul-Jasm montse - Abdominal Pain, Adult, Mjhd-et-Oleu [facility] Forms: - Medication Reconciliation Form [facility] - Antibiotic Education montse - Prescription Opioid Use montse - Patient Portal Instructions [facility] - Leadership Thank You Letter [facility] Prescriptions: - Pyridium 200 mg Oral Tablet - take 1 tablet ORAL route every 8 hours for 3 days; 9 tablet; Refills: 0, [facility] Product Selection Permitted - Bactrim DS 800-160 mg Oral Tablet - take 1 tablet ORAL route every 12 hours for 3 days; 6 tablet; Refills: 0, [facility] Product Selection Permitted - dicyclomine 20 mg Oral tablet - take 1 tablet ORAL route 4 times per day; 28 tablet; Refills: 0, Product [facility] Selection Permitted - levofloxacin 500 mg Oral tablet - take 1 tablet ORAL route once daily for 7 days; 7 tablet; Refills: 0, Product [facility] Selection Permitted Signatures: Dispatcher [employer] EDJaime Mirza MD MD cha Benton, Danielle RN RN Ashley Davila RN RN tm6 Corrections: (The following items were deleted from the chart) 12:38 12:38 CBC+H.LAB.BRZ ordered. EDMS EDMS 12:38 12:38 COMPREHENSIVE METABOLIC PANEL+C.LAB.BRZ ordered. EDMS EDMS 12 12:38 LIPASE+C.LAB.BRZ ordered. EDMS EDMS 38 12:38 Test, Urine+UC.LAB.BRZ ordered. EDMS EDMS :38 12:38 Urinalysis+U.LAB.BRZ ordered. EDMS EDMS
--- NOTE | 2024-08-14 16:30 | ER ---
Nurse's Notes [facility] Name: Kelsy Gerber Age: 49 yrs Sex: Female : 1975 Arrival Date: 08/14/2024 Time: 12:01 Bed 13 Private MD: Diagnosis: UTI/ Urinary tract infection, site not specified;Abdominal tenderness;Obesity, unspecified Presentation: 08/14 12:34 Chief complaint: Patient states: RIGHT LOWER PAIN X 1 WEEK. WORSE SINCE LAST NIGHT FELT db "BURNING" PAIN. TRIED MUSCLE RELAXER AND SLEEP MED AND PAIN WAS STILL INTENSE. STATES WAS TOLD TO HAVE R/O APPY. Coronavirus screen: Client denies travel out of the [place] in the last 14 days. At this time, the client does not indicate any symptoms associated with coronavirus-19. Ebola Screen: Patient negative for fever greater than or equal to 101.5 degrees Fahrenheit, and additional compatible Ebola Virus Disease symptoms Patient denies exposure to infectious person. Patient denies travel to an Ebola-affected area in the 21 days before illness onset. No symptoms or risks identified at this time. Initial Sepsis Screen: Does the patient meet any 2 criteria? No. Patient's initial sepsis screen is negative. Does the patient have a suspected source of infection? No. Patient's initial sepsis screen is negative. Risk Assessment: Do you want to hurt yourself or someone else? Patient reports no desire to harm self or others. Onset of symptoms was August 13, 2024. 12:34 Method Of Arrival: Ambulatory db 12:34 Acuity: KELLEY 3 db Triage Assessment: 12:37 General: Appears in no apparent distress. comfortable, Behavior is calm, cooperative. db Pain: Complains of pain in abdomen and pelvis. Neuro: Level of Consciousness is awake, alert, obeys commands, Oriented to person, place, time, situation. Respiratory: Airway is patent Respiratory effort is even, unlabored, Respiratory pattern is regular, symmetrical. GI: Abdomen is non-distended, Reports lower abdominal pain. 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 - Infectious Disease History:: Denies. - Social history:: Smoking status: Patient denies any tobacco usage or history of. - Family history:: not pertinent. Screenin:22 [facility] ED Fall Risk Assessment (Adult) History of falling in the last 3 months, tm6 including since admission No falls in past 3 months (0 pts) Confusion or Disorientation No (0 pts) Intoxicated or Sedated No (0 pts) Impaired Gait No (0 pts) Mobility Assist Device Used No (0 pt) Altered Elimination No (0 pt) Score/Fall Risk Level 0 - 2 = Low Risk Oriented to surroundings, Maintained a safe environment, Educated pt \\T\\ family on fall prevention, incl call for assistance when getting out of bed. Abuse screen: Denies threats or abuse. Denies injuries from another. Nutritional screening: No deficits noted. Tuberculosis screening: No symptoms or risk factors identified. Assessment: 16:22 General: Appears in no apparent distress. Behavior is calm, cooperative. Pain: tm6 Complains of pain in posterior aspect of right lateral abdomen, anterior aspect of right lateral abdomen and right lower quadrant Pain currently is 7 out of 10 on a pain scale. Quality of pain is described as burning. Neuro: Level of Consciousness is awake, alert, obeys commands, Oriented to person, place, time, situation. Cardiovascular: Patient's skin is warm and dry. Respiratory: Airway is patent Respiratory effort is even, unlabored, Respiratory pattern is regular, symmetrical. GI: Abdomen is flat, non-distended, Bowel sounds present X 4 quads. Abd is soft Abdomen is tender to palpation in posterior aspect of right lateral abdomen, anterior aspect of right lateral abdomen and right lower quadrant. : Reports pain in right flank(s), lower quadrant(s). EENT: No signs and/or symptoms were reported regarding the EENT system. Derm: No signs and/or symptoms reported regarding the dermatologic system. Musculoskeletal: No signs and/or symptoms reported regarding the musculoskeletal system. 17:22 Reassessment: Patient and/or family updated on plan of care and expected duration. Pain tm6 level reassessed. Patient is alert, oriented x 3, equal unlabored respirations, skin warm/dry/pink. Vital Signs: 12:34 BP 112 / 73; Pulse 78; Resp 18; Temp 98.5(O); Pulse Ox 95% ; Weight 91.17 kg; Height 5 db ft. 2 in. ; Pain 10/10; 16:22 BP 123 / 64; Pulse 51; Pulse Ox 98% on R/A; MAP 82 mmHg; Pain 7/10; tm6 17:23 BP 135 / 76; Pulse 60; Resp 19; Temp 98.5; Pulse Ox 98% on R/A; MAP 94 mmHg; Pain 5/10; tm6 12:34 Body Mass Index 36.76 (91.17 kg, 157.48 cm) db 12:34 Pain Scale: Adult db 16:22 Pain Scale: Adult tm6 17:23 Pain Scale: Adult tm6 ED Course: 12:06 Patient arrived in ED. sj2 12:36 Jaime Ospina MD is Attending Physician. montse 12:37 Triage completed. db 12:37 Arm band placed on right wrist. Patient placed in waiting room. db 13:40 Radiology exam delayed due to IV insertion attempt and/or patient not having nj appropriate IV at this time. 13:40 Radiology exam delayed due to lab results not completed at this time. (BUN/Creatinine). ms 14:02 CBC with Diff Sent. [facility] 14:02 CMP Sent. 6 14:02 Lipase Sent. 6 14:02 Test, Urine Sent. [facility] 14:02 Urinalysis w/ reflexes Sent. [facility] 14:03 Initial lab(s) drawn, by ok, sent to lab. Inserted saline lock: 20 gauge in left bc6 antecubital area, using aseptic technique. Blood collected. Flushed with 10 mL NS. 14:45 CT Abd/Pelvis - IV Contrast Only In Process Unspecified. EDMS 15:16 Ashley Vincent, RN is Primary Nurse. tm6 16:22 Patient has correct armband on for positive identification. Bed in low position. Call tm6 light in reach. Side rails up X 1. Provided Education on: use of call hewitt. Client placed on continuous cardiac and pulse oximetry monitoring. NIBP monitoring applied. Pulse ox on. NIBP on. Door closed. Noise minimized. Warm blanket given. Pillow given. 16:28 Joshua Phillip MD is Referral Physician. montse 17:17 EKG done, by ED staff, reviewed by Jaime Ospina MD. tm6 17:25 No provider procedures requiring assistance completed. IV discontinued, intact, tm6 bleeding controlled, No redness/swelling at site. Pressure dressing applied. Administered Medications: 15:38 Drug: Famotidine IVP 20 mg IVP once; dilute with 10 mL 0.9% NaCl; give over 2 minutes tm6 Route: IVP; Site: left antecubital; 17:24 Follow up: Response: No adverse reaction tm6 15:38 Drug: Ondansetron IVP 4 mg IVP once; over 2 minutes Route: IVP; Site: left antecubital; tm6 17:24 Follow up: Response: No adverse reaction tm6 15:38 Not Given (patient allergic): morphineor iv 4 mg IVP once over 4 mins tm6 15:38 Drug: NS 0.9% IV 1000 ml IV at 1 bolus Per protocol; to be given as a bolus over 60 tm6 minutes Route: IV; Rate: 1 bolus; Site: left antecubital; 16:38 Follow up: Response: No adverse reaction; IV Status: Completed infusion; IV Intake: tm6 1000ml 15:38 Drug: Rocephin IV 1 grams IV at per protocol once; Given slow IV push per pharmacy tm6 instructions Route: IV; Rate: per protocol; Site: left antecubital; 15:40 Follow up: Response: No adverse reaction; IV Status: Completed infusion; IV Intake: [id number] 16:12 Drug: fentaNYL (PF) IVP 50 mcg IVP once Route: IVP; Site: left antecubital; tm6 17:24 Follow up: Response: No adverse reaction tm6 17:17 Drug: LevOfloxacin PO 750 mg PO once Route: PO; tm6 17:24 Follow up: Response: Medication administered at discharge. tm6 Medication: 16:22 VIS not applicable for this client. tm6 Intake: 15:40 IV: 10ml; Total: 10ml. tm6 16:38 IV: 1000ml; Total: 1010ml. tm6 Outcome: 16:29 Discharge ordered by . montse 17:25 Discharged to home ambulatory, with family, tm6 17:25 Condition: stable 17:25 Discharge instructions given to patient, family, Instructed on discharge instructions, follow up and referral plans. medication usage, Demonstrated understanding of instructions, follow-up care, medications, Prescriptions given X 4, 17:25 Patient left the ED. tm6 Signatures: Dispatcher [employer] EDMS Jaime Ospina MD MD cha Jordan, Nathan nj Benton, Danielle, RN RN db Filomena Johnson [facility] Ashley Vincent RN RN tm6 Clyde Patten 2 Corrections: (The following items were deleted from the chart) 12:40 12:34 Chief complaint: Patient states: RIGHT LOWER PAIN X 1 WEEK. WORSE SINCE LAST db NIGHT FELT "BURNING" PAIN. TRIED MUSCLE RELAXER AND SLEEP MED AND PAIN WAS STILL INTENSE. db
[2024-08-14] MEDS ORDERED: levoFLOXacin 750 MG TAB ONE (16:47)
[2024-08-14 22:35] VITALS: TEMP 98.5
[2024-08-14 22:36] VITALS: O2SAT 98
[2024-08-14 22:38] VITALS: BP 135/76
--- NOTE | 2024-08-15 14:13 | EKG ---
Test Date: 2024-08-14 Test Time: 17:01:21 Attendant [employer]: ALONDRA MEASUREMENT RESULTS: Intervals: Rate: 66 [place]: 172 QRSD: 90 QT: 410 QTc: 429 [employer]: P: 38 [place]: 172 QRS: -65 T: -15 INTERPRETIVE STATEMENTS: Normal sinus rhythm Left anterior fascicular block Abnormal ECG Compared to ECG 01/30/2024 16:43:18 No significant changes Electronically Signed On 08-15-24 14:11:07 CDT by Jarrett Santillan
== END 2024-08-14 17:25 | disposition home or self-care (01) ==
LOC: ER 12:01
DX: N39.0 Urinary tract infection, site not specified (principal); E66.9 Obesity, unspecified; E11.9 Type 2 diabetes mellitus without complications; I10 Essential (primary) hypertension
CPT/HCPCS: 96361; 93005; 87088; 85025; 81001; 87086; 36415; 81025; 83690; 80053; 74177; 96375; 96374; 99285; Q9967; J3010; J2405; J7030; J0696

== ENCOUNTER 2025-02-09 13:21 | Emergency (ER) | payer OTHER ==
[2025-02-09] MEDS ORDERED: FENTANYL CITR 100 MCG/2 ML ONE (13:50)
[2025-02-09] MEDS ORDERED: MAGNES/ALUMIN/SIMET 30ML UCUP ONE (13:51)
[2025-02-09] MEDS ORDERED: NA CHLORIDE 0.9% 1,000 ML ONE (13:51)
[2025-02-09] MEDS ORDERED: LIDOCAINE VISCOUS 2% 10ML ORAL SOLN ONE (13:51)
[2025-02-09] MEDS ORDERED: ONDANSETRON 4 MG/2 ML VIAL ONE (13:51)
[2025-02-09] MEDS ORDERED: FAMOTIDINE 20 MG/2 ML VIAL IV ONE (13:51)
[2025-02-09 14:02] LABS: Absolute Basophils 0.1 K/uL (0-0.5); Absolute Eosinophils 0.1 K/uL (0-0.5); Absolute Monocytes 0.3 K/uL (0.1-1.3); Absolute Neutrophil 4.9 K/uL (1.8-8.0); Basophils % 1.1 % (0-1.3); Eosinophils % 0.9 % (0-4.4); Hemoglobin 13.8 g/dL (12.0-15.0); Lymphocytes % 27.5 % (15.3-44.8); MCH 29.7 pg (27.0-35.0); MCHC 34.4 g/dL (32.0-36.0); MCV 86.2 fL (80-100); MPV 6.8 fL (7.6-11.3); Monocytes % 4.3 % (3.3-12.3); Neutrophils % 66.2 % (41.7-73.7); Nucleated Red Blood Cells % 0.1 % (0-0); Platelets 428 thou/uL (152-406); RBC Red Blood Cell Count 4.64 M/uL (3.86-4.86); Red Cell Distribution Width 14.6 % (12.1-15.2)
[2025-02-09 14:16] LABS: ALT/SGPT 86 U/L (13-56); AST/SGOT 146 U/L (15-37); Albumin 3.3 g/dL (3.4-5.0); Albumin/Globulin Ratio 0.8 (1.1-1.8); Alkaline Phosphatase 131 U/L (45-117); BUN Blood Urea Nitrogen 12 mg/dL (7-18); Bicarbonate 28 mEq/L (21-32); Bilirubin Total 0.6 mg/dL (0.2-1.0); Globulin 3.9 g/dL (2.3-3.5); Glomerular Filtration Rate 90 ml/min (=/>90); Glucose Level 99 mg/dL (74-106); Lipase 25 U/L (13-75); Protein, Total 7.2 g/dL (6.4-8.2); Sodium Level 137 mEq/L (136-145)
[2025-02-09 14:19] LABS: Troponin High Sensitivity < 3.0 pg/mL (<58.9)
--- NOTE | 2025-02-09 15:02 | RAD REPORT ---
EXAMINATION: CT ABDOMEN AND PELVIS WITH CONTRAST CLINICAL INDICATION: Abdominal pain TECHNIQUE: CT abdomen and pelvis was performed, after the administration of 100 cc Isovue-300.. Sagit ervin and coronal reconstructions were obtained. One or more of the following dose reduction techniques were used: Automated exposure control, adjustment of the mA and kV according to patient si ze, and iterative reconstruction. Unless otherwise specified, incidental findings do not require dedicated imaging follow-up. [id number]. Oral contrast was not given which limits evaluation of bowel and appendix. COMPARISON: .2023 FINDINGS: Small hepatic cyst. Cholecystectomy. spleen, pancreas, adrenals and kidneys appear unremarkable No evidence of diverticulitis. Small umbilical hernia Hysterectomy. No adnexal mass. : IMPRESSION: No acute abnormality displayed
--- NOTE | 2025-02-09 15:41 | EDPHYS ---
Physician Documentation [facility] Name: Kelsy Gerber Age: 49 yrs Sex: Female : 1975 Arrival Date: 02/09/2025 Time: 13:21 Bed 20 Private MD: ED Physician Reinaldo Taylor HPI: 02/09 14:23 This 49 yrs old Female presents to ER via EMS with complaints of Abdominal rt Pain, Nausea. 14:29 Patient presents to the ED with an epigastric pain that started after he took a rt tramadol at about 9:00. Reports nausea vomiting. Reports a chest tightness. States that similar symptoms have occurred after taking tramadol. Denies other acute complaints at this time, symptoms are moderate in severity, no other aggravating alleviating factors.. 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 - Infectious Disease History:: Denies. - Social history:: Smoking status: Reported history of juuling and/or vaping. - Family history:: not pertinent. ROS: 14:29 Constitutional: Negative for fever, chills, and weight loss, Respiratory: Negative for rt shortness of breath, cough, wheezing, and pleuritic chest pain, MS/Extremity: Negative for injury and deformity, Skin: Negative for injury, rash, and discoloration, Neuro: Negative for headache, weakness, numbness, tingling, and seizure, 14:29 Cardiovascular: Positive for chest pain, Negative for edema, 14:29 Abdomen/GI: Positive for abdominal pain, nausea, Negative for Exam: 14:29 Constitutional: This is a well developed, well nourished patient who is awake, alert, rt and in no acute distress. Head/Face: Normocephalic, atraumatic. Chest/axilla: Normal chest wall appearance and motion. Nontender with no deformity. No lesions are appreciated. Cardiovascular: Regular rate and rhythm with a normal S1 and S2. No gallops, murmurs, or rubs. Normal PMI, no JVD. No pulse deficits. Respiratory: Lungs have equal breath sounds bilaterally, clear to auscultation and percussion. No rales, rhonchi or wheezes noted. No increased work of breathing, no retractions or nasal flaring. Skin: Warm, dry with normal turgor. Normal color with no rashes, no lesions, and no evidence of cellulitis. MS/ Extremity: Pulses equal, no cyanosis. Neurovascular intact. Full, normal range of motion. Neuro: Awake and alert, GCS 15, oriented to person, place, time, and situation. Cranial nerves II-XII grossly intact. Motor strength 5/5 in all extremities. Sensory grossly intact. Cerebellar exam normal. Normal gait. 14:29 ECG was reviewed by the Attending Physician. 14:29 Abdomen/GI: Tenderness to the epigastrium without rebound, guarding, distention, Vital Signs: 13:28 BP 123 / 86; Pulse 71; Resp 20; Temp 98.3; Pulse Ox 100% ; Weight 86.18 kg; Height 5 me1 ft. 2 in. ; Pain 10/10; 14:00 BP 101 / 71; Pulse 57; Resp 16; Pulse Ox 100% ; me1 15:00 BP 122 / 69; Pulse 66; Resp 15; Pulse Ox 100% ; me1 15:30 BP 107 / 68; Pulse 59; Resp 16; Temp 98.5; Pulse Ox 100% ; me1 13:28 Body Mass Index 34.75 (86.18 kg, 157.48 cm) me1 13:28 Pain Scale: Adult me1 MDM: 13:33 Medical Screening Exam initiated rt 16:43 Differential diagnosis: Pancreatitis, medication side effect, bowel obstruction. Data rt reviewed: vital signs, nurses notes, lab test result(s), EKG, radiologic studies. Consideration of Admission/Observation Escalation of care including admission/observation considered. I considered the following discharge prescriptions or medication management in the emergency department Medications were administered in the Emergency Department. See MAR. Independent interpretation of the following test(s) in the Emergency Department CT Scan: My interpretation is No bowel obstruction seen on my interpretation of CT scan images. Test considered but Not performed: Ultrasound Status postcholecystectomy, ultrasound is not indicated. Care significantly affected by the following chronic conditions: Diabetes, Steatohepatitis. Counseling: I had a detailed discussion with the patient and/or guardian regarding the historical points, exam findings, and any diagnostic results supporting the discharge/admit diagnosis, lab results, radiology results, the need for outpatient follow up, to return to the emergency department if symptoms worsen or persist or if there are any questions or concerns that arise at home. Response to treatment: the patient's symptoms have markedly improved after treatment. 02/09 13:41 Order name: CBC with Diff; Complete Time: 14:28 rt 02/09 13:41 Order name: CMP; Complete Time: 14:28 rt 02/09 13:41 Order name: Lipase; Complete Time: 14:28 rt 02/09 13:41 Order name: Troponin High Sensitivity; Complete Time: 14:28 rt 02/09 13:41 Order name: CT Abd/Pelvis - IV Contrast Only; Complete Time: 15:03 rt 02/09 13:41 Order name: IV Saline Lock; Complete Time: 13:48 rt 02/09 13:41 Order name: Labs collected and sent; Complete Time: 13:48 rt 02/09 13:41 Order name: EKG - Nurse/Tech; Complete Time: 13:58 rt EC:29 Rate is 68 beats/min. Rhythm is regular, Normal Sinus Rhythm with No ectopy. Left axis rt deviation noted. [place] interval is normal. QRS interval is normal. QT interval is normal. No Q waves. T waves are Normal. No ST changes noted. Interpreted by me. Administered Medications: 13:57 Drug: NS 0.9% IV 1000 ml IV at 1 bolus Per protocol; to be given as a bolus over 60 me1 minutes Route: IV; Rate: 1 bolus; Site: right antecubital; 15:49 Follow up: Response: No adverse reaction; IV Status: Completed infusion; IV Intake: me1 1000ml 13:58 Drug: Famotidine IVP 20 mg IVP once; dilute with 10 mL 0.9% NaCl; give over 2 minutes me1 Route: IVP; Site: right antecubital; 15:49 Follow up: Response: No adverse reaction me1 13:58 Drug: Ondansetron IVP 4 mg IVP once; over 2 minutes Route: IVP; Site: right antecubital;me1 15:49 Follow up: Response: No adverse reaction; Nausea is decreased me1 13:58 Drug: GI Cocktail without - (Maalox PO 30 ml, Lidocaine Mucous Membrane 2 % 15 me1 ml) PO once Route: PO; 15:48 Follow up: Response: No adverse reaction; Pain is decreased me1 13:58 Drug: fentaNYL (PF) IVP 50 mcg IVP once Route: IVP; Site: right antecubital; me1 15:48 Follow up: Response: No adverse reaction; Pain is decreased me1 Disposition Summary: 02/09/25 15:41 Discharge Ordered Notes: Location: Home rt Problem: new rt Symptoms: have improved rt Condition: Stable rt Diagnosis - Epigastric pain rt Followup: rt - With: Private Physician - When: 2 - 3 days - Reason: Discharge Instructions: - Discharge Summary Sheet rt - Abdominal Pain, Adult rt Forms: - Medication Reconciliation Form rt - Antibiotic Education rt - Prescription Opioid Use rt - Patient Portal Instructions rt - Leadership Thank You Letter rt Prescriptions: - ondansetron 4 mg Oral Tablet,disintegrating - take 1 tablet ORAL route once; 15 tablet; Refills: 0, Product Selection rt Permitted Signatures: Dispatcher [employer] Reinaldo Haro MD MD rt Ban Hanson, ELIZ RN me1 Corrections: (The following items were deleted from the chart) 13:41 13:41 Abdomen Pelvis W [id number] ordered. BERTA HAMPTON
--- NOTE | 2025-02-09 15:41 | ER ---
Nurse's Notes [facility] Name: Kelsy Gerber Age: 49 yrs Sex: Female : 1975 Arrival Date: 02/09/2025 Time: 13: Bed 20 Private MD: Diagnosis: Epigastric pain Presentation: 02/09 13:28 Chief complaint: EMS states: toned out for epigastric abdominal pain that started after me1 taking tramadol this morning about 9 am, also has nausea Has had this before after tramadol states it feels like shes swallowed needles. Prescribed tramadol for bulding discs. Also c/o left leg pain that radiates up to her left shoulder from a dog jumping on her recently. Coronavirus screen: Vaccine status: Patient reports receiving the 2nd dose of the covid vaccine. Ebola Screen: No symptoms or risks identified at this time. Initial Sepsis Screen: Does the patient meet any 2 criteria? No. Patient's initial sepsis screen is negative. Does the patient have a suspected source of infection? No. Patient's initial sepsis screen is negative. Risk Assessment: Do you want to hurt yourself or someone else? Patient reports no desire to harm self or others. Onset of symptoms was February 09, 2025 at 07:00. 13:28 Method Of Arrival: EMS: [facility] 13:28 Acuity: KELLEY 3 me1 Triage Assessment: 13:31 General: Appears uncomfortable, Behavior is cooperative, appropriate for age, anxious, me1 Reports epigastric pain that feels like she swallowed needles, nausea and pain to left leg that radiates up to left shoulder. Pain: Complains of pain in epigastric area Pain does not radiate. Pain currently is 10 out of 10 on a pain scale. Quality of pain is described as "like I swallowed needles" Pain began 4 hours ago. Is continuous. 13:31 Pain: Complains of pain in left leg Pain radiates to anterior aspect of left shoulder me1 Pain currently is 10 out of 10 on a pain scale. Quality of pain is described as sharp, shooting, Pain began 2-3 days ago. Is continuous. EENT: No signs and/or symptoms were reported regarding the EENT system. Neuro: Level of Consciousness is awake, alert, obeys commands, Oriented to person, place, time, situation, Appropriate for age. Cardiovascular: Patient's skin is warm and dry. Respiratory: Airway is patent Respiratory effort is even, unlabored, Respiratory pattern is regular, symmetrical. GI: Abdomen is round Reports upper abdominal pain, nausea. : No signs and/or symptoms were reported regarding the genitourinary system. Derm: Skin is intact, is healthy with good turgor, Skin is pink, warm \\T\\ dry. Musculoskeletal: Reports pain in left leg. 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 - Infectious Disease History:: Denies. - Social history:: Smoking status: Reported history of juuling and/or vaping. - Family history:: not pertinent. Screenin:[facility] ED Fall Risk Assessment (Adult) History of falling in the last 3 months, me1 including since admission No falls in past 3 months (0 pts) Confusion or Disorientation No (0 pts) Intoxicated or Sedated No (0 pts) Impaired Gait No (0 pts) Mobility Assist Device Used No (0 pt) Altered Elimination No (0 pt) Score/Fall Risk Level 0 - 2 = Low Risk Maintained a safe environment, Provided non-skid footwear, Hourly rounding (assess needs \\T\\ fall precautionary measures) done. Abuse screen: Denies threats or abuse. Nutritional screening: No deficits noted. Tuberculosis screening: No symptoms or risk factors identified. Assessment: 13:35 General: See triage assessment. me1 16:10 GI: Bowel sounds present X 4 quads. Abd is soft and non tender X 4 quads. me1 Vital Signs: 13:28 BP 123 / 86; Pulse 71; Resp 20; Temp 98.3; Pulse Ox 100% ; Weight 86.18 kg; Height 5 me1 ft. 2 in. ; Pain 10/10; 14:00 BP 101 / 71; Pulse 57; Resp 16; Pulse Ox 100% ; me1 15:00 BP 122 / 69; Pulse 66; Resp 15; Pulse Ox 100% ; me1 15:30 BP 107 / 68; Pulse 59; Resp 16; Temp 98.5; Pulse Ox 100% ; me1 13:28 Body Mass Index 34.75 (86.18 kg, 157.48 cm) me1 13:28 Pain Scale: Adult de1 ED Course: 13:28 Patient arrived in ED. me1 13:28 Reinaldo Taylor MD is Attending Physician. rt 13:31 Triage completed. me1 13:31 Arm band placed on Patient placed in an exam room. me1 13:35 Patient has correct armband on for positive identification. Bed in low position. Call me1 light in reach. Side rails up X2. Provided Education on: POC. Verbalized understanding.. Client placed on continuous cardiac and pulse oximetry monitoring. NIBP monitoring applied. engine monitor on. Pulse ox on. NIBP on. 13:35 No provider procedures requiring assistance completed. me1 13:39 Ban Hanson, RN is Primary Nurse. me1 13:48 Initial lab(s) drawn, by de, sent to lab. Inserted saline lock: 22 gauge in right me1 antecubital area, using aseptic technique. 13:48 CBC with Diff Sent. me1 13:48 CMP Sent. me1 13:48 Lipase Sent. me1 13:58 EKG done, by ED staff, reviewed by Reinaldo Taylor MD. me1 14:45 CT Abd/Pelvis - IV Contrast Only In Process Unspecified. EDMS 16:10 IV discontinued, intact, bleeding controlled, No redness/swelling at site. Pressure me1 dressing applied. Administered Medications: 13:57 Drug: NS 0.9% IV 1000 ml IV at 1 bolus Per protocol; to be given as a bolus over 60 me1 minutes Route: IV; Rate: 1 bolus; Site: right antecubital; 15:49 Follow up: Response: No adverse reaction; IV Status: Completed infusion; IV Intake: me1 1000ml 13:58 Drug: Famotidine IVP 20 mg IVP once; dilute with 10 mL 0.9% NaCl; give over 2 minutes me1 Route: IVP; Site: right antecubital; 15:49 Follow up: Response: No adverse reaction me1 13:58 Drug: Ondansetron IVP 4 mg IVP once; over 2 minutes Route: IVP; Site: right antecubital;me1 15:49 Follow up: Response: No adverse reaction; Nausea is decreased me1 13:58 Drug: GI Cocktail without - (Maalox PO 30 ml, Lidocaine Mucous Membrane 2 % 15 me1 ml) PO once Route: PO; 15:48 Follow up: Response: No adverse reaction; Pain is decreased me1 13:58 Drug: fentaNYL (PF) IVP 50 mcg IVP once Route: IVP; Site: right antecubital; me1 15:48 Follow up: Response: No adverse reaction; Pain is decreased me1 Medication: 13:35 VIS not applicable for this client. me1 Intake: 15:49 IV: 1000ml; Total: 1000ml. me1 Outcome: 15:41 Discharge ordered by . rt 16:10 Discharged to home via wheelchair, with family, me1 16:10 Condition: stable 16:10 Discharge instructions given to patient, family, Instructed on discharge instructions, follow up and referral plans. medication usage, Demonstrated understanding of instructions, follow-up care, medications, Prescriptions given X 1, 16:11 Patient left the ED. me1 Signatures: Dispatcher [employer] EDReinaldo Arce MD MD rt Ban Hanson, RN RN me1
--- NOTE | 2025-02-11 12:42 | EKG ---
Test Date: 2025-02-09 Test Time: 13:54:20 Content Publisher: ABDON MEASUREMENT RESULTS: Intervals: Rate: 68 ME: 166 QRSD: 88 QT: 390 QTc: 414 [place]: P: 72 ME: 166 QRS: -68 T: 6 INTERPRETIVE STATEMENTS: Normal sinus rhythm with sinus arrhythmia Left axis deviation Pulmonary disease pattern Abnormal ECG Compared to ECG 08/14/2024 17:01:21 Left-axis deviation now present Left anterior fascicular block no longer present Electronically Signed On 02-11-25 12:37:34 CDT by Jarrett Santillan
== END 2025-02-09 16:11 | disposition home or self-care (01) ==
LOC: ER 13:21
DX: R10.13 Epigastric pain (principal); R07.9 Chest pain, unspecified; R11.0 Nausea; I10 Essential (primary) hypertension
CPT/HCPCS: 96361; 93005; 85025; 36415; 84484; 83690; 80053; 74177; 96375; 96374; 99285; Q9967; J3010; J2405; J7030